=== PATIENT | male | born 1960 | race Caucasian/White ===

== ENCOUNTER 2018-05-03 10:13 | Inpatient (IN) | payer MEDICAID, SELFPAY ==
[2018-05-03] VITALS (15 sets, daily range): BP systolic 118–144; BP diastolic 70–100; PULSE 66–123; RESP 16–20; TEMP 36.5–37; O2SAT 95–98; BMI 33.3; BMI 33.7; BMI 33.8
--- NOTE | 2018-05-03 10:33 | EKG12_ITS ---
Test Reason : GEN ILLNESS Blood Pressure : / mmHG Vent. Rate : 092 BPM Atrial Rate : 092 BPM P-R Int : 150 ms QRS Dur : 088 ms QT Int : 390 ms P-R-T Axes : 061 063 048 degrees QTc Int : 482 ms Normal sinus rhythm Low voltage QRS Jer-septal infarct, age undetermined, cannot be excluded Nonspecific T wave abnormality Abnormal ECG Confirmed by AVANI CHRISTIANSEN, THOM ([id number]), commissioning editor ALVINA ISBELL ([id number] on 05/04/2018 2:10:59 PM Referred By: NANDA Confirmed By:THOM VARMA MD
--- NOTE | 2018-05-03 10:33 | RAD_ITS ---
STUDY: X-RAY CHEST REASON FOR EXAM: Male, 57 years old. Dyspnea. TECHNIQUE: Single AP portable view of the chest. COMPARISON: None. FINDINGS: EKG electrodes are seen. Basilar congestion and mild CHF. There is no demonstrated pleural abnormality. There is mild cardiac enlargement. Normal mediastinum and shelly. Normal visualized pulmonary arteries. Normal visualized aortic arch and descending thoracic aorta. Normal visualized thoracic spine. Normal visualized ribs, clavicles, and shoulders. There is no demonstrated abnormality of the visualized soft tissue structures of the upper abdomen. RAD/Chest 1 View (Portable) IMPRESSION: Cardiomegaly. Vascular congestion and mild CHF. Electronically Signed: Jerman Mcfadden MD at 11:06 EDT Tel [phone], Service support ,
[2018-05-03] MEDS: Nitroglycerin Oint 1 INCH PACKET TRANSDERM. (11:14)
[2018-05-03] MEDS: Furosemide 20 MG/2 ML VIAL IV (11:15)
[2018-05-03 11:18] LABS: Absolute Lymphocyte Count 0.75 X10^3/ul (0.83-4.51); Absolute Neutrophil Count 2.5 X10^3/uL (2.0-7.7); Basophil# 0.04 X10^3/uL; Eosinophils% 2.4 % (0-5); Hematocrit 37.9 % (40-54); Hemoglobin 12.2 g/dl (13.0-16.5); Lymphocyte # 0.75 X10^3/ul (4.0); Lymphocyte % 18.2 % (19-41); Mean Corp Hgb Conc 32.2 g/gl (32-36); Mean Corpuscular Hgb 29.2 pg (27.0-32.0); Mean Corpuscular Volume 90.7 fL (80-94); Mean Platelet Vol. 12.1 fl (6.2-12.0); Monocyte# 0.72 X10^3/uL; Monocyte% 17.5 % (0-10); Neutrophil # 2.51 X10^3/uL (2.7-7.7); Neutrophil % 60.9 % (47-70); Platelet Count 72 K/mm3 (150-450); RBC Distribution Width CV 17.2 % (11.6-14.6); RBC Distribution Width SD 56.5 fl (35.1-43.9); Red Blood Count 4.18 M/mm3 (4.6-6.2); White Blood Count 4.1 K/mm3 (4.4-11.0)
[2018-05-03 11:22] LABS: Differential Indicated SCAN CRITERIA MET; POSITIVE COUNT NO; POSITIVE DIFFERENTIAL NO; POSITIVE MORPHOLOGY YES
[2018-05-03 11:25] LABS: Anion Gap 7 (5-15); BUN 10 mg/dL (7-18); BUN/Creat Ratio 13.7 RATIO (10-20); Calcium,Total 8.4 mg/dL (8.5-10.1); Chloride 105 mmol/L (98-107); Creatinine, Serum 0.73 mg/dL (0.70-1.30); EST Glomerular Filtration Rate 117 mL/min (>60); Est Glom Filt Rate - Afr Amer 142 mL/min (>60); Estimated Creatinine Clearance 118.91 ml/min; Glucose 119 mg/dL (74-106); Potassium 4.2 mmol/L (3.5-5.1); Sodium Level 140 mmol/L (136-145)
[2018-05-03 11:47] LABS: BNP,B-Type NATRIURETIC PEPTIDE 489.8 pg/mL (0-100)
--- NOTE | 2018-05-03 12:21 | NURSING ---
DR MARGARET VEE
--- NOTE | 2018-05-03 12:22 | ED.DCSUM_ITS ---
- ER Visit Summary Date of Service: 05/03/18 Chief Complaint: Shortness of breath, orthopnea, swelling History of Present Illness: The patient is a 57 M history of diabetes for 2-3 years and pancreatitis per old records presents with increased swelling of his legs for the past several weeks with dyspnea on exertion. He states he is becoming more short of breath with less activity. He has recently complained of midsternal chest discomfort with activity that goes away with rest. He states he is unable to do much of anything because he becomes winded quite easily. He is not able to lie flat in bed. He has not awakened gasping for breath. He denies chest tightness or pressure without activity. Brother has history of viral cardiomyopathy and father had history of coronary disease at young age. Patient is a smoker and admits to consuming 6 beers a day. He denies recent viral infection. Physical Examination: Patient's vital signs are noted and remarkable for an elevated blood pressure of 130/100. He is not hypoxic. Head is atraumatic normocephalic. Pupils are equal round reactive. Extraocular muscles are intact. TMs are pearly white with landmarks noted. Nares patent with no drainage. Posterior pharynx without erythema or exudate. Uvula is midline. There is no dysphonia or dysphasia. Trachea is midline. There is no stridor with auscultation of the neck. Rales noted at the base. Heart is regular without murmur, gallop or rub. Abdomen is distended not tympanitic. Patient has anasarca. He has 3+ pitting edema lower extremity. Neuro exam is nonfocal. Test Results: EKG reveals a sinus rhythm rate of 92 with decreased anterior force and low voltage. Chest x-ray was portable and single view. Per my interpretation borderline cardiomegaly and CHF. White count 4.1 with platelet count 72,000. H&H 12.2 and 37.9. Glucose is slightly elevated at 119. Troponins indeterminate 0.143. BNP is elevated at 489. Emergency Department Course and Treatment: With history of swelling, weight gain , orthopnea and exertional chest pain cardiac etiology was undertaken. This may represent a viral cardia myopathy, ischemic cardiomyopathy or other cause. This may be related to alcohol as well. EKG, chest x-ray and appropriate blood work was obtained to evaluate patient's presentation. Treatment Plan: Since patient is clinically fluid overloaded he received 20 mg of Lasix IV push and was treated with 1 inch of nitro paste for preload reduction. Disposition: Full admit PCU Impression: 1. New onset congestive heart failure 2. Elevated troponin 3. Thrombocytopenia 4. Chronic alcohol use 5. Tobacco use 6. Exertional angina This note was generated with [employer] dictation software. It may contain incorrect words, spelling, and punctuation that were not noted in review of the chart prior to signing ED Disposition - Plan for ED Patient: Chief Complaint: General Illness Referrals: Adi Cisneros MD [Primary Care Provider] -
--- NOTE | 2018-05-03 12:27 | NURSING ---
NEW ONSET CHF, EXERTIONAL ANGINA, TYPE 2 DM EILEEN ROBLES
[2018-05-03] MEDS: Aspirin 81 MG TAB.CHEW 324 MG PO (12:30)
--- NOTE | 2018-05-03 12:45 | NURSING ---
CALLED [facility] IN ER. PAVON TO SEND PT.
--- NOTE | 2018-05-03 14:17 | PCM.HP.STD ---
<Arely Brower - Last Filed: 05/03/18 14:49> Problem List (1) Pancreatitis Status: Resolved (2) Alcohol abuse Status: Chronic (3) Type 2 diabetes mellitus Status: Chronic (4) CHF (congestive heart failure) Status: Acute (5) COPD (chronic obstructive pulmonary disease) Status: Chronic (6) Tobacco abuse Status: Chronic (7) BPH (benign prostatic hyperplasia) Status: Chronic History of Present Illness Date of Admission: 05/03/18 Chief Complaint: Dyspnea, chest pain. The patient is a 57 year old M who presents emergency room due to shortness of breath and chest pain. Patient states shortness of breath has been ongoing for months, worse with exertion. Patient states chest pain is more recent, occurring in the past few weeks and associated with exertion as well. Patient describes chest pain as pressure in the center of his chest, improved with rest. Denies radiation to neck or arms. He states he has had a stress test and cardiac catheterization which she believes were at least 10 years ago. No known CAD. Patient notes his baseline weight is 220 pounds. On admission his weight was 235. He notes increase in weight over the past few months. He also notes difficulty breathing while lying flat. Complains of lower extremity swelling. Patient drinks 6-7 beers per day. He is a half pack per day smoker. His other past medical history includes type 2 diabetes mellitus, COPD, BPH, tobacco dependence, chronic alcohol abuse. Patient has had hospital admission in the past due to alcoholic pancreatitis. Past Medical History Past Medical History (Chronic Problems): Chronic Problems Alcohol abuse (Chronic) Type 2 diabetes mellitus (Chronic) COPD (chronic obstructive pulmonary disease) (Chronic) Tobacco abuse (Chronic) BPH (benign prostatic hyperplasia) (Chronic) Hyperbilirubinemia (Chronic) Allergies No Known Allergies Allergy (Verified 05/03/18 10:14) Home Medications: Ambulatory Orders Medication Instructions Recorded Multivitamins,Ther W-Minerals 1 tablet PO DAILY 10/31/15 [Multivitamin With Minerals] Metformin(XR) [Glucophage Xr] 1,000 mg BID 05/03/18 Tamsulosin HCl [Flomax] 0.4 mg DAILY 05/03/18 Zolpidem Tartrate [Ambien] 10 mg PO QHS PRN PRN 05/03/18 Surgical History: - - foot surgery, heart cath, colonoscopy. Psychiatric History: No pertinent psych hx Lives: Alone Smoking Status: Current every day smoker Tobacco Use: Cigarettes - Half pack per day Alcohol: Heavy Drugs: None - *Family History Maternal History Items: Diabetes, Hypertension Paternal History Items: - - father of pericarditis at age 29 Review of Systems Constitutional: Reports: Weight Change - +15 pounds over the past few months. Denies: Chills, Fever HEENT: Denies: Head Aches, Sinus Congestion, Sinus Drainage Cardiovascular: Reports: Chest Pain, Chest Pressure, Edema - Lower extremity, Orthopnea. Denies: Light Headedness, Palpitations, Syncope Respiratory: Reports: Shortness of breath upon exertion, Wheezing. Denies: Cough, Shortness of breath at rest, Sputum production Gastrointestinal: Denies: Abdominal Pain, Nausea, Vomiting Genitourinary: Denies: Dysuria Musculoskeletal: Denies: Joint Pain, Joint Tenderness Skin: Denies: Rash, Wounds Neurological: Denies: Numbness, Tingling, Focal weakness Psychiatric: Denies: Anxiety, Depression, Homicidal Ideations, Suicidal Ideations Hematologic/ Lymphatic: Denies: Easy Bruising, Easy Bleeding VTE Information - Inpt Only VTE Present on Admission: No VTE Mechan Device Prophylaxis: None VTE Pharm Prophylaxis ordered?: Yes Patient Problems: Active and Suspected Problems CHF (congestive heart failure) (Acute) Wide-complex tachycardia (Acute) Chest pain (Acute) Elevated troponin (Acute) - Physical Exam General: Alert, Oriented x3, Cooperative, No apparent distress HEENT: Atraumatic, PERRLA, EOMI, Normocephalic Neck: Supple, No JVD, Negative Carotid Bruits Lungs: Diminished, Rales Cardiovascular: Regular rate, Regular Rhythm, Normal S1, Normal S2, No murmurs Abdomen: Bowel Sounds Present, Soft, Non Tender, Non-Distended, Obese Extremities: No clubbing, No cyanosis, Edema - +3 BLLE Skin: No rashes, No breakdown Musculoskeletal: No Tenderness to Palpation of Joints or Extremities Neurological: Cranial nerves II-XII grossly intact, Neuro grossly intact Psych/Mental Status: Normal Affect, Appropriate Vital Signs Temp Pulse Resp BP Pulse Ox 97.7 F L 99 16 144/98 H 97 05/03/18 13:05 05/03/18 13:05 05/03/18 13:05 05/03/18 13:05 05/03/18 13:05 Oxygen Delivery Method Room Air Weight: 235 lb 10.786 oz Body Mass Index (BMI) 33.7 Assessment/Plan All Active Problems CHF (congestive heart failure) (Acute) Wide-complex tachycardia (Acute) Chest pain (Acute) Elevated troponin (Acute) Pancreatitis (Resolved) 1. New onset suspected diastolic CHF-chest x-ray admission demonstrated borderline cardiomegaly and CHF. BNP 49. +15 pounds patient's baseline with pitting lower extremity edema. Strict I&O. Daily weight. IV lasix 40mg twice daily. Initiate low dose lisinopril. Obtain echocardiogram. Fred wrap bilateral extremities. 2. Elevated troponin with chest pain-trend enzymes. Initiated aspirin, statin. Cardiology consult. 3. Chronic alcohol abuse-states he drinks 6-7 beers per day. [facility] protocol. Thiamine, folic acid, multivitamin supplementation. Check alcohol blood level and urine drug screen. 4. Chronic liver disease-CT of abdomen October 2015 with enlarged liver with probable cirrhosis, evidence of portal hypertension including varices and splenomegaly. Patient has continued to drink heavily since that time. Check liver profile. 5. Chronic thrombocytopenia secondary to chronic alcohol use- stable. 6. Chronic COPD-albuterol and DuoNeb aerosols. No acute exacerbation. 7. Type 2 diabetes mellitus-hold metformin regimen. Accu-Cheks before meals at bedtime with sliding scale insulin. Check hemoglobin A1c. 8. BPH-continue Flomax regimen. 9. Tobacco dependence-encourage smoking cessation. Nicotine replacement patch if desired. DVT prophylaxis-SCDs. This patient was seen by MERLIN Bucio under the supervision of Dr. Carlson. <Cullen Carlson - Last Filed: 05/03/18 17:15> Problem List (1) Chest pain Status: Acute (2) Elevated troponin Status: Acute (3) Hyperbilirubinemia Status: Chronic (4) CHF (congestive heart failure) Status: Acute Qualifiers: Heart failure chronicity: acute on chronic History of Present Illness The patient is a 57 year old M presents with several month history of increasing shortness of breath, orthopnea and lower extremity swelling. Patient presented to the emergency room and held an elevated BNP of 490. Chest x-ray was unremarkable and patient was not hypoxic. Patient did have elevated troponins as he was also having intermittent chest pain. Troponins were 0.143 then 1 up to 0.153. Patient did receive Lasix in the emergence of her further heart failure management. [] Past Medical History Allergies No Known Allergies Allergy (Verified 05/03/18 10:14) Surgical History: - Psychiatric History: No pertinent psych hx Lives: Alone Smoking Status: Current every day smoker Tobacco Use: Cigarettes Alcohol: Heavy - 6 beers on most days Drugs: None - *Family History Maternal History Items: Diabetes, Hypertension Paternal History Items: - Review of Systems Constitutional: Reports: Weight Change. Denies: Chills, Fever HEENT: Denies: Head Aches, Sinus Congestion, Sinus Drainage Cardiovascular: Reports: Chest Pain, Chest Pressure, Edema, Orthopnea. Denies: Light Headedness, Palpitations, Syncope Respiratory: Reports: Shortness of breath upon exertion, Wheezing. Denies: Cough, Shortness of breath at rest, Sputum production Gastrointestinal: Denies: Abdominal Pain, Nausea, Vomiting Genitourinary: Denies: Dysuria Musculoskeletal: Denies: Joint Pain, Joint Tenderness Skin: Denies: Rash, Wounds Neurological: Denies: Focal weakness, Numbness, Tingling Psychiatric: Denies: Anxiety, Depression, Homicidal Ideations, Suicidal Ideations Hematologic/ Lymphatic: Denies: Easy Bruising, Easy Bleeding Comment: All review of systems are negative except as mentioned in the history of present illness and the other review of systems. VTE Information - Inpt Only VTE Present on Admission: No VTE Mechan Device Prophylaxis: None VTE Pharm Prophylaxis ordered?: Yes - Physical Exam General: Alert, Cooperative, No apparent distress HEENT: Atraumatic, Normocephalic Oral: Moist Mucosa, No Gingival or Mucosal Lesions/ Ulcerations Neck: No JVD, No Nodes, Thyroid Normal Size and Texture Lungs: Clear to auscultation, Diminished Cardiovascular: Regular rate, Regular Rhythm, Normal S1, Normal S2, No murmurs Abdomen: Bowel Sounds Present, Soft, Non Tender, Non-Distended, Obese Extremities: No clubbing, No cyanosis, Edema Skin: No rashes, No breakdown Musculoskeletal: No Tenderness to Palpation of Joints or Extremities Neurological: Neuro grossly intact, Coordination normal Psych/Mental Status: Normal Affect, Appropriate Vital Signs Temp Pulse Resp BP Pulse Ox 36.5 C L 123 H 16 128/71 H 97 05/03/18 16:30 05/03/18 16:38 05/03/18 16:30 05/03/18 16:30 05/03/18 16:30 Oxygen Delivery Method Room Air Weight: 106.9 kg Body Mass Index (BMI) 33.7 Laboratory Tests Past 24 Hrs 05/03/18 05/03/18 05/03/18 14:55 14:55 15:15 Total Bilirubin 2.60 H Direct Bilirubin 0.90 H AST 76 H ALT 39 Alkaline Phosphatase 100 Troponin I 0.153 H Total Protein 7.2 Albumin 3.1 L Globulin 4.1 TSH 2.99 Ethyl Alcohol < 3.0 POC Glucose 05/03/18 14:53 POC Glucose 104 Clinical Impression(s) from Imaging Studies Chest X-Ray 05/03/18 10:33 IMPRESSION: Cardiomegaly. Vascular congestion and mild CHF. Electronically Signed: Jerman Mcfadden MD at 11:06 EDT Tel [phone], Service support , Assessment/Plan Patient seen and examined independently. Data reviewed. I agree with the above note by the nurse practitioner. 1. Acute heart failure Unknown type Continue with Lasix Follow-up echocardiogram On carvedilol as well as lisinopril 2. Elevated troponins Unclear what type of event of this type I versus type II Cardiology on consultation On carvedilol, aspirin and atorvastatin 3. Elevated bilirubin Chronic but appears higher than in the past Monitor By secondary to alcohol abuse Patient had an MRCP on November 01, 2015 that did show hepatic cirrhosis. Additionally had findings consistent with portal hypertension We will check a ultrasound 4. Cirrhosis Appears compensated at this time Likely due to alcohol given the patient's heavy alcohol abuse Check ultrasound as above 5. Alcohol abuse Monitor As needed Ativan in case patient develops withdrawal or delirium tremens Thiamine and folate 6. DVT prophylaxis with Lovenox Code Visit Inpatient E&M: 74679 Init Hosp L3
--- NOTE | 2018-05-03 14:22 | HP.PCM_ITS ---
<Arely Brower - Last Filed: 05/03/18 14:49> Problem List (1) Pancreatitis Status: Resolved (2) Alcohol abuse Status: Chronic (3) Type 2 diabetes mellitus Status: Chronic (4) CHF (congestive heart failure) Status: Acute (5) COPD (chronic obstructive pulmonary disease) Status: Chronic (6) Tobacco abuse Status: Chronic (7) BPH (benign prostatic hyperplasia) Status: Chronic History of Present Illness Date of Admission: 05/03/18 Chief Complaint: Dyspnea, chest pain. The patient is a 57 year old M who presents emergency room due to shortness of breath and chest pain. Patient states shortness of breath has been ongoing for months, worse with exertion. Patient states chest pain is more recent, occurring in the past few weeks and associated with exertion as well. Patient describes chest pain as pressure in the center of his chest, improved with rest. Denies radiation to neck or arms. He states he has had a stress test and cardiac catheterization which she believes were at least 10 years ago. No known CAD. Patient notes his baseline weight is 220 pounds. On admission his weight was 235. He notes increase in weight over the past few months. He also notes difficulty breathing while lying flat. Complains of lower extremity swelling. Patient drinks 6-7 beers per day. He is a half pack per day smoker. His other past medical history includes type 2 diabetes mellitus, COPD, BPH, tobacco dependence, chronic alcohol abuse. Patient has had hospital admission in the past due to alcoholic pancreatitis. Past Medical History Past Medical History (Chronic Problems): Chronic Problems Alcohol abuse (Chronic) Type 2 diabetes mellitus (Chronic) COPD (chronic obstructive pulmonary disease) (Chronic) Tobacco abuse (Chronic) BPH (benign prostatic hyperplasia) (Chronic) Hyperbilirubinemia (Chronic) Allergies No Known Allergies Allergy (Verified 05/03/18 10:14) Home Medications: Ambulatory Orders Medication Instructions Recorded Multivitamins,Ther W-Minerals 1 tablet PO DAILY 10/31/15 [Multivitamin With Minerals] Metformin(XR) [Glucophage Xr] 1,000 mg BID 05/03/18 Tamsulosin HCl [Flomax] 0.4 mg DAILY 05/03/18 Zolpidem Tartrate [Ambien] 10 mg PO QHS PRN PRN 05/03/18 Surgical History: - - foot surgery, heart cath, colonoscopy. Psychiatric History: No pertinent psych hx Lives: Alone Smoking Status: Current every day smoker Tobacco Use: Cigarettes - Half pack per day Alcohol: Heavy Drugs: None - *Family History Maternal History Items: Diabetes, Hypertension Paternal History Items: - - father of pericarditis at age 29 Review of Systems Constitutional: Reports: Weight Change - +15 pounds over the past few months. Denies: Chills, Fever HEENT: Denies: Head Aches, Sinus Congestion, Sinus Drainage Cardiovascular: Reports: Chest Pain, Chest Pressure, Edema - Lower extremity, Orthopnea. Denies: Light Headedness, Palpitations, Syncope Respiratory: Reports: Shortness of breath upon exertion, Wheezing. Denies: Cough, Shortness of breath at rest, Sputum production Gastrointestinal: Denies: Abdominal Pain, Nausea, Vomiting Genitourinary: Denies: Dysuria Musculoskeletal: Denies: Joint Pain, Joint Tenderness Skin: Denies: Rash, Wounds Neurological: Denies: Numbness, Tingling, Focal weakness Psychiatric: Denies: Anxiety, Depression, Homicidal Ideations, Suicidal Ideations Hematologic/ Lymphatic: Denies: Easy Bruising, Easy Bleeding VTE Information - Inpt Only VTE Present on Admission: No VTE Mechan Device Prophylaxis: None VTE Pharm Prophylaxis ordered?: Yes Patient Problems: Active and Suspected Problems CHF (congestive heart failure) (Acute) Wide-complex tachycardia (Acute) Chest pain (Acute) Elevated troponin (Acute) - Physical Exam General: Alert, Oriented x3, Cooperative, No apparent distress HEENT: Atraumatic, PERRLA, EOMI, Normocephalic Neck: Supple, No JVD, Negative Carotid Bruits Lungs: Diminished, Rales Cardiovascular: Regular rate, Regular Rhythm, Normal S1, Normal S2, No murmurs Abdomen: Bowel Sounds Present, Soft, Non Tender, Non-Distended, Obese Extremities: No clubbing, No cyanosis, Edema - +3 BLLE Skin: No rashes, No breakdown Musculoskeletal: No Tenderness to Palpation of Joints or Extremities Neurological: Cranial nerves II-XII grossly intact, Neuro grossly intact Psych/Mental Status: Normal Affect, Appropriate Vital Signs Temp Pulse Resp BP Pulse Ox 97.7 F L 99 16 144/98 H 97 05/03/18 13:05 05/03/18 13:05 05/03/18 13:05 05/03/18 13:05 05/03/18 13:05 Oxygen Delivery Method Room Air Weight: 235 lb 10.786 oz Body Mass Index (BMI) 33.7 Assessment/Plan All Active Problems CHF (congestive heart failure) (Acute) Wide-complex tachycardia (Acute) Chest pain (Acute) Elevated troponin (Acute) Pancreatitis (Resolved) 1. New onset suspected diastolic CHF-chest x-ray admission demonstrated borderline cardiomegaly and CHF. BNP 49. +15 pounds patient's baseline with pitting lower extremity edema. Strict I&O. Daily weight. IV lasix 40mg twice daily. Initiate low dose lisinopril. Obtain echocardiogram. Fred wrap bilateral extremities. 2. Elevated troponin with chest pain-trend enzymes. Initiated aspirin, statin. Cardiology consult. 3. Chronic alcohol abuse-states he drinks 6-7 beers per day. [facility] protocol. Thiamine, folic acid, multivitamin supplementation. Check alcohol blood level and urine drug screen. 4. Chronic liver disease-CT of abdomen October 2015 with enlarged liver with probable cirrhosis, evidence of portal hypertension including varices and splenomegaly. Patient has continued to drink heavily since that time. Check liver profile. 5. Chronic thrombocytopenia secondary to chronic alcohol use- stable. 6. Chronic COPD-albuterol and DuoNeb aerosols. No acute exacerbation. 7. Type 2 diabetes mellitus-hold metformin regimen. Accu-Cheks before meals at bedtime with sliding scale insulin. Check hemoglobin A1c. 8. BPH-continue Flomax regimen. 9. Tobacco dependence-encourage smoking cessation. Nicotine replacement patch if desired. DVT prophylaxis-SCDs. This patient was seen by MERLIN Bucio under the supervision of Dr. Carlson. <Cullen Carlson - Last Filed: 05/03/18 17:15> Problem List (1) Chest pain Status: Acute (2) Elevated troponin Status: Acute (3) Hyperbilirubinemia Status: Chronic (4) CHF (congestive heart failure) Status: Acute Qualifiers: Heart failure chronicity: acute on chronic History of Present Illness The patient is a 57 year old M presents with several month history of increasing shortness of breath, orthopnea and lower extremity swelling. Patient presented to the emergency room and held an elevated BNP of 490. Chest x-ray was unremarkable and patient was not hypoxic. Patient did have elevated troponins as he was also having intermittent chest pain. Troponins were 0.143 then 1 up to 0.153. Patient did receive Lasix in the emergence of her further heart failure management. [] Past Medical History Allergies No Known Allergies Allergy (Verified 05/03/18 10:14) Surgical History: - Psychiatric History: No pertinent psych hx Lives: Alone Smoking Status: Current every day smoker Tobacco Use: Cigarettes Alcohol: Heavy - 6 beers on most days Drugs: None - *Family History Maternal History Items: Diabetes, Hypertension Paternal History Items: - Review of Systems Constitutional: Reports: Weight Change. Denies: Chills, Fever HEENT: Denies: Head Aches, Sinus Congestion, Sinus Drainage Cardiovascular: Reports: Chest Pain, Chest Pressure, Edema, Orthopnea. Denies: Light Headedness, Palpitations, Syncope Respiratory: Reports: Shortness of breath upon exertion, Wheezing. Denies: Cough, Shortness of breath at rest, Sputum production Gastrointestinal: Denies: Abdominal Pain, Nausea, Vomiting Genitourinary: Denies: Dysuria Musculoskeletal: Denies: Joint Pain, Joint Tenderness Skin: Denies: Rash, Wounds Neurological: Denies: Focal weakness, Numbness, Tingling Psychiatric: Denies: Anxiety, Depression, Homicidal Ideations, Suicidal Ideations Hematologic/ Lymphatic: Denies: Easy Bruising, Easy Bleeding Comment: All review of systems are negative except as mentioned in the history of present illness and the other review of systems. VTE Information - Inpt Only VTE Present on Admission: No VTE Mechan Device Prophylaxis: None VTE Pharm Prophylaxis ordered?: Yes - Physical Exam General: Alert, Cooperative, No apparent distress HEENT: Atraumatic, Normocephalic Oral: Moist Mucosa, No Gingival or Mucosal Lesions/ Ulcerations Neck: No JVD, No Nodes, Thyroid Normal Size and Texture Lungs: Clear to auscultation, Diminished Cardiovascular: Regular rate, Regular Rhythm, Normal S1, Normal S2, No murmurs Abdomen: Bowel Sounds Present, Soft, Non Tender, Non-Distended, Obese Extremities: No clubbing, No cyanosis, Edema Skin: No rashes, No breakdown Musculoskeletal: No Tenderness to Palpation of Joints or Extremities Neurological: Neuro grossly intact, Coordination normal Psych/Mental Status: Normal Affect, Appropriate Vital Signs Temp Pulse Resp BP Pulse Ox 36.5 C L 123 H 16 128/71 H 97 05/03/18 16:30 05/03/18 16:38 05/03/18 16:30 05/03/18 16:30 05/03/18 16:30 Oxygen Delivery Method Room Air Weight: 106.9 kg Body Mass Index (BMI) 33.7 Laboratory Tests Past 24 Hrs 05/03/18 05/03/18 05/03/18 14:55 14:55 15:15 Total Bilirubin 2.60 H Direct Bilirubin 0.90 H AST 76 H ALT 39 Alkaline Phosphatase 100 Troponin I 0.153 H Total Protein 7.2 Albumin 3.1 L Globulin 4.1 TSH 2.99 Ethyl Alcohol < 3.0 POC Glucose 05/03/18 14:53 POC Glucose 104 Clinical Impression(s) from Imaging Studies Chest X-Ray 05/03/18 10:33 IMPRESSION: Cardiomegaly. Vascular congestion and mild CHF. Electronically Signed: Jerman Mcfadden MD at 11:06 EDT Tel [phone], Service support , Assessment/Plan Patient seen and examined independently. Data reviewed. I agree with the above note by the nurse practitioner. 1. Acute heart failure * Unknown type * Continue with Lasix * Follow-up echocardiogram * On carvedilol as well as lisinopril 2. Elevated troponins * Unclear what type of event of this type I versus type II * Cardiology on consultation * On carvedilol, aspirin and atorvastatin 3. Elevated bilirubin * Chronic but appears higher than in the past * Monitor * By secondary to alcohol abuse * Patient had an MRCP on November 01, 2015 that did show hepatic cirrhosis. Additionally had findings consistent with portal hypertension * We will check a ultrasound 4. Cirrhosis * Appears compensated at this time * Likely due to alcohol given the patient's heavy alcohol abuse * Check ultrasound as above 5. Alcohol abuse * Monitor * As needed Ativan in case patient develops withdrawal or delirium tremens * Thiamine and folate 6. DVT prophylaxis with Lovenox Code Visit Inpatient E&M: 72383 Init Hosp L3
--- NOTE | 2018-05-03 14:33 | ECHOD_ITS ---
Reason For Study: CHF Procedure This was a 2D Doppler, Color Flow transthoracic echocardiogram. The exam was of adequate technical quality. Exam performed portable in patient room. Left Ventricle Severely dilated left ventricle. Severe global left ventricular systolic dysfunction. The estimated ejection fraction is 15 %. The global longitudinal strain = -5% (abnormal). There is evidence of diastolic dysfunction. Right Ventricle Normal RV size. Mild global right ventricular systolic dysfunction. Atria The left atrium is mildly enlarged. The right atrium is mildly enlarged. No doppler evidence for ASD. Mitral Valve There is no mitral annular calcification. Mild diffuse mitral valve thickening. The mitral valve chordae are thickened and/or calcified. Mild papillary muscle dysfunction of the mitral valve. Moderate (2+) mitral valve insufficiency. Tricuspid Valve Normal tricuspid valve. Mild tricuspid valve insufficiency. Right ventricular systolic pressure estimated to be 49 mmHg. Aortic Valve Trisinus/trileaflet aortic valve. Mild diffuse aortic valve thickening. Pulmonic Valve The pulmonic valve is not well visualized. Mild (1+) pulmonic valve insufficiency. Great Vessels Normal sized aortic root. Pericardium/Pleural No pericardial effusion. MMode/2D Measurements & Calculations LVIDd: 6.9 cm IVSd: 1.1 cm Ao root diam: 3.2 cm LVIDs: 6.6 cm LVPWd: 0.94 cm LA dimension: 4.4 cm RVDd: 3.8 cm FS: 5.0 % LAV(MOD-bp): 73.1 ml EDV(MOD-sp4): 240.5 ml EDV(MOD-sp2): 286.8 ml LAV(MOD-bp) Indexed: 32.6 ml/m2 ESV(MOD-sp4): 180.1 ml EF(MOD-sp2): 8.4 % LAV(MOD-sp2): 69.9 ml EF(MOD-sp4): 25.1 % LAV(MOD-sp4): 70.8 ml SV(MOD-sp4): 60.4 ml SV(MOD-sp2): 24.2 ml LA A4 area: 23.3 cm2 RA A4 area: 28.3 cm2 Doppler Measurements & Calculations MV E max bhargav: 85.4 cm/sec Lat Peak E' Bhargav: 6.8 cm/sec Med Peak E' Bhargav: 3.4 cm/sec MV A max bhargav: 47.3 cm/sec E/E' lat: 12.6 E/E' med: 25.4 MV E/A: 1.8 Ao V2 max: 101.6 cm/sec LV V1 max: 77.3 cm/sec PA V2 max: 73.1 cm/sec Ao max P.1 mmHg LV V1 max P.4 mmHg TR max bhargav: 338.4 cm/sec TR max P.8 mmHg Interpretation Summary Severely dilated left ventricle. Severe global left ventricular systolic dysfunction. The estimated ejection fraction is 15 %. The global longitudinal strain = -5% (abnormal). Mild global right ventricular systolic dysfunction. The left atrium is mildly enlarged. The right atrium is mildly enlarged. Mild diffuse mitral valve thickening. The mitral valve chordae are thickened and/or calcified. Mild papillary muscle dysfunction of the mitral valve. Moderate (2+) mitral valve insufficiency. Mild tricuspid valve insufficiency. Mild diffuse aortic valve thickening. Mild (1+) pulmonic valve insufficiency. Right ventricular systolic pressure estimated to be 49 mmHg. There is evidence of diastolic dysfunction. Ordering Physician: MERLIN Bucio Referring Physician: Adi Cisneros Performed By: Latricia Koch RDCS
[2018-05-03 14:55] LABS: Bedside Glucose 104 mg/dL (70-110)
--- NOTE | 2018-05-03 14:56 | NS ---
Pt has new glucometer he does not know how to use. Pt states meter is with him and would like someone to show him how to use it prior to discharge. Pt was not monitoring BG at home [employer] because he did not know how to operate meter.
[2018-05-03 15:55] LABS: Alcohol, Blood (Medical)-Serum < 3.0 mg/dL
[2018-05-03 16:32] LABS: AST(SGOT) 76 U/L (15-37); Alanine Aminotransfer ALT/SGPT 39 U/L (16-61); Albumin, Serum 3.1 g/dL (3.2-5.0); Alkaline Phosphatase 100 U/L (45-117); Globulin 4.1 g/dL (2.2-4.2); Protein, Total 7.2 g/dL (6.4-8.2); Thyroid Stim Hormone (TSH) 2.99 uIU/mL (0.358-3.74)
--- NOTE | 2018-05-03 16:44 | EKG12_ITS ---
Test Reason : RHYTHM Blood Pressure : / mmHG Vent. Rate : 096 BPM Atrial Rate : 096 BPM P-R Int : 136 ms QRS Dur : 100 ms QT Int : 400 ms P-R-T Axes : 060 056 029 degrees QTc Int : 505 ms Sinus rhythm with occasional Premature ventricular complexes Low voltage QRS Cannot rule out Anterior infarct , age undetermined Prolonged QT Abnormal ECG When compared with ECG of 01-NOV-2015 22:35, Minimal criteria for Anterior infarct are now Present Confirmed by JESSE CHRISTIANSEN, ALIA ([id number]), editor magazine ALVINA ISBELL ([id number]) on 05/05/2018 2:27:14 PM Referred By: DR ARNDT Confirmed By:ALIA MOLINA MD
--- NOTE | 2018-05-03 16:54 | PCM.CONS.C ---
Problem List (1) CHF (congestive heart failure) Status: Acute Qualifiers: Heart failure chronicity: acute on chronic (2) Wide-complex tachycardia Status: Acute (3) Type 2 diabetes mellitus Status: Chronic (4) COPD (chronic obstructive pulmonary disease) Status: Chronic (5) Alcohol abuse Status: Chronic Reason for Consult Date of Consultation: 05/03/18 History of Present Illness: The patient is a 57 year old white male who presents for concerns of worsening shortness of breath and dyspnea as well as symptoms compatible with orthopnea/PND and lower extremity peripheral pitting edema. He states for quite some time now he is been getting progressively short of breath and dyspneic with exertion as well as noting orthopnea and PND and having lower extremity peripheral pitting edema. He also notes that he has episodes where he feels like he transiently blacks out for a second or 2. He has not fallen or injured himself. He denies any ongoing chest discomfort at rest or with exertion other than the uncomfortable sensation in his chest that he gets when he is short of breath and dyspneic. He denies any obvious palpitations. He states that he underwent cardiovascular evaluation years ago at [facility] and/or the [facility] [place] which included an echocardiogram, stress test, and a diagnostic cardiac catheterization. He was told he had no blockages . Based upon his ongoing symptoms he presented to the hospital for further evaluation. He was subsequently placed in the PCU. His laboratory studies have demonstrated an elevated BNP level. His ECG demonstrated findings compatible with normal sinus rhythm with low voltage QRS in the limb leads and poor R-wave progression potentially compatible with an anteroseptal AR pattern of indeterminate age as well as nonspecific T-wave abnormality. A chest x-ray was performed and reported as demonstrating findings compatible with CHF. He has initiated medical management with diuretics. As he has been monitored he had a cardiac rhythm strip demonstrating an episode of a somewhat irregular nonsustained wide complex tachycardia. He appeared to be asymptomatic. A repeat ECG demonstrated no new acute changes. [] Past Medical History Allergies/Adverse Reactions: Allergies No Known Allergies Allergy (Verified 05/03/18 10:14) Home Medications: Ambulatory Orders Medication Instructions Recorded Multivitamins,Ther W-Minerals 1 tablet PO DAILY 10/31/15 [Multivitamin With Minerals] Metformin(XR) [Glucophage Xr] 1,000 mg BID 05/03/18 Tamsulosin HCl [Flomax] 0.4 mg DAILY 05/03/18 Zolpidem Tartrate [Ambien] 10 mg PO QHS PRN PRN 05/03/18 Past Medical History (Chronic Problems): Chronic Problems Alcohol abuse (Chronic) Type 2 diabetes mellitus (Chronic) COPD (chronic obstructive pulmonary disease) (Chronic) Tobacco abuse (Chronic) BPH (benign prostatic hyperplasia) (Chronic) Surgical History: - - foot surgery, heart cath, colonoscopy. Psychiatric History: No pertinent psych hx - *Family History Maternal History Items: Diabetes, Hypertension Paternal History Items: - - father of pericarditis at age 29 Lives: Alone Smoking Status: Current every day smoker Tobacco Use: Cigarettes Alcohol: Heavy Drugs: None Review of Systems - Review of Systems General: Denies: Fever, Night Sweats, Fatigue Cardiovascular: Reports: Shortness of Breath, Shortness of Breath with Exertion, Orthopnea, PND, Peripheral Edema, Near Syncope, Syncope. Denies: Chest Discomfort, Palpitations, Lightheadedness, Dizziness Respiratory: Reports: Shortness of Breath. Denies: Cough, Sputum Production, Hemoptysis Gastrointestinal: Denies: Hematemesis, Hematochezia, Melena Genitourinary: Denies: Dysuria, Hematuria Subjectve: This is a 57-year-old white male who is in the semi-recumbent position at this time who appears to be resting reasonably comfortably and in no acute distress. Objective: Vital Signs Temp Pulse Resp BP Pulse Ox 97.7 F L 123 H 16 128/71 H 97 05/03/18 16:30 05/03/18 16:38 05/03/18 16:30 05/03/18 16:30 05/03/18 16:30 Oxygen Delivery Method Room Air Weight: 235 lb 10.786 oz Body Mass Index (BMI) 33.7 General: Awake, Alert, Oriented x 3, Cooperative, No Acute Distress HEENT: Atraumatic, Normocephalic, PERRL, EOMI, Sclera Non Icteric Oral: Moist Mucosa Neck: Supple, Good ROM, No JVD Lungs: Rales - Hussein Bases Cardiovascular: Regular Rhythm, Normal S1, Normal S2 Vascular: No Carotid Bruits Abdomen: Bowel Sounds Present, Soft, Non Tender Extremities: Moderate RLE Edema, Moderate LLE Edema Neurological: No Focal Motor or Sensory Deficit Psych/Mental Status: Appropriate, Normal Affect 05/03/18 14:55: Total Bilirubin 2.60 H, Direct Bilirubin 0.90 H 05/03/18 14:55: Troponin I 0.153 H Rhythm: Sinus rhythm; irregular nonsustained wide complex tachydysrhythmia EKG: As noted above ECHO: Pending CXR: As noted above: Please see official report Assessment/Plan 1. Acute CHF-unspecified The patient presents with symptoms compatible with acute congestive heart failure. It is unclear at this time whether it is related to underlying systolic or diastolic dysfunction. He is being monitored. He is being treated with medical management. This is including nitrates, beta-blockers, diuretics, and afterload reducing agents. He is pending further evaluation with a transthoracic echocardiogram. However, based upon his ongoing clinical process, his marked limitation with physical activity, etc. it may not be unreasonable, to consider further evaluation of his cardiovascular status with a diagnostic cardiac catheterization when he is able to be supine comfortably. 2. Nonsustained wide complex tachycardia The patient had an episode of nonsustained wide complex tachycardia. The differential diagnosis includes aberrancy versus nonsustained VT. At the present time he appears without acute symptoms or hemodynamic compromise. He will continue medical management. This will include the aforementioned medications including beta blockers. He will continue noninvasive evaluation with respect to an echocardiogram with respect to his left ventricular wall motion and systolic function. Again he should be considered for further evaluation with diagnostic cardiac catheterization when he is able to lie supine and breathe comfortably. 3. Diabetes mellitus He will continue medical management per internal medicine. 4. COPD He will continue evaluation care per internal medicine. 5. Alcohol abuse He is being evaluated and monitored for any obvious alcohol withdrawal symptoms, etc., per internal medicine. This note was generated with [employer] software. It may contain incorrect words, spelling, and punctuation that were not noted in checking the note before signing.
--- NOTE | 2018-05-03 16:59 | CON.PCM_ITS ---
Problem List (1) CHF (congestive heart failure) Status: Acute Qualifiers: Heart failure chronicity: acute on chronic (2) Wide-complex tachycardia Status: Acute (3) Type 2 diabetes mellitus Status: Chronic (4) COPD (chronic obstructive pulmonary disease) Status: Chronic (5) Alcohol abuse Status: Chronic Reason for Consult Date of Consultation: 05/03/18 History of Present Illness: The patient is a 57 year old white male who presents for concerns of worsening shortness of breath and dyspnea as well as symptoms compatible with orthopnea/ PND and lower extremity peripheral pitting edema. He states for quite some time now he is been getting progressively short of breath and dyspneic with exertion as well as noting orthopnea and PND and having lower extremity peripheral pitting edema. He also notes that he has episodes where he feels like he transiently blacks out for a second or 2. He has not fallen or injured himself. He denies any ongoing chest discomfort at rest or with exertion other than the uncomfortable sensation in his chest that he gets when he is short of breath and dyspneic. He denies any obvious palpitations. He states that he underwent cardiovascular evaluation years ago at [facility] and/or the [facility] which included an echocardiogram, stress test, and a diagnostic cardiac catheterization. He was told he had no blockages . Based upon his ongoing symptoms he presented to the hospital for further evaluation. He was subsequently placed in the PCU. His laboratory studies have demonstrated an elevated BNP level. His ECG demonstrated findings compatible with normal sinus rhythm with low voltage QRS in the limb leads and poor R-wave progression potentially compatible with an anteroseptal WA pattern of indeterminate age as well as nonspecific T-wave abnormality. A chest x-ray was performed and reported as demonstrating findings compatible with CHF. He has initiated medical management with diuretics. As he has been monitored he had a cardiac rhythm strip demonstrating an episode of a somewhat irregular nonsustained wide complex tachycardia. He appeared to be asymptomatic. A repeat ECG demonstrated no new acute changes. [] Past Medical History Allergies/Adverse Reactions: Allergies No Known Allergies Allergy (Verified 05/03/18 10:14) Home Medications: Ambulatory Orders Medication Instructions Recorded Multivitamins,Ther W-Minerals 1 tablet PO DAILY 10/31/15 [Multivitamin With Minerals] Metformin(XR) [Glucophage Xr] 1,000 mg BID 05/03/18 Tamsulosin HCl [Flomax] 0.4 mg DAILY 05/03/18 Zolpidem Tartrate [Ambien] 10 mg PO QHS PRN PRN 05/03/18 Past Medical History (Chronic Problems): Chronic Problems Alcohol abuse (Chronic) Type 2 diabetes mellitus (Chronic) COPD (chronic obstructive pulmonary disease) (Chronic) Tobacco abuse (Chronic) BPH (benign prostatic hyperplasia) (Chronic) Surgical History: - - foot surgery, heart cath, colonoscopy. Psychiatric History: No pertinent psych hx - *Family History Maternal History Items: Diabetes, Hypertension Paternal History Items: - - father of pericarditis at age 29 Lives: Alone Smoking Status: Current every day smoker Tobacco Use: Cigarettes Alcohol: Heavy Drugs: None Review of Systems - Review of Systems General: Denies: Fever, Night Sweats, Fatigue Cardiovascular: Reports: Shortness of Breath, Shortness of Breath with Exertion , Orthopnea, PND, Peripheral Edema, Near Syncope, Syncope. Denies: Chest Discomfort, Palpitations, Lightheadedness, Dizziness Respiratory: Reports: Shortness of Breath. Denies: Cough, Sputum Production, Hemoptysis Gastrointestinal: Denies: Hematemesis, Hematochezia, Melena Genitourinary: Denies: Dysuria, Hematuria Subjectve: This is a 57-year-old white male who is in the semi-recumbent position at this time who appears to be resting reasonably comfortably and in no acute distress. Objective: Vital Signs Temp Pulse Resp BP Pulse Ox 97.7 F L 123 H 16 128/71 H 97 05/03/18 16:30 05/03/18 16:38 05/03/18 16:30 05/03/18 16:30 05/03/18 16:30 Oxygen Delivery Method Room Air Weight: 235 lb 10.786 oz Body Mass Index (BMI) 33.7 General: Awake, Alert, Oriented x 3, Cooperative, No Acute Distress HEENT: Atraumatic, Normocephalic, PERRL, EOMI, Sclera Non Icteric Oral: Moist Mucosa Neck: Supple, Good ROM, No JVD Lungs: Rales - Hussein Bases Cardiovascular: Regular Rhythm, Normal S1, Normal S2 Vascular: No Carotid Bruits Abdomen: Bowel Sounds Present, Soft, Non Tender Extremities: Moderate RLE Edema, Moderate LLE Edema Neurological: No Focal Motor or Sensory Deficit Psych/Mental Status: Appropriate, Normal Affect 05/03/18 14:55: Total Bilirubin 2.60 H, Direct Bilirubin 0.90 H 05/03/18 14:55: Troponin I 0.153 H Rhythm: Sinus rhythm; irregular nonsustained wide complex tachydysrhythmia EKG: As noted above ECHO: Pending CXR: As noted above: Please see official report Assessment/Plan 1. Acute CHF-unspecified The patient presents with symptoms compatible with acute congestive heart failure. It is unclear at this time whether it is related to underlying systolic or diastolic dysfunction. He is being monitored. He is being treated with medical management. This is including nitrates, beta-blockers, diuretics, and afterload reducing agents. He is pending further evaluation with a transthoracic echocardiogram. However, based upon his ongoing clinical process, his marked limitation with physical activity, etc. it may not be unreasonable, to consider further evaluation of his cardiovascular status with a diagnostic cardiac catheterization when he is able to be supine comfortably. 2. Nonsustained wide complex tachycardia The patient had an episode of nonsustained wide complex tachycardia. The differential diagnosis includes aberrancy versus nonsustained VT. At the present time he appears without acute symptoms or hemodynamic compromise. He will continue medical management. This will include the aforementioned medications including beta blockers. He will continue noninvasive evaluation with respect to an echocardiogram with respect to his left ventricular wall motion and systolic function. Again he should be considered for further evaluation with diagnostic cardiac catheterization when he is able to lie supine and breathe comfortably. 3. Diabetes mellitus He will continue medical management per internal medicine. 4. COPD He will continue evaluation care per internal medicine. 5. Alcohol abuse He is being evaluated and monitored for any obvious alcohol withdrawal symptoms , etc., per internal medicine. This note was generated with [employer] software. It may contain incorrect words, spelling, and punctuation that were not noted in checking the note before signing.
[2018-05-03] MEDS: Furosemide 40 MG/4 ML Vial IV (17:51)
[2018-05-03] MEDS: Thiamine Hydrochloride 100 MG Tablet PO (17:51)
[2018-05-03] MEDS: Folic Acid 1 MG Tablet PO (17:51)
[2018-05-03] MEDS: 0.9% NaCl Peripheral Flush Adult/Peds IV (17:53)
[2018-05-03] MEDS: LORazepam 1 MG Tablet 2 MG PO ×2 (18:00→22:31)
[2018-05-03 18:40] LABS: International Normalized Ratio 1.3; Prothrombin Time (Protime)PT. 16.3 SECONDS (11.7-14.9)
[2018-05-03 18:52] LABS: Hemoglobin A1c 5.8 % (4.2-6.3)
[2018-05-03] MEDS: Atorvastatin Calcium 40 MG Tablet PO (22:22)
[2018-05-03] MEDS: Nitroglycerin Oint 1 INCH PACKET 0.5 INCH TRANSDERM. (22:23)
[2018-05-03] MEDS: Carvedilol 6.25 MG Tablet PO (22:23)
[2018-05-03] MEDS: Famotidine 20 MG Tablet PO (22:26)
[2018-05-03] MEDS: Zolpidem Tartrate 5 MG Tablet PO (22:30)
[2018-05-03 22:59] LABS: Amphetamine Urine VISTA NEGATIVE (<1000 ng/mL); Barbiturate Urine VISTA NEGATIVE (< 200 ng/mL); Benzodiazepine Urine VISTA NEGATIVE (< 200 ng/mL); Cocaine Urine VISTA NEGATIVE (< 300 ng/mL); Ecstacy Urine VISTA NEGATIVE (< 500 ng/mL); Methadone Urine VISTA NEGATIVE (< 300 ng/mL); PCP Urine VISTA NEGATIVE (< 25 ng/mL); THC Urine VISTA NEGATIVE (< 50 ng/mL); Vista UDS pH Range 6
[2018-05-03 23:01] LABS: Bedside Glucose 108 mg/dL (70-110)
[2018-05-04] VITALS (29 sets, daily range): BP systolic 100–117; BP diastolic 62–83; PULSE 72–110; RESP 14–25; TEMP 36.4–37.1; O2SAT 94–100
--- NOTE | 2018-05-04 05:55 | EKG12_ITS ---
Test Reason : AM EKG Blood Pressure : / mmHG Vent. Rate : 073 BPM Atrial Rate : 073 BPM P-R Int : 140 ms QRS Dur : 104 ms QT Int : 458 ms P-R-T Axes : 060 075 044 degrees QTc Int : 504 ms Normal sinus rhythm Low voltage QRS Cannot rule out Anterior infarct , age undetermined Prolonged QT Abnormal ECG When compared with ECG of 03-MAY-2018 16:56, MANUAL COMPARISON REQUIRED, DATA IS UNCONFIRMED Confirmed by JESSE CHRISTIANSEN, ALIA ([id number]), purchase request editor ALVINA ISBELL ([id number]) on 05/05/2018 2:22:18 PM Referred By: MARGARET Confirmed By:ALIA MOLINA MD
[2018-05-04] MEDS: Aspirin E.C. 81 MG Tablet PO (06:29)
[2018-05-04] MEDS: Lisinopril 5 MG Tablet PO (06:30)
[2018-05-04] MEDS: Carvedilol 6.25 MG Tablet PO ×2 (06:30→22:05)
[2018-05-04] MEDS: Nitroglycerin Oint 1 INCH PACKET 0.5 INCH TRANSDERM. ×3 (06:30→22:06)
[2018-05-04] MEDS: LORazepam 1 MG Tablet 2 MG PO ×5 (06:35→22:18)
[2018-05-04] MEDS: Ipratropium/Albuterol Sulfate 3 ML AMPUL.NEB INHALATION ×3 (06:51→19:34)
[2018-05-04 06:55] LABS: Hematocrit 33.5 % (40-54); Hemoglobin 11.2 g/dl (13.0-16.5); International Normalized Ratio 1.5; Mean Corp Hgb Conc 33.4 g/gl (32-36); Mean Corpuscular Hgb 30.1 pg (27.0-32.0); Mean Corpuscular Volume 90.1 fL (80-94); Mean Platelet Vol. 13.3 fl (6.2-12.0); Partial Thromboplast Time 35.1 Seconds (24.1-36.2); Platelet Count 75 K/mm3 (150-450); Prothrombin Time (Protime)PT. 17.9 SECONDS (11.7-14.9); RBC Distribution Width CV 17.2 % (11.6-14.6); RBC Distribution Width SD 54.6 fl (35.1-43.9); Red Blood Count 3.72 M/mm3 (4.6-6.2); White Blood Count 4.4 K/mm3 (4.4-11.0)
[2018-05-04 07:06] LABS: Bedside Glucose 119 mg/dL (70-110)
[2018-05-04 07:10] LABS: Scan Indicated on CBC? Y/N NO
[2018-05-04 07:18] LABS: ALB/GLOB Ratio 0.8 RATIO (0.9-2.4); AST(SGOT) 62 U/L (15-37); Alanine Aminotransfer ALT/SGPT 34 U/L (16-61); Albumin, Serum 2.9 g/dL (3.2-5.0); Alkaline Phosphatase 87 U/L (45-117); Anion Gap 9 (5-15); BUN 13 mg/dL (7-18); BUN/Creat Ratio 17.5 RATIO (10-20); Calcium,Total 8.5 mg/dL (8.5-10.1); Chloride 105 mmol/L (98-107); Cholesterol 141 mg/dL (200); Creatinine, Serum 0.74 mg/dL (0.70-1.30); EST Glomerular Filtration Rate 115 mL/min (>60); Est Glom Filt Rate - Afr Amer 139 mL/min (>60); Estimated Creatinine Clearance 113.72 ml/min; Globulin 3.5 g/dL (2.2-4.2); Glucose 106 mg/dL (74-106); High Density Lipoprotein 27 mg/dL; Potassium 3.9 mmol/L (3.5-5.1); Protein, Total 6.4 g/dL (6.4-8.2); Sodium Level 142 mmol/L (136-145); Triglycerides 79 mg/dL; Very Low Density Lipoprotein 16 mg/dL (5-40)
--- NOTE | 2018-05-04 09:30 | PN.CARD_ITS ---
Subjectve: The patient appears to be awake and alert. He denies any ongoing chest discomfort. He remained short of breath and dyspneic. He states he does not feel comfortable lying supine yet. He also notes he gets very short of breath and dyspneic when he is up and ambulating to the restroom. Objective: Vital Signs Temp Pulse Resp BP Pulse Ox 97.6 F L 75 16 111/76 96 05/04/18 08:00 05/04/18 08:24 05/04/18 08:00 05/04/18 08:00 05/04/18 08:24 Oxygen Flow Rate (L/min) 2 Oxygen Delivery Method Nasal Cannula Weight: 233 lb 14.567 oz Body Mass Index (BMI) 33.7 Intake and Output for Last 24 Hours 05/02/18 05/03/18 05/04/18 23:59 23:59 23:59 Intake Total 260 / 260 Output Total 1100 / 1100 100 / 100 Balance -840 / -840 -100 / -100 General: Awake, Alert, Oriented x 3, Cooperative, No Acute Distress HEENT: Atraumatic, Normocephalic, PERRL, EOMI Oral: Moist Mucosa Neck: Supple, Good ROM, No JVD Lungs: Rales - Hussein Bases Cardiovascular: Regular Rhythm, Normal S1, Normal S2 Abdomen: Bowel Sounds Present, Soft, Non Tender Extremities: Mild RLE Edema, Mild LLE Edema Neurological: No Focal Motor or Sensory Deficit 05/03/18 14:55: Total Bilirubin 2.60 H, Direct Bilirubin 0.90 H 05/03/18 14:55: Troponin I 0.153 H 05/03/18 18:10: Troponin I 0.147 H 05/03/18 18:10: Hemoglobin A1c 5.8 05/03/18 18:10: PT 16.3 H, INR 1.3 05/04/18 05:25: WBC 4.4, RBC 3.72 L, Hgb 11.2 L, Hct 33.5 L, MCV 90.1, MCH 30.1 , MCHC 33.4, RDW 17.2 H, RDW Differential 54.6 H, Plt Count 75 L, MPV 13.3 H 05/04/18 05:25: Sodium 142, Potassium 3.9, Chloride 105, Carbon Dioxide 28.0, Anion Gap 9, BUN 13, Creatinine 0.74, Est GFR (MDRD) Af Amer 139, Est GFR (MDRD ) Non-Af 115, BUN/Creatinine Ratio 17.5, Glucose 106, Calcium 8.5, Total Bilirubin 2.80 H, Triglycerides 79, Cholesterol 141, LDL Cholesterol 98, VLDL Cholesterol 16, HDL Cholesterol 27 L 05/04/18 05:25: PT 17.9 H, INR 1.5, APTT 35.1 Rhythm: Sinus rhythm ECHO: Pending Medical Necessity - Tobacco Use Smoking Status: Current every day smoker Tobacco Use: Cigarettes Assessment/Plan 1. Acute CHF-unspecified The patient presents with symptoms compatible with acute congestive heart failure. It is unclear at this time whether it is related to underlying systolic or diastolic dysfunction. He is being monitored. He is being treated with medical management. This is including nitrates, beta-blockers, diuretics, and afterload reducing agents. His diuretic dose will be adjusted to increase his diuresis with the hopes of improving his underlying pulmonary status and his lower extremity edema. He is pending further evaluation with a transthoracic echocardiogram. However, based upon his ongoing clinical process, his marked limitation with physical activity, etc. it may not be unreasonable, to consider further evaluation of his cardiovascular status with a diagnostic cardiac catheterization when he is able to be supine comfortably. 2. Nonsustained wide complex tachycardia The patient had an episode of nonsustained wide complex tachycardia. The differential diagnosis includes aberrancy versus nonsustained VT. At the present time he appears without acute symptoms or hemodynamic compromise. He will continue medical management. This will include the aforementioned medications including beta blockers. He will continue noninvasive evaluation with respect to an echocardiogram with respect to his left ventricular wall motion and systolic function. Again he should be considered for further evaluation with diagnostic cardiac catheterization when he is able to lie supine and breathe comfortably. 3. Diabetes mellitus He will continue medical management per internal medicine. 4. COPD He will continue evaluation care per internal medicine. 5. Alcohol abuse He is being evaluated and monitored for any obvious alcohol withdrawal symptoms , etc., per internal medicine. 6. Abnormal bilirubin levels The patient does have abnormal bilirubin levels. They have increased. He is pending a right upper quadrant ultrasound. This note was generated with [employer] software. It may contain incorrect words, spelling, and punctuation that were not noted in checking the note before signing.
[2018-05-04] MEDS: Multivitamins,Ther W-Minerals Tablet 1 TABLET PO (10:32)
[2018-05-04] MEDS: Furosemide 100 MG/10 ML Vial 80 MG IV ×2 (10:32→17:43)
[2018-05-04] MEDS: Famotidine 20 MG Tablet PO ×2 (10:32→22:07)
[2018-05-04] MEDS: Folic Acid 1 MG Tablet PO (10:32)
[2018-05-04] MEDS: Tamsulosin HCl 0.4 MG Capsule PO (10:32)
[2018-05-04] MEDS: Thiamine Hydrochloride 100 MG Tablet PO ×2 (10:32→16:26)
[2018-05-04] MEDS: 0.9% NaCl Peripheral Flush Adult/Peds IV ×5 (10:33→21:59)
[2018-05-04 11:51] LABS: Bedside Glucose 124 mg/dL (70-110)
--- NOTE | 2018-05-04 12:03 | PCM.PROGNOTE ---
<Aerly Brower - Last Filed: 05/04/18 12:15> Patient Problems: Active and Suspected Problems CHF (congestive heart failure) (Acute) Wide-complex tachycardia (Acute) Chest pain (Acute) Elevated troponin (Acute) Subjective: Patient seen exam. Notes improvement in shortness of breath. States he slept on his side overnight without difficulty. Denies further chest pain. No other complaints. - Physical Exam General: Alert, Oriented x3, Cooperative, No apparent distress HEENT: Atraumatic, PERRLA, EOMI, Normocephalic Neck: Supple, No JVD, Negative Carotid Bruits Lungs: Clear to auscultation, Diminished Cardiovascular: Regular rate, Regular Rhythm, Normal S1, Normal S2, No murmurs Abdomen: Bowel Sounds Present, Soft, Non Tender, Non-Distended, Obese Extremities: No clubbing, No cyanosis, Edema - +2-3 bilateral lower extremities Skin: No rashes, No breakdown Musculoskeletal: No Tenderness to Palpation of Joints or Extremities Neurological: Cranial nerves II-XII grossly intact, Neuro grossly intact Psych/Mental Status: Normal Affect, Appropriate Vital Signs Temp Pulse Resp BP Pulse Ox 97.6 F L 81 20 H 116/73 95 05/04/18 08:00 05/04/18 11:17 05/04/18 10:51 05/04/18 10:30 05/04/18 10:51 Oxygen Flow Rate (L/min) 2 Oxygen Delivery Method Room Air Weight: 233 lb 14.567 oz Body Mass Index (BMI) 33.7 Intake and Output for Last 24 Hours 05/02/18 05/03/18 05/04/18 23:59 23:59 23:59 Intake Total 260 / 260 Output Total 1100 / 1100 100 / 100 Balance -840 / -840 -100 / -100 Laboratory Tests Past 24 Hrs 05/03/18 05/03/18 05/03/18 14:55 14:55 15:15 WBC RBC Hgb Hct MCV MCH MCHC RDW RDW Differential Plt Count MPV PT INR APTT Sodium Potassium Chloride Carbon Dioxide Anion Gap BUN Creatinine Estim Creat Clear Calc Est GFR (MDRD) Af Amer Est GFR (MDRD) Non-Af BUN/Creatinine Ratio Glucose Hemoglobin A1c Calcium Total Bilirubin 2.60 H Direct Bilirubin 0.90 H AST 76 H ALT 39 Alkaline Phosphatase 100 Troponin I 0.153 H Total Protein 7.2 Albumin 3.1 L Globulin 4.1 Albumin/Globulin Ratio Triglycerides Cholesterol LDL Cholesterol VLDL Cholesterol HDL Cholesterol TSH 2.99 Urine Opiates Screen Urine Methadone Screen Ur Barbiturates Screen Ur Phencyclidine Scrn Ur Amphetamines Screen U Methamphetamin-MDMA U Benzodiazepines Scrn Urine Cocaine Screen U Cannabinoids Screen Ur Drug Screen Comment Ethyl Alcohol < 3.0 05/03/18 05/03/18 05/03/18 18:10 18:10 18:10 WBC RBC Hgb Hct MCV MCH MCHC RDW RDW Differential Plt Count MPV PT 16.3 H INR 1.3 APTT Sodium Potassium Chloride Carbon Dioxide Anion Gap BUN Creatinine Estim Creat Clear Calc Est GFR (MDRD) Af Amer Est GFR (MDRD) Non-Af BUN/Creatinine Ratio Glucose Hemoglobin A1c 5.8 Calcium Total Bilirubin Direct Bilirubin AST ALT Alkaline Phosphatase Troponin I 0.147 H Total Protein Albumin Globulin Albumin/Globulin Ratio Triglycerides Cholesterol LDL Cholesterol VLDL Cholesterol HDL Cholesterol TSH Urine Opiates Screen Urine Methadone Screen Ur Barbiturates Screen Ur Phencyclidine Scrn Ur Amphetamines Screen U Methamphetamin-MDMA U Benzodiazepines Scrn Urine Cocaine Screen U Cannabinoids Screen Ur Drug Screen Comment Ethyl Alcohol 05/03/18 05/04/18 05/04/18 22:35 05:25 05:25 WBC 4.4 RBC 3.72 L Hgb 11.2 L Hct 33.5 L MCV 90.1 MCH 30.1 MCHC 33.4 RDW 17.2 H RDW Differential 54.6 H Plt Count 75 L MPV 13.3 H PT INR APTT Sodium 142 Potassium 3.9 Chloride 105 Carbon Dioxide 28.0 Anion Gap 9 BUN 13 Creatinine 0.74 Estim Creat Clear Calc 113.72 Est GFR (MDRD) Af Amer 139 Est GFR (MDRD) Non-Af 115 BUN/Creatinine Ratio 17.5 Glucose 106 Hemoglobin A1c Calcium 8.5 Total Bilirubin 2.80 H Direct Bilirubin AST 62 H ALT 34 Alkaline Phosphatase 87 Troponin I Total Protein 6.4 Albumin 2.9 L Globulin 3.5 Albumin/Globulin Ratio 0.8 L Triglycerides 79 Cholesterol 141 LDL Cholesterol 98 VLDL Cholesterol 16 HDL Cholesterol 27 L TSH Urine Opiates Screen NEGATIVE Urine Methadone Screen NEGATIVE Ur Barbiturates Screen NEGATIVE Ur Phencyclidine Scrn NEGATIVE Ur Amphetamines Screen NEGATIVE U Methamphetamin-MDMA NEGATIVE U Benzodiazepines Scrn NEGATIVE Urine Cocaine Screen NEGATIVE U Cannabinoids Screen NEGATIVE Ur Drug Screen Comment Ethyl Alcohol 05/04/18 05:25 WBC RBC Hgb Hct MCV MCH MCHC RDW RDW Differential Plt Count MPV PT 17.9 H INR 1.5 APTT 35.1 Sodium Potassium Chloride Carbon Dioxide Anion Gap BUN Creatinine Estim Creat Clear Calc Est GFR (MDRD) Af Amer Est GFR (MDRD) Non-Af BUN/Creatinine Ratio Glucose Hemoglobin A1c Calcium Total Bilirubin Direct Bilirubin AST ALT Alkaline Phosphatase Troponin I Total Protein Albumin Globulin Albumin/Globulin Ratio Triglycerides Cholesterol LDL Cholesterol VLDL Cholesterol HDL Cholesterol TSH Urine Opiates Screen Urine Methadone Screen Ur Barbiturates Screen Ur Phencyclidine Scrn Ur Amphetamines Screen U Methamphetamin-MDMA U Benzodiazepines Scrn Urine Cocaine Screen U Cannabinoids Screen Ur Drug Screen Comment Ethyl Alcohol POC Glucose 05/04/18 05/04/18 05/03/18 11:45 06:57 22:20 POC Glucose 124 H 119 H 108 05/03/18 14:53 POC Glucose 104 Medical Necessity - Tobacco Use Smoking Status: Current every day smoker Tobacco Use: Cigarettes Assessment/Plan All Active Problems CHF (congestive heart failure) (Acute) Wide-complex tachycardia (Acute) Chest pain (Acute) Elevated troponin (Acute) Pancreatitis (Resolved) 1. New onset CHF with reduced EF-chest x-ray admission demonstrated borderline cardiomegaly and CHF. BNP 49. +15 pounds patient's baseline with pitting lower extremity edema. Strict I&O. Daily weight. IV lasix 80 mg twice daily. Continue low dose lisinopril. Fred wrap bilateral extremities. Echocardiogram demonstrates an EF of 15%, severe global left ventricular systolic dysfunction, moderate mitral valve insufficiency, mild pulmonic valve insufficiency, RVSP estimated to be 49 mmHg, evidence of diastolic dysfunction. Cardiology following. Plan for cardiac catheterization when patient is able to lie supine comfortably. 2. Elevated troponin with chest pain-Continue aspirin, statin, carvedilol, Transderm-Nitro. Cardiology consulted. Cardiac cath planned as noted above. 3. Nonsustained wide complex tachycardia-no further recurrences. Continue beta-conor. 4. Chronic alcohol abuse with elevated bilirubin-states he drinks 6-7 beers per day. [facility] protocol. Thiamine, folic acid, multivitamin supplementation. 5. Chronic liver disease-CT of abdomen October 2015 with enlarged liver with probable cirrhosis, evidence of portal hypertension including varices and splenomegaly. Patient has continued to drink heavily since that time. Abdominal ultrasound pending. 6. Chronic thrombocytopenia secondary to chronic alcohol use- stable. 7. Chronic COPD-albuterol and DuoNeb aerosols. No acute exacerbation. 8. Type 2 diabetes mellitus-hold metformin regimen. Accu-Cheks before meals at bedtime with sliding scale insulin. Hemoglobin A1c 5.8%. 9. BPH-continue Flomax regimen. 10. Tobacco dependence-encourage smoking cessation. Nicotine replacement patch if desired. DVT prophylaxis-Lovenox. This patient was seen by MERLIN Bucio under the supervision of Dr. Carlson. <Cullen Carlson - Last Filed: 05/04/18 16:08> Subjective: Feeling better. Still with LE edema. Able to lie less inclined w/o shortness of breath. - Physical Exam General: Alert, Cooperative, No apparent distress HEENT: Atraumatic, Normocephalic Neck: No Nodes, Thyroid Normal Size and Texture Lungs: Clear to auscultation, Normal air movement, No rhonchi, No wheeze Cardiovascular: Regular rate, Regular Rhythm, Normal S1, Normal S2 Abdomen: Bowel Sounds Present, Soft, Non Tender, Non-Distended Extremities: No clubbing, No cyanosis, Edema Skin: No rashes, No breakdown Musculoskeletal: No Tenderness to Palpation of Joints or Extremities Neurological: Neuro grossly intact, Muscle tone normal, Coordination normal Psych/Mental Status: Normal Affect, Appropriate Vital Signs Temp Pulse Resp BP Pulse Ox 36.6 C 79 16 105/62 97 05/04/18 12:00 05/04/18 15:12 05/04/18 12:00 05/04/18 13:49 05/04/18 12:00 Oxygen Flow Rate (L/min) 2 Oxygen Delivery Method Room Air Weight: 106.1 kg Body Mass Index (BMI) 33.7 Intake and Output for Last 24 Hours 05/02/18 05/03/18 05/04/18 23:59 23:59 23:59 Intake Total 260 / 260 30 / 30 Output Total 1100 / 1100 325 / 325 Balance -840 / -840 -295 / -295 Laboratory Tests Past 24 Hrs 05/03/18 05/03/18 05/03/18 14:55 18:10 18:10 WBC RBC Hgb Hct MCV MCH MCHC RDW RDW Differential Plt Count MPV PT INR APTT Sodium Potassium Chloride Carbon Dioxide Anion Gap BUN Creatinine Estim Creat Clear Calc Est GFR (MDRD) Af Amer Est GFR (MDRD) Non-Af BUN/Creatinine Ratio Glucose Hemoglobin A1c 5.8 Calcium Total Bilirubin 2.60 H Direct Bilirubin 0.90 H AST 76 H ALT 39 Alkaline Phosphatase 100 Troponin I 0.147 H Total Protein 7.2 Albumin 3.1 L Globulin 4.1 Albumin/Globulin Ratio Triglycerides Cholesterol LDL Cholesterol VLDL Cholesterol HDL Cholesterol TSH 2.99 Urine Opiates Screen Urine Methadone Screen Ur Barbiturates Screen Ur Phencyclidine Scrn Ur Amphetamines Screen U Methamphetamin-MDMA U Benzodiazepines Scrn Urine Cocaine Screen U Cannabinoids Screen Ur Drug Screen Comment 05/03/18 05/03/18 05/04/18 18:10 22:35 05:25 WBC 4.4 RBC 3.72 L Hgb 11.2 L Hct 33.5 L MCV 90.1 MCH 30.1 MCHC 33.4 RDW 17.2 H RDW Differential 54.6 H Plt Count 75 L MPV 13.3 H PT 16.3 H INR 1.3 APTT Sodium Potassium Chloride Carbon Dioxide Anion Gap BUN Creatinine Estim Creat Clear Calc Est GFR (MDRD) Af Amer Est GFR (MDRD) Non-Af BUN/Creatinine Ratio Glucose Hemoglobin A1c Calcium Total Bilirubin Direct Bilirubin AST ALT Alkaline Phosphatase Troponin I Total Protein Albumin Globulin Albumin/Globulin Ratio Triglycerides Cholesterol LDL Cholesterol VLDL Cholesterol HDL Cholesterol TSH Urine Opiates Screen NEGATIVE Urine Methadone Screen NEGATIVE Ur Barbiturates Screen NEGATIVE Ur Phencyclidine Scrn NEGATIVE Ur Amphetamines Screen NEGATIVE U Methamphetamin-MDMA NEGATIVE U Benzodiazepines Scrn NEGATIVE Urine Cocaine Screen NEGATIVE U Cannabinoids Screen NEGATIVE Ur Drug Screen Comment 05/04/18 05/04/18 05:25 05:25 WBC RBC Hgb Hct MCV MCH MCHC RDW RDW Differential Plt Count MPV PT 17.9 H INR 1.5 APTT 35.1 Sodium 142 Potassium 3.9 Chloride 105 Carbon Dioxide 28.0 Anion Gap 9 BUN 13 Creatinine 0.74 Estim Creat Clear Calc 113.72 Est GFR (MDRD) Af Amer 139 Est GFR (MDRD) Non-Af 115 BUN/Creatinine Ratio 17.5 Glucose 106 Hemoglobin A1c Calcium 8.5 Total Bilirubin 2.80 H Direct Bilirubin AST 62 H ALT 34 Alkaline Phosphatase 87 Troponin I Total Protein 6.4 Albumin 2.9 L Globulin 3.5 Albumin/Globulin Ratio 0.8 L Triglycerides 79 Cholesterol 141 LDL Cholesterol 98 VLDL Cholesterol 16 HDL Cholesterol 27 L TSH Urine Opiates Screen Urine Methadone Screen Ur Barbiturates Screen Ur Phencyclidine Scrn Ur Amphetamines Screen U Methamphetamin-MDMA U Benzodiazepines Scrn Urine Cocaine Screen U Cannabinoids Screen Ur Drug Screen Comment POC Glucose 05/04/18 05/04/18 05/03/18 11:45 06:57 22:20 POC Glucose 124 H 119 H 108 Assessment/Plan Patient seen and examined independently. Data reviewed. I agree with the above note by the physician economist research assistant. 1. Acute HFrEF EF 15% Continue with Lasix Follow-up echocardiogram On carvedilol as well as lisinopril plan for LHC when patient able to lie supine. 2. Elevated troponins Unclear what type of event of this type I versus type II Cardiology on consultation On carvedilol, aspirin and atorvastatin 3. Elevated bilirubin Chronic but appears higher than in the past Monitor By secondary to alcohol abuse Patient had an MRCP on November 01, 2015 that did show hepatic cirrhosis. Additionally had findings consistent with portal hypertension US showed hepatomegaly and fatty infiltration of the liver. likely 2/2 cirrhosis 4. Cirrhosis Appears compensated at this time Likely due to alcohol given the patient's heavy alcohol abuse Check ultrasound as above Advised complete alcohol cessation will need to follow up with GI in the future, as outpt. 5. Alcohol abuse Monitor As needed Ativan in case patient develops withdrawal or delirium tremens Thiamine and folate 6. DVT proph: LMWH. Code Visit Inpatient E&M: 32476 Subs Hosp L3
--- NOTE | 2018-05-04 12:14 | PN_ITS ---
<Arely Brower - Last Filed: 05/04/18 12:15> Patient Problems: Active and Suspected Problems CHF (congestive heart failure) (Acute) Wide-complex tachycardia (Acute) Chest pain (Acute) Elevated troponin (Acute) Subjective: Patient seen exam. Notes improvement in shortness of breath. States he slept on his side overnight without difficulty. Denies further chest pain. No other complaints. - Physical Exam General: Alert, Oriented x3, Cooperative, No apparent distress HEENT: Atraumatic, PERRLA, EOMI, Normocephalic Neck: Supple, No JVD, Negative Carotid Bruits Lungs: Clear to auscultation, Diminished Cardiovascular: Regular rate, Regular Rhythm, Normal S1, Normal S2, No murmurs Abdomen: Bowel Sounds Present, Soft, Non Tender, Non-Distended, Obese Extremities: No clubbing, No cyanosis, Edema - +2-3 bilateral lower extremities Skin: No rashes, No breakdown Musculoskeletal: No Tenderness to Palpation of Joints or Extremities Neurological: Cranial nerves II-XII grossly intact, Neuro grossly intact Psych/Mental Status: Normal Affect, Appropriate Vital Signs Temp Pulse Resp BP Pulse Ox 97.6 F L 81 20 H 116/73 95 05/04/18 08:00 05/04/18 11:17 05/04/18 10:51 05/04/18 10:30 05/04/18 10:51 Oxygen Flow Rate (L/min) 2 Oxygen Delivery Method Room Air Weight: 233 lb 14.567 oz Body Mass Index (BMI) 33.7 Intake and Output for Last 24 Hours 05/02/18 05/03/18 05/04/18 23:59 23:59 23:59 Intake Total 260 / 260 Output Total 1100 / 1100 100 / 100 Balance -840 / -840 -100 / -100 Laboratory Tests Past 24 Hrs 05/03/18 05/03/18 05/03/18 14:55 14:55 15:15 WBC RBC Hgb Hct MCV MCH MCHC RDW RDW Differential Plt Count MPV PT INR APTT Sodium Potassium Chloride Carbon Dioxide Anion Gap BUN Creatinine Estim Creat Clear Calc Est GFR (MDRD) Af Amer Est GFR (MDRD) Non-Af BUN/Creatinine Ratio Glucose Hemoglobin A1c Calcium Total Bilirubin 2.60 H Direct Bilirubin 0.90 H AST 76 H ALT 39 Alkaline Phosphatase 100 Troponin I 0.153 H Total Protein 7.2 Albumin 3.1 L Globulin 4.1 Albumin/Globulin Ratio Triglycerides Cholesterol LDL Cholesterol VLDL Cholesterol HDL Cholesterol TSH 2.99 Urine Opiates Screen Urine Methadone Screen Ur Barbiturates Screen Ur Phencyclidine Scrn Ur Amphetamines Screen U Methamphetamin-MDMA U Benzodiazepines Scrn Urine Cocaine Screen U Cannabinoids Screen Ur Drug Screen Comment Ethyl Alcohol < 3.0 05/03/18 05/03/18 05/03/18 18:10 18:10 18:10 WBC RBC Hgb Hct MCV MCH MCHC RDW RDW Differential Plt Count MPV PT 16.3 H INR 1.3 APTT Sodium Potassium Chloride Carbon Dioxide Anion Gap BUN Creatinine Estim Creat Clear Calc Est GFR (MDRD) Af Amer Est GFR (MDRD) Non-Af BUN/Creatinine Ratio Glucose Hemoglobin A1c 5.8 Calcium Total Bilirubin Direct Bilirubin AST ALT Alkaline Phosphatase Troponin I 0.147 H Total Protein Albumin Globulin Albumin/Globulin Ratio Triglycerides Cholesterol LDL Cholesterol VLDL Cholesterol HDL Cholesterol TSH Urine Opiates Screen Urine Methadone Screen Ur Barbiturates Screen Ur Phencyclidine Scrn Ur Amphetamines Screen U Methamphetamin-MDMA U Benzodiazepines Scrn Urine Cocaine Screen U Cannabinoids Screen Ur Drug Screen Comment Ethyl Alcohol 05/03/18 05/04/18 05/04/18 22:35 05:25 05:25 WBC 4.4 RBC 3.72 L Hgb 11.2 L Hct 33.5 L MCV 90.1 MCH 30.1 MCHC 33.4 RDW 17.2 H RDW Differential 54.6 H Plt Count 75 L MPV 13.3 H PT INR APTT Sodium 142 Potassium 3.9 Chloride 105 Carbon Dioxide 28.0 Anion Gap 9 BUN 13 Creatinine 0.74 Estim Creat Clear Calc 113.72 Est GFR (MDRD) Af Amer 139 Est GFR (MDRD) Non-Af 115 BUN/Creatinine Ratio 17.5 Glucose 106 Hemoglobin A1c Calcium 8.5 Total Bilirubin 2.80 H Direct Bilirubin AST 62 H ALT 34 Alkaline Phosphatase 87 Troponin I Total Protein 6.4 Albumin 2.9 L Globulin 3.5 Albumin/Globulin Ratio 0.8 L Triglycerides 79 Cholesterol 141 LDL Cholesterol 98 VLDL Cholesterol 16 HDL Cholesterol 27 L TSH Urine Opiates Screen NEGATIVE Urine Methadone Screen NEGATIVE Ur Barbiturates Screen NEGATIVE Ur Phencyclidine Scrn NEGATIVE Ur Amphetamines Screen NEGATIVE U Methamphetamin-MDMA NEGATIVE U Benzodiazepines Scrn NEGATIVE Urine Cocaine Screen NEGATIVE U Cannabinoids Screen NEGATIVE Ur Drug Screen Comment Ethyl Alcohol 05/04/18 05:25 WBC RBC Hgb Hct MCV MCH MCHC RDW RDW Differential Plt Count MPV PT 17.9 H INR 1.5 APTT 35.1 Sodium Potassium Chloride Carbon Dioxide Anion Gap BUN Creatinine Estim Creat Clear Calc Est GFR (MDRD) Af Amer Est GFR (MDRD) Non-Af BUN/Creatinine Ratio Glucose Hemoglobin A1c Calcium Total Bilirubin Direct Bilirubin AST ALT Alkaline Phosphatase Troponin I Total Protein Albumin Globulin Albumin/Globulin Ratio Triglycerides Cholesterol LDL Cholesterol VLDL Cholesterol HDL Cholesterol TSH Urine Opiates Screen Urine Methadone Screen Ur Barbiturates Screen Ur Phencyclidine Scrn Ur Amphetamines Screen U Methamphetamin-MDMA U Benzodiazepines Scrn Urine Cocaine Screen U Cannabinoids Screen Ur Drug Screen Comment Ethyl Alcohol POC Glucose 05/04/18 05/04/18 05/03/18 11:45 06:57 22:20 POC Glucose 124 H 119 H 108 05/03/18 14:53 POC Glucose 104 Medical Necessity - Tobacco Use Smoking Status: Current every day smoker Tobacco Use: Cigarettes Assessment/Plan All Active Problems CHF (congestive heart failure) (Acute) Wide-complex tachycardia (Acute) Chest pain (Acute) Elevated troponin (Acute) Pancreatitis (Resolved) 1. New onset CHF with reduced EF-chest x-ray admission demonstrated borderline cardiomegaly and CHF. BNP 49. +15 pounds patient's baseline with pitting lower extremity edema. Strict I&O. Daily weight. IV lasix 80 mg twice daily. Continue low dose lisinopril. Fred wrap bilateral extremities. Echocardiogram demonstrates an EF of 15%, severe global left ventricular systolic dysfunction, moderate mitral valve insufficiency, mild pulmonic valve insufficiency, RVSP estimated to be 49 mmHg, evidence of diastolic dysfunction. Cardiology following. Plan for cardiac catheterization when patient is able to lie supine comfortably. 2. Elevated troponin with chest pain-Continue aspirin, statin, carvedilol, Transderm-Nitro. Cardiology consulted. Cardiac cath planned as noted above. 3. Nonsustained wide complex tachycardia-no further recurrences. Continue beta -conor. 4. Chronic alcohol abuse with elevated bilirubin-states he drinks 6-7 beers per day. [facility] protocol. Thiamine, folic acid, multivitamin supplementation. 5. Chronic liver disease-CT of abdomen October 2015 with enlarged liver with probable cirrhosis, evidence of portal hypertension including varices and splenomegaly. Patient has continued to drink heavily since that time. Abdominal ultrasound pending. 6. Chronic thrombocytopenia secondary to chronic alcohol use- stable. 7. Chronic COPD-albuterol and DuoNeb aerosols. No acute exacerbation. 8. Type 2 diabetes mellitus-hold metformin regimen. Accu-Cheks before meals at bedtime with sliding scale insulin. Hemoglobin A1c 5.8%. 9. BPH-continue Flomax regimen. 10. Tobacco dependence-encourage smoking cessation. Nicotine replacement patch if desired. DVT prophylaxis-Lovenox. This patient was seen by MERLIN Bucio under the supervision of Dr. Carlson. <Cullen Carlson - Last Filed: 05/04/18 16:08> Subjective: Feeling better. Still with LE edema. Able to lie less inclined w/o shortness of breath. - Physical Exam General: Alert, Cooperative, No apparent distress HEENT: Atraumatic, Normocephalic Neck: No Nodes, Thyroid Normal Size and Texture Lungs: Clear to auscultation, Normal air movement, No rhonchi, No wheeze Cardiovascular: Regular rate, Regular Rhythm, Normal S1, Normal S2 Abdomen: Bowel Sounds Present, Soft, Non Tender, Non-Distended Extremities: No clubbing, No cyanosis, Edema Skin: No rashes, No breakdown Musculoskeletal: No Tenderness to Palpation of Joints or Extremities Neurological: Neuro grossly intact, Muscle tone normal, Coordination normal Psych/Mental Status: Normal Affect, Appropriate Vital Signs Temp Pulse Resp BP Pulse Ox 36.6 C 79 16 105/62 97 05/04/18 12:00 05/04/18 15:12 05/04/18 12:00 05/04/18 13:49 05/04/18 12:00 Oxygen Flow Rate (L/min) 2 Oxygen Delivery Method Room Air Weight: 106.1 kg Body Mass Index (BMI) 33.7 Intake and Output for Last 24 Hours 05/02/18 05/03/18 05/04/18 23:59 23:59 23:59 Intake Total 260 / 260 30 / 30 Output Total 1100 / 1100 325 / 325 Balance -840 / -840 -295 / -295 Laboratory Tests Past 24 Hrs 05/03/18 05/03/18 05/03/18 14:55 18:10 18:10 WBC RBC Hgb Hct MCV MCH MCHC RDW RDW Differential Plt Count MPV PT INR APTT Sodium Potassium Chloride Carbon Dioxide Anion Gap BUN Creatinine Estim Creat Clear Calc Est GFR (MDRD) Af Amer Est GFR (MDRD) Non-Af BUN/Creatinine Ratio Glucose Hemoglobin A1c 5.8 Calcium Total Bilirubin 2.60 H Direct Bilirubin 0.90 H AST 76 H ALT 39 Alkaline Phosphatase 100 Troponin I 0.147 H Total Protein 7.2 Albumin 3.1 L Globulin 4.1 Albumin/Globulin Ratio Triglycerides Cholesterol LDL Cholesterol VLDL Cholesterol HDL Cholesterol TSH 2.99 Urine Opiates Screen Urine Methadone Screen Ur Barbiturates Screen Ur Phencyclidine Scrn Ur Amphetamines Screen U Methamphetamin-MDMA U Benzodiazepines Scrn Urine Cocaine Screen U Cannabinoids Screen Ur Drug Screen Comment 05/03/18 05/03/18 05/04/18 18:10 22:35 05:25 WBC 4.4 RBC 3.72 L Hgb 11.2 L Hct 33.5 L MCV 90.1 MCH 30.1 MCHC 33.4 RDW 17.2 H RDW Differential 54.6 H Plt Count 75 L MPV 13.3 H PT 16.3 H INR 1.3 APTT Sodium Potassium Chloride Carbon Dioxide Anion Gap BUN Creatinine Estim Creat Clear Calc Est GFR (MDRD) Af Amer Est GFR (MDRD) Non-Af BUN/Creatinine Ratio Glucose Hemoglobin A1c Calcium Total Bilirubin Direct Bilirubin AST ALT Alkaline Phosphatase Troponin I Total Protein Albumin Globulin Albumin/Globulin Ratio Triglycerides Cholesterol LDL Cholesterol VLDL Cholesterol HDL Cholesterol TSH Urine Opiates Screen NEGATIVE Urine Methadone Screen NEGATIVE Ur Barbiturates Screen NEGATIVE Ur Phencyclidine Scrn NEGATIVE Ur Amphetamines Screen NEGATIVE U Methamphetamin-MDMA NEGATIVE U Benzodiazepines Scrn NEGATIVE Urine Cocaine Screen NEGATIVE U Cannabinoids Screen NEGATIVE Ur Drug Screen Comment 05/04/18 05/04/18 05:25 05:25 WBC RBC Hgb Hct MCV MCH MCHC RDW RDW Differential Plt Count MPV PT 17.9 H INR 1.5 APTT 35.1 Sodium 142 Potassium 3.9 Chloride 105 Carbon Dioxide 28.0 Anion Gap 9 BUN 13 Creatinine 0.74 Estim Creat Clear Calc 113.72 Est GFR (MDRD) Af Amer 139 Est GFR (MDRD) Non-Af 115 BUN/Creatinine Ratio 17.5 Glucose 106 Hemoglobin A1c Calcium 8.5 Total Bilirubin 2.80 H Direct Bilirubin AST 62 H ALT 34 Alkaline Phosphatase 87 Troponin I Total Protein 6.4 Albumin 2.9 L Globulin 3.5 Albumin/Globulin Ratio 0.8 L Triglycerides 79 Cholesterol 141 LDL Cholesterol 98 VLDL Cholesterol 16 HDL Cholesterol 27 L TSH Urine Opiates Screen Urine Methadone Screen Ur Barbiturates Screen Ur Phencyclidine Scrn Ur Amphetamines Screen U Methamphetamin-MDMA U Benzodiazepines Scrn Urine Cocaine Screen U Cannabinoids Screen Ur Drug Screen Comment POC Glucose 05/04/18 05/04/18 05/03/18 11:45 06:57 22:20 POC Glucose 124 H 119 H 108 Assessment/Plan Patient seen and examined independently. Data reviewed. I agree with the above note by the physician lead dental assistant. 1. Acute HFrEF * EF 15% * Continue with Lasix * Follow-up echocardiogram * On carvedilol as well as lisinopril * plan for LHC when patient able to lie supine. 2. Elevated troponins * Unclear what type of event of this type I versus type II * Cardiology on consultation * On carvedilol, aspirin and atorvastatin 3. Elevated bilirubin * Chronic but appears higher than in the past * Monitor * By secondary to alcohol abuse * Patient had an MRCP on November 01, 2015 that did show hepatic cirrhosis. Additionally had findings consistent with portal hypertension * US showed hepatomegaly and fatty infiltration of the liver. * likely 2/2 cirrhosis 4. Cirrhosis * Appears compensated at this time * Likely due to alcohol given the patient's heavy alcohol abuse * Check ultrasound as above * Advised complete alcohol cessation * will need to follow up with GI in the future, as outpt. 5. Alcohol abuse * Monitor * As needed Ativan in case patient develops withdrawal or delirium tremens * Thiamine and folate 6. DVT proph: LMWH. Code Visit Inpatient E&M: 45836 Subs Hosp L3
--- NOTE | 2018-05-04 13:14 | CASEMGMT ---
Face to Face with patient for initial transition planning/care coordination assessment. RN PAULO introduced self and role at [facility], pt voices understanding and consents to assessment at this time. Pt is sitting up in bed in no distress at this time. Pt is A/O x4 at this time and answers all questions appropriately at this time. Care providers, pharmacy, and demographics verified. See attached link. Pt voices no further concerns/needs at this time. Advised pt to ask for CM if any further questions/concerns/needs arise, voices understanding. CM to follow for any further discharge planning/needs. PLAN[place] [facility]
[2018-05-04] MEDS: Insulin Lispro 100 UNIT/ML INSULN.PEN SC (16:26)
[2018-05-04 16:31] LABS: Bedside Glucose 156 mg/dL (70-110)
--- NOTE | 2018-05-04 17:23 | US_ITS ---
STUDY: ABDOMINAL ULTRASOUND - RIGHT UPPER QUADRANT REASON FOR VISIT: Male, 57 years old. Cirrhosis. Right abdominal pain. TECHNIQUE: Ultrasound evaluation of the right upper quadrant was performed with real-time and static ingram-scale imaging. TECHNICAL QUALITY: Adequate. COMPARISON: Comparison is made with prior CT scan of the abdomen dated October 31, 2015. FINDINGS: Liver: The liver is enlarged and measures 20.1 cm. There is increased echogenicity consistent with fatty infiltration. The bile ducts are within normal limits. There is hepatic color flow. The direction of portal flow is hepatopetal. There is no demonstrated mass lesion. Small amount of fluid surrounding the left lobe of the liver. Gallbladder: Normal distended gallbladder. The gallbladder wall is thickened and measures 5.8 mm. There is a positive sonographic Nesbitt's sign. There is pericholecystic fluid. There are no gallstones. Common Bile Duct (C.B.D.): The common bile duct measures 3.2 mm. Pancreas: Normal size of the head, body and tail of the pancreas. There is increased echogenicity of the pancreas. There is no demonstrated pancreatic mass or cyst. Right Kidney: Normal size of the right kidney. The right kidney measures 14.2 cm x 6.1 cm x 6.2 cm. Normal renal cortex. The right cortex measures 1.9 cm. There is no demonstrated renal mass or cyst. There is no right hydronephrosis. US/Abdomen Limited IMPRESSION: Hepatomegaly. Fatty infiltration of the liver. Thickened gallbladder wall. Small amount of ascites surrounding the left lobe of the liver. Electronically Signed: Jerman Mcfadden MD at 14:27 EDT Tel [phone], Service support ,
[2018-05-04] MEDS: Ondansetron 4 MG/2 ML Vial IV (19:49)
[2018-05-04 21:38] LABS: Magnesium 1.9 mg/dL (1.6-2.6)
[2018-05-04] MEDS: Atorvastatin Calcium 40 MG Tablet PO (22:05)
[2018-05-04] MEDS: Zolpidem Tartrate 5 MG Tablet PO (22:18)
[2018-05-04 22:56] LABS: Bedside Glucose 137 mg/dL (70-110)
[2018-05-05] VITALS (61 sets, daily range): BP systolic 59–108; BP diastolic 31–85; PULSE 63–85; RESP 15–25; TEMP 36.1–36.8; O2SAT 91–100
[2018-05-05] MEDS: LORazepam 1 MG Tablet 2 MG PO ×2 (00:44→14:33)
--- NOTE | 2018-05-05 01:27 | NURSING ---
Patients blood pressure 81/61. Patient to supine position, patient states he is a little dizzy. Nitropaste off.
[2018-05-05 04:21] LABS: Bedside Glucose 155 mg/dL (70-110)
[2018-05-05] MEDS: Ipratropium/Albuterol Sulfate 3 ML AMPUL.NEB INHALATION ×4 (06:50→18:59)
[2018-05-05] MEDS: Enoxaparin 40 MG/0.4 ML Syringe SC (07:04)
[2018-05-05 07:06] LABS: Bedside Glucose 133 mg/dL (70-110)
[2018-05-05 07:19] LABS: Anion Gap 12 (5-15); BUN 24 mg/dL (7-18); Calcium,Total 8.6 mg/dL (8.5-10.1); Chloride 103 mmol/L (98-107); EST Glomerular Filtration Rate 51 mL/min (>60); Est Glom Filt Rate - Afr Amer 62 mL/min (>60); Glucose 134 mg/dL (74-106); Potassium 4.1 mmol/L (3.5-5.1); Sodium Level 139 mmol/L (136-145)
--- NOTE | 2018-05-05 09:42 | PCM.PN.CARD ---
Subjectve: The patient is awake and alert. He denies any ongoing chest discomfort. He states his breathing has improved compared to admission, however, yesterday evening he was still sleeping in a semi-recumbent position. He also notes his lower extremity edema has improved. He denies any obvious palpitations. Objective: Vital Signs Temp Pulse Resp BP Pulse Ox 97.1 F L 77 18 97/77 93 05/05/18 08:04 05/05/18 08:04 05/05/18 08:04 05/05/18 08:04 05/05/18 08:04 Oxygen Flow Rate (L/min) 2 Oxygen Delivery Method Room Air Weight: 211 lb 13.828 oz Body Mass Index (BMI) 33.7 Intake and Output for Last 24 Hours 05/03/18 05/04/18 05/05/18 23:59 23:59 23:59 Intake Total 260 / 260 690.5 / 690.5 120 / 120 Output Total 1100 / 1100 1475 / 1475 Balance -840 / -840 -784.5 / -784.5 120 / 120 General: Awake, Alert, Cooperative, No Acute Distress HEENT: Atraumatic, Normocephalic, PERRL, EOMI, Sclera Non Icteric Oral: Moist Mucosa Neck: Supple, Good ROM, No JVD Lungs: Diminished Hussein Bases - Improved compared to admission Cardiovascular: Regular Rhythm, Normal S1, Normal S2 Vascular: No Carotid Bruits Abdomen: Bowel Sounds Present, Soft, Non Tender Extremities: Mild RLE Edema, Mild LLE Edema 05/04/18 21:19: Magnesium 1.9 05/05/18 06:14: Sodium 139, Potassium 4.1, Chloride 103, Carbon Dioxide 24.0, Anion Gap 12, BUN 24 H, Creatinine 1.50 H, Est GFR (MDRD) Af Amer 62, Est GFR (MDRD) Non-Af 51 L, BUN/Creatinine Ratio 16.0, Glucose 134 H, Calcium 8.6 Rhythm: Sinus rhythm; Nonsustained wide complex tachycardia compatible with nonsustained VT Medical Necessity - Tobacco Use Smoking Status: Current every day smoker Tobacco Use: Cigarettes Assessment/Plan 1. Acute CHF-unspecified The patient presents with symptoms compatible with acute congestive heart failure. It is unclear at this time whether it is related to underlying systolic or diastolic dysfunction. He is being monitored. He is being treated with medical management. This is including nitrates, beta-blockers, diuretics, and afterload reducing agents. However, his medications will need be adjusted based upon his vital signs, renal function, etc. His transthoracic echocardiogram demonstrated a dilated left ventricle with severe global left ventricular systolic dysfunction with an estimated LVEF of 15%. This raises concern that he may have a non-CAD related cardiomyopathy potentially alcohol mediated. However, he will still need to be evaluated for the possibility of underlying CAD contributing to his findings. This will include diagnostic cardiac catheterization. 2. Nonsustained wide complex tachycardia The patient had an episode of nonsustained wide complex tachycardia. His recurrent events appear compatible with nonsustained VT. This may be related to his underlying cardiomyopathy. At the present time he appears without acute symptoms or hemodynamic compromise. He will continue medical management. This will include the aforementioned medications including beta blockers. It will also include antiarrhythmic therapy with IV amiodarone. Again he should be considered for further evaluation with diagnostic cardiac catheterization when he is able to lie supine and breathe comfortably. 3. Diabetes mellitus He will continue medical management per internal medicine. 4. COPD He will continue evaluation care per internal medicine. 5. Alcohol abuse He is being evaluated and monitored for any obvious alcohol withdrawal symptoms, etc., per internal medicine. 6. Abnormal bilirubin levels The patient does have abnormal bilirubin levels. They have increased. His right upper quadrant ultrasound did demonstrate concerns of hepatomegaly, fatty infiltrate of the liver, ascites, and a thickened gallbladder wall. Of note: The patients case was discussed with the patient with his spouse present yesterday evening. This note was generated with [employer] software. It may contain incorrect words, spelling, and punctuation that were not noted in checking the note before signing.
--- NOTE | 2018-05-05 09:46 | PN.CARD_ITS ---
Subjectve: The patient is awake and alert. He denies any ongoing chest discomfort. He states his breathing has improved compared to admission, however, yesterday evening he was still sleeping in a semi-recumbent position. He also notes his lower extremity edema has improved. He denies any obvious palpitations. Objective: Vital Signs Temp Pulse Resp BP Pulse Ox 97.1 F L 77 18 97/77 93 05/05/18 08:04 05/05/18 08:04 05/05/18 08:04 05/05/18 08:04 05/05/18 08:04 Oxygen Flow Rate (L/min) 2 Oxygen Delivery Method Room Air Weight: 211 lb 13.828 oz Body Mass Index (BMI) 33.7 Intake and Output for Last 24 Hours 05/03/18 05/04/18 05/05/18 23:59 23:59 23:59 Intake Total 260 / 260 690.5 / 690.5 120 / 120 Output Total 1100 / 1100 1475 / 1475 Balance -840 / -840 -784.5 / -784.5 120 / 120 General: Awake, Alert, Cooperative, No Acute Distress HEENT: Atraumatic, Normocephalic, PERRL, EOMI, Sclera Non Icteric Oral: Moist Mucosa Neck: Supple, Good ROM, No JVD Lungs: Diminished Hussein Bases - Improved compared to admission Cardiovascular: Regular Rhythm, Normal S1, Normal S2 Vascular: No Carotid Bruits Abdomen: Bowel Sounds Present, Soft, Non Tender Extremities: Mild RLE Edema, Mild LLE Edema 05/04/18 21:19: Magnesium 1.9 05/05/18 06:14: Sodium 139, Potassium 4.1, Chloride 103, Carbon Dioxide 24.0, Anion Gap 12, BUN 24 H, Creatinine 1.50 H, Est GFR (MDRD) Af Amer 62, Est GFR ( MDRD) Non-Af 51 L, BUN/Creatinine Ratio 16.0, Glucose 134 H, Calcium 8.6 Rhythm: Sinus rhythm; Nonsustained wide complex tachycardia compatible with nonsustained VT Medical Necessity - Tobacco Use Smoking Status: Current every day smoker Tobacco Use: Cigarettes Assessment/Plan 1. Acute CHF-unspecified The patient presents with symptoms compatible with acute congestive heart failure. It is unclear at this time whether it is related to underlying systolic or diastolic dysfunction. He is being monitored. He is being treated with medical management. This is including nitrates, beta-blockers, diuretics, and afterload reducing agents. However, his medications will need be adjusted based upon his vital signs, renal function, etc. His transthoracic echocardiogram demonstrated a dilated left ventricle with severe global left ventricular systolic dysfunction with an estimated LVEF of 15 %. This raises concern that he may have a non-CAD related cardiomyopathy potentially alcohol mediated. However, he will still need to be evaluated for the possibility of underlying CAD contributing to his findings. This will include diagnostic cardiac catheterization. 2. Nonsustained wide complex tachycardia The patient had an episode of nonsustained wide complex tachycardia. His recurrent events appear compatible with nonsustained VT. This may be related to his underlying cardiomyopathy. At the present time he appears without acute symptoms or hemodynamic compromise. He will continue medical management. This will include the aforementioned medications including beta blockers. It will also include antiarrhythmic therapy with IV amiodarone. Again he should be considered for further evaluation with diagnostic cardiac catheterization when he is able to lie supine and breathe comfortably. 3. Diabetes mellitus He will continue medical management per internal medicine. 4. COPD He will continue evaluation care per internal medicine. 5. Alcohol abuse He is being evaluated and monitored for any obvious alcohol withdrawal symptoms , etc., per internal medicine. 6. Abnormal bilirubin levels The patient does have abnormal bilirubin levels. They have increased. His right upper quadrant ultrasound did demonstrate concerns of hepatomegaly, fatty infiltrate of the liver, ascites, and a thickened gallbladder wall. Of note: The patients case was discussed with the patient with his spouse present yesterday evening. This note was generated with [employer] software. It may contain incorrect words, spelling, and punctuation that were not noted in checking the note before signing.
--- NOTE | 2018-05-05 09:53 | CASEMGMT ---
According to [facility] website, the following are in-network tertiary facilities: [facility], [facility], [facility], [facility], [facility], [facility], [facility], [place], [employer], and . Kev AYON CM
[2018-05-05] MEDS: Folic Acid 1 MG Tablet PO (09:54)
[2018-05-05] MEDS: Famotidine 20 MG Tablet PO ×2 (09:54→21:13)
[2018-05-05] MEDS: Thiamine Hydrochloride 100 MG Tablet PO ×2 (09:54→17:36)
[2018-05-05] MEDS: Tamsulosin HCl 0.4 MG Capsule PO (09:54)
[2018-05-05] MEDS: Aspirin E.C. 81 MG Tablet PO (09:54)
[2018-05-05] MEDS: Multivitamins,Ther W-Minerals Tablet 1 TABLET PO (09:54)
[2018-05-05] MEDS: Carvedilol 6.25 MG Tablet PO (10:58)
[2018-05-05] MEDS: Furosemide 40 MG/4 ML Vial IV (10:58)
--- NOTE | 2018-05-05 12:01 | PCM.PROGNOTE ---
<Noel Madison - Last Filed: 05/05/18 12:01> Patient Problems: Active and Suspected Problems CHF (congestive heart failure) (Acute) Wide-complex tachycardia (Acute) Chest pain (Acute) Elevated troponin (Acute) Subjective: Pt pleasantly confused, hallucinating, does not know where he is, lethargic this AM. Trails off during interview. SOB improved. Edema improved. No CP. No lightheadedness, no dizziness. No difficulty emptying bladder. - Physical Exam General: Alert, Oriented x3, Cooperative HEENT: Atraumatic, PERRLA, EOMI, Normocephalic Neck: Supple, No JVD, Negative Carotid Bruits Lungs: Clear to auscultation, Normal air movement Cardiovascular: Regular rate, No murmurs Abdomen: Bowel Sounds Present, Soft, Non Tender Extremities: No edema, Capillary Refill Less than 3 Seconds, Edema - 1+ pitting edema. Skin: No rashes, No breakdown Musculoskeletal: No Tenderness to Palpation of Joints or Extremities Neurological: Cranial nerves II-XII grossly intact Psych/Mental Status: Normal Affect, Appropriate, Alert and oriented to time, place, person, mood and affect Vital Signs Temp Pulse Resp BP Pulse Ox 97.6 F L 73 18 100/68 98 05/05/18 09:51 05/05/18 11:07 05/05/18 09:51 05/05/18 09:51 05/05/18 09:51 Oxygen Flow Rate (L/min) 2 Oxygen Delivery Method Room Air Weight: 211 lb 13.828 oz Body Mass Index (BMI) 33.7 Intake and Output for Last 24 Hours 05/03/18 05/04/18 05/05/18 23:59 23:59 23:59 Intake Total 260 / 260 690.5 / 690.5 120 / 120 Output Total 1100 / 1100 1475 / 1475 Balance -840 / -840 -784.5 / -784.5 120 / 120 Laboratory Tests Past 24 Hrs 05/04/18 05/05/18 21:19 06:14 Sodium 139 Potassium 4.1 Chloride 103 Carbon Dioxide 24.0 Anion Gap 12 BUN 24 H Creatinine 1.50 H Estim Creat Clear Calc 56.10 Est GFR (MDRD) Af Amer 62 Est GFR (MDRD) Non-Af 51 L BUN/Creatinine Ratio 16.0 Glucose 134 H Calcium 8.6 Magnesium 1.9 POC Glucose 05/05/18 05/05/18 05/04/18 06:57 04:17 22:04 POC Glucose 133 H 155 H 137 H 05/04/18 16:18 POC Glucose 156 H Medical Necessity - Tobacco Use Smoking Status: Current every day smoker Tobacco Use: Cigarettes Assessment/Plan All Active Problems CHF (congestive heart failure) (Acute) Wide-complex tachycardia (Acute) Chest pain (Acute) Elevated troponin (Acute) Pancreatitis (Resolved) 1. New onset systolic CHF, pulmonary htn - EF 15 %, RVSP 49. Cardiology following. Lasix to daily. Possible cath tomorrow. Stopped ginny 2/2 kalli Vtach - recurrent. amiodarone, coreg. 2. KALLI - hold ginny, adjust lasix per cardiology 3. Alcohol abuse - CIWA. hepatomegaly. ascites, thickened gallbladder on US. Check ammonia level. Hx of not taking his lactulose. + hallucinations. 4. DMt2 - continue current therapy and titrate. 5. COPD - no exacerbation 6. BPH - flomax 7. Nicotine abuse - patch. Cessation encouraged. DVT ppx: stop lovenox, heparin instead. DC planning: PTOT <Cullen Carlson - Last Filed: 05/05/18 15:19> - Physical Exam General: Alert, Cooperative HEENT: Atraumatic, Normocephalic Oral: Moist Mucosa, No Gingival or Mucosal Lesions/ Ulcerations Neck: No Nodes, Thyroid Normal Size and Texture Lungs: Clear to auscultation, Normal air movement, No rhonchi, No wheeze Cardiovascular: Regular rate, Regular Rhythm, Normal S1, Normal S2, No murmurs Abdomen: Bowel Sounds Present, Soft, Non Tender, Non-Distended Extremities: No edema, Capillary Refill Less than 3 Seconds, Edema Skin: No rashes, No breakdown Neurological: Cranial nerves II-XII grossly intact Psych/Mental Status: Normal Affect, Appropriate Vital Signs Temp Pulse Resp BP Pulse Ox 36.1 C L 69 18 86/69 L 93 05/05/18 14:30 05/05/18 14:30 05/05/18 14:34 05/05/18 14:30 05/05/18 14:30 Oxygen Flow Rate (L/min) 2 Oxygen Delivery Method Room Air Weight: 96.1 kg Body Mass Index (BMI) 33.7 Intake and Output for Last 24 Hours 05/03/18 05/04/18 05/05/18 23:59 23:59 23:59 Intake Total 260 / 260 690.5 / 690.5 580 / 580 Output Total 1100 / 1100 1475 / 1475 200 / 200 Balance -840 / -840 -784.5 / -784.5 380 / 380 Laboratory Tests Past 24 Hrs 05/04/18 05/05/18 05/05/18 21:19 06:14 12:15 Sodium 139 Potassium 4.1 Chloride 103 Carbon Dioxide 24.0 Anion Gap 12 BUN 24 H Creatinine 1.50 H Estim Creat Clear Calc 56.10 Est GFR (MDRD) Af Amer 62 Est GFR (MDRD) Non-Af 51 L BUN/Creatinine Ratio 16.0 Glucose 134 H Calcium 8.6 Magnesium 1.9 Ammonia 86.0 H POC Glucose 05/05/18 05/05/18 05/05/18 12:08 06:57 04:17 POC Glucose 157 H 133 H 155 H 05/04/18 05/04/18 22:04 16:18 POC Glucose 137 H 156 H Assessment/Plan Patient seen and examined independently. Data reviewed. I agree with the above note by the physician apartment community assistant manager. 1. Acute HFrEF EF 15% Continue with Lasix On carvedilol as well as lisinopril plan for LHC when patient able to lie supine. 2. Elevated troponins Unclear what type of event of this type I versus type II Cardiology on consultation On carvedilol, aspirin and atorvastatin LHC when patient medically stable 3. Elevated bilirubin Chronic but appears higher than in the past Monitor By secondary to alcohol abuse Patient had an MRCP on November 01, 2015 that did show hepatic cirrhosis. Additionally had findings consistent with portal hypertension US showed hepatomegaly and fatty infiltration of the liver. likely 2/2 cirrhosis 4. Cirrhosis Appears compensated at this time Likely due to alcohol given the patient's heavy alcohol abuse Check ultrasound as above Advised complete alcohol cessation will need to follow up with GI in the future, as outpt. 5. Alcohol abuse Monitor As needed Ativan in case patient develops withdrawal or delirium tremens Thiamine and folate Patient with increased confusion last night and this AM started on Ativan for possible alcohol withdrawal 6. Metabolic encephalopathy Acute alcohol withdrawal v hepatic encephalopathy or combination Start lactulose (patient has been on in past, but stopped it on his own accord) 7. History of GI bleed Most recent was a month ago and qualified by his as a lot. She could not qualify how frequent, but states it is frequent and has been copious. Had a colonoscopy by Dr. Juárez about 2 years ago, and he had a polyp at that time. No mention, per the patient's , of a bleeding site at that time. will check records I would not recommend stents (if needed) until this has been further clarified and/or further worked up. page out to Dr. tay. 8. DVT proph: LMWH. Code Visit Inpatient E&M: 24420 Subs Hosp L3
[2018-05-05 12:10] LABS: Bedside Glucose 157 mg/dL (70-110)
--- NOTE | 2018-05-05 12:10 | PN_ITS ---
<Noel Madison - Last Filed: 05/05/18 12:01> Patient Problems: Active and Suspected Problems CHF (congestive heart failure) (Acute) Wide-complex tachycardia (Acute) Chest pain (Acute) Elevated troponin (Acute) Subjective: Pt pleasantly confused, hallucinating, does not know where he is, lethargic this AM. Trails off during interview. SOB improved. Edema improved. No CP. No lightheadedness, no dizziness. No difficulty emptying bladder. - Physical Exam General: Alert, Oriented x3, Cooperative HEENT: Atraumatic, PERRLA, EOMI, Normocephalic Neck: Supple, No JVD, Negative Carotid Bruits Lungs: Clear to auscultation, Normal air movement Cardiovascular: Regular rate, No murmurs Abdomen: Bowel Sounds Present, Soft, Non Tender Extremities: No edema, Capillary Refill Less than 3 Seconds, Edema - 1+ pitting edema. Skin: No rashes, No breakdown Musculoskeletal: No Tenderness to Palpation of Joints or Extremities Neurological: Cranial nerves II-XII grossly intact Psych/Mental Status: Normal Affect, Appropriate, Alert and oriented to time, place, person, mood and affect Vital Signs Temp Pulse Resp BP Pulse Ox 97.6 F L 73 18 100/68 98 05/05/18 09:51 05/05/18 11:07 05/05/18 09:51 05/05/18 09:51 05/05/18 09:51 Oxygen Flow Rate (L/min) 2 Oxygen Delivery Method Room Air Weight: 211 lb 13.828 oz Body Mass Index (BMI) 33.7 Intake and Output for Last 24 Hours 05/03/18 05/04/18 05/05/18 23:59 23:59 23:59 Intake Total 260 / 260 690.5 / 690.5 120 / 120 Output Total 1100 / 1100 1475 / 1475 Balance -840 / -840 -784.5 / -784.5 120 / 120 Laboratory Tests Past 24 Hrs 05/04/18 05/05/18 21:19 06:14 Sodium 139 Potassium 4.1 Chloride 103 Carbon Dioxide 24.0 Anion Gap 12 BUN 24 H Creatinine 1.50 H Estim Creat Clear Calc 56.10 Est GFR (MDRD) Af Amer 62 Est GFR (MDRD) Non-Af 51 L BUN/Creatinine Ratio 16.0 Glucose 134 H Calcium 8.6 Magnesium 1.9 POC Glucose 05/05/18 05/05/18 05/04/18 06:57 04:17 22:04 POC Glucose 133 H 155 H 137 H 05/04/18 16:18 POC Glucose 156 H Medical Necessity - Tobacco Use Smoking Status: Current every day smoker Tobacco Use: Cigarettes Assessment/Plan All Active Problems CHF (congestive heart failure) (Acute) Wide-complex tachycardia (Acute) Chest pain (Acute) Elevated troponin (Acute) Pancreatitis (Resolved) 1. New onset systolic CHF, pulmonary htn - EF 15 %, RVSP 49. Cardiology following. Lasix to daily. Possible cath tomorrow. Stopped ginny 2/2 kalli Vtach - recurrent. amiodarone, coreg. 2. KALLI - hold ginny, adjust lasix per cardiology 3. Alcohol abuse - CIWA. hepatomegaly. ascites, thickened gallbladder on US. Check ammonia level. Hx of not taking his lactulose. + hallucinations. 4. DMt2 - continue current therapy and titrate. 5. COPD - no exacerbation 6. BPH - flomax 7. Nicotine abuse - patch. Cessation encouraged. DVT ppx: stop lovenox, heparin instead. DC planning: PTOT <Cullen Carlson - Last Filed: 05/05/18 15:19> - Physical Exam General: Alert, Cooperative HEENT: Atraumatic, Normocephalic Oral: Moist Mucosa, No Gingival or Mucosal Lesions/ Ulcerations Neck: No Nodes, Thyroid Normal Size and Texture Lungs: Clear to auscultation, Normal air movement, No rhonchi, No wheeze Cardiovascular: Regular rate, Regular Rhythm, Normal S1, Normal S2, No murmurs Abdomen: Bowel Sounds Present, Soft, Non Tender, Non-Distended Extremities: No edema, Capillary Refill Less than 3 Seconds, Edema Skin: No rashes, No breakdown Neurological: Cranial nerves II-XII grossly intact Psych/Mental Status: Normal Affect, Appropriate Vital Signs Temp Pulse Resp BP Pulse Ox 36.1 C L 69 18 86/69 L 93 05/05/18 14:30 05/05/18 14:30 05/05/18 14:34 05/05/18 14:30 05/05/18 14:30 Oxygen Flow Rate (L/min) 2 Oxygen Delivery Method Room Air Weight: 96.1 kg Body Mass Index (BMI) 33.7 Intake and Output for Last 24 Hours 05/03/18 05/04/18 05/05/18 23:59 23:59 23:59 Intake Total 260 / 260 690.5 / 690.5 580 / 580 Output Total 1100 / 1100 1475 / 1475 200 / 200 Balance -840 / -840 -784.5 / -784.5 380 / 380 Laboratory Tests Past 24 Hrs 05/04/18 05/05/18 05/05/18 21:19 06:14 12:15 Sodium 139 Potassium 4.1 Chloride 103 Carbon Dioxide 24.0 Anion Gap 12 BUN 24 H Creatinine 1.50 H Estim Creat Clear Calc 56.10 Est GFR (MDRD) Af Amer 62 Est GFR (MDRD) Non-Af 51 L BUN/Creatinine Ratio 16.0 Glucose 134 H Calcium 8.6 Magnesium 1.9 Ammonia 86.0 H POC Glucose 05/05/18 05/05/18 05/05/18 12:08 06:57 04:17 POC Glucose 157 H 133 H 155 H 05/04/18 05/04/18 22:04 16:18 POC Glucose 137 H 156 H Assessment/Plan Patient seen and examined independently. Data reviewed. I agree with the above note by the physician assistant winemaker. 1. Acute HFrEF * EF 15% * Continue with Lasix * On carvedilol as well as lisinopril * plan for LHC when patient able to lie supine. 2. Elevated troponins * Unclear what type of event of this type I versus type II * Cardiology on consultation * On carvedilol, aspirin and atorvastatin * LHC when patient medically stable 3. Elevated bilirubin * Chronic but appears higher than in the past * Monitor * By secondary to alcohol abuse * Patient had an MRCP on November 01, 2015 that did show hepatic cirrhosis. Additionally had findings consistent with portal hypertension * US showed hepatomegaly and fatty infiltration of the liver. * likely 2/2 cirrhosis 4. Cirrhosis * Appears compensated at this time * Likely due to alcohol given the patient's heavy alcohol abuse * Check ultrasound as above * Advised complete alcohol cessation * will need to follow up with GI in the future, as outpt. 5. Alcohol abuse * Monitor * As needed Ativan in case patient develops withdrawal or delirium tremens * Thiamine and folate * Patient with increased confusion last night and this AM * started on Ativan for possible alcohol withdrawal 6. Metabolic encephalopathy * Acute alcohol withdrawal v hepatic encephalopathy or combination * Start lactulose (patient has been on in past, but stopped it on his own accord ) 7. History of GI bleed * Most recent was a month ago and qualified by his as a lot. She could not qualify how frequent, but states it is frequent and has been copious. * Had a colonoscopy by Dr. Juárez about 2 years ago, and he had a polyp at that time. No mention, per the patient's , of a bleeding site at that time. * will check records * I would not recommend stents (if needed) until this has been further clarified and/or further worked up. * page out to Dr. tay. 8. DVT proph: LMWH. Code Visit Inpatient E&M: 52375 Subs Hosp L3
[2018-05-05] MEDS: Insulin Lispro 100 UNIT/ML INSULN.PEN SC ×3 (12:51→21:27)
[2018-05-05 16:45] LABS: Bedside Glucose 155 mg/dL (70-110)
[2018-05-05] MEDS: 0.9% Normal Saline 1,000 ML 75 ML IV (17:19)
[2018-05-05] MEDS: Lactulose 20 GM/30 ML UDC PO ×2 (17:32→21:10)
[2018-05-05] MEDS: Atorvastatin Calcium 40 MG Tablet PO (21:10)
[2018-05-05 21:21] LABS: Bedside Glucose 157 mg/dL (70-110)
[2018-05-05 21:36] LABS: Bedside Glucose 183 mg/dL (70-110)
[2018-05-05] MEDS: Carvedilol 3.125 MG TABLET PO (21:41)
[2018-05-06] VITALS (28 sets, daily range): BP systolic 91–107; BP diastolic 63–88; PULSE 72–82; RESP 12–30; TEMP 36.3–37.1; O2SAT 91–100; BMI 33.0
--- NOTE | 2018-05-06 04:00 | EKG12_ITS ---
Test Reason : AM EKG Blood Pressure : / mmHG Vent. Rate : 074 BPM Atrial Rate : 074 BPM P-R Int : 158 ms QRS Dur : 098 ms QT Int : 448 ms P-R-T Axes : 061 066 062 degrees QTc Int : 497 ms Sinus rhythm with occasional Premature ventricular complexes Low voltage QRS Septal infarct (cited on or before 03-MAY-2018) Abnormal ECG Confirmed by JESSE CHRISTIANSEN, ALIA ([id number]), make up editor ALVINA ISBELL ([id number]) on 05/13/2018 3:02:55 PM Referred By: MARGARET Confirmed By:ALIA MOLINA MD
[2018-05-06 04:03] LABS: Absolute Lymphocyte Count 1.09 X10^3/ul (0.83-4.51); Absolute Neutrophil Count 3.8 X10^3/uL (2.0-7.7); Basophil# 0.04 X10^3/uL; Basophil% 0.7 % (0-1); Eosinophils% 1.7 % (0-5); Hematocrit 36.1 % (40-54); Hemoglobin 11.6 g/dl (13.0-16.5); Lymphocyte # 1.09 X10^3/ul (4.0); Lymphocyte % 18.4 % (19-41); Mean Corp Hgb Conc 32.1 g/gl (32-36); Mean Corpuscular Hgb 29.3 pg (27.0-32.0); Mean Corpuscular Volume 91.2 fL (80-94); Monocyte# 0.95 X10^3/uL; Neutrophil # 3.75 X10^3/uL (2.7-7.7); Platelet Count 83 K/mm3 (150-450); RBC Distribution Width CV 17.3 % (11.6-14.6); RBC Distribution Width SD 57.7 fl (35.1-43.9); Red Blood Count 3.96 M/mm3 (4.6-6.2); White Blood Count 5.9 K/mm3 (4.4-11.0)
[2018-05-06 04:04] LABS: Differential Indicated SCAN CRITERIA MET; POSITIVE COUNT NO; POSITIVE DIFFERENTIAL NO; POSITIVE MORPHOLOGY YES
[2018-05-06 04:07] LABS: International Normalized Ratio 1.4; Partial Thromboplast Time 32.4 Seconds (24.1-36.2); Prothrombin Time (Protime)PT. 17.1 SECONDS (11.7-14.9)
[2018-05-06 04:15] LABS: ALB/GLOB Ratio 0.8 RATIO (0.9-2.4); AST(SGOT) 62 U/L (15-37); Alanine Aminotransfer ALT/SGPT 39 U/L (16-61); Albumin, Serum 3.2 g/dL (3.2-5.0); Alkaline Phosphatase 91 U/L (45-117); Anion Gap 8 (5-15); BUN 31 mg/dL (7-18); Calcium,Total 8.3 mg/dL (8.5-10.1); Chloride 103 mmol/L (98-107); Creatinine, Serum 1.72 mg/dL (0.70-1.30); EST Glomerular Filtration Rate 44 mL/min (>60); Est Glom Filt Rate - Afr Amer 53 mL/min (>60); Estimated Creatinine Clearance 48.93 ml/min; Globulin 3.8 g/dL (2.2-4.2); Glucose 115 mg/dL (74-106); Potassium 4.3 mmol/L (3.5-5.1); Sodium Level 140 mmol/L (136-145)
[2018-05-06 04:25] LABS: Differential Comment SCANNED
[2018-05-06] MEDS: Ipratropium/Albuterol Sulfate 3 ML AMPUL.NEB INHALATION ×2 (06:51→11:24)
[2018-05-06] MEDS: Aspirin E.C. 81 MG Tablet PO (07:10)
[2018-05-06] MEDS: 0.9% Normal Saline 1,000 ML 15 ML IV (07:10)
[2018-05-06] MEDS: Carvedilol 3.125 MG TABLET PO (07:10)
[2018-05-06 07:20] LABS: Bedside Glucose 118 mg/dL (70-110)
--- NOTE | 2018-05-06 08:29 | PCM.PN.CARD ---
Subjectve: The patient was noted to have an episode of hypotension yesterday. This required interruption of his medications and subsequent IV fluids. He was placed in the ICU for closer monitoring. His systolic blood pressure improved status post IV fluids. He did not require IV vasopressor agents. He was evaluated yesterday evening. He stated he was feeling better and back towards his baseline. He had no ongoing acute symptoms. He is now status post diagnostic cardiac catheterization. He appears to be without acute complaint. He has chronic low back discomfort. Objective: Vital Signs Temp Pulse Resp BP Pulse Ox 98.1 F 75 18 105/88 H 95 05/06/18 03:00 05/06/18 07:00 05/06/18 07:00 05/06/18 07:00 05/06/18 07:00 Oxygen Flow Rate (L/min) 2 Oxygen Delivery Method Room Air Weight: 230 lb 2.601 oz Body Mass Index (BMI) 33.7 Intake and Output for Last 24 Hours 05/04/18 05/05/18 05/06/18 23:59 23:59 23:59 Intake Total 690.5 / 690.5 1732 / 1732 899 / 899 Output Total 1475 / 1475 200 / 200 250 / 250 Balance -784.5 / -784.5 1532 / 1532 649 / 649 General: Awake, Alert, Oriented x 3, Cooperative, No Acute Distress HEENT: Atraumatic, Normocephalic, PERRL, EOMI, Sclera Non Icteric Oral: Moist Mucosa Neck: Supple, Good ROM Lungs: Clear to auscultation Cardiovascular: Regular Rhythm, Premature Ectopic Beats, Normal S1, Normal S2 Vascular: No Carotid Bruits Abdomen: Bowel Sounds Present, Soft, Non Tender Extremities: Mild RLE Edema, Mild LLE Edema Neurological: No Focal Motor or Sensory Deficit 05/06/18 03:20: Sodium 140, Potassium 4.3, Chloride 103, Carbon Dioxide 29.0, Anion Gap 8, BUN 31 H, Creatinine 1.72 H, Est GFR (MDRD) Af Amer 53 L, Est GFR (MDRD) Non-Af 44 L, BUN/Creatinine Ratio 18.0, Glucose 115 H, Calcium 8.3 L, Total Bilirubin 2.30 H 05/06/18 03:20: WBC 5.9, RBC 3.96 L, Hgb 11.6 L, Hct 36.1 L, MCV 91.2, MCH 29.3, MCHC 32.1, RDW 17.3 H, RDW Differential 57.7 H, Plt Count 83 L, MPV TNP, Immature Gran % (Auto) 0.200, Neut % (Auto) 63.0, Lymph % (Auto) 18.4 L, [place] % (Auto) 16.0 H, Eos % (Auto) 1.7, Baso % (Auto) 0.7, Absolute Neuts (auto) 3.8, Total Counted Not Reportable 05/06/18 03:20: PT 17.1 H, INR 1.4, APTT 32.4 Rhythm: Sinus rhythm; PVCs Cardiac Cath: Preliminary evaluation: Increased left ventricular end-diastolic pressure; increased intrapulmonary/right heart pressures; global left ventricular systolic dysfunction-severe; no angiographically significant appearing CAD Medical Necessity - Tobacco Use Smoking Status: Current every day smoker Tobacco Use: Cigarettes Assessment/Plan 1. Acute CHF-unspecified The patient presents with symptoms compatible with acute congestive heart failure. Based upon his diagnostic cardiac catheterization at does not appear that this is related to angiographically significant appearing CAD. The concern is that this is related to a non-CAD related cardiomyopathy such as alcohol induced. He is being monitored. He is being treated with medical management. This is including nitrates, beta-blockers, diuretics, and afterload reducing agents. However, his medications will need be adjusted based upon his vital signs, renal function, etc. 2. Nonsustained wide complex tachycardia The patient had an episode of nonsustained wide complex tachycardia. His recurrent events appear compatible with nonsustained VT. This may be related to his underlying cardiomyopathy. At the present time he appears without acute symptoms or hemodynamic compromise. He will continue medical management. This will include antiarrhythmic therapy with amiodarone. His thyroid function and hepatic function will need to be monitored. 3. Cardiomyopathy He appears to have a non-CAD related cardiomyopathy. Again the concern this is related to underlying alcohol use. He will need combined medical management. He will need follow-up of his left ventricular wall motion and systolic function. If his left ventricular systolic function does not improve he will need to be considered for primary prevention ICD therapy. 4. Diabetes mellitus He will continue medical management per internal medicine. 5. COPD He will continue evaluation care per internal medicine. 6. Alcohol abuse He is being evaluated and monitored for any obvious alcohol withdrawal symptoms, etc., per internal medicine. 7. Abnormal bilirubin levels The patient does have abnormal bilirubin levels. His right upper quadrant ultrasound did demonstrate concerns of hepatomegaly, fatty infiltrate of the liver, ascites, and a thickened gallbladder wall. His hepatic studies will need to be followed as he undergoes cardiovascular evaluation and therapy and alcohol withdrawal. This note was generated with [employer] dictation software. It may contain incorrect words, spelling, and punctuation that were not noted in checking the note before signing.
--- NOTE | 2018-05-06 08:34 | PN.CARD_ITS ---
Subjectve: The patient was noted to have an episode of hypotension yesterday. This required interruption of his medications and subsequent IV fluids. He was placed in the ICU for closer monitoring. His systolic blood pressure improved status post IV fluids. He did not require IV vasopressor agents. He was evaluated yesterday evening. He stated he was feeling better and back towards his baseline. He had no ongoing acute symptoms. He is now status post diagnostic cardiac catheterization. He appears to be without acute complaint. He has chronic low back discomfort. Objective: Vital Signs Temp Pulse Resp BP Pulse Ox 98.1 F 75 18 105/88 H 95 05/06/18 03:00 05/06/18 07:00 05/06/18 07:00 05/06/18 07:00 05/06/18 07:00 Oxygen Flow Rate (L/min) 2 Oxygen Delivery Method Room Air Weight: 230 lb 2.601 oz Body Mass Index (BMI) 33.7 Intake and Output for Last 24 Hours 05/04/18 05/05/18 05/06/18 23:59 23:59 23:59 Intake Total 690.5 / 690.5 1732 / 1732 899 / 899 Output Total 1475 / 1475 200 / 200 250 / 250 Balance -784.5 / -784.5 1532 / 1532 649 / 649 General: Awake, Alert, Oriented x 3, Cooperative, No Acute Distress HEENT: Atraumatic, Normocephalic, PERRL, EOMI, Sclera Non Icteric Oral: Moist Mucosa Neck: Supple, Good ROM Lungs: Clear to auscultation Cardiovascular: Regular Rhythm, Premature Ectopic Beats, Normal S1, Normal S2 Vascular: No Carotid Bruits Abdomen: Bowel Sounds Present, Soft, Non Tender Extremities: Mild RLE Edema, Mild LLE Edema Neurological: No Focal Motor or Sensory Deficit 05/06/18 03:20: Sodium 140, Potassium 4.3, Chloride 103, Carbon Dioxide 29.0, Anion Gap 8, BUN 31 H, Creatinine 1.72 H, Est GFR (MDRD) Af Amer 53 L, Est GFR ( MDRD) Non-Af 44 L, BUN/Creatinine Ratio 18.0, Glucose 115 H, Calcium 8.3 L, Total Bilirubin 2.30 H 05/06/18 03:20: WBC 5.9, RBC 3.96 L, Hgb 11.6 L, Hct 36.1 L, MCV 91.2, MCH 29.3 , MCHC 32.1, RDW 17.3 H, RDW Differential 57.7 H, Plt Count 83 L, MPV TNP, Immature Gran % (Auto) 0.200, Neut % (Auto) 63.0, Lymph % (Auto) 18.4 L, [place] % (Auto) 16.0 H, Eos % (Auto) 1.7, Baso % (Auto) 0.7, Absolute Neuts (auto) 3.8, Total Counted Not Reportable 05/06/18 03:20: PT 17.1 H, INR 1.4, APTT 32.4 Rhythm: Sinus rhythm; PVCs Cardiac Cath: Preliminary evaluation: Increased left ventricular end-diastolic pressure; increased intrapulmonary/right heart pressures; global left ventricular systolic dysfunction-severe; no angiographically significant appearing CAD Medical Necessity - Tobacco Use Smoking Status: Current every day smoker Tobacco Use: Cigarettes Assessment/Plan 1. Acute CHF-unspecified The patient presents with symptoms compatible with acute congestive heart failure. Based upon his diagnostic cardiac catheterization at does not appear that this is related to angiographically significant appearing CAD. The concern is that this is related to a non-CAD related cardiomyopathy such as alcohol induced. He is being monitored. He is being treated with medical management. This is including nitrates, beta-blockers, diuretics, and afterload reducing agents. However, his medications will need be adjusted based upon his vital signs, renal function, etc. 2. Nonsustained wide complex tachycardia The patient had an episode of nonsustained wide complex tachycardia. His recurrent events appear compatible with nonsustained VT. This may be related to his underlying cardiomyopathy. At the present time he appears without acute symptoms or hemodynamic compromise. He will continue medical management. This will include antiarrhythmic therapy with amiodarone. His thyroid function and hepatic function will need to be monitored. 3. Cardiomyopathy He appears to have a non-CAD related cardiomyopathy. Again the concern this is related to underlying alcohol use. He will need combined medical management. He will need follow-up of his left ventricular wall motion and systolic function. If his left ventricular systolic function does not improve he will need to be considered for primary prevention ICD therapy. 4. Diabetes mellitus He will continue medical management per internal medicine. 5. COPD He will continue evaluation care per internal medicine. 6. Alcohol abuse He is being evaluated and monitored for any obvious alcohol withdrawal symptoms , etc., per internal medicine. 7. Abnormal bilirubin levels The patient does have abnormal bilirubin levels. His right upper quadrant ultrasound did demonstrate concerns of hepatomegaly, fatty infiltrate of the liver, ascites, and a thickened gallbladder wall. His hepatic studies will need to be followed as he undergoes cardiovascular evaluation and therapy and alcohol withdrawal. This note was generated with [employer] dictation software. It may contain incorrect words, spelling, and punctuation that were not noted in checking the note before signing.
[2018-05-06 08:41] LABS: Blood Gas Specimen Type VEN; VBG BASE EXCESS -1 mmol/L (-1.0-3.5); VBG Bicarbonate 23 mmol/L (22-26); VBG Oxygen Content 25 mmol/L (23-33); VBG PO2 36 mmHg (25-40); VBG SO2 69 % (50-70); VBG pCO2 38.4 mmHg (41-51); VBG pH 7.39 (7.32-7.42)
[2018-05-06 08:41] LABS: Blood Gas Specimen Type VEN; VBG BASE EXCESS 0 mmol/L (-1.0-3.5); VBG Bicarbonate 24 mmol/L (22-26); VBG Oxygen Content 25 mmol/L (23-33); VBG PO2 76 mmHg (25-40); VBG SO2 96 % (50-70); VBG pCO2 32.9 mmHg (41-51); VBG pH 7.47 (7.32-7.42)
[2018-05-06 08:41] LABS: Blood Gas Specimen Type VEN; VBG BASE EXCESS 1 mmol/L (-1.0-3.5); VBG Bicarbonate 26 mmol/L (22-26); VBG Oxygen Content 28 mmol/L (23-33); VBG PO2 26 mmHg (25-40); VBG SO2 45 % (50-70); VBG pCO2 44.5 mmHg (41-51); VBG pH 7.38 (7.32-7.42)
[2018-05-06 08:41] LABS: Blood Gas Specimen Type VEN; VBG BASE EXCESS 1 mmol/L (-1.0-3.5); VBG Bicarbonate 26 mmol/L (22-26); VBG Oxygen Content 28 mmol/L (23-33); VBG PO2 27 mmHg (25-40); VBG SO2 49 % (50-70); VBG pCO2 45.4 mmHg (41-51); VBG pH 7.37 (7.32-7.42)
--- NOTE | 2018-05-06 08:44 | CL.D_ITS ---
Patient Name: MEKA RENEE Study Date: 05/06/2018 Performing: Pablo Shirley MD Ht: 70.07 inches 178 cm : 1960 Wt: 211.64 lbs 96 kg Age: 57 Gender: male BSA: 2.14 PROCEDURE(S) PERFORMED LW29-AMV/LHC/COR/LV CLINICAL PROFILE AND INDICATIONS Indications: LV Dysfunction, Cardiomyopathy, Cardiac Arrythmia Heart Failure: NYHA Class: 3, Newly Diagnosed: Yes, Heart Failure Type: Systolic Stress/Imaging Stress/Image Study Performed: No Angina Classification Anginal Classification w/in 2 Weeks: No symptoms CAD Presentations: Other: Shortness of Breath; Orthopnea; PND; NSVT CONCLUSIONS Elevated Left Ventricular End Diastolic Pressure Right heart pressures - severely elevated The patient has pulmonary hypertension which is severe. Intracardiac shunting: None Global LV systolic dysfunction- Severe LVEF: by LV gram 10 % Mitral Valve Insufficiency Mild RECOMMENDATIONS Risk factor modification Medical therapy DESCRIPTION OF PROCEDURE The patient arrived to the procedure lab. The risks and benefits of the procedure as well as a full d escription of our services here and current unavailability of surgical backup were fully explained to the patient and/or their significant other prior to the catheterization. The Timeout was completed, verifying the correct patient and procedure. The patient's procedural site was prepped and draped in the usual fashion. Local anesthetic was given subcutaneously to right groin region with Lidocaine 2%. Using a modified Seldinger technique, arterial access was obtained via the right femoral artery, a 4 Fr sheath was inserted Venous access was obtained via the right femoral vein, a 7Fr sheath was insert ed. A 7Fr thermal dilution catheter was inserted and right heart pressures were recorded, it was then advanced to PA position for cardiac outputs. Thermal dilution cardiac outputs were then recorded. O2 saturations were then obtained. Simultaneous pressures were then recorded. The Thermal dilution cath eter was then removed. Left Coronary Artery selective angiography was performed in multiple views usi ng a 4 Fr. JL4 catheter. Right Coronary Artery selective angiography was then performed in multiple v iews using a 4 Fr. JR4 catheter. Left Ventriculography was performed in GUERRA projection using a 4 Fr. Pigtail catheter. LV to AO pullback pressures were then recorded.The arterial sheath was pulled and m anual compression applied until hemostasis is achieved.. The venous sheath was then pulled and manual compression applied until hemostasis achieved CORONARY ANGIOGRAPHY DOMINANCE: Right Dominant LEFT HEART ASSESSMENT Left Ventricular Ejection Fraction: by LV Gram 10 % Global Hypokinesis - Severe Elevated Left Ventricular End Diastolic Pressure LVEDP: 33 mmHg RIGHT HEART ASSESSMENT Thermal CO: 3.78 Thermal CI: 1.77 Edgard CO: 6.68 Edgard CI: 3.12 PW: 34/39 31 PA: 62/35 45 RV: 60/10 0 RA: 25 PVR: 296 Right Heart pressures - elevated Pulmonary Hypertension Severe Intracardiac shunting: None LEFT MAIN: Angiographically normal LEFT ANTERIOR DECENDING ARTERY: PROX LAD: Eccentric: 25 % Stenosis CIRCUMFLEX ARTERY: Angiographically normal RAMUS: Mild luminal irregularities RIGHT CORONARY ARTERY: Angiographically normal VALVE FINDINGS: Normal Aortic Valve function Mitral Valve Insufficiency - Grade 1 AORTIC ROOT: Angiographically normal COMPLICATIONS No Complications PROCEDURE MEDICATIONS Versed 0.5 mg IV Versed 0.5 mg IV SUMMARY OF HEMODYNAMIC DATA Time AIR REST ECG 07:35:07 RA 32/28 (25) SV 07:53:17 RV 60/10, 0 07:53:33 PA 62/35 (45) PA 07:54:07 PW 34/39 (31) PV 07:55:18 PA 63/29 (42) 07:55:41 LV 87/19, 38 08:05:57 PW 40/41 (34) 08:05:57 LV 85/18, 40 08:06:05 PW 42/40 (35) 08:06:05 LV 96/13, 31 08:08:01 PW 42/45 (35) 08:08:01 LV 79/15, 33 08:08:08 PW 45/44 (33) 08:08:08 LVp 86/15, 33 08:08:32 AOp 84/64 (73) 08:08:37 PAp 63/34 (44) 08:09:31 RV 53/15, 29 08:10:04 RA 32/31 (27) 08:10:13 RM AIR REST 08:38:46 Type SV CO (l/m) CI (l/m/ HR Time AIR REST Thermal 51.80 3.78 1.77 73 07:35:07 Edgard 91.50 6.68 3.12 73 07:35:07 Label % O2 Pres/Loc Time AIR REST IVC 69 SV 08:12:06 SVC 49 08:12:15 PA 45 PA 08:12:22 AO 96 PV 08:12:28 Signed By Pablo Shirley MD On 05/06/2018 08:44:00 Pablo Shirley MD
--- NOTE | 2018-05-06 08:58 | CRPHASE1 ---
Patient Data/Charges Burial Vault Setter:: Pablo Shirley Risk Factors/Lifestyle Smoking Status: Current every day smoker Hx Hypertension: No Hx Diabetes Mellitus Type 1: No Hx Obesity: Yes Height: 1.78 m Weight:: 104.4 kg BMI: 33.0 ETOH: Yes Laboratory Values: Cardiac Rehab Phase I Labs Hemoglobin A1c 5.8 % (4.2-6.3) 05/03/18 18:10 Triglycerides 79 mg/dL (-199) 05/04/18 05:25 Cholesterol 141 mg/dL (200) 05/04/18 05:25 LDL Cholesterol 98 mg/dL (0-130) 05/04/18 05:25 HDL Cholesterol 27 mg/dL (40-) L 05/04/18 05:25 Phase I Education Given On:: [place], Nutrition, Antiplatelet medication, CHF, Smoking cessation, Diabetes - Type I, Diabetes - Type II Knowledge of Condition:: No Hospital Course Date/LVF/EF:: 05/05/18 - EF 15% Medical/Surgical History [place]:: No COPD:: Yes Asthma:: Yes Diabetes Type II:: Yes Discharge/Home/Social Eval Discharge Disposition: Home - Pt. restless in bed, short attention. Booklet and cardiac rehab program given and explained briefly
--- NOTE | 2018-05-06 09:03 | CRPHASE1_ITS ---
Patient Data/Charges Software Validation Technician:: Pablo Shirley Risk Factors/Lifestyle Smoking Status: Current every day smoker Hx Hypertension: No Hx Diabetes Mellitus Type 1: No Hx Obesity: Yes Height: 1.78 m Weight:: 104.4 kg BMI: 33.0 ETOH: Yes Laboratory Values: Cardiac Rehab Phase I Labs Hemoglobin A1c 5.8 % (4.2-6.3) 05/03/18 18:10 Triglycerides 79 mg/dL (-199) 05/04/18 05:25 Cholesterol 141 mg/dL (200) 05/04/18 05:25 LDL Cholesterol 98 mg/dL (0-130) 05/04/18 05:25 HDL Cholesterol 27 mg/dL (40-) L 05/04/18 05:25 Phase I Education Given On:: [place], Nutrition, Antiplatelet medication, CHF, Smoking cessation, Diabetes - Type I, Diabetes - Type II Knowledge of Condition:: No Hospital Course Date/LVF/EF:: 05/05/18 - EF 15% Medical/Surgical History [place]:: No COPD:: Yes Asthma:: Yes Diabetes Type II:: Yes Discharge/Home/Social Eval Discharge Disposition: Home - Pt. restless in bed, short attention. Booklet and cardiac rehab program given and explained briefly
--- NOTE | 2018-05-06 09:07 | CRPH1.INSTRU ---
General Education CAD and cardiac anatomy and function:: Not instructed Explanation of diagnoses and procedures:: Not instructed Sign/Symptoms of AL:: Not instructed Antiplatelet therapy: Needs reinforcement, Not instructed Proper use of NTG-SL: Not instructed Emergency procedures and activation of EMS: Not instructed Compliance of all prescribed medications: Not instructed Smoking Patient Nicotine/Smoking Risk Factors Are:: Cigarettes Nicotine/Smoking Response Code:: Not instructed Dyslipidemia Patient Dyslipidemia Risk Factors Are:: Total Cholesterol - 141, Triglycerides - 79, HDL - 27, LDL - 98 Dyslipidemia Response Code:: Not instructed Overweight/Obesity Patient Overweight/Obesity Risk Factors Are:: Obesity - > or = 30 Overweight/Obesity:: Not instructed Hypertension Patient Hypertension Risk Factors Are:: No documented hx of HTN Heart Disease Heart Disease Response Code:: Not instructed Diabetes Patient Diabetes Risk Factors Are:: Elevated blood sugars Diabetes:: Not instructed Metabolic Syndrome Metabolic Syndrome Response Code:: Not instructed Sedentary Sedentary Response Code:: Not instructed Stress Stress Response Code:: Not instructed - Pt. was somewhat restless in bed, attention was limited at this time.
--- NOTE | 2018-05-06 09:11 | CRPH1.INST_ITS ---
General Education CAD and cardiac anatomy and function:: Not instructed Explanation of diagnoses and procedures:: Not instructed Sign/Symptoms of CA:: Not instructed Antiplatelet therapy: Needs reinforcement, Not instructed Proper use of NTG-SL: Not instructed Emergency procedures and activation of EMS: Not instructed Compliance of all prescribed medications: Not instructed Smoking Patient Nicotine/Smoking Risk Factors Are:: Cigarettes Nicotine/Smoking Response Code:: Not instructed Dyslipidemia Patient Dyslipidemia Risk Factors Are:: Total Cholesterol - 141, Triglycerides - 79, HDL - 27, LDL - 98 Dyslipidemia Response Code:: Not instructed Overweight/Obesity Patient Overweight/Obesity Risk Factors Are:: Obesity - > or = 30 Overweight/Obesity:: Not instructed Hypertension Patient Hypertension Risk Factors Are:: No documented hx of HTN Heart Disease Heart Disease Response Code:: Not instructed Diabetes Patient Diabetes Risk Factors Are:: Elevated blood sugars Diabetes:: Not instructed Metabolic Syndrome Metabolic Syndrome Response Code:: Not instructed Sedentary Sedentary Response Code:: Not instructed Stress Stress Response Code:: Not instructed - Pt. was somewhat restless in bed, attention was limited at this time.
[2018-05-06 09:25] LABS: Thyroid Stim Hormone (TSH) 3.54 uIU/mL (0.358-3.74)
[2018-05-06] MEDS: 0.9% NaCl Peripheral Flush Adult/Peds IV (09:41)
[2018-05-06] MEDS: Ondansetron 4 MG/2 ML Vial IV (09:41)
--- NOTE | 2018-05-06 13:01 | NURSING ---
PATIENT FAMILY IN ROOM REPOSITIONING AND LIFTING PATIENT OUT OF BED. THIS RN TO THE BEDSIDE AND REINFORCED THE IMPORTANCE OF THE PATIENT REMAINING IN BED AND THAT THE RN WILL NOTIFY THEM WHEN HE IS ABLE TO GET UP. THE FAMILY VERBALIZED UNDERSTANDING.
[2018-05-06] MEDS: SACUBITRIL/VALSARTAN 24/26 MG TABLET 1 EACH PO (15:04)
[2018-05-06] MEDS: Furosemide 40 MG Tablet PO (15:04)
[2018-05-06] MEDS: Lactulose 20 GM/30 ML UDC PO ×2 (15:04→21:27)
[2018-05-06] MEDS: Tamsulosin HCl 0.4 MG Capsule PO (15:04)
[2018-05-06] MEDS: Famotidine 20 MG Tablet PO ×2 (15:04→21:28)
[2018-05-06] MEDS: Amiodarone 200 MG Tablet PO ×2 (15:05→21:27)
[2018-05-06] MEDS: Multivitamins,Ther W-Minerals Tablet 1 TABLET PO (15:05)
[2018-05-06 15:16] LABS: Bedside Glucose 126 mg/dL (70-110)
--- NOTE | 2018-05-06 15:53 | PCM.PROGNOTE ---
<Noel Madison - Last Filed: 05/06/18 15:53> Patient Problems: Active and Suspected Problems CHF (congestive heart failure) (Acute) Wide-complex tachycardia (Acute) Chest pain (Acute) Elevated troponin (Acute) Subjective: Pt more alert. Tolerated cath well. Still complains of mild chest discomfort and sob. No palpitations. No edema. Much more alert today. No fever or chills, no cough. Pt has started having loose BM. No abdominal pain. - Physical Exam General: Alert, Oriented x3, Cooperative HEENT: Atraumatic, PERRLA, EOMI, Normocephalic Neck: Supple, No JVD, Negative Carotid Bruits Lungs: Clear to auscultation, Normal air movement Cardiovascular: Regular rate, No murmurs Abdomen: Bowel Sounds Present, Soft, Non Tender Extremities: No edema, Capillary Refill Less than 3 Seconds Skin: No rashes, No breakdown Musculoskeletal: No Tenderness to Palpation of Joints or Extremities Neurological: Cranial nerves II-XII grossly intact Psych/Mental Status: Normal Affect, Appropriate, Alert and oriented to time, place, person, mood and affect Vital Signs Temp Pulse Resp BP Pulse Ox 97.5 F L 80 12 101/77 96 05/06/18 12:55 05/06/18 12:55 05/06/18 12:55 05/06/18 12:55 05/06/18 12:55 Oxygen Flow Rate (L/min) 2 Oxygen Delivery Method Room Air Weight: 230 lb 2.601 oz Body Mass Index (BMI) 33.7 Intake and Output for Last 24 Hours 05/04/18 05/05/18 05/06/18 23:59 23:59 23:59 Intake Total 690.5 / 690.5 1732 / 1732 899 / 899 Output Total 1475 / 1475 200 / 200 250 / 250 Balance -784.5 / -784.5 1532 / 1532 649 / 649 Laboratory Tests Past 24 Hrs 05/06/18 05/06/18 05/06/18 03:20 03:20 03:20 WBC 5.9 RBC 3.96 L Hgb 11.6 L Hct 36.1 L MCV 91.2 MCH 29.3 MCHC 32.1 RDW 17.3 H RDW Differential 57.7 H Plt Count 83 L MPV TNP Immature Gran % (Auto) 0.200 Neut % (Auto) 63.0 Lymph % (Auto) 18.4 L [place] % (Auto) 16.0 H Eos % (Auto) 1.7 Baso % (Auto) 0.7 Absolute Neuts (auto) 3.8 Absolute Lymphs (auto) 1.09 Total Counted Not Reportable Differential Comment SCANNED PT 17.1 H INR 1.4 APTT 32.4 Specimen Type VBG pH VBG pO2 VBG O2 Sat (Calc) VBG O2 Content VBG Base Excess POC Mix VBG pCO2 Pt Tmp Sodium 140 Potassium 4.3 Chloride 103 Carbon Dioxide 29.0 Anion Gap 8 BUN 31 H Creatinine 1.72 H Estim Creat Clear Calc 48.93 Est GFR (MDRD) Af Amer 53 L Est GFR (MDRD) Non-Af 44 L BUN/Creatinine Ratio 18.0 Glucose 115 H Calcium 8.3 L Total Bilirubin 2.30 H AST 62 H ALT 39 Alkaline Phosphatase 91 Total Protein 7.0 Albumin 3.2 Globulin 3.8 Albumin/Globulin Ratio 0.8 L TSH 05/06/18 05/06/18 05/06/18 03:20 07:51 07:54 WBC RBC Hgb Hct MCV MCH MCHC RDW RDW Differential Plt Count MPV Immature Gran % (Auto) Neut % (Auto) Lymph % (Auto) [place] % (Auto) Eos % (Auto) Baso % (Auto) Absolute Neuts (auto) Absolute Lymphs (auto) Total Counted Differential Comment PT INR APTT Specimen Type PLACIDO PLACIDO VBG pH 7.39 7.47 H VBG pO2 36 76 H VBG O2 Sat (Calc) 69 96 H VBG O2 Content 25 25 VBG Base Excess -1 0 POC Mix VBG pCO2 Pt Tmp 38.4 L 32.9 L Sodium Potassium Chloride Carbon Dioxide Anion Gap BUN Creatinine Estim Creat Clear Calc Est GFR (MDRD) Af Amer Est GFR (MDRD) Non-Af BUN/Creatinine Ratio Glucose Calcium Total Bilirubin AST ALT Alkaline Phosphatase Total Protein Albumin Globulin Albumin/Globulin Ratio TSH 3.54 05/06/18 05/06/18 07:58 08:01 WBC RBC Hgb Hct MCV MCH MCHC RDW RDW Differential Plt Count MPV Immature Gran % (Auto) Neut % (Auto) Lymph % (Auto) [place] % (Auto) Eos % (Auto) Baso % (Auto) Absolute Neuts (auto) Absolute Lymphs (auto) Total Counted Differential Comment PT INR APTT Specimen Type PLACIDO PLACIDO VBG pH 7.37 7.38 VBG pO2 27 26 VBG O2 Sat (Calc) 49 L 45 L VBG O2 Content 28 28 VBG Base Excess 1 1 POC Mix VBG pCO2 Pt Tmp 45.4 44.5 Sodium Potassium Chloride Carbon Dioxide Anion Gap BUN Creatinine Estim Creat Clear Calc Est GFR (MDRD) Af Amer Est GFR (MDRD) Non-Af BUN/Creatinine Ratio Glucose Calcium Total Bilirubin AST ALT Alkaline Phosphatase Total Protein Albumin Globulin Albumin/Globulin Ratio TSH POC Glucose 05/06/18 05/06/18 05/05/18 15:03 07:15 21:22 POC Glucose 126 H 118 H 183 H 05/05/18 05/05/18 17:44 16:18 POC Glucose 157 H 155 H Medical Necessity - Tobacco Use Smoking Status: Current every day smoker Tobacco Use: Cigarettes Assessment/Plan All Active Problems CHF (congestive heart failure) (Acute) Wide-complex tachycardia (Acute) Chest pain (Acute) Elevated troponin (Acute) Pancreatitis (Resolved) 1. New onset systolic CHF, severe pulmonary htn - EF 15 %, RVSP 49. Cardiology following. Lasix to daily. Possible cath tomorrow. Stopped ginny 2/2 kalli Vtach - recurrent. amiodarone, coreg. -heart cath this AM, reportedly normal coronaries, EF 10% severe pulm htn -hypotension resolved, pt dispod to PCU from ICU this am. -this was likely multifactorial from renal failure, ativan, overdiuresis, elevated ammonia -monitor overnight. -tsh normal. 2. KALLI - trend 3. Alcohol abuse - Continue CIWA, avoid ativan unless significant withdrawal. 4. Cirrhosis with hepatic encephalopathy - improved. Lactulose - titrate to 3 soft BM/day. D/w patient the importance of not stopping this medication and the ability to self correct home dose to achieve BM goal. Pt stopped at home. Ammonia 86 yesterday. 5. DMt2 - continue current therapy and titrate. 6. COPD - no exacerbation 7. BPH - flomax 8. Nicotine abuse - patch. Cessation encouraged. DVT ppx: heparin DC planning: PTOT This patient was seen by Noel Madison PA-C under the supervision of Doctor Aldo. <Cullen Carlson - Last Filed: 05/07/18 13:19> - Physical Exam General: Alert, Cooperative HEENT: Atraumatic, Normocephalic Neck: No Nodes, Thyroid Normal Size and Texture Lungs: Clear to auscultation, Diminished Cardiovascular: Regular rate, Regular Rhythm, Normal S1, Normal S2 Abdomen: Bowel Sounds Present, Soft, Non Tender, Distended Extremities: No edema, No Calf Tenderness Skin: No rashes, No breakdown Vital Signs Temp Pulse Resp BP Pulse Ox 36.7 C 65 16 110/69 100 05/07/18 08:18 05/07/18 11:10 05/07/18 11:07 05/07/18 08:18 05/07/18 08:18 Oxygen Flow Rate (L/min) 2 Oxygen Delivery Method Room Air Weight: 103.5 kg Body Mass Index (BMI) 33.7 Intake and Output for Last 24 Hours 05/05/18 05/06/18 05/07/18 23:59 23:59 23:59 Intake Total 1732 / 1732 1199 / 1199 200 / 200 Output Total 200 / 200 250 / 250 400 / 400 Balance 1532 / 1532 949 / 949 -200 / -200 Laboratory Tests Past 24 Hrs 05/07/18 05/07/18 05:13 05:13 WBC 6.1 RBC 3.91 L Hgb 11.5 L Hct 35.7 L MCV 91.3 MCH 29.4 MCHC 32.2 RDW 17.5 H RDW Differential 57.9 H Plt Count 74 L MPV TNP Immature Gran % (Auto) 0.000 Neut % (Auto) 63.5 Lymph % (Auto) 14.5 L [place] % (Auto) 19.9 H Eos % (Auto) 1.3 Baso % (Auto) 0.8 Absolute Neuts (auto) 3.9 Absolute Lymphs (auto) 0.89 Total Counted Not Reportable Differential Comment Sodium 141 Potassium 3.8 Chloride 106 Carbon Dioxide 25.0 Anion Gap 10 BUN 29 H Creatinine 1.16 Estim Creat Clear Calc 72.55 Est GFR (MDRD) Af Amer 83 Est GFR (MDRD) Non-Af 69 BUN/Creatinine Ratio 25.0 H Glucose 133 H Calcium 8.3 L POC Glucose 05/07/18 05/07/18 05/06/18 11:35 06:52 21:26 POC Glucose 172 H 145 H 158 H 05/06/18 05/06/18 17:04 15:03 POC Glucose 209 H 126 H Assessment/Plan Patient seen 05/06. Late addition. Patient seen and examined independently. Data reviewed. I agree with the above note by the physician public relations assistant. 1. Acute HFrEF EF 15% Continue with Lasix On carvedilol as well as lisinopril LHC showed normal coronaries, it did show severe pulmonary HTN. 2. Elevated troponins type II Cardiology on consultation On carvedilol, aspirin and atorvastatin 3. Elevated bilirubin Chronic but appears higher than in the past Monitor By secondary to alcohol abuse Patient had an MRCP on November 01, 2015 that did show hepatic cirrhosis. Additionally had findings consistent with portal hypertension US showed hepatomegaly and fatty infiltration of the liver. likely 2/2 cirrhosis 4. Cirrhosis Appears compensated at this time Likely due to alcohol given the patient's heavy alcohol abuse Check ultrasound as above Advised complete alcohol cessation will need to follow up with GI in the future, as outpt. 5. Alcohol abuse Monitor As needed Ativan in case patient develops withdrawal or delirium tremens Thiamine and folate Patient with increased confusion last night and this AM started on Ativan for possible alcohol withdrawal 6. Metabolic encephalopathy Acute alcohol withdrawal v hepatic encephalopathy or combination Start lactulose (patient has been on in past, but stopped it on his own accord) 7. History of GI bleed Most recent was a month ago and qualified by his as a lot. She could not qualify how frequent, but states it is frequent and has been copious. Had a colonoscopy by Dr. Juárez about 2 years ago, and he had a polyp at that time. No mention, per the patient's , of a bleeding site at that time. will check records Follow up with Dr. Juárez 8. Pulmonary HTN probably group 2 or group 5 outpt PSG treat the underlying process(es) 9. DVT proph: LMWH. DW patient's daughter. Code Visit Inpatient E&M: 20001 Subs Hosp L3 - billing for 05/06
--- NOTE | 2018-05-06 15:59 | PN_ITS ---
<Noel Madison - Last Filed: 05/06/18 15:53> Patient Problems: Active and Suspected Problems CHF (congestive heart failure) (Acute) Wide-complex tachycardia (Acute) Chest pain (Acute) Elevated troponin (Acute) Subjective: Pt more alert. Tolerated cath well. Still complains of mild chest discomfort and sob. No palpitations. No edema. Much more alert today. No fever or chills, no cough. Pt has started having loose BM. No abdominal pain. - Physical Exam General: Alert, Oriented x3, Cooperative HEENT: Atraumatic, PERRLA, EOMI, Normocephalic Neck: Supple, No JVD, Negative Carotid Bruits Lungs: Clear to auscultation, Normal air movement Cardiovascular: Regular rate, No murmurs Abdomen: Bowel Sounds Present, Soft, Non Tender Extremities: No edema, Capillary Refill Less than 3 Seconds Skin: No rashes, No breakdown Musculoskeletal: No Tenderness to Palpation of Joints or Extremities Neurological: Cranial nerves II-XII grossly intact Psych/Mental Status: Normal Affect, Appropriate, Alert and oriented to time, place, person, mood and affect Vital Signs Temp Pulse Resp BP Pulse Ox 97.5 F L 80 12 101/77 96 05/06/18 12:55 05/06/18 12:55 05/06/18 12:55 05/06/18 12:55 05/06/18 12:55 Oxygen Flow Rate (L/min) 2 Oxygen Delivery Method Room Air Weight: 230 lb 2.601 oz Body Mass Index (BMI) 33.7 Intake and Output for Last 24 Hours 05/04/18 05/05/18 05/06/18 23:59 23:59 23:59 Intake Total 690.5 / 690.5 1732 / 1732 899 / 899 Output Total 1475 / 1475 200 / 200 250 / 250 Balance -784.5 / -784.5 1532 / 1532 649 / 649 Laboratory Tests Past 24 Hrs 05/06/18 05/06/18 05/06/18 03:20 03:20 03:20 WBC 5.9 RBC 3.96 L Hgb 11.6 L Hct 36.1 L MCV 91.2 MCH 29.3 MCHC 32.1 RDW 17.3 H RDW Differential 57.7 H Plt Count 83 L MPV TNP Immature Gran % (Auto) 0.200 Neut % (Auto) 63.0 Lymph % (Auto) 18.4 L [place] % (Auto) 16.0 H Eos % (Auto) 1.7 Baso % (Auto) 0.7 Absolute Neuts (auto) 3.8 Absolute Lymphs (auto) 1.09 Total Counted Not Reportable Differential Comment SCANNED PT 17.1 H INR 1.4 APTT 32.4 Specimen Type VBG pH VBG pO2 VBG O2 Sat (Calc) VBG O2 Content VBG Base Excess POC Mix VBG pCO2 Pt Tmp Sodium 140 Potassium 4.3 Chloride 103 Carbon Dioxide 29.0 Anion Gap 8 BUN 31 H Creatinine 1.72 H Estim Creat Clear Calc 48.93 Est GFR (MDRD) Af Amer 53 L Est GFR (MDRD) Non-Af 44 L BUN/Creatinine Ratio 18.0 Glucose 115 H Calcium 8.3 L Total Bilirubin 2.30 H AST 62 H ALT 39 Alkaline Phosphatase 91 Total Protein 7.0 Albumin 3.2 Globulin 3.8 Albumin/Globulin Ratio 0.8 L TSH 05/06/18 05/06/18 05/06/18 03:20 07:51 07:54 WBC RBC Hgb Hct MCV MCH MCHC RDW RDW Differential Plt Count MPV Immature Gran % (Auto) Neut % (Auto) Lymph % (Auto) [place] % (Auto) Eos % (Auto) Baso % (Auto) Absolute Neuts (auto) Absolute Lymphs (auto) Total Counted Differential Comment PT INR APTT Specimen Type PLACIDO PLACIDO VBG pH 7.39 7.47 H VBG pO2 36 76 H VBG O2 Sat (Calc) 69 96 H VBG O2 Content 25 25 VBG Base Excess -1 0 POC Mix VBG pCO2 Pt Tmp 38.4 L 32.9 L Sodium Potassium Chloride Carbon Dioxide Anion Gap BUN Creatinine Estim Creat Clear Calc Est GFR (MDRD) Af Amer Est GFR (MDRD) Non-Af BUN/Creatinine Ratio Glucose Calcium Total Bilirubin AST ALT Alkaline Phosphatase Total Protein Albumin Globulin Albumin/Globulin Ratio TSH 3.54 05/06/18 05/06/18 07:58 08:01 WBC RBC Hgb Hct MCV MCH MCHC RDW RDW Differential Plt Count MPV Immature Gran % (Auto) Neut % (Auto) Lymph % (Auto) [place] % (Auto) Eos % (Auto) Baso % (Auto) Absolute Neuts (auto) Absolute Lymphs (auto) Total Counted Differential Comment PT INR APTT Specimen Type PLACIDO PLACIDO VBG pH 7.37 7.38 VBG pO2 27 26 VBG O2 Sat (Calc) 49 L 45 L VBG O2 Content 28 28 VBG Base Excess 1 1 POC Mix VBG pCO2 Pt Tmp 45.4 44.5 Sodium Potassium Chloride Carbon Dioxide Anion Gap BUN Creatinine Estim Creat Clear Calc Est GFR (MDRD) Af Amer Est GFR (MDRD) Non-Af BUN/Creatinine Ratio Glucose Calcium Total Bilirubin AST ALT Alkaline Phosphatase Total Protein Albumin Globulin Albumin/Globulin Ratio TSH POC Glucose 05/06/18 05/06/18 05/05/18 15:03 07:15 21:22 POC Glucose 126 H 118 H 183 H 05/05/18 05/05/18 17:44 16:18 POC Glucose 157 H 155 H Medical Necessity - Tobacco Use Smoking Status: Current every day smoker Tobacco Use: Cigarettes Assessment/Plan All Active Problems CHF (congestive heart failure) (Acute) Wide-complex tachycardia (Acute) Chest pain (Acute) Elevated troponin (Acute) Pancreatitis (Resolved) 1. New onset systolic CHF, severe pulmonary htn - EF 15 %, RVSP 49. Cardiology following. Lasix to daily. Possible cath tomorrow. Stopped ginny 2/2 kalli Vtach - recurrent. amiodarone, coreg. -heart cath this AM, reportedly normal coronaries, EF 10% severe pulm htn -hypotension resolved, pt dispod to PCU from ICU this am. -this was likely multifactorial from renal failure, ativan, overdiuresis, elevated ammonia -monitor overnight. -tsh normal. 2. KALLI - trend 3. Alcohol abuse - Continue CIWA, avoid ativan unless significant withdrawal. 4. Cirrhosis with hepatic encephalopathy - improved. Lactulose - titrate to 3 soft BM/day. D/w patient the importance of not stopping this medication and the ability to self correct home dose to achieve BM goal. Pt stopped at home. Ammonia 86 yesterday. 5. DMt2 - continue current therapy and titrate. 6. COPD - no exacerbation 7. BPH - flomax 8. Nicotine abuse - patch. Cessation encouraged. DVT ppx: heparin DC planning: PTOT This patient was seen by Noel Madison PA-C under the supervision of Doctor Aldo. <Cullen Carlson - Last Filed: 05/07/18 13:19> - Physical Exam General: Alert, Cooperative HEENT: Atraumatic, Normocephalic Neck: No Nodes, Thyroid Normal Size and Texture Lungs: Clear to auscultation, Diminished Cardiovascular: Regular rate, Regular Rhythm, Normal S1, Normal S2 Abdomen: Bowel Sounds Present, Soft, Non Tender, Distended Extremities: No edema, No Calf Tenderness Skin: No rashes, No breakdown Vital Signs Temp Pulse Resp BP Pulse Ox 36.7 C 65 16 110/69 100 05/07/18 08:18 05/07/18 11:10 05/07/18 11:07 05/07/18 08:18 05/07/18 08:18 Oxygen Flow Rate (L/min) 2 Oxygen Delivery Method Room Air Weight: 103.5 kg Body Mass Index (BMI) 33.7 Intake and Output for Last 24 Hours 05/05/18 05/06/18 05/07/18 23:59 23:59 23:59 Intake Total 1732 / 1732 1199 / 1199 200 / 200 Output Total 200 / 200 250 / 250 400 / 400 Balance 1532 / 1532 949 / 949 -200 / -200 Laboratory Tests Past 24 Hrs 05/07/18 05/07/18 05:13 05:13 WBC 6.1 RBC 3.91 L Hgb 11.5 L Hct 35.7 L MCV 91.3 MCH 29.4 MCHC 32.2 RDW 17.5 H RDW Differential 57.9 H Plt Count 74 L MPV TNP Immature Gran % (Auto) 0.000 Neut % (Auto) 63.5 Lymph % (Auto) 14.5 L [place] % (Auto) 19.9 H Eos % (Auto) 1.3 Baso % (Auto) 0.8 Absolute Neuts (auto) 3.9 Absolute Lymphs (auto) 0.89 Total Counted Not Reportable Differential Comment Sodium 141 Potassium 3.8 Chloride 106 Carbon Dioxide 25.0 Anion Gap 10 BUN 29 H Creatinine 1.16 Estim Creat Clear Calc 72.55 Est GFR (MDRD) Af Amer 83 Est GFR (MDRD) Non-Af 69 BUN/Creatinine Ratio 25.0 H Glucose 133 H Calcium 8.3 L POC Glucose 05/07/18 05/07/18 05/06/18 11:35 06:52 21:26 POC Glucose 172 H 145 H 158 H 05/06/18 05/06/18 17:04 15:03 POC Glucose 209 H 126 H Assessment/Plan Patient seen 05/06. Late addition. Patient seen and examined independently. Data reviewed. I agree with the above note by the physician infertility medical assistant. 1. Acute HFrEF * EF 15% * Continue with Lasix * On carvedilol as well as lisinopril * LHC showed normal coronaries, it did show severe pulmonary HTN. 2. Elevated troponins * type II * Cardiology on consultation * On carvedilol, aspirin and atorvastatin 3. Elevated bilirubin * Chronic but appears higher than in the past * Monitor * By secondary to alcohol abuse * Patient had an MRCP on November 01, 2015 that did show hepatic cirrhosis. Additionally had findings consistent with portal hypertension * US showed hepatomegaly and fatty infiltration of the liver. * likely 2/2 cirrhosis 4. Cirrhosis * Appears compensated at this time * Likely due to alcohol given the patient's heavy alcohol abuse * Check ultrasound as above * Advised complete alcohol cessation * will need to follow up with GI in the future, as outpt. 5. Alcohol abuse * Monitor * As needed Ativan in case patient develops withdrawal or delirium tremens * Thiamine and folate * Patient with increased confusion last night and this AM * started on Ativan for possible alcohol withdrawal 6. Metabolic encephalopathy * Acute alcohol withdrawal v hepatic encephalopathy or combination * Start lactulose (patient has been on in past, but stopped it on his own accord ) 7. History of GI bleed * Most recent was a month ago and qualified by his as a lot. She could not qualify how frequent, but states it is frequent and has been copious. * Had a colonoscopy by Dr. Juárez about 2 years ago, and he had a polyp at that time. No mention, per the patient's , of a bleeding site at that time. * will check records * Follow up with Dr. Juárez 8. Pulmonary HTN * probably group 2 or group 5 * outpt PSG * treat the underlying process(es) 9. DVT proph: LMWH. DW patient's daughter. Code Visit Inpatient E&M: 37695 Subs Hosp L3 - billing for 05/06
[2018-05-06] MEDS: Insulin Lispro 100 UNIT/ML INSULN.PEN SC ×2 (17:07→21:32)
[2018-05-06 17:31] LABS: Bedside Glucose 209 mg/dL (70-110)
[2018-05-06] MEDS: Atorvastatin Calcium 40 MG Tablet PO (21:28)
[2018-05-06] MEDS: Heparin Injection (Vial) 5,000 UNIT/ML VIAL 5000 UNIT SC (21:28)
[2018-05-06 23:01] LABS: Bedside Glucose 158 mg/dL (70-110)
[2018-05-07] VITALS (10 sets, daily range): BP systolic 101–120; BP diastolic 57–69; PULSE 56–73; RESP 14–16; TEMP 36.6–36.9; O2SAT 93–100
[2018-05-07 06:31] LABS: Absolute Lymphocyte Count 0.89 X10^3/ul (0.83-4.51); Absolute Neutrophil Count 3.9 X10^3/uL (2.0-7.7); Basophil# 0.05 X10^3/uL; Basophil% 0.8 % (0-1); Eosinophil# 0.08 X10^3/uL; Eosinophils% 1.3 % (0-5); Hematocrit 35.7 % (40-54); Hemoglobin 11.5 g/dl (13.0-16.5); Lymphocyte # 0.89 X10^3/ul (4.0); Lymphocyte % 14.5 % (19-41); Mean Corp Hgb Conc 32.2 g/gl (32-36); Mean Corpuscular Hgb 29.4 pg (27.0-32.0); Mean Corpuscular Volume 91.3 fL (80-94); Monocyte# 1.22 X10^3/uL; Monocyte% 19.9 % (0-10); Neutrophil # 3.89 X10^3/uL (2.7-7.7); Neutrophil % 63.5 % (47-70); Platelet Count 74 K/mm3 (150-450); RBC Distribution Width CV 17.5 % (11.6-14.6); RBC Distribution Width SD 57.9 fl (35.1-43.9); Red Blood Count 3.91 M/mm3 (4.6-6.2); White Blood Count 6.1 K/mm3 (4.4-11.0)
[2018-05-07 06:35] LABS: Anion Gap 10 (5-15); BUN 29 mg/dL (7-18); Calcium,Total 8.3 mg/dL (8.5-10.1); Chloride 106 mmol/L (98-107); Creatinine, Serum 1.16 mg/dL (0.70-1.30); EST Glomerular Filtration Rate 69 mL/min (>60); Est Glom Filt Rate - Afr Amer 83 mL/min (>60); Estimated Creatinine Clearance 72.55 ml/min; Glucose 133 mg/dL (74-106); Potassium 3.8 mmol/L (3.5-5.1); Sodium Level 141 mmol/L (136-145)
[2018-05-07] MEDS: Ipratropium/Albuterol Sulfate 3 ML AMPUL.NEB INHALATION ×3 (06:39→15:20)
[2018-05-07 06:45] LABS: Differential Indicated SCAN CRITERIA MET; POSITIVE COUNT NO; POSITIVE DIFFERENTIAL NO; POSITIVE MORPHOLOGY YES
[2018-05-07] MEDS: Lactulose 20 GM/30 ML UDC PO ×2 (06:54→14:27)
[2018-05-07] MEDS: Amiodarone 200 MG Tablet PO ×2 (06:54→14:28)
[2018-05-07 07:01] LABS: Bedside Glucose 145 mg/dL (70-110)
[2018-05-07] MEDS: Aspirin E.C. 81 MG Tablet PO (08:28)
[2018-05-07] MEDS: Multivitamins,Ther W-Minerals Tablet 1 TABLET PO (08:28)
[2018-05-07] MEDS: Heparin Injection (Vial) 5,000 UNIT/ML VIAL 5000 UNIT SC (08:28)
[2018-05-07] MEDS: Carvedilol 3.125 MG TABLET PO (08:29)
[2018-05-07] MEDS: SACUBITRIL/VALSARTAN 24/26 MG TABLET 1 EACH PO (08:29)
[2018-05-07] MEDS: Tamsulosin HCl 0.4 MG Capsule PO (08:29)
[2018-05-07] MEDS: Famotidine 20 MG Tablet PO (08:30)
[2018-05-07] MEDS: Furosemide 40 MG Tablet PO (08:30)
[2018-05-07] MEDS: Insulin Lispro 100 UNIT/ML INSULN.PEN SC (11:37)
[2018-05-07 11:56] LABS: Bedside Glucose 172 mg/dL (70-110)
--- NOTE | 2018-05-07 11:56 | PCM.PN.CARD ---
Subjectve: Denies any complaints. Insisting to go home Objective: Vital Signs Temp Pulse Resp BP Pulse Ox 98.1 F 56 L 16 110/69 100 05/07/18 08:18 05/07/18 11:07 05/07/18 11:07 05/07/18 08:18 05/07/18 08:18 Oxygen Flow Rate (L/min) 2 Oxygen Delivery Method Room Air Weight: 103.5 kg Body Mass Index (BMI) 33.7 Intake and Output for Last 24 Hours 05/05/18 05/06/18 05/07/18 23:59 23:59 23:59 Intake Total 1732 / 1732 1199 / 1199 200 / 200 Output Total 200 / 200 250 / 250 400 / 400 Balance 1532 / 1532 949 / 949 -200 / -200 General: Awake, Alert, Oriented x 3, No Acute Distress HEENT: Atraumatic Neck: No JVD Lungs: Clear to auscultation Cardiovascular: Regular Rhythm, Normal S1, Normal S2 Abdomen: Bowel Sounds Present, Soft Extremities: No edema 05/07/18 05:13: WBC 6.1, RBC 3.91 L, Hgb 11.5 L, Hct 35.7 L, MCV 91.3, MCH 29.4, MCHC 32.2, RDW 17.5 H, RDW Differential 57.9 H, Plt Count 74 L, MPV TNP, Immature Gran % (Auto) 0.000, Neut % (Auto) 63.5, Lymph % (Auto) 14.5 L, [place] % (Auto) 19.9 H, Eos % (Auto) 1.3, Baso % (Auto) 0.8, Absolute Neuts (auto) 3.9, Total Counted Not Reportable 05/07/18 05:13: Sodium 141, Potassium 3.8, Chloride 106, Carbon Dioxide 25.0, Anion Gap 10, BUN 29 H, Creatinine 1.16, Est GFR (MDRD) Af Amer 83, Est GFR (MDRD) Non-Af 69, BUN/Creatinine Ratio 25.0 H, Glucose 133 H, Calcium 8.3 L Rhythm: Normal sinus rhythm. No further episodes of nonsustained ventricular tachycardia EKG: ECHO: Stress Test: Cardiac Cath: PCI: CT Surgery: Holter monitor: EPS: PPM: CXR: Chest CT Scan: Medical Necessity - Tobacco Use Smoking Status: Current every day smoker Tobacco Use: Cigarettes Assessment/Plan 1. Nonischemic cardiomyopathy. Continue beta blockers. Add low-dose JOHN inhibitor. Monitor creatinine. Continue p.o. Lasix 2. Nonsustained ventricular tachycardia. Continue beta blockers. Increase as tolerated. Patient has been started on amiodarone by Dr. Shirley. Defer to his treatment plan. I would recommend to keep the duration of amiodarone short. Follow-up with Dr. Shirley in the office in 1-2 weeks time 3. History of EtOH abuse 4. Cirrhosis of liver
--- NOTE | 2018-05-07 12:02 | PN.CARD_ITS ---
Subjectve: Denies any complaints. Insisting to go home Objective: Vital Signs Temp Pulse Resp BP Pulse Ox 98.1 F 56 L 16 110/69 100 05/07/18 08:18 05/07/18 11:07 05/07/18 11:07 05/07/18 08:18 05/07/18 08:18 Oxygen Flow Rate (L/min) 2 Oxygen Delivery Method Room Air Weight: 103.5 kg Body Mass Index (BMI) 33.7 Intake and Output for Last 24 Hours 05/05/18 05/06/18 05/07/18 23:59 23:59 23:59 Intake Total 1732 / 1732 1199 / 1199 200 / 200 Output Total 200 / 200 250 / 250 400 / 400 Balance 1532 / 1532 949 / 949 -200 / -200 General: Awake, Alert, Oriented x 3, No Acute Distress HEENT: Atraumatic Neck: No JVD Lungs: Clear to auscultation Cardiovascular: Regular Rhythm, Normal S1, Normal S2 Abdomen: Bowel Sounds Present, Soft Extremities: No edema 05/07/18 05:13: WBC 6.1, RBC 3.91 L, Hgb 11.5 L, Hct 35.7 L, MCV 91.3, MCH 29.4 , MCHC 32.2, RDW 17.5 H, RDW Differential 57.9 H, Plt Count 74 L, MPV TNP, Immature Gran % (Auto) 0.000, Neut % (Auto) 63.5, Lymph % (Auto) 14.5 L, [place] % (Auto) 19.9 H, Eos % (Auto) 1.3, Baso % (Auto) 0.8, Absolute Neuts (auto) 3.9, Total Counted Not Reportable 05/07/18 05:13: Sodium 141, Potassium 3.8, Chloride 106, Carbon Dioxide 25.0, Anion Gap 10, BUN 29 H, Creatinine 1.16, Est GFR (MDRD) Af Amer 83, Est GFR ( MDRD) Non-Af 69, BUN/Creatinine Ratio 25.0 H, Glucose 133 H, Calcium 8.3 L Rhythm: Normal sinus rhythm. No further episodes of nonsustained ventricular tachycardia EKG: ECHO: Stress Test: Cardiac Cath: PCI: CT Surgery: Holter monitor: EPS: PPM: CXR: Chest CT Scan: Medical Necessity - Tobacco Use Smoking Status: Current every day smoker Tobacco Use: Cigarettes Assessment/Plan 1. Nonischemic cardiomyopathy. Continue beta blockers. Add low-dose JOHN inhibitor. Monitor creatinine. Continue p.o. Lasix 2. Nonsustained ventricular tachycardia. Continue beta blockers. Increase as tolerated. Patient has been started on amiodarone by Dr. Shirley. Defer to his treatment plan. I would recommend to keep the duration of amiodarone short. Follow-up with Dr. Shirley in the office in 1-2 weeks time 3. History of EtOH abuse 4. Cirrhosis of liver
--- NOTE | 2018-05-07 14:43 | PCM.PN.HOSP ---
Patient Problems: Active and Suspected Problems CHF (congestive heart failure) (Acute) Wide-complex tachycardia (Acute) Chest pain (Acute) Elevated troponin (Acute) Subjective: feels good. ready to go home. Vitals/I&O's: Vital Signs Temp Pulse Resp BP Pulse Ox 36.6 C 73 14 101/63 93 05/07/18 14:21 05/07/18 14:21 05/07/18 14:21 05/07/18 14:21 05/07/18 14:21 Oxygen Flow Rate (L/min) 2 Oxygen Delivery Method Room Air Weight: 103.5 kg Body Mass Index (BMI) 33.7 Intake and Output for Last 24 Hours 05/05/18 05/06/18 05/07/18 23:59 23:59 23:59 Intake Total 1732 / 1732 1199 / 1199 200 / 200 Output Total 200 / 200 250 / 250 400 / 400 Balance 1532 / 1532 949 / 949 -200 / -200 General: Alert, No apparent distress HEENT: Atraumatic, Normocephalic Oral: Moist Mucosa, No Gingival or Mucosal Lesions/ Ulcerations Neck: No Nodes, Thyroid Normal Size and Texture Lungs: Clear to auscultation, Normal air movement, No rhonchi, No wheeze Cardiovascular: Regular rate, Regular Rhythm, Normal S1, Normal S2, No murmurs Abdomen: Bowel Sounds Present, Soft, Non Tender, Distended Laboratory Results 05/06/18 15:03: POC Glucose 126 H 05/06/18 17:04: POC Glucose 209 H 05/06/18 21:26: POC Glucose 158 H 05/07/18 05:13: WBC 6.1, RBC 3.91 L, Hgb 11.5 L, Hct 35.7 L, MCV 91.3, MCH 29.4, MCHC 32.2, RDW 17.5 H, RDW Differential 57.9 H, Plt Count 74 L, MPV TNP, Immature Gran % (Auto) 0.000, Neut % (Auto) 63.5, Lymph % (Auto) 14.5 L, [place] % (Auto) 19.9 H, Eos % (Auto) 1.3, Baso % (Auto) 0.8, Absolute Neuts (auto) 3.9, Absolute Lymphs (auto) 0.89, Total Counted Not Reportable, Differential Comment 05/07/18 05:13: Sodium 141, Potassium 3.8, Chloride 106, Carbon Dioxide 25.0, Anion Gap 10, BUN 29 H, Creatinine 1.16, Estim Creat Clear Calc 72.55, Est GFR (MDRD) Af Amer 83, Est GFR (MDRD) Non-Af 69, BUN/Creatinine Ratio 25.0 H, Glucose 133 H, Calcium 8.3 L 05/07/18 06:52: POC Glucose 145 H 05/07/18 11:35: POC Glucose 172 H Current Medications Acetaminophen (Tylenol) 650 mg PO Q6H PRN PRN PRN Reason: Mild Pain (scale 0-3)/T>100.7 Albuterol Sulfate (Ventolin Aerosols) 2.5 mg INHALATION Q2H PRN PRN PRN Reason: SHORTNESS OF BREATH Albuterol/Ipratropium (Duoneb) 3 ml INHALATION Q4HWA.RT [facility] Last Admin: 05/07/18 11:07 Dose: 3 ml Amiodarone HCl (Cordarone) 200 mg PO DAILY [facility] Amiodarone HCl (Cordarone) 200 mg PO TID [facility] Stop: 05/12/18 22:01 Last Admin: 05/07/18 14:28 Dose: 200 mg Amiodarone HCl (Cordarone) 200 mg PO BID [facility] Stop: 05/19/18 22:01 Aspirin (Ecotrin) 81 mg PO DAILY@0800 [facility] Last Admin: 05/07/18 08:28 Dose: 81 mg Atorvastatin Calcium (Lipitor) 40 mg PO QHS [facility] Last Admin: 05/06/18 21:28 Dose: 40 mg Carvedilol (Coreg) 3.125 mg PO BID [facility] Last Admin: 05/07/18 08:29 Dose: 3.125 mg Famotidine (Pepcid) 20 mg PO BID [facility] Last Admin: 05/07/18 08:30 Dose: 20 mg Furosemide (Lasix) 40 mg PO DAILY [facility] Last Admin: 05/07/18 08:30 Dose: 40 mg Heparin Sodium (Beef Lung) (Heparin 500 Unit/5 Ml (100/Ml)) 500 unit IV UD PRN PRN Reason: HEPARIN FLUSH Heparin Sodium (Porcine) (Heparin Na) 5,000 unit SC Q12H [facility] Last Admin: 05/07/18 08:28 Dose: 5,000 unit Sodium Chloride () 1,000 mls @ 15 mls/hr IV .Q48H [facility] PRN Reason: KVO Last Admin: 05/06/18 07:10 Dose: 15 mls/hr Insulin Human Lispro (Humalog Kwikpen (Bkc)) 0 unit SC ACHS [facility] PRN Reason: Protocol Last Admin: 05/07/18 11:37 Dose: 2 u Labetalol HCl (Trandate) 5 mg IV X1 PRN PRN Reason: SBP > 160 prior to sheath pull Stop: 05/08/18 08:22 Lactulose (Chronulac, Cephulac) 20 gm PO TID [facility] Last Admin: 05/07/18 14:27 Dose: 20 gm Multivitamins/Minerals (Multivitamin With Minerals) 1 tablet PO DAILYCM [facility] Last Admin: 05/07/18 08:28 Dose: 1 tablet Nicotine (Nicoderm Cq (Pbkc)) 21 mg TRANSDERM. DAILY [facility] Last Admin: 05/07/18 08:30 Dose: 21 mg Ondansetron HCl (Zofran) 4 mg IV Q8H PRN PRN PRN Reason: Nausea Last Admin: 05/06/18 09:41 Dose: 4 mg Sodium Chloride () 5 - 30 ml IV UD PRN PRN Reason: SALINE FLUSH Last Admin: 05/06/18 09:41 Dose: 10 ml Tamsulosin HCl (Flomax) 0.4 mg PO DAILY [facility] Last Admin: 05/07/18 08:29 Dose: 0.4 mg Medical Necessity - Tobacco Use Smoking Status: Current every day smoker Tobacco Use: Cigarettes Assessment/Plan All Active Problems CHF (congestive heart failure) (Acute) Wide-complex tachycardia (Acute) Chest pain (Acute) Elevated troponin (Acute) Pancreatitis (Resolved) Patient seen 05/06. Late addition. Patient seen and examined independently. Data reviewed. I agree with the above note by the physician ob gyn physician assistant. 1. Acute HFrEF EF 15% Continue with Lasix On carvedilol as well as lisinopril LHC showed normal coronaries, it did show severe pulmonary HTN. 2. Elevated troponins type II Cardiology on consultation On carvedilol, aspirin and atorvastatin [facility] showed normal coronaries 3. Elevated bilirubin Chronic but appears higher than in the past Monitor By secondary to alcohol abuse Patient had an MRCP on November 01, 2015 that did show hepatic cirrhosis. Additionally had findings consistent with portal hypertension US showed hepatomegaly and fatty infiltration of the liver. 2/2 cirrhosis 4. Cirrhosis Appears compensated at this time Likely due to alcohol given the patient's heavy alcohol abuse Advised complete alcohol cessation will need to follow up with GI in the future, as outpt. 5. Alcohol abuse Monitor As needed Ativan in case patient develops withdrawal or delirium tremens Thiamine and folate Patient with increased confusion last night and this AM started on Ativan for possible alcohol withdrawal 6. Metabolic/hepatic encephalopathy Start lactulose (patient has been on in past, but stopped it on his own accord) 2/2 non-compliance with lactulose explained to patient and family need for compliance. 7. History of GI bleed Most recent was a month ago and qualified by his as a lot. She could not qualify how frequent, but states it is frequent and has been copious. Had a colonoscopy by Dr. Juárez about 2 years ago, and he had a polyp at that time. No mention, per the patient's , of a bleeding site at that time. will check records Follow up with Dr. Juárez 8. Pulmonary HTN probably group 2 or group 5 outpt PSG treat the underlying process(es) 9. NSVT started on amio, to continue for now. follow up with Dr. Shirley 10. Hypotension likely due to overdiuresis and ativan resolved DW patient's family.
--- NOTE | 2018-05-07 14:47 | PN_ITS ---
Patient Problems: Active and Suspected Problems CHF (congestive heart failure) (Acute) Wide-complex tachycardia (Acute) Chest pain (Acute) Elevated troponin (Acute) Subjective: feels good. ready to go home. Vitals/I&O's: Vital Signs Temp Pulse Resp BP Pulse Ox 36.6 C 73 14 101/63 93 05/07/18 14:21 05/07/18 14:21 05/07/18 14:21 05/07/18 14:21 05/07/18 14:21 Oxygen Flow Rate (L/min) 2 Oxygen Delivery Method Room Air Weight: 103.5 kg Body Mass Index (BMI) 33.7 Intake and Output for Last 24 Hours 05/05/18 05/06/18 05/07/18 23:59 23:59 23:59 Intake Total 1732 / 1732 1199 / 1199 200 / 200 Output Total 200 / 200 250 / 250 400 / 400 Balance 1532 / 1532 949 / 949 -200 / -200 General: Alert, No apparent distress HEENT: Atraumatic, Normocephalic Oral: Moist Mucosa, No Gingival or Mucosal Lesions/ Ulcerations Neck: No Nodes, Thyroid Normal Size and Texture Lungs: Clear to auscultation, Normal air movement, No rhonchi, No wheeze Cardiovascular: Regular rate, Regular Rhythm, Normal S1, Normal S2, No murmurs Abdomen: Bowel Sounds Present, Soft, Non Tender, Distended Laboratory Results 05/06/18 15:03: POC Glucose 126 H 05/06/18 17:04: POC Glucose 209 H 05/06/18 21:26: POC Glucose 158 H 05/07/18 05:13: WBC 6.1, RBC 3.91 L, Hgb 11.5 L, Hct 35.7 L, MCV 91.3, MCH 29.4 , MCHC 32.2, RDW 17.5 H, RDW Differential 57.9 H, Plt Count 74 L, MPV TNP, Immature Gran % (Auto) 0.000, Neut % (Auto) 63.5, Lymph % (Auto) 14.5 L, Slope % (Auto) 19.9 H, Eos % (Auto) 1.3, Baso % (Auto) 0.8, Absolute Neuts (auto) 3.9, Absolute Lymphs (auto) 0.89, Total Counted Not Reportable, Differential Comment 05/07/18 05:13: Sodium 141, Potassium 3.8, Chloride 106, Carbon Dioxide 25.0, Anion Gap 10, BUN 29 H, Creatinine 1.16, Estim Creat Clear Calc 72.55, Est GFR ( MDRD) Af Amer 83, Est GFR (MDRD) Non-Af 69, BUN/Creatinine Ratio 25.0 H, Glucose 133 H, Calcium 8.3 L 05/07/18 06:52: POC Glucose 145 H 05/07/18 11:35: POC Glucose 172 H Current Medications Acetaminophen (Tylenol) 650 mg PO Q6H PRN PRN PRN Reason: Mild Pain (scale 0-3)/T>100.7 Albuterol Sulfate (Ventolin Aerosols) 2.5 mg INHALATION Q2H PRN PRN PRN Reason: SHORTNESS OF BREATH Albuterol/Ipratropium (Duoneb) 3 ml INHALATION Q4HWA.RT [facility] Last Admin: 05/07/18 11:07 Dose: 3 ml Amiodarone HCl (Cordarone) 200 mg PO DAILY [facility] Amiodarone HCl (Cordarone) 200 mg PO TID [facility] Stop: 05/12/18 22:01 Last Admin: 05/07/18 14:28 Dose: 200 mg Amiodarone HCl (Cordarone) 200 mg PO BID [facility] Stop: 05/19/18 22:01 Aspirin (Ecotrin) 81 mg PO DAILY@0800 [facility] Last Admin: 05/07/18 08:28 Dose: 81 mg Atorvastatin Calcium (Lipitor) 40 mg PO QHS [facility] Last Admin: 05/06/18 21:28 Dose: 40 mg Carvedilol (Coreg) 3.125 mg PO BID [facility] Last Admin: 05/07/18 08:29 Dose: 3.125 mg Famotidine (Pepcid) 20 mg PO BID [facility] Last Admin: 05/07/18 08:30 Dose: 20 mg Furosemide (Lasix) 40 mg PO DAILY [facility] Last Admin: 05/07/18 08:30 Dose: 40 mg Heparin Sodium (Beef Lung) (Heparin 500 Unit/5 Ml (100/Ml)) 500 unit IV UD PRN PRN Reason: HEPARIN FLUSH Heparin Sodium (Porcine) (Heparin Na) 5,000 unit SC Q12H [facility] Last Admin: 05/07/18 08:28 Dose: 5,000 unit Sodium Chloride () 1,000 mls @ 15 mls/hr IV .Q48H [facility] PRN Reason: KVO Last Admin: 05/06/18 07:10 Dose: 15 mls/hr Insulin Human Lispro (Humalog Kwikpen (Bkc)) 0 unit SC ACHS [facility] PRN Reason: Protocol Last Admin: 05/07/18 11:37 Dose: 2 u Labetalol HCl (Trandate) 5 mg IV X1 PRN PRN Reason: SBP > 160 prior to sheath pull Stop: 05/08/18 08:22 Lactulose (Chronulac, Cephulac) 20 gm PO TID [facility] Last Admin: 05/07/18 14:27 Dose: 20 gm Multivitamins/Minerals (Multivitamin With Minerals) 1 tablet PO DAILYCM [facility] Last Admin: 05/07/18 08:28 Dose: 1 tablet Nicotine (Nicoderm Cq (Pbkc)) 21 mg TRANSDERM. DAILY [facility] Last Admin: 05/07/18 08:30 Dose: 21 mg Ondansetron HCl (Zofran) 4 mg IV Q8H PRN PRN PRN Reason: Nausea Last Admin: 05/06/18 09:41 Dose: 4 mg Sodium Chloride () 5 - 30 ml IV UD PRN PRN Reason: SALINE FLUSH Last Admin: 05/06/18 09:41 Dose: 10 ml Tamsulosin HCl (Flomax) 0.4 mg PO DAILY [facility] Last Admin: 05/07/18 08:29 Dose: 0.4 mg Medical Necessity - Tobacco Use Smoking Status: Current every day smoker Tobacco Use: Cigarettes Assessment/Plan All Active Problems CHF (congestive heart failure) (Acute) Wide-complex tachycardia (Acute) Chest pain (Acute) Elevated troponin (Acute) Pancreatitis (Resolved) Patient seen 05/06. Late addition. Patient seen and examined independently. Data reviewed. I agree with the above note by the physician administrative personal assistant. 1. Acute HFrEF * EF 15% * Continue with Lasix * On carvedilol as well as lisinopril * LHC showed normal coronaries, it did show severe pulmonary HTN. 2. Elevated troponins * type II * Cardiology on consultation * On carvedilol, aspirin and atorvastatin * LHC showed normal coronaries 3. Elevated bilirubin * Chronic but appears higher than in the past * Monitor * By secondary to alcohol abuse * Patient had an MRCP on November 01, 2015 that did show hepatic cirrhosis. Additionally had findings consistent with portal hypertension * US showed hepatomegaly and fatty infiltration of the liver. * 2/2 cirrhosis 4. Cirrhosis * Appears compensated at this time * Likely due to alcohol given the patient's heavy alcohol abuse * Advised complete alcohol cessation * will need to follow up with GI in the future, as outpt. 5. Alcohol abuse * Monitor * As needed Ativan in case patient develops withdrawal or delirium tremens * Thiamine and folate * Patient with increased confusion last night and this AM * started on Ativan for possible alcohol withdrawal 6. Metabolic/hepatic encephalopathy * Start lactulose (patient has been on in past, but stopped it on his own accord ) * 2/2 non-compliance with lactulose * explained to patient and family need for compliance. 7. History of GI bleed * Most recent was a month ago and qualified by his as a lot. She could not qualify how frequent, but states it is frequent and has been copious. * Had a colonoscopy by Dr. Juárez about 2 years ago, and he had a polyp at that time. No mention, per the patient's , of a bleeding site at that time. * will check records * Follow up with Dr. Juárez 8. Pulmonary HTN * probably group 2 or group 5 * outpt PSG * treat the underlying process(es) 9. NSVT * started on amio, to continue for now. * follow up with Dr. Shirley 10. Hypotension * likely due to overdiuresis and ativan * resolved DW patient's family.
--- NOTE | 2018-05-07 14:54 | PCM.DC ---
- Discharge Diagnoses Current Active Problems: Current Active and Chronic Problems Alcohol abuse (Chronic) Type 2 diabetes mellitus (Chronic) CHF (congestive heart failure) (Acute) COPD (chronic obstructive pulmonary disease) (Chronic) Tobacco abuse (Chronic) BPH (benign prostatic hyperplasia) (Chronic) Wide-complex tachycardia (Acute) Chest pain (Acute) Elevated troponin (Acute) Hyperbilirubinemia (Chronic) You will use the following diet at home:: Calorie/Carbohydrate Controlled (specify 1200, 1400, etc) - 1800 kcal/day, Cardiac, Fluid restricted (specify 2000 mls, 1500 mls) - 1500 cc/day Your food should be the consistency of: Regular Your liquids should be the consistency of: Regular/Thin Discharge Activity: Return to Normal Activity Call your doctor if you observe: Fever of 101 or Higher, Shortness of breath, Increased palpitations (irregular heartbeat) Instructions: What Is Heart Failure?, Heart Failure: Tracking Your Weight, Heart Failure: Procedures That May Help, Heart Failure: Making Changes to Your Diet, Heart Failure: Evaluating Your Heart, Heart Failure: Medications to Help Your Heart, Discharge Instructions for Heart Failure Allergies/Adverse Reactions: Allergies No Known Allergies Allergy (Verified 05/03/18 10:14) Medications to take at Discharge Multivitamins,Ther W-Minerals [Multivitamin With Minerals] 1 tablet PO DAILY 10/31/15 Tamsulosin HCl [Flomax] 0.4 mg DAILY 05/03/18 Zolpidem Tartrate [Ambien] 10 mg PO QHS PRN PRN 05/03/18 Amiodarone HCl [Cordarone] 200 mg PO TID #60 tab 05/07/18 Aspirin E.C. [Ecotrin] 81 mg PO DAILY@0800 tablet 05/07/18 Atorvastatin Calcium [Lipitor] 40 mg PO QHS #40 tab 05/07/18 Carvedilol [Coreg (Beta Anum)] 3.125 mg PO BID #60 tab 05/07/18 Famotidine [Pepcid] 20 mg PO BID tablet 05/07/18 Furosemide [Lasix] 40 mg PO DAILY #30 tab 05/07/18 Lactulose [Chronulac] 20 gm PO TID #90 udc 05/07/18 Lisinopril [Zestril] 2.5 mg PO DAILY #30 tab 05/07/18 Multivitamins,Ther W-Minerals [Multivitamin With Minerals] 1 tablet PO DAILYCM tablet 05/07/18 The following prescriptions were given: Atorvastatin Calcium [Lipitor] 40 mg PO QHS #40 tab Furosemide [Lasix] 40 mg PO DAILY #30 tab Lisinopril [Zestril] 2.5 mg PO DAILY #30 tab Carvedilol [Coreg (Beta Anum)] 3.125 mg PO BID #60 tab Amiodarone HCl [Cordarone] 200 mg PO TID #60 tab Lactulose [Chronulac] 20 gm PO TID #90 udc Primary Care Physician: Adi Cisneros MD [Primary Care Provider] - Within 1 Week Test Results: Test results from this visit will be discussed in further detail at your follow-up appointment, if applicable. Please Follow Up With: Adi Cisneros MD Please Follow Up With: Pablo Shirley MD When: 2 weeks Please Follow Up With: Ozzy Juárez MD - cirrhosis follow up. When: 1-2 months Proposed Discharge Date: 05/07/18
--- NOTE | 2018-05-07 14:56 | PCM.DC.SUM ---
Discharge Date and Diagnosis - Problem List Patient Problems: Active and Suspected Problems CHF (congestive heart failure) (Acute) Wide-complex tachycardia (Acute) Chest pain (Acute) Elevated troponin (Acute) Hepatic encephalopathy (Acute) Pulmonary hypertension (Acute) Date of Admission: 05/03/18 Date of Discharge: 05/07/18 - Primary Discharge Diagnosis Active and Suspected Problems CHF (congestive heart failure) (Acute) Wide-complex tachycardia (Acute) Chest pain (Acute) Elevated troponin (Acute) - Secondary Discharge Diagnosis Chronic Problems Alcohol abuse (Chronic) Type 2 diabetes mellitus (Chronic) COPD (chronic obstructive pulmonary disease) (Chronic) Tobacco abuse (Chronic) BPH (benign prostatic hyperplasia) (Chronic) Hyperbilirubinemia (Chronic) Hospital Course and Treatment Imaging Results: Clinical Impression(s) from Imaging Studies Chest X-Ray 05/03/18 10:33 IMPRESSION: Cardiomegaly. Vascular congestion and mild CHF. Electronically Signed: Jerman Mcfadden MD at 11:06 EDT Tel [phone], Service support , Abdomen Ultrasound 05/04/18 17:23 IMPRESSION: Hepatomegaly. Fatty infiltration of the liver. Thickened gallbladder wall. Small amount of ascites surrounding the left lobe of the liver. Electronically Signed: Jerman Mcfadden MD at 14:27 EDT Tel [phone], Service support , [employer] Operations: None Procedures: 2-D Echocardiogram, Cardiac catheterization Summary of Care Provided: The patient is a 57 year old M presents with shortness of breath due to CHF exacerbation. Course was complicated by hepatic encephalopathy and hypotension--both resolved. 1. Acute HFrEF EF 15% Continue with Lasix On carvedilol as well as lisinopril LHC showed normal coronaries, it did show severe pulmonary HTN. 2. Elevated troponins type II Cardiology on consultation On carvedilol, aspirin and atorvastatin LHC showed normal coronaries 3. Elevated bilirubin Chronic but appears higher than in the past Monitor By secondary to alcohol abuse Patient had an MRCP on November 01, 2015 that did show hepatic cirrhosis. Additionally had findings consistent with portal hypertension US showed hepatomegaly and fatty infiltration of the liver. 2/2 cirrhosis 4. Cirrhosis Appears compensated at this time Likely due to alcohol given the patient's heavy alcohol abuse Advised complete alcohol cessation will need to follow up with GI in the future, as outpt. 5. Alcohol abuse Monitor As needed Ativan in case patient develops withdrawal or delirium tremens Thiamine and folate Patient with increased confusion last night and this AM started on Ativan for possible alcohol withdrawal 6. Metabolic/hepatic encephalopathy Start lactulose (patient has been on in past, but stopped it on his own accord) 2/2 non-compliance with lactulose explained to patient and family need for compliance. 7. History of GI bleed Most recent was a month ago and qualified by his as a lot. She could not qualify how frequent, but states it is frequent and has been copious. Had a colonoscopy by Dr. Juárez about 2 years ago, and he had a polyp at that time. No mention, per the patient's , of a bleeding site at that time. will check records Follow up with Dr. Juárez 8. Pulmonary HTN probably group 2 or group 5 outpt PSG treat the underlying process(es) 9. NSVT started on amio, to continue for now. follow up with Dr. Shirley 10. Hypotension likely due to overdiuresis and ativan resolved[] Discharge Diet: Low fat/ Low Cholesterol, 1800 Calorie Control Diet, 6 Cup Fluid Restriction, 2000 mg Sodium Diet Discharge Activity: Return to Normal Activity Call your doctor if you observe: Fever of 101 or Higher, Shortness of breath, Increased palpitations (irregular heartbeat) Home Medications: Medications to take at Discharge Multivitamins,Ther W-Minerals [Multivitamin With Minerals] 1 tablet PO DAILY 10/31/15 Tamsulosin HCl [Flomax] 0.4 mg DAILY 05/03/18 Zolpidem Tartrate [Ambien] 10 mg PO QHS PRN PRN 05/03/18 Amiodarone HCl [Cordarone] 200 mg PO TID #60 tab 05/07/18 Aspirin E.C. [Ecotrin] 81 mg PO DAILY@0800 tablet 05/07/18 Atorvastatin Calcium [Lipitor] 40 mg PO QHS #40 tab 05/07/18 Carvedilol [Coreg (Beta Anum)] 3.125 mg PO BID #60 tab 05/07/18 Famotidine [Pepcid] 20 mg PO BID tablet 05/07/18 Furosemide [Lasix] 40 mg PO DAILY #30 tab 05/07/18 Lactulose [Chronulac] 20 gm PO TID #90 udc 05/07/18 Lisinopril [Zestril] 2.5 mg PO DAILY #30 tab 05/07/18 Multivitamins,Ther W-Minerals [Multivitamin With Minerals] 1 tablet PO DAILYCM tablet 05/07/18 Following Prescrptions Were Given to Patient: Atorvastatin Calcium [Lipitor] 40 mg PO QHS #40 tab Furosemide [Lasix] 40 mg PO DAILY #30 tab Lisinopril [Zestril] 2.5 mg PO DAILY #30 tab Carvedilol [Coreg (Beta Anum)] 3.125 mg PO BID #60 tab Amiodarone HCl [Cordarone] 200 mg PO TID #60 tab Lactulose [Chronulac] 20 gm PO TID #90 udc Primary Care Physician: Adi Cisneros MD [Primary Care Provider] - Within 1 Week Please Follow Up With: Adi Cisneros MD Please Follow Up With: Pablo Shirley MD When: 2 weeks Please Follow Up With: Ozzy Juárez MD - cirrhosis follow up. When: 1-2 months Patient Instructions: What Is Heart Failure?, Heart Failure: Tracking Your Weight, Heart Failure: Procedures That May Help, Heart Failure: Making Changes to Your Diet, Heart Failure: Evaluating Your Heart, Heart Failure: Medications to Help Your Heart, Discharge Instructions for Heart Failure Disposition: Home Minutes spent on discharge:: 40 Patient Condition:: Fair Medical Necessity - Tobacco Use Smoking Status: Current every day smoker Tobacco Use: Cigarettes Meaningful Use Info Meaningful Use Diagnoses (Choose all that apply): CHF - CHF JOHN/ARB ordered at discharge?: Yes Documented LVEF (%): 15 Code Visit Inpatient E&M: 03651 Disch Hosp
--- NOTE | 2018-05-07 14:59 | DS.PCM_ITS ---
Discharge Date and Diagnosis - Problem List Patient Problems: Active and Suspected Problems CHF (congestive heart failure) (Acute) Wide-complex tachycardia (Acute) Chest pain (Acute) Elevated troponin (Acute) Hepatic encephalopathy (Acute) Pulmonary hypertension (Acute) Date of Admission: 05/03/18 Date of Discharge: 05/07/18 - Primary Discharge Diagnosis Active and Suspected Problems CHF (congestive heart failure) (Acute) Wide-complex tachycardia (Acute) Chest pain (Acute) Elevated troponin (Acute) - Secondary Discharge Diagnosis Chronic Problems Alcohol abuse (Chronic) Type 2 diabetes mellitus (Chronic) COPD (chronic obstructive pulmonary disease) (Chronic) Tobacco abuse (Chronic) BPH (benign prostatic hyperplasia) (Chronic) Hyperbilirubinemia (Chronic) Hospital Course and Treatment Imaging Results: Clinical Impression(s) from Imaging Studies Chest X-Ray 05/03/18 10:33 IMPRESSION: Cardiomegaly. Vascular congestion and mild CHF. Electronically Signed: Jerman Mcfadden MD at 11:06 EDT Tel [phone], Service support , Abdomen Ultrasound 05/04/18 17:23 IMPRESSION: Hepatomegaly. Fatty infiltration of the liver. Thickened gallbladder wall. Small amount of ascites surrounding the left lobe of the liver. Electronically Signed: Jerman Mcfadden MD at 14:27 EDT Tel [phone], Service support , [employer] Operations: None Procedures: 2-D Echocardiogram, Cardiac catheterization Summary of Care Provided: The patient is a 57 year old M presents with shortness of breath due to CHF exacerbation. Course was complicated by hepatic encephalopathy and hypotension-- both resolved. 1. Acute HFrEF * EF 15% * Continue with Lasix * On carvedilol as well as lisinopril * LHC showed normal coronaries, it did show severe pulmonary HTN. 2. Elevated troponins * type II * Cardiology on consultation * On carvedilol, aspirin and atorvastatin * LHC showed normal coronaries 3. Elevated bilirubin * Chronic but appears higher than in the past * Monitor * By secondary to alcohol abuse * Patient had an MRCP on November 01, 2015 that did show hepatic cirrhosis. Additionally had findings consistent with portal hypertension * US showed hepatomegaly and fatty infiltration of the liver. * 2/2 cirrhosis 4. Cirrhosis * Appears compensated at this time * Likely due to alcohol given the patient's heavy alcohol abuse * Advised complete alcohol cessation * will need to follow up with GI in the future, as outpt. 5. Alcohol abuse * Monitor * As needed Ativan in case patient develops withdrawal or delirium tremens * Thiamine and folate * Patient with increased confusion last night and this AM * started on Ativan for possible alcohol withdrawal 6. Metabolic/hepatic encephalopathy * Start lactulose (patient has been on in past, but stopped it on his own accord ) * 2/2 non-compliance with lactulose * explained to patient and family need for compliance. 7. History of GI bleed * Most recent was a month ago and qualified by his as a lot. She could not qualify how frequent, but states it is frequent and has been copious. * Had a colonoscopy by Dr. Juárez about 2 years ago, and he had a polyp at that time. No mention, per the patient's , of a bleeding site at that time. * will check records * Follow up with Dr. Juárez 8. Pulmonary HTN * probably group 2 or group 5 * outpt PSG * treat the underlying process(es) 9. NSVT * started on amio, to continue for now. * follow up with Dr. Shirley 10. Hypotension * likely due to overdiuresis and ativan * resolved[] Discharge Diet: Low fat/ Low Cholesterol, 1800 Calorie Control Diet, 6 Cup Fluid Restriction, 2000 mg Sodium Diet Discharge Activity: Return to Normal Activity Call your doctor if you observe: Fever of 101 or Higher, Shortness of breath, Increased palpitations (irregular heartbeat) Home Medications: Medications to take at Discharge Multivitamins,Ther W-Minerals [Multivitamin With Minerals] 1 tablet PO DAILY Tamsulosin HCl [Flomax] 0.4 mg DAILY 05/03/18 Zolpidem Tartrate [Ambien] 10 mg PO QHS PRN PRN 05/03/18 Amiodarone HCl [Cordarone] 200 mg PO TID #60 tab 05/07/18 Aspirin E.C. [Ecotrin] 81 mg PO DAILY@0800 tablet 05/07/18 Atorvastatin Calcium [Lipitor] 40 mg PO QHS #40 tab 09/22/18 Carvedilol [Coreg (Beta Anum)] 3.125 mg PO BID #60 tab 05/07/18 Famotidine [Pepcid] 20 mg PO BID tablet 05/07/18 Furosemide [Lasix] 40 mg PO DAILY #30 tab 05/07/18 Lactulose [Chronulac] 20 gm PO TID #90 udc 05/07/18 Lisinopril [Zestril] 2.5 mg PO DAILY #30 tab 05/07/18 Multivitamins,Ther W-Minerals [Multivitamin With Minerals] 1 tablet PO DAILYCM tablet 05/07/18 Following Prescrptions Were Given to Patient: Atorvastatin Calcium [Lipitor] 40 mg PO QHS #40 tab Furosemide [Lasix] 40 mg PO DAILY #30 tab Lisinopril [Zestril] 2.5 mg PO DAILY #30 tab Carvedilol [Coreg (Beta Anum)] 3.125 mg PO BID #60 tab Amiodarone HCl [Cordarone] 200 mg PO TID #60 tab Lactulose [Chronulac] 20 gm PO TID #90 udc Primary Care Physician: Adi Cisneros MD [Primary Care Provider] - Within 1 Week Please Follow Up With: Adi Cisneros MD Please Follow Up With: Pablo Shirley MD When: 2 weeks Please Follow Up With: Ozzy Juárez MD - cirrhosis follow up. When: 1-2 months Patient Instructions: What Is Heart Failure?, Heart Failure: Tracking Your Weight, Heart Failure: Procedures That May Help, Heart Failure: Making Changes to Your Diet, Heart Failure: Evaluating Your Heart, Heart Failure: Medications to Help Your Heart, Discharge Instructions for Heart Failure Disposition: Home Minutes spent on discharge:: 40 Patient Condition:: Fair Medical Necessity - Tobacco Use Smoking Status: Current every day smoker Tobacco Use: Cigarettes Meaningful Use Info Meaningful Use Diagnoses (Choose all that apply): CHF - CHF JOHN/ARB ordered at discharge?: Yes Documented LVEF (%): 15 Code Visit Inpatient E&M: 29249 Disch Hosp
--- NOTE | 2018-05-10 15:41 | CASEMGMT ---
NANY BATES DC Phone Call DC Date: 05/09/18 VAUGHN 4 Disposition: Home Intro role of CM to patient via phone. No questions re: prescriptions or instructions. Pt states he went to his PCP for f/u today. PCP reviewed medications and instructions with pt. Erika AMBRIZN RN ACM
== END 2018-05-07 17:13 | disposition home or self-care (01) | DRG 124 ==
LOC: ED 11:00 → PCU 12:38 → ICU 05-05 16:32 → PCU 05-07 15:08 → ICU 05-09 08:27
PROVIDERS: Internal Medicine Cardiovascular Disease; Nurse Practitioner Family; Physician Assistant; Emergency Provider Emergency Medicine; Family Provider Family Medicine; PCP Family Medicine
DX: I50.21 Acute systolic (congestive) heart failure (principal); D69.59 Other secondary thrombocytopenia; J44.9 Chronic obstructive pulmonary disease, unspecified; K72.90 Hepatic failure, unspecified without coma; K70.30 Alcoholic cirrhosis of liver without ascites; I47.2 Ventricular tachycardia; N17.9 Acute kidney failure, unspecified; F10.239 Alcohol dependence with withdrawal, unspecified; N40.0 Benign prostatic hyperplasia without lower urinary tract symptoms; F17.210 Nicotine dependence, cigarettes, uncomplicated; I27.20 Pulmonary hypertension, unspecified; E11.9 Type 2 diabetes mellitus without complications; R79.89 Other specified abnormal findings of blood chemistry; Z79.899 Other long term (current) drug therapy; Z79.84 Long term (current) use of oral hypoglycemic drugs; I95.9 Hypotension, unspecified; K76.6 Portal hypertension
CPT/HCPCS: 36415; 71045; 76705; 80048; 80053; 80061; 80076; 80307; 80320; 82140; 82803; 82962; 83036; 83735; 83880; 84443; 84484; 85025; 85027; 85610; 85730; 93005; 93306; 93460; 94640; 94762; 97802; 99152; 99153; 99285; 99406; J7030; J7040; J7050; Q9967; A4216; C1751; C1769; C1894; G0480; J1940; J2405

== ENCOUNTER → 2018-05-27 13:02 | Outpatient (CLI) | payer MEDICAID, SELFPAY ==
[2018-05-06 09:05] VITALS: BMI 33.0
--- NOTE | 2018-05-27 13:08 | PCM.CR.HP2 ---
CR - History & Physical - General Arrival date:: 05/27/18 Arrival time:: 13:09 Date of Referral:: 05/06/18 Date of CR Evaluation:: 05/27/18 Referring Physician: Dr. Pablo Shirley Primary Diagnosis: I21.4 NSTEMI [place] - History of Present Cardiac Event Onset Date: Enter Onset Date of cardiac illnesses in Comment field below Acute Myocardial Infarction within 12 months:: Yes Heart Failure EF <35%:: Yes - Medications Home Medications: Ambulatory Orders Medication Instructions Recorded Multivitamins,Ther W-Minerals 1 tab PO DAILY 10/31/15 [Multivitamin With Minerals] Tamsulosin HCl [Flomax] 0.4 mg DAILY 05/03/18 Zolpidem Tartrate [Ambien] 10 mg PO QHS PRN PRN 05/03/18 Aspirin E.C. [Ecotrin] 81 mg PO DAILY@0800 tab 05/07/18 Atorvastatin Calcium [Lipitor] 40 mg PO QHS #40 tab 05/07/18 Carvedilol [Coreg (Beta Anum)] 3.125 mg PO BID #60 tab 05/07/18 Furosemide [Lasix] 40 mg PO DAILY #30 tab 05/07/18 Lactulose [Chronulac] 20 gm PO TID #90 udc 05/07/18 Lisinopril [Zestril] 2.5 mg PO DAILY #30 tab 05/07/18 amiodarone 200 mg tablet 200 mg PO DAILY tab 05/26/18 metformin 500 mg tablet 500 mg PO BID 05/26/18 - Allergies Allergies/Adverse Reactions: Allergies No Known Allergies Allergy (Verified 05/26/18 13:46) - Sleep Disorder Evaluation Hx of Sleep Apnea: No Do you snore loudly (louder than talking or can be heard through closed doors)?: No Do you often feel tired/ fatigued/ sleepy during daytime?: No Has anyone observed you stop breathing during sleep?: No History of Hypertension (for STOP score): Yes STOP Results: Negative Advanced Directives - Advanced Directives Power of Manager Shell: No Living Will: No Advance Directives Information Provided: No Advance Directives on File: No DNR Order?:: No Past Medical History - Problems and Co-Morbidities Patient Problems: Active and Suspected Problems (Last Reviewed 05/26/18 @ 13:54 by Joie Su) Nonrheumatic mitral (valve) insufficiency (Acute) - Past Medical Illness Medical History: Past Medical History (Last Reviewed 05/26/18 @ 13:54 by Joie Su) Nonrheumatic mitral (valve) insufficiency (Acute) I34.0 Pulmonary hypertension (Acute) I27.20 Hepatic encephalopathy (Acute) K72.90 Alcohol abuse (Chronic) F10.10 Type 2 diabetes mellitus (Chronic) E11.9 CHF (congestive heart failure) (Acute) I50.9 COPD (chronic obstructive pulmonary disease) (Chronic) J44.9 Tobacco abuse (Chronic) Z72.0 BPH (benign prostatic hyperplasia) (Chronic) N40.0 Wide-complex tachycardia (Acute) I47.2 Chest pain (Acute) R07.9 Elevated troponin (Acute) R74.8 Hyperbilirubinemia (Chronic) E80.6 - Past Surgical History Surgical History: Past Surgical History (Last Reviewed 05/26/18 @ 13:54 by Joie Su) History of foot surgery Z98.890 History of eye surgery Z98.890 left Surgical History: - - Family History Summary Family History: Family History (Last Reviewed 05/26/18 @ 13:54 by Joie Su) Father Pericarditis Mother Hypertension Grandmother Diabetes Brother Heart disease Sister Diabetes Social History - Smoking History Smoking Status: Current every day smoker Years Smokin Packs Smoked per Day: 1 Hx Tobacco Use: Yes - Alcohol Use Alcohol Usage: No - stopped - Substance Abuse Hx Substance Use: No - Occupation Occupation (List type of work in comments):: Retired - Hobbies, Recreation, Social Activities Hobbies: Other - hunting Recreational Activities: I am able to engage in all my recreational activities Social Environment - Status Marital Status: - Current Living Arrangements Living Environment:: Spouse - Children Do any of your children live nearby?: Yes - Safety Do you feel safe in your surroundings?: Yes - Assistance Do you need any assistance at home?: none Review of Systems - Review of Systems Hints: Right click = Denies (Slash). Left click = Reports (Sun'Aq) Review of Present Symptoms: Reports: Shortness of Breath with Exertion, Appetite - Normal, Sleep - Normal. Denies: Shortness of Breath at Rest, PVD, Operative Discomfort, Angina, Wound Healing, Dizziness/Lightheadedness, Fatigue, Heart Arrhythmia/Irregularities, Appetite - Special Diet, Sexual Changes - Pain Is Patient Pain Free?: Yes Risk Factor Assessment - Chief Complaint Chief Complaint: NSTEMI [place] - Vital Signs Pulse Ox: 96 - Pulse Pulse Rate: 56 Pulse Rhythm: Regular - Hypertension Blood Pressure Sitting - Left Arm: 98/62 - Stress Stress: Long-standing - Diabetes Diabetic History: Type II Nutrition Referral for Diabetes: No - Obesity Height: 1.78 m Weight:: 107.048 kg Weight in Pounds: 236.0 lbs Body Mass Index (BMI): 33.8 Nutritional Referral for Obesity: No - declines at this time - Physical Inactivity Physical Inactivity: Reg Exercise 30 min/day, Physically demanding job, Recreational activity, None - Risk Stratification Risk Guidelines: Moderate Risk: Risk Factor for Hypertension, Risk Factor for Sedentary Lifestyle, Risk Factor for Depression, Highest Risk: Risk Factor for Smoking, Risk Factor for Dyslipidemia, Risk Factor for Diabetes, Risk Factor for Obesity - For Smoking Smoking Risk Guidelines: Smoking Low Risk: None or quit greater than 6 months ago. Smoking Moderate Risk: Smoker or quit 6 months or less ago. Smoking High Risk: Smoker - For Dyslipidemia Dyslipidemia Risk Guidelines: Low Risk: Moderate Risk: High Risk: 15-25% fat 25.1-29% fat >/= 30% fat. <7% sat fat 7-9% sat fat >9% sat fat. <150 mg chol 150-299 mg chol >/= 300 mg chol. LDL <100 LDL 100-129 LDL >/= 130. Chol/HDL ratio <5.0 Chol/HDL ratio 5.0-6.0 Chol/HDL ratio >6.0. Triglycerides <100 Triglycerides 100-149 Triglycerides >/= 150 - For Diabetes Mellitus Diabetes Risk Guidelines: Diabetes Low Risk: HgA1c <6.5% and/or FBG <120. Diabetes Moderate Risk: HgA1c 6.6-7.9% and/or FBG 120-180. Diabetes High Risk: HgA1c >/= 8% and/or FBG >180 - For Obesity/Overweight Obesity/Overweight Risk Guidelines: Obesity Low Risk: BMI <25.0. Obesity Moderate Risk: BMI 25-29.9. Obesity High Risk: BMI >/= 30.0 - For Hypertension Hypertension Risk Guidelines: Hypertension Low Risk: Systolic <120 and Diastolic <80. Hypertension Moderate Risk: Systolic 120-139 and Diastolic 80-89. Hypertension High Risk: Systolic >/= 140 and Diastolic >/= 90 - For Sedentary Lifestyle Sedentary Lifestyle Risk Guidelines: Sedentary Lifestyle Low Risk: >/= 1,500 kcal/week. Sedentary Lifestyle Moderate Risk: 700-1,499 kcal/week. Sedentary Lifestyle High Risk: < 700 kcal/week - For Depression Depression Risk Guidelines: Depression Low Risk: Not clinically depressed. Depression Moderate Risk: Mildly depressed. Depression High Risk: Clinically depressed - Family History Family History: Family History (Last Reviewed 05/26/18 @ 13:54 by Joie Su) Father Pericarditis Mother Hypertension Grandmother Diabetes Brother Heart disease Sister Diabetes Motivation - Motivation to Participate On a scale of 1 to 10, how prepared are you to commit to attending program?: 8 What do you see as the benefits of succesfully completing the program? In other words, what do you hope to get out of participating in the program?: improved health Are there issues you are dealing with that will interfere with completing the program?: none Do you have a spouse or signficant other, family or friends who will help support you to complete the program?: yes
--- NOTE | 2018-05-27 13:12 | CR.HP_ITS ---
CR - History & Physical - General Arrival date:: 05/27/18 Arrival time:: 13:09 Date of Referral:: 05/06/18 Date of CR Evaluation:: 05/27/18 Referring Physician: Dr. Pablo Shirley Primary Diagnosis: I21.4 NSTEMI [place] - History of Present Cardiac Event Onset Date: Enter Onset Date of cardiac illnesses in Comment field below Acute Myocardial Infarction within 12 months:: Yes Heart Failure EF <35%:: Yes - Medications Home Medications: Ambulatory Orders Medication Instructions Recorded Multivitamins,Ther W-Minerals 1 tab PO DAILY 10/31/15 [Multivitamin With Minerals] Tamsulosin HCl [Flomax] 0.4 mg DAILY 05/03/18 Zolpidem Tartrate [Ambien] 10 mg PO QHS PRN PRN 05/03/18 Aspirin E.C. [Ecotrin] 81 mg PO DAILY@0800 tab 05/07/18 Atorvastatin Calcium [Lipitor] 40 mg PO QHS #40 tab 05/07/18 Carvedilol [Coreg (Beta Anum)] 3.125 mg PO BID #60 tab 05/07/18 Furosemide [Lasix] 40 mg PO DAILY #30 tab 05/07/18 Lactulose [Chronulac] 20 gm PO TID #90 udc 05/07/18 Lisinopril [Zestril] 2.5 mg PO DAILY #30 tab 05/07/18 amiodarone 200 mg tablet 200 mg PO DAILY tab 05/26/18 metformin 500 mg tablet 500 mg PO BID 05/26/18 - Allergies Allergies/Adverse Reactions: Allergies No Known Allergies Allergy (Verified 05/26/18 13:46) - Sleep Disorder Evaluation Hx of Sleep Apnea: No Do you snore loudly (louder than talking or can be heard through closed doors)?: No Do you often feel tired/ fatigued/ sleepy during daytime?: No Has anyone observed you stop breathing during sleep?: No History of Hypertension (for STOP score): Yes STOP Results: Negative Advanced Directives - Advanced Directives Power of Heat Curer: No Living Will: No Advance Directives Information Provided: No Advance Directives on File: No DNR Order?:: No Past Medical History - Problems and Co-Morbidities Patient Problems: Active and Suspected Problems (Last Reviewed 05/26/18 @ 13:54 by Joie Su) Nonrheumatic mitral (valve) insufficiency (Acute) - Past Medical Illness Medical History: Past Medical History (Last Reviewed 05/26/18 @ 13:54 by Joie Su) Nonrheumatic mitral (valve) insufficiency (Acute) I34.0 Pulmonary hypertension (Acute) I27.20 Hepatic encephalopathy (Acute) K72.90 Alcohol abuse (Chronic) F10.10 Type 2 diabetes mellitus (Chronic) E11.9 CHF (congestive heart failure) (Acute) I50.9 COPD (chronic obstructive pulmonary disease) (Chronic) J44.9 Tobacco abuse (Chronic) Z72.0 BPH (benign prostatic hyperplasia) (Chronic) N40.0 Wide-complex tachycardia (Acute) I47.2 Chest pain (Acute) R07.9 Elevated troponin (Acute) R74.8 Hyperbilirubinemia (Chronic) E80.6 - Past Surgical History Surgical History: Past Surgical History (Last Reviewed 05/26/18 @ 13:54 by Joie Su) History of foot surgery Z98.890 History of eye surgery Z98.890 left Surgical History: - - Family History Summary Family History: Family History (Last Reviewed 05/26/18 @ 13:54 by Joie Su) Father Pericarditis Mother Hypertension Grandmother Diabetes Brother Heart disease Sister Diabetes Social History - Smoking History Smoking Status: Current every day smoker Years Smokin Packs Smoked per Day: 1 Hx Tobacco Use: Yes - Alcohol Use Alcohol Usage: No - stopped - Substance Abuse Hx Substance Use: No - Occupation Occupation (List type of work in comments):: Retired - Hobbies, Recreation, Social Activities Hobbies: Other - hunting Recreational Activities: I am able to engage in all my recreational activities Social Environment - Status Marital Status: - Current Living Arrangements Living Environment:: Spouse - Children Do any of your children live nearby?: Yes - Safety Do you feel safe in your surroundings?: Yes - Assistance Do you need any assistance at home?: none Review of Systems - Review of Systems Hints: Right click = Denies (Slash). Left click = Reports (Stebbins) Review of Present Symptoms: Reports: Shortness of Breath with Exertion, Appetite - Normal, Sleep - Normal. Denies: Shortness of Breath at Rest, PVD, Operative Discomfort, Angina, Wound Healing, Dizziness/Lightheadedness, Fatigue, Heart Arrhythmia/Irregularities, Appetite - Special Diet, Sexual Changes - Pain Is Patient Pain Free?: Yes Risk Factor Assessment - Chief Complaint Chief Complaint: NSTEMI [place] - Vital Signs Pulse Ox: 96 - Pulse Pulse Rate: 56 Pulse Rhythm: Regular - Hypertension Blood Pressure Sitting - Left Arm: 98/62 - Stress Stress: Long-standing - Diabetes Diabetic History: Type II Nutrition Referral for Diabetes: No - Obesity Height: 1.78 m Weight:: 107.048 kg Weight in Pounds: 236.0 lbs Body Mass Index (BMI): 33.8 Nutritional Referral for Obesity: No - declines at this time - Physical Inactivity Physical Inactivity: Reg Exercise 30 min/day, Physically demanding job, Recreational activity, None - Risk Stratification Risk Guidelines: Moderate Risk: Risk Factor for Hypertension, Risk Factor for Sedentary Lifestyle, Risk Factor for Depression, Highest Risk: Risk Factor for Smoking, Risk Factor for Dyslipidemia, Risk Factor for Diabetes, Risk Factor for Obesity - For Smoking Smoking Risk Guidelines: Smoking Low Risk: None or quit greater than 6 months ago. Smoking Moderate Risk: Smoker or quit 6 months or less ago. Smoking High Risk: Smoker - For Dyslipidemia Dyslipidemia Risk Guidelines: Low Risk: Moderate Risk: High Risk: 15-25% fat 25.1-29% fat >/= 30% fat. <7% sat fat 7-9% sat fat >9% sat fat. <150 mg chol 150-299 mg chol >/= 300 mg chol. LDL <100 LDL 100-129 LDL >/= 130. Chol/HDL ratio <5.0 Chol/HDL ratio 5.0-6.0 Chol/HDL ratio >6.0. Triglycerides <100 Triglycerides 100- 149 Triglycerides >/= 150 - For Diabetes Mellitus Diabetes Risk Guidelines: Diabetes Low Risk: HgA1c <6.5% and/or FBG <120. Diabetes Moderate Risk: HgA1c 6.6-7.9% and/or FBG 120-180. Diabetes High Risk: HgA1c >/= 8% and/or FBG >180 - For Obesity/Overweight Obesity/Overweight Risk Guidelines: Obesity Low Risk: BMI <25.0. Obesity Moderate Risk: BMI 25-29.9. Obesity High Risk: BMI >/= 30.0 - For Hypertension Hypertension Risk Guidelines: Hypertension Low Risk: Systolic <120 and Diastolic <80. Hypertension Moderate Risk: Systolic 120-139 and Diastolic 80-89. Hypertension High Risk: Systolic >/= 140 and Diasto lic >/= 90 - For Sedentary Lifestyle Sedentary Lifestyle Risk Guidelines: Sedentary Lifestyle Low Risk: >/= 1,500 kcal/week. Sedentary Lifestyle Moderate Risk: 700-1,499 kcal/week. Sedentary Lifestyle High Risk: < 700 kcal/week - For Depression Depression Risk Guidelines: Depression Low Risk: Not clinically depressed. Depression Moderate Risk: Mildly depressed. Depression High Risk: Clinically depressed - Family History Family History: Family History (Last Reviewed 05/26/18 @ 13:54 by Joie Su) Father Pericarditis Mother Hypertension Grandmother Diabetes Brother Heart disease Sister Diabetes Motivation - Motivation to Participate On a scale of 1 to 10, how prepared are you to commit to attending program?: 8 What do you see as the benefits of succesfully completing the program? In other words, what do you hope to get out of participating in the program?: improved health Are there issues you are dealing with that will interfere with completing the program?: none Do you have a spouse or signficant other, family or friends who will help support you to complete the program?: yes
[2018-05-27 14:08] VITALS: BP 98/62; PULSE 56; O2SAT 96; BMI 33.8
--- NOTE | 2018-05-27 14:13 | CR.ITP_ITS ---
General Information - General Information Admitting Diagnosis: I 21.4 NSTEMI [place] - Education/Goals Barriers to Learning: None Cardiac Rehabilitation Goals: 1. Maintain the individual as the primary focus of care. 2. To improve the patient's quality of life. 3. Identification of cardiac risk factors and provide cardiac risk factor management. 4. Enhance the psychosocial status of the patient. 5. Reconditioning enough to allow the patient to resume customary activities. 6. Control symptoms of cardiac disease Scale for measuring improvement of personal goals: Enter appropriate number in Comments. 2 = Unchanged. 3 = Slightly Better. 4 = Moderate Improvement. 5 = Met my Goal Personal Goals: Initial Assessment: Quit smoking (participate in smoking cessation, Improve management of stress and emotions, Improve energy level, Participate in home exercise program, Get back to work, or to resume activities faster, Improve knowledge of cardiac disease, Improve muscle strength and endurance, Improve diet and eating habits (eat healthier), Control risk factors (learn risk factor modification) Exercise - Initial Assessment - Visit Date of Eval: 05/27/18 - Initial Eval - Stages of Change Stages of Change:: Contemplate - Exercise Prescription Mode:: Treadmill, Biodyne, Rower, Airdyne, NuStep, Arm Ergometer Angina with exercise?: No Target Heart Rate:: 90-96 - Hypertension Do any of the following apply?: Yes Resting Blood Pressure:: 98/62 Nutrition - Initial Assessment - Program Goals Nutrition Program Goals: LDL <70. Total Cholesterol <200. HDL >45. Triglycerides <150. HgbA1C <7%. BMI <25 - Visit Date of Assessment:: 05/27/18 - Stages of Change Stages of Change:: Contemplate - Diabetes Diabetes:: Yes - Weight Management Height: 1.78 m Weight:: 107.048 kg Total Score:: 5 - Intervention Referral to dietitian:: No Referral to Diabetic Clinic:: No Will attend diet classes:: Yes - Education Gave educational materials for:: Signs & symptoms of hypoglycemia, Signs & symptoms of hyperglycemia, Relate diabetes to coronary artery disease, Healthy eating Tobacco - Initial Assessment - Program Goals Tobacco Program Goals: Complete smoking cessation. Attend education classes. Improve Knowledge Test score - Stage of Change Stages of Change:: Contemplate - Learning Barriers Total Score:: 18 - Family Support Do you have family support?: Yes - Tobacco Use Tobacco Use: Cigarettes How many cigarettes do you smoke per day?: 5 Years Smokin - Intervention Smoking Cessation Referral:: No - decline for now Individual Education/Counseling:: No Education Schedule Given:: Yes - Education Gave educational material for:: Tobacco triggers, Coronary artery disease, Risk factors, Sexuality, Medical compliance, Cardiac A&P, Angina signs & symptoms Psychosocial - Initial Assess - Target Goals Target Goals: Assess presence or absence of depression. Using a valid screening tool, maximizes coping skills. Positive support system - Stages of Change Stages of Change:: Contemplate - Psychosocial Test Tool Used:: HANDS Depression Questionnaire Total Mood Screening Score:: 13 Self-Efficacy Score:: 5 - Intervention PS - Interventions: Yes Attend Stress Management Classes, Yes Uses Stress Management Skills, No Referral to Mental Health, No Referral to [facility] Case Management, No Referral to Physician - Education Gave educational materials for:: Coping techniques, Signs & symptoms of depression, Stress management, Relaxation techniques - Assistive Devices Assistive Devices:: None Fall Risk Assessed:: Yes Patient Health Questionnaire Initial Assessment 1. Little interest or pleasure in doing things: Several days 2. Feeling down, depressed, or hopeless: More than half the days 3. Trouble falling or staying asleep, or sleeping too much: Not at all 4. Feeling tired or having little energy: More than half the days 5. Poor appetite or overeating: Several days 6. Feeling bad about yourself -- or that you are a failure or have let yourself or your family down: Nearly every day 7. Trouble concentrating on things, such as reading the newspaper or watching television: More than half the days 8. Moving or speaking so slowly that other people could have noticed. Or the opposite - being so fidgety or restless that you have been moving around a lot more than usual: More than half the days 9. Thoughts that you would be better off , or of hurting yourself in some way: Not at all How difficult have these problems made it for you to do your work, take care of things at home, or get along with other people?: Not difficult at all Total Score: 13 [id number] SV Test - Statements CAD is a disease of the arteries in the heart: False Examples of risk factors for heart disease: True Angina is chest pain or discomfort: True The benefits of resistance training include: True Eating more meat and dairy products: False Anti-platelet medications such as aspirin are important: True The only effective way to manage stress: False An exercise warm-up slowly increases heart rate: True Prepared, processed foods usually have high sodium: True Depression is common after a heart attack: True The statin medications lower cholesterol: I Don't Know To control blood pressure, lower the amount of sodium: True If someone gets chest discomfort during walking: False Transfats are partially hydrogenated vegetable oils: I Don't Know Sleep apnea that is not treated increases the risk: False To control cholesterol, one should become a vegetarian: False Someone knows if he/she is exercising at the right level: True Diabetes cannot be prevented with exercise & health eating: False Stress is a large risk for heart attack: True A diet that can help lower blood pressure is rich in: True - Total Score Total Correct Responses: 18 Self-Efficacy Initial Assessment We would like to know how confident you are in doing certain activities. Please select your confidence level for:: Select your confidence level for the following using the scale 1-10 where 1 is not at all confident and 10 is totally confident. Your score is the average of all 6 responses. Fatigue: How confident are you that you can keep the fatigue caused by your disease from interfering with the things you want to do? Select Number: 10 Physical Discomfort or Pain: How confident are you that you can keep the physical discomfort or pain of your disease from interfering with the things you want to do? Select Number: 4 Emotional Distress: How confident are you that you can keep the emotional distress caused by your disease from interfering with the things you want to do? Select Number: 7 Other Symptoms or Health Problems: How confident are you that you can keep other symptoms or health problems from interfering with the things you want to do? Select Number: 4 Different Tasks and Activities: How confident are you that you can do the different tasks and activities needed to manage your health condition so as to reduce your need to see a doctor? Select Number: 3 Medication: How confident are you that you can do things other than just taking medication to reduce how much your illness affects your everyday life? Select Number: 3 Total Score:: 5 Nutrition Survey - Nutrition Survey Instructions Scoring Instructions: Scoring is as follows: Yes = 1 points. No = 0 point. Patient score that is >/=12 is considered to be at potential nutritional risk and could benefit from a referral to a registered dietitian. - Nutrition Survey Initial Have you lost >10 lbs over the past 2 months without trying?: No Are you following a special diet at home for diabetes, low fat, or low salt?: No Are you interested in meeting with a dietitian for help understanding your diet?: Yes Do you eat less than 3 meals a day?: Yes Do you eat fatty meats (posada, sausage, ribs, etc), fried foods, desserts, large amounts of salad dressings, margarine, butter, or cheese most days?: Yes Do you have food allergies? [Enter types in comment field]: No Do you eat in restaurants more than 3 times a week?: No Do you season food with salt, seasoning salt, or garlic salt?: Yes Do you used canned, boxed, frozen meals, or soups, seasoning packets?: Yes Total Score:: 5
[2018-05-27 14:22] VITALS: BP 98/62
== END ==
PROVIDERS: Family Provider Family Medicine; PCP Family Medicine; Referring Provider Internal Medicine Cardiovascular Disease; Visit Provider Internal Medicine Cardiovascular Disease
DX: I25.2 Old myocardial infarction (principal)

== ENCOUNTER 2018-06-13 13:00 | Outpatient (RCR) | payer MEDICAID, SELFPAY ==
[2018-05-06 09:05] VITALS: BMI 33.0
== END 2018-06-15 23:59 ==
LOC: CR 13:00
PROVIDERS: Family Provider Family Medicine; PCP Family Medicine; Referring Provider Internal Medicine Cardiovascular Disease; Visit Provider Internal Medicine Cardiovascular Disease
DX: I25.2 Old myocardial infarction (principal); I47.2 Ventricular tachycardia; I50.9 Heart failure, unspecified
CPT/HCPCS: 93798

== ENCOUNTER 2018-06-17 10:19 | Outpatient (RCR) | payer MEDICAID, SELFPAY ==
[2018-05-06 09:05] VITALS: BMI 33.0
== END 2018-07-15 23:59 ==
LOC: CR 10:19
PROVIDERS: Family Provider Family Medicine; PCP Family Medicine; Referring Provider Internal Medicine Cardiovascular Disease; Visit Provider Internal Medicine Cardiovascular Disease
DX: I25.2 Old myocardial infarction (principal); I47.2 Ventricular tachycardia; I50.9 Heart failure, unspecified
CPT/HCPCS: 93798

== ENCOUNTER 2018-06-21 08:53 | Outpatient (CLI) | payer MEDICAID, SELFPAY ==
[2018-05-06 09:05] VITALS: BMI 33.0
--- NOTE | 2018-06-21 08:55 | ECHOD_ITS ---
Reason For Study: CHF Procedure This was a 2D Doppler, Color Flow transthoracic echocardiogram. The exam was of adequate technical quality. Exam performed in department. Left Ventricle Severely dilated left ventricle. Severe global left ventricular systolic dysfunction. The estimated ejection fraction is 20 %. The global longitudinal strain = -10% (abnormal). There is evidence of diastolic dysfunction. Right Ventricle Normal RV size. Normal systolic function. Atria The left atrium is mildly enlarged. The right atrium is mildly enlarged. No doppler evidence for ASD. Mitral Valve There is mild mitral annular calcification. Mild diffuse mitral valve thickening. The mitral valve chordae are thickened and/or calcified. Mild papillary muscle dysfunction of the mitral valve. Mild- Moderate (1-2+) eccentric mitral valve insufficiency. Tricuspid Valve Normal tricuspid valve. Trivial tricuspid valve insufficiency. Right ventricular systolic pressure estimated to be 39 mmHg. Aortic Valve Trisinus/trileaflet aortic valve. Mild diffuse aortic valve thickening. Mild focal aortic valve calcification. Pulmonic Valve The pulmonic valve is not well visualized. Trivial pulmonic valve insufficiency. Great Vessels Normal sized aortic root. Pericardium/Pleural No pericardial effusion. MMode/2D Measurements & Calculations LVIDd: 6.9 cm IVSd: 1.1 cm Ao root diam: 3.3 cm LVIDs: 6.0 cm LVPWd: 1.1 cm RVDd: 3.9 cm FS: 13.4 % LAV(MOD-bp): 68.1 ml EDV(MOD-sp4): 262.7 ml EDV(MOD-sp2): 193.9 ml LAV(MOD-bp) Indexed: 30.9 ml/m2 ESV(MOD-sp4): 185.6 ml EF(MOD-sp2): 31.3 % LAV(MOD-sp2): 65.5 ml EF(MOD-sp4): 29.3 % LAV(MOD-sp4): 66.0 ml SV(MOD-sp4): 77.1 ml SV(MOD-sp2): 60.6 ml LA A4 area: 22.3 cm2 LA dimension(2D): 4.8 cm RA A4 area: 19.0 cm2 Time Measurements MV dec time: 0.24 sec Doppler Measurements & Calculations MV E max bhargav: 93.8 cm/sec Lat Peak E' Bhargav: 11.3 cm/sec Med Peak E' Bhargav: 6.3 cm/sec MV A max bhargav: 74.6 cm/sec E/E' lat: 8.3 E/E' med: 14.8 MV E/A: 1.3 Ao V2 max: 150.8 cm/sec LV V1 max: 82.8 cm/sec MR max bhargav: 427.0 cm/sec Ao max P.1 mmHg LV V1 max P.7 mmHg MR max P.1 mmHg PA V2 max: 99.2 cm/sec TR max bhargav: 299.7 cm/sec TR max P.9 mmHg Interpretation Summary Severely dilated left ventricle. Severe global left ventricular systolic dysfunction. The estimated ejection fraction is 20 %. The global longitudinal strain = -10% (abnormal). The left atrium is mildly enlarged. The right atrium is mildly enlarged. There is mild mitral annular calcification. Mild diffuse mitral valve thickening. The mitral valve chordae are thickened and/or calcified. Mild papillary muscle dysfunction of the mitral valve. Mild-Moderate (1-2+) eccentric mitral valve insufficiency. Trivial tricuspid valve insufficiency. Mild diffuse aortic valve thickening. Mild focal aortic valve calcification. Trivial pulmonic valve insufficiency. Right ventricular systolic pressure estimated to be 39 mmHg. There is evidence of diastolic dysfunction. Ordering Physician: Adi Cisneros Referring Physician: Pablo Shirley Performed By: Lashon Remy, VEENA, RVT
[2018-10-20] VITALS (9 sets, daily range): BP systolic 116–143; BP diastolic 53–93; PULSE 56–71; RESP 16; TEMP 36.9; O2SAT 95–98
--- NOTE | 2018-10-20 14:18 | RAD_ITS ---
STUDY: X-RAY CHEST REASON FOR EXAM: Male, 58 years old. Pacemaker placement. TECHNIQUE: Frontal view of the chest COMPARISON: 10/11/2018 FINDINGS: The lungs are clear. There are no pleural effusions. There is no pneumothorax. The heart is enlarged. There has been interval placement of a single-lead pacemaker with the lead overlying the right ventricle. The visualized osseous structures are within normal limits. RAD/Chest 1 View (Portable) IMPRESSION: Satisfactory position of the pacemaker. No pneumothorax. Electronically Signed: Mejia Davies, at 14:44 EST Tel , Service support ,
--- NOTE | 2018-10-21 09:27 | NURSING ---
Information documented on this account beginning on 10/20/18 at 1130 and extending until 10/20 at 1400 was documented on the correct patient but was documented on an incorrect visit number due to an incorrect account being transferred during the registration process. Documentation contained within this chart will be transferred manually onto the correct patient account (visit number)
== END 2018-06-21 12:00 ==
LOC: CVS 08:54
PROVIDERS: Family Provider Family Medicine; PCP Family Medicine; Referring Provider Internal Medicine Cardiovascular Disease; Visit Provider Internal Medicine Cardiovascular Disease
DX: I50.22 Chronic systolic (congestive) heart failure (principal); I27.20 Pulmonary hypertension, unspecified; I34.0 Nonrheumatic mitral (valve) insufficiency; I42.9 Cardiomyopathy, unspecified; I47.2 Ventricular tachycardia
CPT/HCPCS: 93306

== ENCOUNTER 2018-09-10 04:58 | Emergency (ER) | payer MEDICARE, MEDICAID, SELFPAY ==
[2018-05-06 09:05] VITALS: BMI 33.0
[2018-09-10 04:58] VITALS: BP 110/90; PULSE 77; RESP 18; O2SAT 97
[2018-09-10 04:59] VITALS: BP 140/78; PULSE 81; RESP 18; TEMP 36.8; O2SAT 99; BMI 32.5
--- NOTE | 2018-09-10 05:16 | CT_ITS ---
STUDY: CT ABDOMEN AND PELVIS WITHOUT CONTRAST REASON FOR EXAM: Male, 58 years old. Abdominal pain and lower GI bleeding since yesterday RADIATION DOSAGE (If Supplied By Facility): CTDIvol = ( 17.87 ) mGy, DLP = ( 1031.47 ) mGycm TECHNIQUE: Transaxial images were obtained from the dome of the diaphragm to the symphysis pubis without oral contrast, and without intravenous contrast. Sagittal and coronal images were reconstructed. Individualized dose optimization techniques were used for this CT. COMPARISON: 10/31/2015 FINDINGS: The visualized lung bases are unremarkable. The visualized portions of the heart are within normal limits. Paraesophageal varices. Cirrhosis. Indeterminate 1 cm low density foci are present in the right hepatic lobe and caudate lobe. Prominent gallbladder. Normal spleen. Normal pancreas. Multiple abdominal varices. Mild ascites. Normal bilateral adrenal glands. Normal right kidney. 2 cm left renal cyst. Normal visualized stomach. Normal small intestine. Normal colon. The appendix is visualized and appears normal. Normal abdominal aorta. Normal inferior vena cava. Normal retroperitoneum. Normal urinary bladder. Normal abdominal wall. Normal osseous structures. CT/Abdomen/Pelvis without Cont IMPRESSION: Cirrhosis, varices, and splenomegaly. No evidence of acute intestinal pathology or acute obstructive uropathy. Mild ascites. Electronically Signed: Kyle Zuñiga MD at 6:07 EST Tel , Service support ,
--- NOTE | 2018-09-10 05:16 | EKG12_ITS ---
Test Reason : Blood Pressure : / mmHG Vent. Rate : 068 BPM Atrial Rate : 068 BPM P-R Int : 168 ms QRS Dur : 090 ms QT Int : 460 ms P-R-T Axes : 058 052 055 degrees QTc Int : 489 ms Normal sinus rhythm Low voltage QRS Prolonged QT Abnormal ECG Confirmed by JESSE CHRISTIANSEN, ALIA ([id number]), editor trade journal ALVINA ISBELL ([id number]) on 09/13/2018 2:18:17 PM Referred By: ROSLYN Confirmed By:ALIA MOLINA MD
--- NOTE | 2018-09-10 05:20 | RAD_ITS ---
STUDY: X-RAY CHEST REASON FOR EXAM: Male, 58 years old. Rectal bleeding, chest pain TECHNIQUE: AP COMPARISON: 05/03/2018 FINDINGS: The lungs are clear and expanded. There is no demonstrated pleural abnormality. There is borderline cardiomegaly. Normal mediastinum and shelly. Although the central pulmonary vessels remain prominent, decreased amount of vascular congestion since prior study. Normal visualized aortic arch and descending thoracic aorta. No acute bony process. There is no demonstrated abnormality of the visualized soft tissue structures of the upper abdomen. RAD/Chest 1 View (Portable) IMPRESSION: 1. No airspace consolidation or pleural effusion. 2. Decreased vascular congestion. Electronically Signed: David Messina MD at 7:50 EST , Service support ,
[2018-09-10] MEDS: 0.9% Normal Saline 1,000 ML 1000 ML IV (05:34)
[2018-09-10] MEDS: Ondansetron 4 MG/2 ML Vial IV (05:34)
[2018-09-10] MEDS: Morphine 4 MG/ML Syringe IV (05:34)
[2018-09-10 05:35] LABS: International Normalized Ratio 1.3
[2018-09-10 05:36] LABS: Absolute Lymphocyte Count 1.05 X10^3/ul (0.83-4.51); Absolute Neutrophil Count 4.4 X10^3/uL (2.0-7.7); Basophil# 0.06 X10^3/uL; Basophil% 0.9 % (0-1); Differential Indicated SCAN CRITERIA MET; Eosinophil# 0.14 X10^3/uL; Eosinophils% 2.1 % (0-5); Hematocrit 27.2 % (40-54); Hemoglobin 8.3 g/dl (13.0-16.5); Lymphocyte # 1.05 X10^3/ul (4.0); Lymphocyte % 15.9 % (19-41); Mean Corp Hgb Conc 30.5 g/gl (32-36); Mean Corpuscular Hgb 22.4 pg (27.0-32.0); Mean Corpuscular Volume 73.3 fL (80-94); Monocyte# 0.96 X10^3/uL; Monocyte% 14.5 % (0-10); Neutrophil % 66.4 % (47-70); POSITIVE COUNT NO; POSITIVE DIFFERENTIAL NO; POSITIVE MORPHOLOGY YES; Platelet Count 95 K/mm3 (150-450); RBC Distribution Width CV 19.4 % (11.6-14.6); RBC Distribution Width SD 49.9 fl (35.1-43.9); Red Blood Count 3.71 M/mm3 (4.6-6.2); White Blood Count 6.6 K/mm3 (4.4-11.0)
--- NOTE | 2018-09-10 05:38 | ED.DCSUM_ITS ---
- ER Visit Summary Date of Service: 09/10/18 Chief Complaint: GI bleed History of Present Illness: The patient is a 58 M who presents with bleeding. History is limited as the patient is a poor informant. He has a history of alcoholic liver cirrhosis. He has had prior GI bleeds but never this severe. H e states that he had some dark stools for about 3 days last week but it had then improved. However has become more severe in the last 24 hours. He reports maroon colored stools. He does take a baby aspirin. He is uncertain if he the other anticoagulation. He states this morning he developed palpitations and a sensation of his heart pounding or racing. He also complains of shortness of breath especially with exertion. No chest pain. He does have a history of coronary artery disease and prior NSTEMI, CHF. He denies nausea or vomiting. He does complain of some mild epigastric abdominal pain. He also complains of a headache. Physical Examination: Afebrile blood pressure 140/78 vitals otherwise normal Moist mucous membranes Heart regular rate and rhythm Lungs are clear to auscultation Abdomen soft nondistended he has mild diffuse abdominal tenderness without guarding without rebound Patient has jaundice Patient appears slightly confused but is alert and oriented to month person and place there are no focal or lateralizing neurological deficits Rectal exam shows a small amount of dark red stool Test Results: EKG shows normal sinus rhythm at a rate of 68. Labs notable for hemoglobin 8.3 which is down about 3 g from prior labs. Total bilirubin 1.10. AST 92. Lipase normal. INR 1.3. Troponin is 0.04 which is near the upper limi t of normal range. Abdominal CT shows cirrhosis and varices really but no acute pathology, mild ascites. Chest x-ray on my review shows cardiomegaly but no acute disease. Emergency Department Course and Treatment: Patient was treated with IV fluids and given morphine and Zofran for symptomatic relief. He has had a 3 g decrease in hemoglobin from prior labs. However he is hemodynamic stable I spoke to Dr. Lomax who is on-call for general surgery. We shared the same concerns in regards to his varices that if this was variceal bleeding cannot be managed well here and therefore Dr. Lomax recommended transfer to a facility with gastroenterology. Patient is known to the [facility]. We will transfer to [facility]. Treatment Plan: [] Disposition: Transfer Impression: GI bleed Blood loss anemia This note was generated with Joyent dictation software. It may contain incorrect words, spelling, and punctuation that were not noted in review of the chart prior to signing ED Disposition - Plan for ED Patient: Chief Complaint: GI Bleed Referrals: Adi Cisneros MD [Primary Care Provider] -
[2018-09-10 05:48] LABS: AST(SGOT) 92 U/L (15-37); Alanine Aminotransfer ALT/SGPT 55 U/L (16-61); Albumin, Serum 3.6 g/dL (3.2-5.0); Alkaline Phosphatase 118 U/L (45-117); Anion Gap 12 (5-15); BUN 12 mg/dL (7-18); BUN/Creat Ratio 11.5 RATIO (10-20); Calcium,Total 8.6 mg/dL (8.5-10.1); Chloride 106 mmol/L (98-107); Creatinine, Serum 1.04 mg/dL (0.70-1.30); EST Glomerular Filtration Rate 78 mL/min (>60); Est Glom Filt Rate - Afr Amer 94 mL/min (>60); Estimated Creatinine Clearance 82.46 ml/min; Globulin 3.9 g/dL (2.2-4.2); Glucose 115 mg/dL (74-106); Lipase 299 U/L (73-393); Potassium 4.1 mmol/L (3.5-5.1); Protein, Total 7.5 g/dL (6.4-8.2); Sodium Level 140 mmol/L (136-145)
[2018-09-10 06:00] VITALS: BP 111/61; PULSE 57; RESP 13; O2SAT 98
[2018-09-10 06:03] LABS: Differential Comment SCANNED; Hypochromasia 3+; Microcytosis 2+
[2018-09-10 06:04] LABS: Target Cells 3+
[2018-09-10] MEDS: LORazepam 2 MG/ML Syringe 1 MG IV (06:52)
--- NOTE | 2018-09-10 06:54 | NURSING ---
CALLED NATAN ALEJO.
--- NOTE | 2018-09-10 08:16 | NURSING ---
NATAN OJHANSEN DR IS DR [facility]OM 5420 NURSE TO NURSE [phone]
--- NOTE | 2018-09-10 08:30 | NURSING ---
CALLED ROSALIO MEDLEY. COMING FROM [facility]
== END 2018-09-10 09:10 | disposition short-term general hospital (02) ==
LOC: ED 05:39
PROVIDERS: Emergency Provider Emergency Medicine; Family Provider Family Medicine; PCP Family Medicine
DX: K92.2 Gastrointestinal hemorrhage, unspecified (principal); D50.0 Iron deficiency anemia secondary to blood loss (chronic); K70.30 Alcoholic cirrhosis of liver without ascites; I85.00 Esophageal varices without bleeding; R17 Unspecified jaundice; I25.10 Atherosclerotic heart disease of native coronary artery without angina pectoris; I11.0 Hypertensive heart disease with heart failure; I50.9 Heart failure, unspecified; E11.9 Type 2 diabetes mellitus without complications; R10.13 Epigastric pain; R06.02 Shortness of breath; R51 Headache; E66.9 Obesity, unspecified; Z72.0 Tobacco use; Z79.84 Long term (current) use of oral hypoglycemic drugs; Z79.82 Long term (current) use of aspirin; Z79.899 Other long term (current) drug therapy; I25.2 Old myocardial infarction
CPT/HCPCS: 71045; 74176; 80048; 80076; 82140; 82274; 83690; 84484; 85025; 85610; 86850; 86900; 93005; 96361; 96374; 96375; 99285; J7030; A4216; J2405

== ENCOUNTER 2018-10-20 07:58 | Day surgery (SDC) | payer MEDICARE, MEDICAID, SELFPAY ==
[2018-05-06 09:05] VITALS: BMI 33.0
[2018-09-15 10:42] VITALS: BMI 32.5
[2018-10-11 13:07] VITALS: BMI 30.2
--- NOTE | 2018-10-11 14:11 | RAD_ITS ---
STUDY: X-RAY CHEST REASON FOR EXAM: Male, 58 years old. Pre-op defibrillator surgery. TECHNIQUE: Frontal and lateral views of the chest. COMPARISON: 05/03/2018, 09/10/2018. FINDINGS: The lungs are clear and expanded. There is no demonstrated pleural abnormality. Normal size heart. Normal mediastinum and shelly. Normal visualized pulmonary arteries. Normal visualized aortic arch and descending thoracic aorta. There are diffuse degenerative changes of the visualized thoracic spine. Normal visualized ribs, clavicles, and shoulders. There is no demonstrated abnormality of the visualized soft tissue structures of the upper abdomen. RAD/Chest PA and Lateral IMPRESSION: Normal x-ray examination of the chest. Electronically Signed: Brian Dobson MD at 23:57 EST , Service support ,
[2018-10-11 14:36] LABS: Bacteria 0 SEEN /hpf (None Seen); Mucous, Urine 0 SEEN /hpf (<or=2+); Red Blood Cells-Urine 0 SEEN /hpf (0-5); Squamous Epithelial Cells - UA 0 SEEN /hpf (0-5); White Blood Cells 0 SEEN /hpf (0-5)
[2018-10-11 16:24] LABS: Color, Urine Yellow (Yellow); Glucose, Dipstick Normal (Normal); Ketone-Dipstick Negative (Negative); Leukocyte Esterase-Dipstick Negative /ul (Negative); Nitrite-Dipstick Negative (Negative); Occult Blood-Urine Negative /ul (Negative); Protein-Dipstick Negative (Negative); Specific Gravity, Urine 1.015 (1.002-1.030); Urine Bilirubin Dipstick Negative (Negative); Urine Clarity Clear (Clear); Urine Urobilinogen Normal (Normal)
[2018-10-11 16:42] LABS: Hyaline Cast 0-5 SEEN /lpf (0-5)
[2018-10-11 16:47] LABS: Anion Gap 16 (5-15); BUN 9 mg/dL (7-18); Calcium,Total 8.7 mg/dL (8.5-10.1); Chloride 101 mmol/L (98-107); EST Glomerular Filtration Rate 82 mL/min (>60); Est Glom Filt Rate - Afr Amer 99 mL/min (>60); Glucose 123 mg/dL (74-106); Potassium 4.2 mmol/L (3.5-5.1); Sodium Level 140 mmol/L (136-145)
[2018-10-11 16:58] LABS: BNP,B-Type NATRIURETIC PEPTIDE 90.5 pg/mL (0-100)
[2018-10-11 19:54] LABS: International Normalized Ratio 1.3
[2018-10-11 20:20] LABS: Hematocrit 27.5 % (40-54); Hemoglobin 8.1 g/dl (13.0-16.5); Mean Corp Hgb Conc 29.5 g/gl (32-36); Mean Corpuscular Hgb 20.4 pg (27.0-32.0); Mean Corpuscular Volume 69.3 fL (80-94); Platelet Count 100 K/mm3 (150-450); RBC Distribution Width CV 19.8 % (11.6-14.6); RBC Distribution Width SD 49.5 fl (35.1-43.9); Red Blood Count 3.97 M/mm3 (4.6-6.2); White Blood Count 6.8 K/mm3 (4.4-11.0)
[2018-10-11 20:22] LABS: Scan Indicated on CBC? Y/N YES- FLAGS NOTED
[2018-10-19 11:54] VITALS: BMI 30.2
[2018-10-20] VITALS (16 sets, daily range): BP systolic 115–143; BP diastolic 53–93; PULSE 56–72; RESP 16; TEMP 36.6–36.9; O2SAT 95–98
--- NOTE | 2018-10-20 11:33 | PCM.OP.PRO ---
Procedure Report Date of Procedure: 10/20/18 Preoperative diagnosis implantation of VVI ICD for primary prevention Postoperative diagnosis same as above After informed consent and IV antibiotics the patient was brought to the [facility] catheterization laboratory. The left side of the chest was prepped and draped in the usual sterile manner. The patient was sedated with intermittent boluses of IV Versed fentanyl and propofol as well as subcutaneous 1% lidocaine. An incision was made inferior to the clavicle to accommodate the size of the hardware device. The pocket was created using blunt and Bovie dissection. Hemostasis was obtained. Using the Seldinger technique the axillary vein was cannulated once and a guidewire was advanced under fluoroscopic guidance. Over the guidewire a sheath was advanced. Through this sheath, the electrode was positioned under fluoroscopic guidance into the right ventricle and was actively fixated. Once actively fixated, the lead was tested to check for proper sensing, capture threshold, impedance and to exclude diaphragmatic stimulation. Once the lead was implanted and all electrical parameters were confirmed to be functioning normally with appropriate values, the leads was then sutured to the pectoralis muscle with 2-0 silk on the Silastic collar ?2. The sponge and needle count were correct. Hemostasis was obtained. Antibiotic solution was used to flush the pocket. The new device was brought to the field. The lead was placed in the appropriate position of the header of the device and were secured by the setscrews and confirmed by the tug test. The device and the leads were then placed in the pocket. Pocket was closed with a deep layer of running 2-0 Vicryl, superficial layer of running 4-0 Vicryl and skin with Steri-Strips that were covered with a rolled 4 x 4's and Tegaderm. The patient left the lab with the device programmed to chronic parameters. There were no complications. Lead and device serial and model numbers are available in the chart documents provided by the device company corporate representative procedure summary.
--- NOTE | 2018-10-20 11:36 | PRO.PCM_ITS ---
Procedure Report Date of Procedure: 10/20/18 Preoperative diagnosis implantation of VVI ICD for primary prevention Postoperative diagnosis same as above After informed consent and IV antibiotics the patient was brought to the [facility] catheterization laboratory. The left side of the chest was prepped and draped in the usual sterile manner. The patient was sedated with intermittent boluses of IV Versed fentanyl and propofol as well as subcutaneous 1% lidocaine. An incision was made inferior to the clavicle to accommodate the size of the hardware device. The pocket was created using blunt and Bovie dissection. Hemostasis was obtained. Using the Seldinger technique the axillary vein was cannulated once and a guidewire was advanced under fluoroscopic guidance. Over the guidewire a sheath was advanced. Through this sheath, the electrode was positioned under fluoroscopic guidance into the right ventricle and was actively fixated. Once actively fixated, the lead was tested to check for proper sensing, capture threshold, impedance and to exclude diaphragmatic stimulation. Once the lead was implanted and all electrical parameters were confirmed to be functioning normally with appropriate values, the leads was then sutured to the pectoralis muscle with 2-0 silk on the Silastic collar ?2. The sponge and needle count were correct. Hemostasis was obtained. Antibiotic solution was used to flush the pocket. The new device was brought to the field. The lead was placed in the appropriate position of the header of the device and were secured by the setscrews and confirmed by the tug test. The device and the leads were then placed in the pocket. Pocket was closed with a deep layer of running 2-0 Vicryl, superficial layer of running 4-0 Vicryl and skin with Steri- Strips that were covered with a rolled 4 x 4's and Tegaderm. The patient left the lab with the device programmed to chronic parameters. There were no c omplications. Lead and device serial and model numbers are available in the chart documents provided by the device company commissary representative procedure summary.
[2018-10-20] MEDS: HYDROcodone Bitartrate/Apap 5/325 Tablet PO ×2 (14:51→21:19)
[2018-10-20] MEDS: Carvedilol 3.125 MG TABLET PO (21:21)
[2018-10-20] MEDS: Atorvastatin Calcium 40 MG Tablet PO (21:21)
[2018-10-20] MEDS: rifAXIMin 550 MG Tablet PO (21:22)
[2018-10-20] MEDS: 0.9% NaCl Peripheral Flush Adult/Peds IV (21:23)
[2018-10-20] MEDS: Zolpidem Tartrate 5 MG Tablet PO (23:49)
[2018-10-21 02:59] VITALS: PULSE 69
[2018-10-21 03:04] VITALS: BP 119/73; PULSE 64; RESP 16; TEMP 36.6; O2SAT 96
--- NOTE | 2018-10-21 05:55 | EKG12_ITS ---
Test Reason : AM Blood Pressure : / mmHG Vent. Rate : 070 BPM Atrial Rate : 070 BPM P-R Int : 144 ms QRS Dur : 104 ms QT Int : 460 ms P-R-T Axes : 035 040 011 degrees QTc Int : 496 ms Normal sinus rhythm Low voltage QRS Possible Inferior infarct , age undetermined Abnormal ECG When compared with ECG of 10-SEP-2018 05:28, No significant change was found Confirmed by JESSE CHRISTIANSEN, ALIA ([id number]), publications editor ALVINA ISBELL ([id number]) on 10/28/2018 8:58:45 AM Referred By: Julian Fan Confirmed By:ALIA MOLINA MD
--- NOTE | 2018-10-21 05:55 | RAD_ITS ---
STUDY: X-RAY CHEST REASON FOR EXAM: Male, 58 years old. Pacemaker insertion. TECHNIQUE: Single AP portable view of the chest. COMPARISON: Comparison is made with prior study dated October 20, 2018. FINDINGS: EKG electrodes are seen. A left-sided unipolar pacemaker is present. There is no evidence of pneumothorax. The lungs are clear and expanded. There is no demonstrated pleural abnormality. There is mild cardiac enlargement. Normal mediastinum and shelly. Normal visualized pulmonary arteries. Normal visualized aortic arch and descending thoracic aorta. There are diffuse degenerative changes of the visualized thoracic spine. Normal visualized ribs, clavicles, and shoulders. There is no demonstrated abnormality of the visualized soft tissue structures of the upper abdomen. RAD/Chest 1 View (Portable) IMPRESSION: Cardiomegaly. Status post left-sided pacemaker insertion. There is no evidence of pneumothorax. Electronically Signed: Jerman Mcfadden, at 10:58 EST , Service support ,
[2018-10-21 06:05] LABS: Anion Gap 8 (5-15); BUN 12 mg/dL (7-18); BUN/Creat Ratio 15.7 RATIO (10-20); Calcium,Total 8.5 mg/dL (8.5-10.1); Chloride 106 mmol/L (98-107); Creatinine, Serum 0.76 mg/dL (0.70-1.30); EST Glomerular Filtration Rate 111 mL/min (>60); Est Glom Filt Rate - Afr Amer 134 mL/min (>60); Estimated Creatinine Clearance 112.84 ml/min; Glucose 131 mg/dL (74-106); Potassium 4.5 mmol/L (3.5-5.1); Sodium Level 139 mmol/L (136-145)
[2018-10-21 06:24] LABS: Hematocrit 28.2 % (40-54); Hemoglobin 7.9 g/dl (13.0-16.5)
[2018-10-21 07:00] VITALS: PULSE 65
[2018-10-21] MEDS: HYDROcodone Bitartrate/Apap 5/325 Tablet PO (07:43)
[2018-10-21] MEDS: 0.9% NaCl Peripheral Flush Adult/Peds IV (07:44)
--- NOTE | 2018-10-21 08:37 | DCINST_ITS ---
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 You will use the following diet at home:: Calorie/Carbohydrate Controlled (specify 1200, 1400, etc) - 1800 calories, Cardiac Your food should be the consistency of: Regular Discharge Activity: May Drive - may not drive: Until further evaluated in the outpatient cardiovascular office, May Shower - may shower: Per the post ICD implant instruction sheet Weight Bearing Status: - - left upper extremity restrictions: Per the post ICD implant instruction sheet Call your doctor if your incision/area has: Continuous Slow Oozing, Sudden Increased Bleeding, Increased Pain/ Swelling, Increased Redness, Foul Smelling Discharge, Swelling at the incision site Call your doctor if you observe: Fever of 101 or Higher, Shortness of breath, Dizziness, Fainting spells, Swelling in the ankles Additional Dressing/Incision Instructions:: post ICD implant dressing changes: Follow the instructions on the instruction sheet Additional Instructions: discontinue amiodarone therapy Allergies/Adverse Reactions: Allergies No Known Allergies Allergy (Verified 10/11/18 13:12) Medications to take at Discharge Multivitamins,Ther W-Minerals [Multivitamin With Minerals] 1 tab PO DAILY 10/14 02/28 Tamsulosin HCl [Flomax] 0.4 mg DAILY 05/03/18 Zolpidem Tartrate [Ambien] 10 mg PO QHS PRN PRN 05/03/18 Aspirin E.C. [Ecotrin] 81 mg PO DAILY@0800 tab 05/07/18 Lactulose [Chronulac] 20 gm PO TID #90 udc 05/07/18 atorvastatin 40 mg tablet 40 mg PO QHS #90 tab 05/30/18 carvedilol 3.125 mg tablet 3.125 mg PO BID #180 tab 05/30/18 furosemide 40 mg tablet 40 mg PO DAILY #90 tab 05/30/18 lisinopril 2.5 mg tablet 2.5 mg PO DAILY #90 tab 05/30/18 albuterol sulfate HFA 90 mcg/actuation aerosol inhaler 2 puff INHALATION Q6H PRN 09/15/18 fluticasone furoate 100 mcg/actuation blister powder for inhalation 1 inh INHALATION DAILY 09/15/18 folic acid 1 mg tablet 1 mg PO DAILY 09/15/18 metformin 500 mg tablet 1,000 mg PO BID tab 09/15/18 rifaximin 550 mg tablet 550 mg PO BID 09/15/18 zinc sulfate 220 mg tablet 220 mg PO DAILY tab 09/15/18 thiamine HCl (vitamin B1) 100 mg tablet 100 mg PO DAILY 10/11/18 pantoprazole 40 mg tablet,delayed release 40 mg PO DAILY #90 tab 10/12/18 ferrous sulfate 134 mg (27 mg iron) tablet 134 mg PO DAILY tab 10/13/18 Aspirin E.C. [Ecotrin] 81 mg PO DAILY@0800 tablet 10/21/18 Atorvastatin Calcium [Lipitor] 40 mg PO QHS tablet 10/21/18 Carvedilol [Coreg (Beta Anum)] 3.125 mg PO BID tablet 10/21/18 Folic Acid 1 mg PO DAILY@0800 tablet 10/21/18 Furosemide [Lasix] 40 mg PO DAILY tablet 10/21/18 Lactulose [Chronulac] 20 gm PO TID udc 10/21/18 Lisinopril [Zestril] 2.5 mg PO DAILY tablet 10/21/18 Metformin HCl [Glucophage] 1,000 mg PO BIDCM tablet 10/21/18 Multivitamins,Ther W-Minerals [Multivitamin With Minerals] 1 tablet PO DAILY@0800 tablet 10/21/18 Pantoprazole Sodium [Protonix] 40 mg PO DAILY tablet 10/21/18 Rifaximin [Xifaxan] 550 mg PO BID tablet 10/21/18 Tamsulosin HCl [Flomax] 0.4 mg PO DAILY@1730 capsule 10/21/18 Thiamine Hydrochloride [Vitamin B1] 100 mg PO DAILY@0800 tablet 10/21/18 Zinc Sulfate (50mg elemental) [Zinc Sulfate] 220 mg PO DAILY capsule 10/21/18 The following prescriptions were given: pantoprazole 40 mg tablet,delayed release 40 mg PO DAILY #90 tab Primary Care Physician: Adi Cisneros MD [Primary Care Provider] - Test Results: Test results from this visit will be discussed in further detail at your follow- up appointment, if applicable. Please Follow Up With: Pablo Shirley MD When: As per the written instructions on the post ICD implant instruction sheet
--- NOTE | 2018-10-21 08:43 | DS.PCM_ITS ---
Discharge Date and Diagnosis Date of Admission: 10/20/18 Date of Discharge: 10/21/18 - Primary Discharge Diagnosis Non CAD related cardiomyopathy status post primary prevention ICD placement- single chamber - Secondary Discharge Diagnosis Chronic Problems (Last Updated 09/19/18 @ 17:04 by Kelly Nielsen) Nonischemic cardiomyopathy (Chronic) Pulmonary hypertension (Chronic) Alcohol abuse (Chronic) Type 2 diabetes mellitus (Chronic) COPD (chronic obstructive pulmonary disease) (Chronic) Tobacco abuse (Chronic) BPH (benign prostatic hyperplasia) (Chronic) Hyperbilirubinemia (Chronic) Hospital Course and Treatment Imaging Results: 10/21/18 05:55 CXR [Chest 1 View (Portable)] [RAD] AM (NON MEDS) Operations: None Procedures: - - single chamber ICD placement Summary of Care Provided: The patient is a 58 year old white male with a past medical history of a non CAD related cardiomyopathy with a previous transthoracic echocardiogram, documented in the patient's medical record, reporting an LVEF of 25%, with chronic systolic CHFwho presents for primary prevention ICD placement. The patient underwent primary prevention ICD placement-single chamber ICD-by Dr. Fan on 10-20-18. The procedure was without obvious adverse effects on complication. The patient was monitored overnight. He remained symptomatically and hemodynamically stable. His post ICD interpretation demonstrated a normal functioning ICD. Noting no obvious adverse procedure related events the patient is to be released home for continued outpatient cardiovascular follow up. [] Subjective: The patient is awake and alert with no acute complaints. - Physical Exam General: Alert, Oriented x3, Cooperative, No apparent distress HEENT: Atraumatic, PERRLA, EOMI, Normocephalic Oral: Moist Mucosa Neck: Supple, No JVD Lungs: Clear to auscultation Cardiovascular: Regular rate, Normal S1, Normal S2 Abdomen: Bowel Sounds Present, Soft, Non Tender Extremities: No edema Skin: No rashes Neurological: Neuro grossly intact Psych/Mental Status: Normal Affect Comment: Left pectoral ICD placement site: Surgical bandage colonic clean and dry Vital Signs Temp Pulse Resp BP Pulse Ox 97.8 F 65 16 119/73 96 10/21/18 03:04 10/21/18 07:00 10/21/18 03:04 10/21/18 03:04 10/21/18 03:04 Oxygen Delivery Method Room Air Weight: 217 lb Body Mass Index (BMI) 30.2 Intake and Output for Last 24 Hours 10/19/18 10/20/18 10/21/18 23:59 23:59 23:59 Intake Total 880 / 880 200 / 200 Output Total 225 / 225 300 / 300 Balance 655 / 655 -100 / -100 Laboratory Tests Past 24 Hrs 10/21/18 10/21/18 05:20 05:20 Hgb 7.9 L Hct 28.2 L Sodium 139 Potassium 4.5 Chloride 106 Carbon Dioxide 25.0 Anion Gap 8 BUN 12 Creatinine 0.76 Estim Creat Clear Calc 112.84 Est GFR (MDRD) Af Amer 134 Est GFR (MDRD) Non-Af 111 BUN/Creatinine Ratio 15.7 Glucose 131 H Calcium 8.5 Discharge Diet: 1800 Calorie Control Diet Discharge Activity: May Drive - may not drive: Until further evaluated in the outpatient cardiovascular office, December Shower - december shower: Per the post ICD implant instruction sheet Weight Bearing Status: - - left upper extremity restrictions: Per the post ICD implant instruction sheet Call your doctor if your incision/area has: Continuous Slow Oozing, Sudden Increased Bleeding, Increased Pain/ Swelling, Increased Redness, Foul Smelling Discharge, Swelling at the incision site Call your doctor if you observe: Fever of 101 or Higher, Shortness of breath, Dizziness, Fainting spells, Swelling in the ankles Additional Dressing/Incision Instructions:: post ICD implant dressing changes: Follow the instructions on the instruction sheet Home Medications: Medications to take at Discharge Multivitamins,Ther W-Minerals [Multivitamin With Minerals] 1 tab PO DAILY 10/31/15 Tamsulosin HCl [Flomax] 0.4 mg DAILY 05/03/18 Zolpidem Tartrate [Ambien] 10 mg PO QHS PRN PRN 05/03/18 Aspirin E.C. [Ecotrin] 81 mg PO DAILY@0800 tab 05/07/18 Lactulose [Chronulac] 20 gm PO TID #90 udc 05/07/18 atorvastatin 40 mg tablet 40 mg PO QHS #90 tab 05/30/18 carvedilol 3.125 mg tablet 3.125 mg PO BID #180 tab 05/30/18 furosemide 40 mg tablet 40 mg PO DAILY #90 tab 05/30/18 lisinopril 2.5 mg tablet 2.5 mg PO DAILY #90 tab 05/30/18 albuterol sulfate HFA 90 mcg/actuation aerosol inhaler 2 puff INHALATION Q6H PRN 09/15/18 fluticasone furoate 100 mcg/actuation blister powder for inhalation 1 inh INHALATION DAILY 09/15/18 folic acid 1 mg tablet 1 mg PO DAILY 09/15/18 metformin 500 mg tablet 1,000 mg PO BID tab 09/15/18 rifaximin 550 mg tablet 550 mg PO BID 09/15/18 zinc sulfate 220 mg tablet 220 mg PO DAILY tab 09/15/18 thiamine HCl (vitamin B1) 100 mg tablet 100 mg PO DAILY 10/11/18 pantoprazole 40 mg tablet,delayed release 40 mg PO DAILY #90 tab 10/12/18 ferrous sulfate 134 mg (27 mg iron) tablet 134 mg PO DAILY tab 10/13/18 Aspirin E.C. [Ecotrin] 81 mg PO DAILY@0800 tablet 10/21/18 Atorvastatin Calcium [Lipitor] 40 mg PO QHS tablet 10/21/18 Carvedilol [Coreg (Beta Anum)] 3.125 mg PO BID tablet 10/21/18 Folic Acid 1 mg PO DAILY@0800 tablet 10/21/18 Furosemide [Lasix] 40 mg PO DAILY tablet 10/21/18 Lactulose [Chronulac] 20 gm PO TID udc 10/21/18 Lisinopril [Zestril] 2.5 mg PO DAILY tablet 10/21/18 Metformin HCl [Glucophage] 1,000 mg PO BIDCM tablet 10/21/18 Multivitamins,Ther W-Minerals [Multivitamin With Minerals] 1 tablet PO DAILY@0800 tablet 10/21/18 Pantoprazole Sodium [Protonix] 40 mg PO DAILY tablet 10/21/18 Rifaximin [Xifaxan] 550 mg PO BID tablet 10/21/18 Tamsulosin HCl [Flomax] 0.4 mg PO DAILY@1730 capsule 10/21/18 Thiamine Hydrochloride [Vitamin B1] 100 mg PO DAILY@0800 tablet 10/21/18 Zinc Sulfate (50mg elemental) [Zinc Sulfate] 220 mg PO DAILY capsule 10/21/18 Following Prescrptions Were Given to Patient: pantoprazole 40 mg tablet,delayed release 40 mg PO DAILY #90 tab Primary Care Physician: Adi Cisneros MD [Primary Care Provider] - Please Follow Up With: Pablo Shirley MD When: As per the written instructions on the post ICD implant instruction sheet Minutes spent on discharge:: 45 Patient Condition:: Stable Medical Necessity - Tobacco Use Smoking Status: Current every day smoker Meaningful Use Info Meaningful Use Diagnoses (Choose all that apply): None applicable
[2018-10-21 09:08] VITALS: BP 133/71; PULSE 66; RESP 16; TEMP 35.8; O2SAT 98
[2018-10-21] MEDS: Amiodarone 200 MG Tablet PO (09:12)
[2018-10-21] MEDS: Aspirin E.C. 81 MG Tablet PO (09:12)
[2018-10-21] MEDS: Thiamine Hydrochloride 100 MG Tablet PO (09:13)
[2018-10-21] MEDS: Folic Acid 1 MG Tablet PO (09:13)
[2018-10-21] MEDS: Multivitamins,Ther W-Minerals Tablet 1 TABLET PO (09:13)
[2018-10-21] MEDS: Carvedilol 3.125 MG TABLET PO (09:13)
[2018-10-21] MEDS: Furosemide 40 MG Tablet PO (09:14)
[2018-10-21] MEDS: Lisinopril 2.5 MG Tablet PO (09:14)
[2018-10-21] MEDS: rifAXIMin 550 MG Tablet PO (09:14)
[2018-10-21] MEDS: Pantoprazole Sodium 40 MG Tablet PO (09:14)
--- NOTE | 2018-10-21 09:36 | NURSING ---
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 Information that was initially documented on the inaccurate visit number with time stamps occurring between 1130 and 1400 on 10/20/2018 to be transcribed on this chart based off of the values and assessments entered on the other visit number (06/21/2018)
== END 2018-10-21 08:37 | disposition home or self-care (01) ==
LOC: CLSP 08:05 → PCU 14:28
PROVIDERS: Internal Medicine Cardiovascular Disease; Nurse Practitioner Family; Family Provider Family Medicine; PCP Family Medicine; Referring Provider Internal Medicine Cardiovascular Disease; Visit Provider Internal Medicine Cardiovascular Disease
DX: Z45.018 Encounter for adjustment and management of other part of cardiac pacemaker (principal); Z00.6 Encounter for examination for normal comparison and control in clinical research program; I42.8 Other cardiomyopathies; I47.2 Ventricular tachycardia; I34.0 Nonrheumatic mitral (valve) insufficiency; I50.22 Chronic systolic (congestive) heart failure; I27.20 Pulmonary hypertension, unspecified; E11.9 Type 2 diabetes mellitus without complications; J44.9 Chronic obstructive pulmonary disease, unspecified; F17.200 Nicotine dependence, unspecified, uncomplicated; Z79.84 Long term (current) use of oral hypoglycemic drugs; Z79.82 Long term (current) use of aspirin; Z79.899 Other long term (current) drug therapy
CPT/HCPCS: 33249; 36415; 71045; 71046; 80048; 81001; 82140; 83880; 85014; 85018; 85027; 85610; 93005; 93641; 99152; 99153; J7040; J7050; A4216; C1894

== ENCOUNTER 2018-11-05 22:31 | Inpatient (IN) | payer MEDICARE, MEDICAID, SELFPAY ==
[2018-05-06 09:05] VITALS: BMI 33.0
[2018-10-19 11:54] VITALS: BMI 30.2
[2018-11-05 22:31] VITALS: BP 112/59; PULSE 61; RESP 16; TEMP 36.5; O2SAT 98; BMI 31.6
[2018-11-05 22:36] VITALS: BP 111/65; PULSE 62; RESP 16; TEMP 36.6
--- NOTE | 2018-11-05 22:46 | EKG12_ITS ---
Test Reason : CP Blood Pressure : / mmHG Vent. Rate : 060 BPM Atrial Rate : 060 BPM P-R Int : 154 ms QRS Dur : 094 ms QT Int : 470 ms P-R-T Axes : 038 064 038 degrees QTc Int : 470 ms Normal sinus rhythm Low voltage QRS Septal infarct , age undetermined Abnormal ECG Confirmed by JESSE CHRISTIANSEN, ALIA ([id number]), marketing editor AFRICA VALENTIN ([id number]) on 11/07/2018 11:09:59 AM Referred By: Robert Adorno Confirmed By:ALIA MOLINA MD
--- NOTE | 2018-11-05 22:47 | RAD_ITS ---
HISTORY: CHEST PALPITATIONS AND WEAKNESSHAD PACER PUT IN 10/20/18, HAS NOT FELT RIGHT SINCE EXAM/TECHNIQUE: XR Chest 1 View: 10/21/18 CXR. COMPARISON: None. FINDINGS: # of images incl. paperwork: 1 Implanted cardiac device left chest, single lead extends into the right ventricle. Cardiomegaly unchanged. No evidence of pneumothorax, pleural effusion, pneumonia, or pulmonary edema. RAD/Chest 1 View (Portable) IMPRESSION: No acute findings. Cardiomegaly and implanted cardiac device unchanged. at 2337 Reported and signed by: Anoop Penn MD Electronically Signed: Anoop Penn, at 23:36 EDT Tel , Service support ,
[2018-11-05] MEDS: 0.9% Normal Saline 1,000 ML 150 ML IV (23:12)
[2018-11-05 23:16] LABS: Absolute Lymphocyte Count 1.12 X10^3/ul (0.83-4.51); Absolute Neutrophil Count 3.4 X10^3/uL (2.0-7.7); Basophil# 0.06 X10^3/uL; Basophil% 1.1 % (0-1); Eosinophil# 0.28 X10^3/uL; Hematocrit 28.8 % (40-54); Hemoglobin 8.6 g/dl (13.0-16.5); Lymphocyte # 1.12 X10^3/ul (4.0); Mean Corp Hgb Conc 29.9 g/gl (32-36); Mean Corpuscular Hgb 21.6 pg (27.0-32.0); Mean Corpuscular Volume 72.2 fL (80-94); Monocyte# 0.71 X10^3/uL; Monocyte% 12.7 % (0-10); Neutrophil # 3.43 X10^3/uL (2.7-7.7); Platelet Count 106 K/mm3 (150-450); RBC Distribution Width SD 61.9 fl (35.1-43.9); Red Blood Count 3.99 M/mm3 (4.6-6.2); White Blood Count 5.6 K/mm3 (4.4-11.0)
[2018-11-05 23:22] LABS: ALB/GLOB Ratio 0.7 RATIO (0.9-2.4); AST(SGOT) 89 U/L (15-37); Alanine Aminotransfer ALT/SGPT 52 U/L (16-61); Albumin, Serum 3.2 g/dL (3.2-5.0); Alkaline Phosphatase 111 U/L (45-117); Anion Gap 7 (5-15); BUN 8 mg/dL (7-18); BUN/Creat Ratio 8.8 RATIO (10-20); Calcium,Total 8.1 mg/dL (8.5-10.1); Chloride 104 mmol/L (98-107); Creatinine, Serum 0.91 mg/dL (0.70-1.30); EST Glomerular Filtration Rate 91 mL/min (>60); Est Glom Filt Rate - Afr Amer 110 mL/min (>60); Estimated Creatinine Clearance 94.24 ml/min; Globulin 4.7 g/dL (2.2-4.2); Glucose 202 mg/dL (74-106); Lipase 291 U/L (73-393); Potassium 4.2 mmol/L (3.5-5.1); Protein, Total 7.9 g/dL (6.4-8.2); Sodium Level 138 mmol/L (136-145)
[2018-11-05 23:23] LABS: Differential Indicated SCAN CRITERIA MET; POSITIVE COUNT NO; POSITIVE DIFFERENTIAL NO; POSITIVE MORPHOLOGY YES
[2018-11-05 23:36] VITALS: BP 104/55; PULSE 58; RESP 14; TEMP 36.6; O2SAT 98
[2018-11-05 23:39] LABS: D-Dimer Quantitative (DVT/PE) 3.43 FEU/ug/m (0.27-0.49)
--- NOTE | 2018-11-05 23:45 | CT_ITS ---
HISTORY: PT STATED CHEST PAIN, BLOODY URINE TECHNIQUE: Helically acquired images were obtained of the chest following IV contrast as per pulmonary angiogram protocol with 3D reconstructions. A radiation dose optimization technique was used for this scan. IV Contrast dosage and agent: 100 cc Isovue-370 COMPARISON: None FINDINGS: UPPER ABDOMEN: Please see CT abdomen report. Cirrhosis, ascites, varicosities are described. PULMONARY ARTERIES: Normal in caliber. No pulmonary embolism. AORTA AND GREAT VESSELS: Normal in caliber. No evidence of dissection. HEART AND PERICARDIUM: Mild four-chamber cardiomegaly. Implanted cardiac device with lead extending into the right ventricle. No pericardial effusion. Coronary artery atherosclerosis which is not well evaluated because of cardiac motion. MEDIASTINUM AND KRYSTLE: Shoddy mildly prominent mesenteric lymph nodes. Large paraesophageal varicosities. No esophageal dilation. OTHER SOFT TISSUES: Mild bilateral supraclavicular adenopathy. LUNGS AND LARGE AIRWAYS: Clear. No pneumothorax. PLEURA: Unremarkable. No pleural effusion or thickening. BONES: No suspicious lytic or blastic abnormality observed. CT/CTA Chest W/WO Contrast IMPRESSION: No pulmonary embolus. No acute findings in the chest. Paraesophageal varicosities. Cirrhosis with stigmata of portal hypertension, please see CT abdomen report. Individualized dose optimization techniques were used for this CT. at 0142 Reported and signed by: Anoop Penn MD Electronically Signed: Anoop Penn, at 1:41 EDT Tel , Service support ,
--- NOTE | 2018-11-05 23:46 | CT_ITS ---
HISTORY: PT STATED CHEST PAIN, BLOODY URINE EXAM/TECHNIQUE: CT Abdomen W/ Contrast: 100 cc Isovue 370 administered intravenously. Multiplanar reformats. COMPARISON: CT abdomen pelvis 09/10/18. FINDINGS: # of images incl. paperwork: 404 Lung bases clear. No free air. Small amount of ascites. Nodular, cirrhotic liver again demonstrated. Small hypodensities in the right lobe are most likely cysts. Thin linear filling defect in the superior mesenteric vein as it extends toward the portal confluence. The main and intrahepatic portal veins are patent. The splenic vein is small in caliber but patent. Large varicosities are seen adjacent to left renal vein and in the left abdominal mesentery and in the paraspinal region. Prominent paraesophageal and smaller gastric varices. Upper abdominal adenopathy and mild splenomegaly unchanged. Diffuse mesenteric edema is similar to prior. Mild cardiomegaly with implanted cardiac device lead in the right ventricle, partially visible. No abdominal aortic aneurysm. No adrenal lesions, no evidence of pancreatitis. Small cyst left kidney. Right kidney unremarkable. No hydronephrosis or renal stone. Gallbladder distended, with adjacent ascitic fluid. No radiopaque gallstones or biliary ductal dilation. No obstruction or inflammation of the visualized bowel loops. Normal appendix almost completely visible. No acute osseous abnormality. The pelvis was not included on the study. CT/Abdomen WITH IV Contrast IMPRESSION: Thin linear filling defect in the superior mesenteric vein probably a small amount of nonocclusive thrombus. The previous study was performed without contrast therefore I cannot determine if it is new compared to then. Otherwise similar to prior with cirrhosis, ascites, mild splenomegaly, upper abdominal adenopathy, and prominent varicosities particularly paraesophageal. Individualized dose optimization techniques were used for this CT. at 0135 Reported and signed by: Anoop Penn MD Electronically Signed: Anoop Penn, at 1:34 EDT Tel , Service support ,
[2018-11-05] MEDS: Ondansetron 4 MG/2 ML Vial IV (23:53)
[2018-11-05] MEDS: Morphine 4 MG/ML Syringe IV (23:53)
[2018-11-05 23:54] LABS: Lactic Acid 2.6 mmol/L (0.4-2.0)
--- NOTE | 2018-11-05 23:54 | ED.RN ---
DR PETERSEN NOTIFIED OF LACTIC ACID AND DDIMER RESULTS
[2018-11-06] VITALS (24 sets, daily range): BP systolic 103–146; BP diastolic 5–78; PULSE 55–75; RESP 13–20; TEMP 36.4–37.1; O2SAT 94–99; BMI 31.8
[2018-11-06 00:32] LABS: Anisocytosis 2+; Hypochromasia 2+; Microcytosis 3+; Platelet Estimate MOD DEC (ADEQ); Polychromasia RARE
--- NOTE | 2018-11-06 02:30 | ED.RN ---
DR SHINE PAGED FOR DR PETERSEN
--- NOTE | 2018-11-06 02:41 | ED.VISSUMM ---
- ER Visit Summary Date of Service: 11/06/18 Chief Complaint: [Chest pain, generalized weakness, bloody stools] History of Present Illness: The patient is a 58 M [presents the emergency department with multiple complaints today. Patient is here because he woke up this morning around 6:30 AM had a throbbing discomfort in the center of his chest. Patient also has been more short of breath with activity and exertion today. Patient also tells me is been having bloody stools for about a week every time he has a bowel movement because he takes lactulose related to his liver disease. Patient not on any blood thinners other than a low-dose baby aspirin. Patient has history of CHF, COPD, diabetes, nonischemic cardiomyopathy, alcohol abuse, pulmonary hypertension. Patient had a heart catheterization about 6 months ago that did not show any coronary disease that was significant.] Physical Examination: [HEENT-PERRLA, EOMI. Cranial nerves II through XII grossly intact. TMs clear. Mucous membranes moist. No adenopathy. Cardiovascular-regular rate and rhythm without murmur or ectopy Lungs-clear to auscultation, chest wall stable without crepitus or subcu emphysema Abdomen-normoactive bowel sounds, soft, nontender, no rebound or rigidity, no peritoneal signs. We will exam performed showed brown stool. Extremities-intact ?4, normal range of motion, normal pulses, atraumatic] Test Results: [EKG obtained on arrival shows sinus rhythm with a ventricular rate of 60 bpm with no acute I segment changes. CBC with differential showed a white count 5.6, hemoglobin 8.6, hematocrit 29, placed 106. Chemistries unremarkable. Lipase was 291. Troponin is 0.035. D-dimer was 3.43. Lactate was 2.6. CTA of the chest showed esophageal varices otherwise no evidence of PE. Patient had a CT scan of the abdomen and pelvis that showed questionable clot in the superior mesenteric vein is nonocclusive.] Emergency Department Course and Treatment: [Admit] Treatment Plan: [Admit] Disposition: [Admit] Impression: [Lower GI bleed Generalized weakness Anemia] This note was generated with [employer] software. It may contain incorrect words, spelling, and punctuation that were not noted in review of the chart prior to signing ED Disposition - Plan for ED Patient: Referrals: Adi Cisneros MD [Primary Care Provider] -
[2018-11-06 03:08] LABS: Reflex Lactate? Y
[2018-11-06] MEDS: 0.9% Normal Saline 1,000 ML 999 ML IV (03:25)
[2018-11-06] MEDS: Morphine 4 MG/ML Syringe IV (03:25)
--- NOTE | 2018-11-06 03:49 | ED.RN ---
PT NOT CONFIDENT OF MED LIST. STATES THAT IT SHOULD BE VERIFIED W/HIS .
--- NOTE | 2018-11-06 04:31 | HP.PCM_ITS ---
Problem List (1) Acute blood loss anemia Status: Acute (2) Nonischemic cardiomyopathy Status: Chronic (3) Alcohol abuse Status: Chronic History of Present Illness Date of Admission: 11/06/18 Chief Complaint: weakness and spasm of the chest The patient is a 58 year old M with a significant history of BPH; congestive heart failure; COPD; type 2 diabetes hepatic encephalopathy; liver cirrhosis; esophageal varices; and nonischemic cardiomyopathy with EF of about 10% who presented with a 1 day history of generalized weakness. Also patient complains of spasm in his chest. Further patient complains that for the last 1 week he has been having bloody stools. On October 20, 2018 patient had a defibrillator placed in by Dr. Shirley, food assembler commissary kitchen. Patient was admitted at [facility] about 6 years ago and he had a colonoscopy with polypectomy and cauterization of some polyps. Reportedly his hemoglobin at that time was about 7.0 and reportedly he did not have any blood transfusion at that time. Emergency department doctor reported that systolic blood pressure was within 90 and 110. Emergency department doctor reported that patient rectal exams had brown stool was tested for positive occult blood. Patient's hemoglobin was 8.6. He had a positive d-dimer. Follow-up CTPA was not remarkable for PE but it showed a para esophageal varicosities; and cirrh osis with stigmata of portal hypertension. Past Medical History Past Medical History (Chronic Problems): Chronic Problems (Last Reviewed 11/06/18 @ 04:59 by Robert Adorno MD) Implantable cardioverter-defibrillator (ICD) in situ (Chronic) Nonischemic cardiomyopathy (Chronic) Pulmonary hypertension (Chronic) Alcohol abuse (Chronic) Type 2 diabetes mellitus (Chronic) COPD (chronic obstructive pulmonary disease) (Chronic) Tobacco abuse (Chronic) BPH (benign prostatic hyperplasia) (Chronic) Hyperbilirubinemia (Chronic) Medical History: Medical History (Last Reviewed 11/06/18 @ 07:05 by Robert Adorno MD) Implantable cardioverter-defibrillator (ICD) in situ (Chronic) Z95.810 Nonischemic cardiomyopathy (Chronic) I42.8 Nonrheumatic mitral (valve) insufficiency (Acute) I34.0 Pulmonary hypertension (Chronic) I27.20 Hepatic encephalopathy (Acute) K72.90 Alcohol abuse (Chronic) F10.10 Type 2 diabetes mellitus (Chronic) E11.9 CHF (congestive heart failure) (Acute) I50.9 COPD (chronic obstructive pulmonary disease) (Chronic) J44.9 Tobacco abuse (Chronic) Z72.0 BPH (benign prostatic hyperplasia) (Chronic) N40.0 Wide-complex tachycardia (Resolved) I47.2 Chest pain (Acute) R07.9 Elevated troponin (Acute) R74.8 Hyperbilirubinemia (Chronic) E80.6 Allergies No Known Allergies Allergy (Verified 11/05/18 22:36) Home Medications: Ambulatory Orders Medication Instructions Recorded Zolpidem Tartrate [Ambien] 10 mg PO QHS PRN PRN 05/03/18 albuterol sulfate HFA 90 2 puff INHALATION Q6H PRN 09/15/18 mcg/actuation aerosol inhaler fluticasone furoate 100 1 inh INHALATION DAILY 09/15/18 mcg/actuation blister powder for inhalation ferrous sulfate 134 mg (27 mg 134 mg PO DAILY tab 10/13/18 iron) tablet Aspirin E.C. [Ecotrin] 81 mg PO DAILY@0800 tablet 10/21/18 Atorvastatin Calcium [Lipitor] 40 mg PO QHS tablet 10/21/18 Carvedilol [Coreg (Beta Anum)] 3.125 mg PO BID tablet 10/21/18 Folic Acid 1 mg PO DAILY@0800 tablet 10/21/18 Furosemide [Lasix] 40 mg PO DAILY tablet 10/21/18 Lactulose [Chronulac] 20 gm PO TID udc 10/21/18 Multivitamins,Ther W-Minerals 1 tablet PO DAILY@0800 tablet 10/21/18 [Multivitamin With Minerals] Pantoprazole Sodium [Protonix] 40 mg PO DAILY tablet 10/21/18 Tamsulosin HCl [Flomax] 0.4 mg PO DAILY@1730 capsule 10/21/18 Thiamine Hydrochloride [Vitamin B1] 100 mg PO DAILY@0800 tablet 10/21/18 Zinc Sulfate (50mg elemental) 220 mg PO DAILY capsule 10/21/18 [Zinc Sulfate] lisinopril 2.5 mg tablet 2.5 mg PO DAILY 11/01/18 Metformin HCl [Glucophage] 500 mg PO BIDCM 11/06/18 Surgical History: Surgical History (Last Reviewed 11/06/18 @ 07:06 by Robert Adorno MD) History of eye surgery Z98.890 left History of foot surgery Z98.890 Surgical History: - Smoking Status: Current every day smoker Tobacco Use: Cigarettes - *Family History Maternal Family History: Family History (Last Reviewed 11/06/18 @ 07:06 by Robert Adorno MD) Father Pericarditis Mother Hypertension Grandmother Diabetes Brother Heart disease Sister Diabetes History Items: Diabetes, Hypertension Paternal Family History: Family History (Last Reviewed 11/06/18 @ 07:06 by Robert Adorno MD) Father Pericarditis Mother Hypertension Grandmother Diabetes Brother Heart disease Sister Diabetes History Items: - Review of Systems Constitutional: Reports: Weakness. Denies: Chills, Fever, Weight Change HEENT: Denies: Head Aches, Sinus Congestion, Sinus Drainage Cardiovascular: Reports: Chest Pain. Denies: Palpitations Respiratory: Denies: Cough, Shortness of breath at rest, Sputum production Gastrointestinal: Reports: Hematochezia. Denies: Abdominal Pain, Hematemesis, Nausea, Vomiting Genitourinary: Denies: Dysuria Musculoskeletal: Denies: Joint Pain, Joint Tenderness Skin: Denies: Rash, Wounds Neurological: Denies: Numbness, Tingling, Focal weakness Psychiatric: Denies: Anxiety, Depression, Homicidal Ideations, Suicidal Ideations Hematologic/ Lymphatic: Denies: Easy Bruising, Easy Bleeding VTE Information - Inpt Only VTE Present on Admission: No VTE Mechan Device Prophylaxis: SCD's VTE Pharm Prophylaxis ordered?: No Patient Problems: Active and Suspected Problems (Last Reviewed 11/06/18 @ 04:59 by Robert Adorno MD) Acute blood loss anemia (Acute) - Physical Exam General: Alert, Oriented x3, Cooperative HEENT: Atraumatic, PERRLA, EOMI, Normocephalic Neck: Supple, No JVD, Negative Carotid Bruits Lungs: Clear to auscultation, Normal air movement, - - Chest with healed incision; likely site of ICD placement. Cardiovascular: Regular rate, No murmurs, Bradycardic Abdomen: Bowel Sounds Present, Soft, Non Tender Extremities: No edema, Capillary Refill Less than 3 Seconds Skin: No rashes, No breakdown Musculoskeletal: No Tenderness to Palpation of Joints or Extremities Neurological: Cranial nerves II-XII grossly intact Psych/Mental Status: Normal Affect, Appropriate Vital Signs Temp Pulse Resp BP Pulse Ox 98.1 F 61 15 107/61 96 11/06/18 03:00 11/06/18 03:00 11/06/18 03:00 11/06/18 03:00 11/06/18 03:00 Oxygen Delivery Method Room Air Weight: 102.7 kg Body Mass Index (BMI) 31.6 Microbiology Past 72 Hours 11/06/18 02:43 Stool Occult Blood (PARMINDER) - Final Stool Occult Blood Positive Laboratory Tests Past 24 Hrs 11/05/18 11/05/18 11/05/18 22:30 22:30 22:30 WBC 5.6 RBC 3.99 L Hgb 8.6 L Hct 28.8 L MCV 72.2 L MCH 21.6 L MCHC 29.9 L RDW 24.0 H RDW Differential 61.9 H Plt Count 106 L Immature Gran % (Auto) 0.200 Neut % (Auto) 61.0 Lymph % (Auto) 20.0 [place] % (Auto) 12.7 H Eos % (Auto) 5.0 Baso % (Auto) 1.1 H Absolute Neuts (auto) 3.4 Absolute Lymphs (auto) 1.12 Total Counted Not Reportable Differential Comment Platelet Estimate MOD DEC Polychromasia RARE Hypochromasia 2+ Anisocytosis 2+ Microcytosis 3+ D-Dimer Quant (PE/DVT) 3.43 H* Sodium 138 Potassium 4.2 Chloride 104 Carbon Dioxide 27.0 Anion Gap 7 BUN 8 Creatinine 0.91 Estim Creat Clear Calc 94.24 Est GFR (MDRD) Af Amer 110 Est GFR (MDRD) Non-Af 91 BUN/Creatinine Ratio 8.8 L Glucose 202 H Lactic Acid Calcium 8.1 L Total Bilirubin 1.00 AST 89 H ALT 52 Alkaline Phosphatase 111 Troponin I 0.035 Total Protein 7.9 Albumin 3.2 Globulin 4.7 H Albumin/Globulin Ratio 0.7 L Lipase 291 Blood Type Antibody Screen Crossmatch 11/05/18 11/06/18 23:03 03:55 WBC RBC Hgb Hct MCV MCH MCHC RDW RDW Differential Plt Count Immature Gran % (Auto) Neut % (Auto) Lymph % (Auto) [place] % (Auto) Eos % (Auto) Baso % (Auto) Absolute Neuts (auto) Absolute Lymphs (auto) Total Counted Differential Comment Platelet Estimate Polychromasia Hypochromasia Anisocytosis Microcytosis D-Dimer Quant (PE/DVT) Sodium Potassium Chloride Carbon Dioxide Anion Gap BUN Creatinine Estim Creat Clear Calc Est GFR (MDRD) Af Amer Est GFR (MDRD) Non-Af BUN/Creatinine Ratio Glucose Lactic Acid 2.6 H Calcium Total Bilirubin AST ALT Alkaline Phosphatase Troponin I Total Protein Albumin Globulin Albumin/Globulin Ratio Lipase Blood Type Pending Antibody Screen Pending Crossmatch See Detail Assessment/Plan All Active Problems (Last Reviewed 11/06/18 @ 04:59 by Robert Adorno MD) Acute blood loss anemia (Acute) Nonrheumatic mitral (valve) insufficiency (Acute) Hepatic encephalopathy (Acute) CHF (congestive heart failure) (Acute) Wide-complex tachycardia (Resolved) Chest pain (Acute) Elevated troponin (Acute) Pancreatitis (Resolved) The patient is a 58 year old M with a significant history of BPH; congestive he art failure; COPD; type 2 diabetes; hepatic encephalopathy; liver cirrhosis; esophageal varices; and nonischemic cardiomyopathy with EF of about 10% who presented with a generalized weakness; reported hematochezia; chest spasm; anemia; and positive fecal occult blood test consistent with acute blood loss anemia. Acute blood loss anemia On presentation patient hemoglobin was 8.6. Review of old records show that his hemoglobin on 10/21/2018 was 7.9. Also his hemoglobin on 05/07/2018 was 11.5. His hemoglobin on 05/03/2018 was 12.2. Remarkably patient had colonoscopy about 6 weeks ago where he had a polypectomy and and cauterization of some polyps. Because of patient cardiac history and because of reported chest pain it was discussed with emergency department doctor to give 8 units of blood. Nursing communication to get H&H after blood transfusion. Emergency department doctor discussed the case with Dr. Clarice Garland, general surgery who is interested to follow. Accordingly will consult Dr. Clarice Lomax. We will keep patient n.p.o. for now. At home patient is on Protonix 40 mg p.o. daily we will escalate to 40 Protonix 40 mg IV every 12 hours starting now. We will hold his home aspirin. Patient received IV fluid bolus at the emergency department. Because of his history of nonischemic cardiomyopathy with EF of about 10% we will give a cautious fluid administration . Patient placed on normal saline 75 MLS per hour for 1 L for now. We will hold off guideline directed heart failure drugs: carvedilol and lisinopril. If blood pressure remained stable consider resuming these m edications. Would hold off Lasix for now especially as patient is getting IV fluids. Consider resuming Lasix when blood pressure is stable. Diabetes Mellitus On presentation his blood glucose was not within goal. Since it is too early in his admission we will hold metformin. We will put the patient on correction scale insulin with sliding scale. Of note patient has been placed on n.p.o. status waiting for surgery to evaluate patient. Liver cirrhosis with portal hypertension and esophageal varices Beta-anum on hold because of hypotension. Lactulose continued Chest pain Patient complains of spasm of the chest. EKG showed sinus rhythm Placed on PCU with telemetry Baclofen ordered Since patient had pacemaker about [address] Shirley, food assembler commissary kitchen, if his symptoms persist consider discussing the case with Dr. Shirley. Nonischemic cardiomyopathy Reportedly patient has an ejection fraction of 10%. His heart cath about 6 months ago reportedly was normal. Guideline directed medical therapy on hold because of GI bleed and low to normal blood pressure. Resume guideline medications when his blood pressure is stable. Alcoholism Reportedly patient drink 2-3 beers a day. He reports drinking a stronger type of beer. At times he drinks more than 2-3 bottles of beer. On home multivitamin, folic acid and thiamine; continue. Will patient on seizure protocol with Ativan as patient is n.p.o. Benign prostate hyperplasia On home Flomax. We will hold Flomax for now because of relative hypotension in the setting of GI bleed. Resume Flomax when blood pressure is more stable. DVT prophylaxis Because of GI bleed will avoid chemical thromboprophylaxis at this time. SCD ordered. Code Visit Inpatient E&M: 93304 Init Hosp L3
[2018-11-06] MEDS: 0.9% Normal Saline 1,000 ML 75 ML IV (06:28)
[2018-11-06] MEDS: Lactulose 20 GM/30 ML UDC PO ×3 (06:33→21:28)
[2018-11-06] MEDS: Baclofen 10 MG Tablet 5 MG PO ×3 (06:33→21:28)
[2018-11-06 06:45] LABS: Bedside Glucose 185 mg/dL (70-110)
[2018-11-06] MEDS: Insulin Lispro 100 UNIT/ML INSULN.PEN SQ ×3 (06:53→17:48)
[2018-11-06 06:56] LABS: International Normalized Ratio 1.4; Prothrombin Time (Protime)PT. 16.5 SECONDS (11.7-14.9)
[2018-11-06 07:36] LABS: Lactic Acid 2.8 mmol/L (0.4-2.0)
[2018-11-06] MEDS: Budesonide Respules 0.5 MG/2 ML AMPUL.NEB. INHALATION ×2 (08:11→19:45)
--- NOTE | 2018-11-06 08:15 | PCM.PN.HOSP ---
Patient Problems: Active and Suspected Problems (Last Reviewed 11/06/18 @ 07:05 by Robert Adorno MD) Acute blood loss anemia (Acute) Subjective: Seen and examined. 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 He drinks about 3-8 cans of beer every day. Patient has history of alcohol cirrhosis decompensated with portal hypertension, hepatic encephalopathy, ascites and possible esophageal varices. As per the patient, he had upper and lower endoscopy about 6 weeks ago primarily in [facility]. He had polypectomy but was not told about esophageal variceal bleeding. In the past, was told he had esophageal varices but denies any banding. No official report. Patient has tremors, shivering but is alert, awake and oriented x3. He also has significant cardiac, pulmonary comorbidities including nonischemic cardiomyopathy with EF 10% status post AICD Dr. Shirley on 10/21/2018. His last echo on 06/21/2018 reported as EF about 20%, with -10% global longitudinal strain, evidence of diastolic dysfunction with severely dilated LV. Left and right atrium mildly enlarged. Mild to moderate eccentric MR. Trivial TR. Vitals/I&O's: Vital Signs Temp Pulse Resp BP Pulse Ox 98.1 F 71 18 124/71 H 97 11/06/18 08:03 11/06/18 08:03 11/06/18 08:03 11/06/18 08:03 11/06/18 08:03 Oxygen Delivery Method Room Air Weight: 227 lb 15.327 oz Body Mass Index (BMI) 31.8 Intake and Output for Last 24 Hours 11/04/18 11/05/18 11/06/18 23:59 23:59 23:59 Intake Total 0 / 0 Balance 0 / 0 General: Alert, Oriented x3, Cooperative HEENT: Atraumatic, PERRLA, EOMI, Normocephalic Oral: Dry Mucosa Neck: Supple, No JVD, Negative Carotid Bruits Lungs: Clear to auscultation, Normal air movement, Diminished - Air entry is diminished. Cardiovascular: Regular rate, Normal S1, Normal S2, No murmurs, - - AICD surgical site no inflammation or redness. Abdomen: Bowel Sounds Present, Soft, Non Tender, - - Mild to moderate ascites on palpation Extremities: Capillary Refill Less than 3 Seconds, Edema - Mild edema of extremities Skin: No rashes, No breakdown Musculoskeletal: No Tenderness to Palpation of Joints or Extremities, Arthritic Changes, Muscle Wasting Lymphatic: No Cervical, Supraclavicular, or Inguinal Adenopathy Neurological: Cranial nerves II-XII grossly intact, Deep Tendon Reflexes 2+/4 and Symmetrical, Neuro grossly intact, Unsteady Gait, - - Tremors Psych/Mental Status: Normal Affect, Appropriate, Anxious Microbiology Past 72 Hours 11/06/18 02:43 Stool Stool Occult Blood (PARMINDER) - Final Occult Blood Positive Laboratory Results 11/05/18 22:30: WBC 5.6, RBC 3.99 L, Hgb 8.6 L, Hct 28.8 L, MCV 72.2 L, MCH 21.6 L, MCHC 29.9 L, RDW 24.0 H, RDW Differential 61.9 H, Plt Count 106 L, Immature Gran % (Auto) 0.200, Neut % (Auto) 61.0, Lymph % (Auto) 20.0, [place] % (Auto) 12.7 H, Eos % (Auto) 5.0, Baso % (Auto) 1.1 H, Absolute Neuts (auto) 3.4, Absolute Lymphs (auto) 1.12, Total Counted Not Reportable, Differential Comment , Platelet Estimate MOD DEC, Polychromasia RARE, Hypochromasia 2+, Anisocytosis 2+, Microcytosis 3+ 11/05/18 22:30: D-Dimer Quant (PE/DVT) 3.43 H* 11/05/18 22:30: Sodium 138, Potassium 4.2, Chloride 104, Carbon Dioxide 27.0, Anion Gap 7, BUN 8, Creatinine 0.91, Estim Creat Clear Calc 94.24, Est GFR (MDRD) Af Amer 110, Est GFR (MDRD) Non-Af 91, BUN/Creatinine Ratio 8.8 L, Glucose 202 H, Calcium 8.1 L, Total Bilirubin 1.00, AST 89 H, ALT 52, Alkaline Phosphatase 111, Troponin I 0.035, Total Protein 7.9, Albumin 3.2, Globulin 4.7 H, Albumin/Globulin Ratio 0.7 L, Lipase 291 11/05/18 23:03: Lactic Acid 2.6 H 11/06/18 03:55: Blood Type O POSITIVE, Antibody Screen NEGATIVE, Crossmatch See Detail 11/06/18 05:45: Troponin I 0.042 11/06/18 05:45: PT 16.5 H, INR 1.4 11/06/18 06:26: POC Glucose 185 H 11/06/18 06:35: Lactic Acid 2.8 H Current Medications Albuterol Sulfate (Ventolin Aerosols) 2.5 mg INHALATION Q2H PRN PRN PRN Reason: SOB/WHEEZING Atorvastatin Calcium (Lipitor) 40 mg PO QHS [facility] Baclofen (Lioresal) 5 mg PO TID [facility] Last Admin: 11/06/18 06:33 Dose: 5 mg Budesonide (Pulmicort Aerosol) 0.5 mg INHALATION Q12H.RT [facility] Last Admin: 11/06/18 08:11 Dose: 0.5 mg Dextrose (D50w Syringe) 0 gm IV X1 PRN; Protocol PRN Reason: Hypoglycemia Ferrous Sulfate (Ferrous Sulfate) 650 mg PO DAILYCM [facility] Folic Acid (Folic Acid) 1 mg PO DAILY@0800 [facility] Glucagon () 1 mg IM .X1 PRN PRN Reason: Hypoglycemia Sodium Chloride () 1,000 mls @ 75 mls/hr IV .[id number] [facility] Stop: 11/06/18 18:24 Last Admin: 11/06/18 06:28 Dose: 75 mls/hr Pantoprazole Sodium 40 mg/ (Sodium Chloride) 110 mls @ 330 mls/hr IV Q12 PHILIP Last Admin: 11/06/18 06:32 Dose: 330 mls/hr Insulin Human Lispro (Humalog Kwikpen (Bkc)) 0 unit SQ Q6 [facility]; Protocol Last Admin: 11/06/18 06:53 Dose: 1 u Lactulose (Chronulac, Cephulac) 20 gm PO TID [facility] Last Admin: 11/06/18 06:33 Dose: 20 gm Lorazepam (Ativan) 2 mg PO Q2H PRN PRN; Protocol PRN Reason: CIWA score > 8 but <15 Lorazepam (Ativan) 2 mg IV Q2H PRN PRN; Protocol PRN Reason: CIWA score > 8 but <15 Lorazepam (Ativan) 2 mg PO UD PRN; Protocol PRN Reason: CIWA score >/=15. Lorazepam (Ativan) 2 mg IV UD PRN; Protocol PRN Reason: CIWA score >/=15. Magnesium Hydroxide (Milk Of Magnesia) 30 ml PO DAILY PRN PRN Reason: Constipation Multivitamins/Minerals (Multivitamin With Minerals) 1 tablet PO DAILY@0800 [facility] Nutritional Formula (Lactose Free) (Glucerna Shake) 120 ml PO TIDCM [facility] Ondansetron HCl (Zofran) 4 mg IV Q8H PRN PRN PRN Reason: NAUSEA Sodium Chloride () 5 - 15 ml IV UD PRN PRN Reason: SALINE FLUSH Thiamine HCl (Vitamin B1) 100 mg PO DAILY@0800 [facility] Zinc Sulfate (Zinc Sulfate) 220 mg PO DAILY PHILIP Zolpidem Tartrate (Ambien (Generic)) 5 mg PO QHS PRN PRN PRN Reason: INSOMNIA Medical Necessity - Tobacco Use Smoking Status: Current every day smoker Tobacco Use: Cigarettes Assessment/Plan All Active Problems (Last Reviewed 11/06/18 @ 07:05 by Robert Adorno MD) Acute blood loss anemia (Acute) Nonrheumatic mitral (valve) insufficiency (Acute) Hepatic encephalopathy (Acute) CHF (congestive heart failure) (Acute) Wide-complex tachycardia (Resolved) Chest pain (Acute) Elevated troponin (Acute) Pancreatitis (Resolved) Is a 58-year-old gentleman with history of nonischemic dilated cardiomyopathy, mostly secondary to alcoholic cirrhosis, EF about 10-20% status post AICD, decompensated cirrhosis with esophageal varices, hepatic encephalopathy and portal hypertension, mild thrombocytopenia was admitted with dark red/brown stool, hematochezia, positive fecal occult blood test consistent with acute blood loss anemia, H&H 8.6/28.8, platelet count 106,000 and alcohol withdrawal syndrome.He had upper and lower endoscopy about 6 weeks ago primarily in [facility]. He had polypectomy but was not told about esophageal variceal bleeding. In the past, he had esophageal varices but denies any banding. 1. Acute blood loss anemia: Patient is being admitted in PCU. On Protonix 40 mg IV every 12 hourly, aspirin on hold. IV fluid normal saline. Currently getting 1 unit of RBC transfusion. Monitor in H&H. If patient gets variceal bleeding, will need OCTRETORIDE drip and possible transfer to tertiary care hospital. The prognosis of variceal bleed and possible transfer was discussed with the patient. Dr. Lomax has been consulted. 2. Alcohol withdrawal on syndrome: Ativan based protocol as per CIWA score and also on tapering dose of Ativan. Patient is refusing Ativan. 1 dose of 2 mg IV morphine ordered. 3. Chest pain/spasm: Troponins are negative. Patient had post AICD Dr. Shirley on 10/21/2018. 4. Severe cardiac comorbidities: Severe nonischemic alcohol-related dilated cardiomyopathy; systolic and diastolic combined heart failure . His last echo on 06/21/2018 reported as EF about 20%, with -10% global longitudinal strain, evidence of diastolic dysfunction with severely dilated LV. Left and right atrium mildly enlarged. Mild to moderate eccentric MR. Trivial TR. 5. COPD: Bronchodilator as needed as needed. Patient is still a smoker smokes cigarettes every day. Patient has history of pleural effusion probably secondary to cirrhosis and it got resolved on Lasix. Did not require thoracocentesis. 6. Decompensated alcohol-related with esophageal varices, thrombocytopenia, hepatic encephalopathy: On lactulose. ADD Rifaximin. DVT prophylaxis: Bilateral SCDs. Pharmacological prophylaxis contraindicated. Prognosis: Patient was explained about guarded/poor prognosis in view of multiple comorbidities as mentioned above. Patient affirms understanding and wants to quit alcohol and smoking. End of life goal/advance directive: Patient does not have living will or power of claims attorney for health. When asked directly about the patient regarding different options DNR CC arrest, DNR C and full code; patient wishes full code. He wants everything to be done to revive him including chest compression, intubation, ventilator and tube feeding. Total time spent in [id number] encounter in discussion of advanced directive 18 minutes. Microbiology Past 72 Hours 11/06/18 02:43 Stool Stool Occult Blood (PARMINDER) - Final Occult Blood Positive Laboratory Results 11/05/18 22:30: WBC 5.6, RBC 3.99 L, Hgb 8.6 L, Hct 28.8 L, MCV 72.2 L, MCH 21.6 L, MCHC 29.9 L, RDW 24.0 H, RDW Differential 61.9 H, Plt Count 106 L, Immature Gran % (Auto) 0.200, Neut % (Auto) 61.0, Lymph % (Auto) 20.0, [place] % (Auto) 12.7 H, Eos % (Auto) 5.0, Baso % (Auto) 1.1 H, Absolute Neuts (auto) 3.4, Absolute Lymphs (auto) 1.12, Total Counted Not Reportable, Differential Comment , Platelet Estimate MOD DEC, Polychromasia RARE, Hypochromasia 2+, Anisocytosis 2+, Microcytosis 3+ 11/05/18 22:30: D-Dimer Quant (PE/DVT) 3.43 H* 11/05/18 22:30: Sodium 138, Potassium 4.2, Chloride 104, Carbon Dioxide 27.0, Anion Gap 7, BUN 8, Creatinine 0.91, Estim Creat Clear Calc 94.24, Est GFR (MDRD) Af Amer 110, Est GFR (MDRD) Non-Af 91, BUN/Creatinine Ratio 8.8 L, Glucose 202 H, Calcium 8.1 L, Total Bilirubin 1.00, AST 89 H, ALT 52, Alkaline Phosphatase 111, Troponin I 0.035, Total Protein 7.9, Albumin 3.2, Globulin 4.7 H, Albumin/Globulin Ratio 0.7 L, Lipase 291 11/05/18 23:03: Lactic Acid 2.6 H 11/06/18 03:55: Blood Type O POSITIVE, Antibody Screen NEGATIVE, Crossmatch See Detail 11/06/18 05:45: Troponin I 0.042 11/06/18 05:45: PT 16.5 H, INR 1.4 11/06/18 05:45: Phosphorus Pending, Magnesium Pending 11/06/18 06:26: POC Glucose 185 H 11/06/18 06:35: Lactic Acid 2.8 H Clinical Impression(s) from Imaging Studies Chest X-Ray 11/05/18 22:47 IMPRESSION: No acute findings. Cardiomegaly and implanted cardiac device unchanged. Chest CTA 11/05/18 23:45 IMPRESSION: No pulmonary embolus. No acute findings in the chest. Paraesophageal varicosities. Cirrhosis with stigmata of portal hypertension, please see CT abdomen report. Individualized dose optimization techniques were used for this CT. Abdomen CT 11/05/18 23:46 IMPRESSION: Thin linear filling defect in the superior mesenteric vein probably a small amount of nonocclusive thrombus. The previous study was performed without contrast therefore I cannot determine if it is new compared to then. Otherwise similar to prior with cirrhosis, ascites, mild splenomegaly, upper abdominal adenopathy, and prominent varicosities particularly paraesophageal. Individualized dose optimization techniques were used for this CT. Code Visit Procedures: 22144 Advncd Care Plan 30 Min
[2018-11-06] MEDS: Ondansetron 4 MG/2 ML Vial IV (08:21)
--- NOTE | 2018-11-06 08:21 | PN_ITS ---
Patient Problems: Active and Suspected Problems (Last Reviewed 11/06/18 @ 07:05 by Robert Adorno MD) Acute blood loss anemia (Acute) Subjective: Seen and examined. 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 He drinks about 3-8 cans of beer every day. Patient has history of alcohol cirrhosis decompensated with portal hypertension, hepatic encephalopathy, ascites and possible esophageal varices. As per the patient, he had upper and lower endoscopy about 6 weeks ago primarily in [facility]. He had polypectomy but was not told about esophageal variceal bleeding. In the past, was told he had esophageal varices but denies any banding. No official report. Patient has tremors, shivering but is alert, awake and oriented x3. He also has significant cardiac, pulmonary comorbidities including nonischemic cardiomyopathy with EF 10% status post AICD Dr. Shirley on 10/21/2018. His last echo on 06/21/2018 reported as EF about 20%, with -10% global longitudinal strain, evidence of diastolic dysfunction with severely dilated LV. Left and right atrium mildly enlarged. Mild to moderate eccentric MR. Trivial TR. Vitals/I&O's: Vital Signs Temp Pulse Resp BP Pulse Ox 98.1 F 71 18 124/71 H 97 11/06/18 08:03 11/06/18 08:03 11/06/18 08:03 11/06/18 08:03 11/06/18 08:03 Oxygen Delivery Method Room Air Weight: 227 lb 15.327 oz Body Mass Index (BMI) 31.8 Intake and Output for Last 24 Hours 11/04/18 11/05/18 11/06/18 23:59 23:59 23:59 Intake Total 0 / 0 Balance 0 / 0 General: Alert, Oriented x3, Cooperative HEENT: Atraumatic, PERRLA, EOMI, Normocephalic Oral: Dry Mucosa Neck: Supple, No JVD, Negative Carotid Bruits Lungs: Clear to auscultation, Normal air movement, Diminished - Air entry is diminished. Cardiovascular: Regular rate, Normal S1, Normal S2, No murmurs, - - AICD surgical site no inflammation or redness. Abdomen: Bowel Sounds Present, Soft, Non Tender, - - Mild to moderate ascites on palpation Extremities: Capillary Refill Less than 3 Seconds, Edema - Mild edema of extremities Skin: No rashes, No breakdown Musculoskeletal: No Tenderness to Palpation of Joints or Extremities, Arthritic Changes, Muscle Wasting Lymphatic: No Cervical, Supraclavicular, or Inguinal Adenopathy Neurological: Cranial nerves II-XII grossly intact, Deep Tendon Reflexes 2+/4 and Symmetrical, Neuro grossly intact, Unsteady Gait, - - Tremors Psych/Mental Status: Normal Affect, Appropriate, Anxious Microbiology Past 72 Hours 11/06/18 02:43 Stool Stool Occult Blood (PARMINDER) - Final Occult Blood Positive Laboratory Results 11/05/18 22:30: WBC 5.6, RBC 3.99 L, Hgb 8.6 L, Hct 28.8 L, MCV 72.2 L, MCH 21.6 L, MCHC 29.9 L, RDW 24.0 H, RDW Differential 61.9 H, Plt Count 106 L, Immature Gran % (Auto) 0.200, Neut % (Auto) 61.0, Lymph % (Auto) 20.0, Vance % (Auto) 12.7 H, Eos % (Auto) 5.0, Baso % (Auto) 1.1 H, Absolute Neuts (auto) 3.4, Absolute Lymphs (auto) 1.12, Total Counted Not Reportable, Differential Comment , P latelet Estimate MOD DEC, Polychromasia RARE, Hypochromasia 2+, Anisocytosis 2+, Microcytosis 3+ 11/05/18 22:30: D-Dimer Quant (PE/DVT) 3.43 H* 11/05/18 22:30: Sodium 138, Potassium 4.2, Chloride 104, Carbon Dioxide 27.0, Anion Gap 7, BUN 8, Creatinine 0.91, Estim Creat Clear Calc 94.24, Est GFR (MDRD) Af Amer 110, Est GFR (MDRD) Non-Af 91, BUN/Creatinine Ratio 8.8 L, Glucose 202 H, Calcium 8.1 L, Total Bilirubin 1.00, AST 89 H, ALT 52, Alkaline Phosphatase 111, Troponin I 0.035, Total Protein 7.9, Albumin 3.2, Globulin 4.7 H, Albumin/Globulin Ratio 0.7 L, Lipase 291 11/05/18 23:03: Lactic Acid 2.6 H 11/06/18 03:55: Blood Type O POSITIVE, Antibody Screen NEGATIVE, Crossmatch See Detail 11/06/18 05:45: Troponin I 0.042 11/06/18 05:45: PT 16.5 H, INR 1.4 11/06/18 06:26: POC Glucose 185 H 11/06/18 06:35: Lactic Acid 2.8 H Current Medications Albuterol Sulfate (Ventolin Aerosols) 2.5 mg INHALATION Q2H PRN PRN PRN Reason: SOB/WHEEZING Atorvastatin Calcium (Lipitor) 40 mg PO QHS [facility] Baclofen (Lioresal) 5 mg PO TID [facility] Last Admin: 11/06/18 06:33 Dose: 5 mg Budesonide (Pulmicort Aerosol) 0.5 mg INHALATION Q12H.RT [facility] Last Admin: 11/06/18 08:11 Dose: 0.5 mg Dextrose (D50w Syringe) 0 gm IV X1 PRN; Protocol PRN Reason: Hypoglycemia Ferrous Sulfate (Ferrous Sulfate) 650 mg PO DAILYCM [facility] Folic Acid (Folic Acid) 1 mg PO DAILY@0800 [facility] Glucagon () 1 mg IM .X1 PRN PRN Reason: Hypoglycemia Sodium Chloride () 1,000 mls @ 75 mls/hr IV .[id number] [facility] Stop: 11/06/18 18:24 Last Admin: 11/06/18 06:28 Dose: 75 mls/hr Pantoprazole Sodium 40 mg/ (Sodium Chloride) 110 mls @ 330 mls/hr IV Q12 [facility] Last Admin: 11/06/18 06:32 Dose: 330 mls/hr Insulin Human Lispro (Humalog Kwikpen (Bkc)) 0 unit SQ Q6 [facility]; Protocol Last Admin: 11/06/18 06:53 Dose: 1 u Lactulose (Chronulac, Cephulac) 20 gm PO TID [facility] Last Admin: 11/06/18 06:33 Dose: 20 gm Lorazepam (Ativan) 2 mg PO Q2H PRN PRN; Protocol PRN Reason: CIWA score > 8 but <15 Lorazepam (Ativan) 2 mg IV Q2H PRN PRN; Protocol PRN Reason: CIWA score > 8 but <15 Lorazepam (Ativan) 2 mg PO UD PRN; Protocol PRN Reason: CIWA score >/=15. Lorazepam (Ativan) 2 mg IV UD PRN; Protocol PRN Reason: CIWA score >/=15. Magnesium Hydroxide (Milk Of Magnesia) 30 ml PO DAILY PRN PRN Reason: Constipation Multivitamins/Minerals (Multivitamin With Minerals) 1 tablet PO DAILY@0800 [facility] Nutritional Formula (Lactose Free) (Glucerna Shake) 120 ml PO TIDCM [facility] Ondansetron HCl (Zofran) 4 mg IV Q8H PRN PRN PRN Reason: NAUSEA Sodium Chloride () 5 - 15 ml IV UD PRN PRN Reason: SALINE FLUSH Thiamine HCl (Vitamin B1) 100 mg PO DAILY@0800 [facility] Zinc Sulfate (Zinc Sulfate) 220 mg PO DAILY [facility] Zolpidem Tartrate (Ambien (Generic)) 5 mg PO QHS PRN PRN PRN Reason: INSOMNIA Medical Necessity - Tobacco Use Smoking Status: Current every day smoker Tobacco Use: Cigarettes Assessment/Plan All Active Problems (Last Reviewed 11/06/18 @ 07:05 by Robert Adorno MD) Acute blood loss anemia (Acute) Nonrheumatic mitral (valve) insufficiency (Acute) Hepatic encephalopathy (Acute) CHF (congestive heart failure) (Acute) Wide-complex tachycardia (Resolved) Chest pain (Acute) Elevated troponin (Acute) Pancreatitis (Resolved) Is a 58-year-old gentleman with history of nonischemic dilated cardiomyopathy, mostly secondary to alcoholic cirrhosis, EF about 10-20% status post AICD, decompensated cirrhosis with esophageal varices, hepatic encephalopathy and portal hypertension, mild thrombocytopenia was admitted with dark red/brown stool, hematochezia, positive fecal occult blood test consistent with acute blood loss anemia, H&H 8.6/28.8, platelet count 106,000 and alcohol withdrawal syndrome.He had upper and lower endoscopy about 6 weeks ago primarily in [facility]. He had polypectomy but was not told about esophageal variceal bleeding. In the past, he had esophageal varices but denies any banding. 1. Acute blood loss anemia: Patient is being admitted in PCU. On Protonix 40 mg IV every 12 hourly, aspirin on hold. IV fluid normal saline. Currently getting 1 unit of RBC transfusion. Monitor in H&H. If patient gets variceal bleeding, will need OCTRETORIDE drip and possible transfer to tertiary care hospital. The prognosis of variceal bleed and possible transfer was discussed with the patient. Dr. Lomax has been consulted. 2. Alcohol withdrawal on syndrome: Ativan based protocol as per CIWA score and also on tapering dose of Ativan. Patient is refusing Ativan. 1 dose of 2 mg IV morphine ordered. 3. Chest pain/spasm: Troponins are negative. Patient had post AICD Dr. Shirley on 10/21/2018. 4. Severe cardiac comorbidities: Severe nonischemic alcohol-related dilated cardiomyopathy; systolic and diastolic combined heart failure . His last echo on 06/21/2018 reported as EF about 20%, with -10% global longitudinal strain, evidence of diastolic dysfunction with severely dilated LV. Left and right atrium mildly enlarged. Mild to moderate eccentric MR. Trivial TR. 5. COPD: Bronchodilator as needed as needed. Patient is still a smoker smokes cigarettes every day. Patient has history of pleural effusion probably secondary to cirrhosis and it got resolved on Lasix. Did not require thoracocentesis. 6. Decompensated alcohol-related with esophageal varices, thrombocytopenia, hepatic encephalopathy: On lactulose. ADD Rifaximin. DVT prophylaxis: Bilateral SCDs. Pharmacological prophylaxis contraindicated. Prognosis: Patient was explained about guarded/poor prognosis in view of multiple comorbidities as mentioned above. Patient affirms understanding and wants to quit alcohol and smoking. End of life goal/advance directive: Patient does not have living will or power of tax attorney for health. When asked directly about the patient regarding different options DNR CC arrest, DNR C and full code; patient wishes full code. He wants everything to be done to revive him including chest compression, intubation, ventilator and tube feeding. Total time spent in [id number] encounter in discussion of advanced directive 18 minutes. Microbiology Past 72 Hours 11/06/18 02:43 Stool Stool Occult Blood (PARIMNDER) - Final Occult Blood Positive Laboratory Results 11/05/18 22:30: WBC 5.6, RBC 3.99 L, Hgb 8.6 L, Hct 28.8 L, MCV 72.2 L, MCH 21.6 L, MCHC 29.9 L, RDW 24.0 H, RDW Differential 61.9 H, Plt Count 106 L, Immature Gran % (Auto) 0.200, Neut % (Auto) 61.0, Lymph % (Auto) 20.0, Vance % (Auto) 12.7 H, Eos % (Auto) 5.0, Baso % (Auto) 1.1 H, Absolute Neuts (auto) 3.4, Absolute Lymphs (auto) 1.12, Total Counted Not Reportable, Differential Comment , Platelet Estimate MOD DEC, Polychromasia RARE, Hypochromasia 2+, Anisocytosis 2+, Microcytosis 3+ 11/05/18 22:30: D-Dimer Quant (PE/DVT) 3.43 H* 11/05/18 22:30: Sodium 138, Potassium 4.2, Chloride 104, Carbon Dioxide 27.0, Anion Gap 7, BUN 8, Creatinine 0.91, Estim Creat Clear Calc 94.24, Est GFR (MDRD) Af Amer 110, Est GFR (MDRD) Non-Af 91, BUN/Creatinine Ratio 8.8 L, Glucose 202 H, Calcium 8.1 L, Total Bilirubin 1.00, AST 89 H, ALT 52, Alkaline Phosphatase 111, Troponin I 0.035, Total Protein 7.9, Albumin 3.2, Globulin 4.7 H, Albumin/Globulin Ratio 0.7 L, Lipase 291 11/05/18 23:03: Lactic Acid 2.6 H 11/06/18 03:55: Blood Type O POSITIVE, Antibody Screen NEGATIVE, Crossmatch See Detail 11/06/18 05:45: Troponin I 0.042 11/06/18 05:45: PT 16.5 H, INR 1.4 11/06/18 05:45: Phosphorus Pending, Magnesium Pending 11/06/18 06:26: POC Glucose 185 H 11/06/18 06:35: Lactic Acid 2.8 H Clinical Impression(s) from Imaging Studies Chest X-Ray 11/05/18 22:47 IMPRESSION: No acute findings. Cardiomegaly and implanted cardiac device unchanged. Chest CTA 11/05/18 23:45 IMPRESSION: No pulmonary embolus. No acute findings in the chest. Paraesophageal varicosities. Cirrhosis with stigmata of portal hypertension, please see CT abdomen report. Individualized dose optimization techniques were used for this CT. Abdomen CT 11/05/18 23:46 IMPRESSION: Thin linear filling defect in the superior mesenteric vein probably a small amount of nonocclusive thrombus. The previous study was performed without contrast therefore I cannot determine if it is new compared to then. Otherwise similar to prior with cirrhosis, ascites, mild splenomegaly, upper abdominal adenopathy, and prominent varicosities particularly paraesophageal. Individualized dose optimization techniques were used for this CT. Code Visit Procedures: 48995 Advncd Care Plan 30 Min
[2018-11-06 08:47] LABS: Magnesium 2.1 mg/dL (1.6-2.6); Phosphorus 4.4 mg/dL (2.5-4.9)
[2018-11-06] MEDS: Multivitamins,Ther W-Minerals Tablet 1 TABLET PO (09:28)
[2018-11-06] MEDS: Ferrous Sulfate 325 MG Tablet 650 MG PO (09:28)
[2018-11-06] MEDS: Folic Acid 1 MG Tablet PO (09:28)
[2018-11-06] MEDS: Thiamine Hydrochloride 100 MG Tablet PO (09:29)
[2018-11-06] MEDS: hydrOXYzine PAM 25 MG Capsule PO (09:34)
[2018-11-06] MEDS: Morphine 2 MG/ML Syringe IV (09:35)
[2018-11-06 10:53] LABS: Hematocrit 28.8 % (40-54); Hemoglobin 8.3 g/dl (13.0-16.5)
--- NOTE | 2018-11-06 11:03 | PCM.CONS.B ---
- Consult Date of Consult: 11/06/18 - Reason for Consult Recently discharged from [facility] for lower GI bleed, has multiple medical problems, but told ED physician that if he were to be transferred back to [facility] then he would rather sign out AMA Chief Complaint: bloody bowel movements, anemia (but this is chronic for this patient, no acute changes noted) History of Present Illness: 58 y/o WM with alcoholic liver cirrhosis presents with complaint of bloody bowel movements for the past few days. He also complains of abdominal soreness and feeling bloated. He previously presented with the above to [facility] and was transferred to [facility]. On 09/12/18, he had an EGD (portal hypertensive gastropathy, antral ulcers and gastritis, esophagitis, negative for H pylori) and colonoscopy (diverticula, subcentimeter left colon polyp removed - pathology was negative for adenoma) at [facility] which by report stated that no bleeding source was identified. He was not transfused any blood. Targeted ultrasound for ascites - no ascites noted. He had an ECHO which revealed an EF of 25% likely from his alcoholic liver disease. He had a card cath in Apr 2018 at [facility]. Also with nausea. Denies hematemesis. Also complains of chest pain which he states is helped with morphine IV. He states that since has has been admitted, he has not had a bloody bowel movement Past Medical History: alcohol dependence, anxiety disorder - still drinking ETOH Liver cirrhosis - dx'd 2015, elevated blood ammonia, low albumin, elevated bilirubin, known portal hypertension seen on MRCP 2016 anemia of chronic disease history of atrial fibrillation, cardiac arrythmias congestive heart failure diabetes type 2 - not well controlled HgA1c always greater than 6 BPH, elevated PSA COPD Pulmonary hypertension Chronic thrombocytopenia TOB use History of pancreatitis Past Surgical History: Colonoscopy - 2016 with subcentimeter tubular adenomas of transverse and distal colon removed EGD 2016 Heel surgery - bilateral Left orbit surgery Placement of ICD Medications: ativan prn pacerone lipitor lisinopril tamsulosin furosemid xifaxan thiamine pantoprazole ambien lactulose albuterol inhaler Allergies: celexa - headaches chantix - bad dreams zoloft - fatigue Social history: see above Review of Systems: General - denies fevers, denies weight loss Cardiovascular complains of occasional chest pain, has ICD in place Pulmonary denies coughing up blood Gastrointestinal as per HPI, has chronic left sided abdominal pain, Neurological denies seizures, has had alcoholic blackouts Genitourinary has known BPH, denies blood in urine Hematological denies spontaneous/prolonged bleeding Skin denies open non healing wounds Musculoskeletal has chronic low back pain Endocrine poorly controlled diabetes as above Psychological anxiety causing alcoholism - had been referred by [facility] to [facility] in [facility] Physical examination: Vital signs Ht: 5'11 Temp 97.8F BP 129/60 RR 18 HR 66 General WD/WN WM in no apparent distress, alert and oriented, not septic appearing HEENT Normocephalic. EOM intact with sclera clear and no icterus noted. Neck is supple with no jugular venous distention noted. Trachea is midline. Lungs clear to auscultation. No rales/rhonchi/wheezing noted. No labored breathing noted, such as retractions. No cough heard. Heart regular Abdomen soft and benign and protuberant, no fluid wave detected. Normal bowel sounds. Difficult to determine if any masses due to body habitus Extremities no calf tenderness noted. No pitting edema noted. Genitourinary/Rectal deferred Skin normal skin integrity. Neurological non focal. Psychological normal affect, patient is calm and appropriate Impression: rectal bleeding - likely due to hemorrhoidal disease given probability of portal hypertension due to liver cirrhosis chronic anemia and chronic thrombocytopenia due to above Discussion/Plan: I have discussed the above with the patient. I have offered evaluation with colonoscopy. I have explained the procedure to the patient. I have counseled the patient as to the risks of the procedure, including but not limited to: infection, bleeding, injury to any intraabdominal organs such as liver/spleen, perforation of the GI tract, inability to complete the procedure, complications of anesthesia, etc. the patient understands. He wishes to proceed. Will schedule for tomorrow, likely in the morning. I have answered all questions to the patient?s satisfaction and the patient has no further questions.
--- NOTE | 2018-11-06 11:21 | CON.PCM_ITS ---
- Consult Date of Consult: 11/06/18 - Reason for Consult Recently discharged from [facility] for lower GI bleed, has multiple medical problems, but told ED physician that if he were to be transferred back to [facility] then he would rather sign out AMA Chief Complaint: bloody bowel movements, anemia (but this is chronic for this patient, no acute changes noted) History of Present Illness: 58 y/o WM with alcoholic liver cirrhosis presents with complaint of bloody bowel movements for the past few days. He also complains of abdominal soreness and feeling bloated. He previously presented with the above to [facility] and was transferred to [facility]. On 09/12/18, he had an EGD (portal hypertensive gastropathy, antral ulcers and gastritis, esophagitis, negative for H pylori) and colonoscopy (diverticula, subcentimeter left colon polyp removed - pathology was negative for adenoma) at [facility] which by report stated that no bleeding source was identified. He was not transfused any blood. Targeted ultrasound for ascites - no ascites noted. He had an ECHO which revealed an EF of 25% likely from his alcoholic liver disease. He had a card cath in Apr 2018 at [facility]. Also with nausea. Denies hematemesis. Also complains of chest pain which he states is helped with morphine IV. He states that since has has been admitted, he has not had a bloody bowel movement Past Medical History: alcohol dependence, anxiety disorder - still drinking ETOH Liver cirrhosis - dx'd 2015, elevated blood ammonia, low albumin, elevated bilirubin, known portal hypertension seen on MRCP 2016 anemia of chronic disease history of atrial fibrillation, cardiac arrythmias congestive heart failure diabetes type 2 - not well controlled HgA1c always greater than 6 BPH, elevated PSA COPD Pulmonary hypertension Chronic thrombocytopenia TOB use History of pancreatitis Past Surgical History: Colonoscopy - 2016 with subcentimeter tubular adenomas of transverse and distal colon removed EGD 2016 Heel surgery - bilateral Left orbit surgery Placement of ICD Medications: ativan prn pacerone lipitor lisinopril tamsulosin furosemid xifaxan thiamine pantoprazole ambien lactulose albuterol inhaler Allergies: celexa - headaches chantix - bad dreams zoloft - fatigue Social history: see above Review of Systems: General - denies fevers, denies weight loss Cardiovascular complains of occasional chest pain, has ICD in place Pulmonary denies coughing up blood Gastrointestinal as per HPI, has chronic left sided abdominal pain, Neurological denies seizures, has had alcoholic blackouts Genitourinary has known BPH, denies blood in urine Hematological denies spontaneous/prolonged bleeding Skin denies open non healing wounds Musculoskeletal has chronic low back pain Endocrine poorly controlled diabetes as above Psychological anxiety causing alcoholism - had been referred by [facility] to [facility] in [facility] Physical examination: Vital signs Ht: 5'11 Temp 97.8F BP 129/60 RR 18 HR 66 General WD/WN WM in no apparent distress, alert and oriented, not septic appearing HEENT Normocephalic. EOM intact with sclera clear and no icterus noted. Neck is supple with no jugular venous distention noted. Trachea is midline. Lungs clear to auscultation. No rales/rhonchi/wheezing noted. No labored breathing noted, such as retractions. No cough heard. Heart regular Abdomen soft and benign and protuberant, no fluid wave detected. Normal bowel sounds. Difficult to determine if any masses due to body habitus Extremities no calf tenderness noted. No pitting edema noted. Genitourinary/Rectal deferred Skin normal skin integrity. Neurological non focal. Psychological normal affect, patient is calm and appropriate Impression: rectal bleeding - likely due to hemorrhoidal disease given probability of portal hypertension due to liver cirrhosis chronic anemia and chronic thrombocytopenia due to above Discussion/Plan: I have discussed the above with the patient. I have offered evaluation with colonoscopy. I have explained the procedure to the patient. I have counseled the patient as to the risks of the procedure, including but not limited to: infection, bleeding, injury to any intraabdominal organs such as liver/spleen, perforation of the GI tract, inability to complete the procedure, complications of anesthesia, etc. the patient understands. He wishes to proceed. Will schedule for tomorrow, likely in the morning. I have answered all questions to the patient?s satisfaction and the patient has no further questions.
[2018-11-06 11:41] LABS: Bedside Glucose 182 mg/dL (70-110)
[2018-11-06] MEDS: Metoclopramide 10 MG/2 ML Vial 5 MG IV (12:34)
[2018-11-06] MEDS: traZODone 50 MG Tablet PO ×2 (13:24→21:33)
[2018-11-06] MEDS: LORazepam 1 MG Tablet PO ×2 (15:30→19:45)
[2018-11-06] MEDS: Electrolyte Solution/Peg's 4000 ML PO (16:32)
[2018-11-06 17:06] LABS: Hematocrit 27.5 % (40-54); Hemoglobin 8.3 g/dl (13.0-16.5)
[2018-11-06] MEDS: 0.9% Normal Saline 1,000 ML 60 ML IV (17:53)
[2018-11-06 17:55] LABS: Bedside Glucose 184 mg/dL (70-110)
--- NOTE | 2018-11-06 20:50 | NURSING ---
CALLED , JESSICA, AND VERIFIED PATIENT'S HOME MED LIST WITH HER.
[2018-11-06] MEDS: Atorvastatin Calcium 40 MG Tablet PO (21:28)
[2018-11-06] MEDS: rifAXIMin 550 MG Tablet PO (21:33)
[2018-11-06 22:17] LABS: Hematocrit 26.7 % (40-54)
[2018-11-06] MEDS: Zolpidem Tartrate 5 MG Tablet PO (22:27)
[2018-11-07] VITALS (23 sets, daily range): BP systolic 100–129; BP diastolic 59–84; PULSE 58–80; RESP 16–23; TEMP 36.4–37.7; O2SAT 93–98; BMI 31.8
[2018-11-07] MEDS: LORazepam 1 MG Tablet PO ×4 (00:24→22:21)
[2018-11-07 00:30] LABS: Bedside Glucose 121 mg/dL (70-110)
--- NOTE | 2018-11-07 05:55 | EKG12_ITS ---
Test Reason : AM EKG Blood Pressure : / mmHG Vent. Rate : 064 BPM Atrial Rate : 064 BPM P-R Int : 144 ms QRS Dur : 094 ms QT Int : 472 ms P-R-T Axes : 026 023 018 degrees QTc Int : 486 ms Normal sinus rhythm Low voltage QRS Prolonged QT Abnormal ECG When compared with ECG of 05-NOV-2018 22:34, MANUAL COMPARISON REQUIRED, DATA IS UNCONFIRMED Confirmed by JESSE CHRISTIANSEN, ALIA ([id number]), editor producer AFRICA VALENTIN ([id number]) on 11/08/2018 1:07:20 PM Referred By: Robert Adorno Confirmed By:ALIA MOLINA MD
[2018-11-07 06:02] LABS: International Normalized Ratio 1.4; Prothrombin Time (Protime)PT. 16.8 SECONDS (11.7-14.9)
[2018-11-07 06:03] LABS: Partial Thromboplast Time 33.7 Seconds (24.1-36.2)
[2018-11-07] MEDS: Lactulose 20 GM/30 ML UDC PO ×2 (06:04→22:12)
[2018-11-07] MEDS: Baclofen 10 MG Tablet 5 MG PO ×3 (06:04→22:30)
[2018-11-07 06:16] LABS: ALB/GLOB Ratio 0.7 RATIO (0.9-2.4); AST(SGOT) 85 U/L (15-37); Alanine Aminotransfer ALT/SGPT 44 U/L (16-61); Albumin, Serum 2.8 g/dL (3.2-5.0); Alkaline Phosphatase 98 U/L (45-117); Anion Gap 7 (5-15); BUN 10 mg/dL (7-18); BUN/Creat Ratio 13.4 RATIO (10-20); Calcium,Total 8.4 mg/dL (8.5-10.1); Chloride 108 mmol/L (98-107); Creatinine, Serum 0.74 mg/dL (0.70-1.30); EST Glomerular Filtration Rate 115 mL/min (>60); Est Glom Filt Rate - Afr Amer 139 mL/min (>60); Estimated Creatinine Clearance 115.89 ml/min; Globulin 3.9 g/dL (2.2-4.2); Glucose 129 mg/dL (74-106); Magnesium 1.9 mg/dL (1.6-2.6); Potassium 4.3 mmol/L (3.5-5.1); Protein, Total 6.7 g/dL (6.4-8.2); Sodium Level 140 mmol/L (136-145)
[2018-11-07 06:19] LABS: Absolute Lymphocyte Count 0.68 X10^3/ul (0.83-4.51); Absolute Neutrophil Count 3.2 X10^3/uL (2.0-7.7); Basophil# 0.05 X10^3/uL; Basophil% 1.1 % (0-1); Eosinophil# 0.14 X10^3/uL; Hematocrit 27.4 % (40-54); Hemoglobin 7.9 g/dl (13.0-16.5); Lymphocyte # 0.68 X10^3/ul (4.0); Lymphocyte % 14.4 % (19-41); Mean Corp Hgb Conc 28.8 g/gl (32-36); Mean Corpuscular Hgb 21.5 pg (27.0-32.0); Mean Corpuscular Volume 74.7 fL (80-94); Monocyte# 0.62 X10^3/uL; Monocyte% 13.1 % (0-10); Neutrophil # 3.24 X10^3/uL (2.7-7.7); Neutrophil % 68.4 % (47-70); Platelet Count 76 K/mm3 (150-450); RBC Distribution Width CV 24.7 % (11.6-14.6); RBC Distribution Width SD 66.4 fl (35.1-43.9); Red Blood Count 3.67 M/mm3 (4.6-6.2); White Blood Count 4.7 K/mm3 (4.4-11.0)
[2018-11-07 06:41] LABS: Differential Indicated SCAN CRITERIA MET; POSITIVE COUNT NO; POSITIVE DIFFERENTIAL NO; POSITIVE MORPHOLOGY YES
[2018-11-07 07:02] LABS: Anisocytosis 3+; Differential Comment SCANNED; Hypochromasia 4+; Macrocytosis 2+; Microcytosis 2+; Target Cells 1+
[2018-11-07 07:06] LABS: Bedside Glucose 135 mg/dL (70-110)
[2018-11-07] MEDS: Budesonide Respules 0.5 MG/2 ML AMPUL.NEB. INHALATION (07:11)
[2018-11-07 07:50] LABS: Hemoglobin A1c 7.5 % (4.2-6.3)
[2018-11-07] MEDS: Methocarbamol 750 MG Tablet PO ×2 (08:42→17:45)
--- NOTE | 2018-11-07 11:08 | CASEMGMT ---
This RN CM to room to complete CM assessment and pt is out of the dept for testing at this time. Will attempt again later. SStaten RN CM
--- NOTE | 2018-11-07 11:37 | OP.ENDO_ITS ---
11/07/2018 Adi Cisneros MD Re : Colonoscopy procedure for Adi Kennedy Dear Dr. Cisneros This procedure was performed on Wednesday, November 07, 2018. My impressions and recommendations are as follows: Impressions : - Diverticulosis in the sigmoid colon. - Non-bleeding external and internal hemorrhoids. - No specimens collected. Recommendations : - Repeat colonoscopy in 10 years for screening purposes. - Return to primary care physician PRN. - Continue present medications. My findings are described in the full procedure note, which is enclosed. If I can be of further assistance, please feel free to contact me at Doctor phone number(s): , Work: . Sincerely, MD Clarice Mcgarry MD 11/07/2018 11:37:04 AM This report has been signed electronically.
[2018-11-07] MEDS: Multivitamins,Ther W-Minerals Tablet 1 TABLET PO (12:21)
[2018-11-07] MEDS: rifAXIMin 550 MG Tablet PO ×2 (12:21→22:13)
[2018-11-07] MEDS: Ferrous Sulfate 325 MG Tablet 650 MG PO (12:21)
[2018-11-07] MEDS: Folic Acid 1 MG Tablet PO (12:21)
[2018-11-07] MEDS: Thiamine Hydrochloride 100 MG Tablet PO (12:21)
[2018-11-07] MEDS: LORazepam 1 MG Tablet 2 MG PO (12:33)
--- NOTE | 2018-11-07 13:41 | PCM.PROGNOTE ---
<Noel Madison - Last Filed: 11/07/18 13:41> Patient Problems: Active and Suspected Problems (Last Reviewed 11/06/18 @ 07:05 by Robert Adorno MD) Acute blood loss anemia (Acute) Subjective: Patient is resting comfortably in bed post colonoscopy this morning. He currently has no fatigue, dizziness, lightheadedness, shortness of breath. He feels some mild left lower quadrant abdominal pain and bloating. He has no flatus. No fevers or chills. No nausea or vomiting. He tolerated the procedure well. No bleeding was found. - Physical Exam General: Alert, Oriented x3, Cooperative HEENT: Atraumatic, PERRLA, EOMI, Normocephalic Neck: Supple, No JVD, Negative Carotid Bruits Lungs: Clear to auscultation, Normal air movement Cardiovascular: Regular rate, No murmurs Abdomen: Bowel Sounds Present, Soft, Tender - Mild left lower quadrant tenderness without guarding or rigidity. Extremities: No edema, Capillary Refill Less than 3 Seconds Skin: No rashes, No breakdown Musculoskeletal: No Tenderness to Palpation of Joints or Extremities Neurological: Cranial nerves II-XII grossly intact Psych/Mental Status: Normal Affect, Appropriate, Alert and oriented to time, place, person, mood and affect Vital Signs Temp Pulse Resp BP Pulse Ox 98.4 F 64 16 120/76 93 11/07/18 12:07 11/07/18 12:07 11/07/18 12:07 11/07/18 12:07 11/07/18 12:07 Oxygen Delivery Method Room Air Weight: 227 lb 15.327 oz Body Mass Index (BMI) 31.8 Intake and Output for Last 24 Hours 11/05/18 11/06/18 11/07/18 23:59 23:59 23:59 Intake Total 4674 / 4674 2055 Output Total 100 / 100 Balance 4574 / 4574 2055 Microbiology Past 72 Hours 11/06/18 02:43 Stool Occult Blood (PARMINDER) - Final Stool Occult Blood Positive Laboratory Tests Past 24 Hrs 11/06/18 11/06/18 11/07/18 16:50 21:55 05:15 WBC 4.7 RBC 3.67 L Hgb 8.3 L 8.0 L 7.9 L Hct 27.5 L 26.7 L 27.4 L MCV 74.7 L MCH 21.5 L MCHC 28.8 L RDW 24.7 H RDW Differential 66.4 H Plt Count 76 L Immature Gran % (Auto) 0.000 Neut % (Auto) 68.4 Lymph % (Auto) 14.4 L [place] % (Auto) 13.1 H Eos % (Auto) 3.0 Baso % (Auto) 1.1 H Absolute Neuts (auto) 3.2 Absolute Lymphs (auto) 0.68 L Total Counted Not Reportable Differential Comment SCANNED Hypochromasia 4+ Anisocytosis 3+ Microcytosis 2+ Macrocytosis 2+ Target Cells 1+ PT INR APTT Sodium Potassium Chloride Carbon Dioxide Anion Gap BUN Creatinine Estim Creat Clear Calc Est GFR (MDRD) Af Amer Est GFR (MDRD) Non-Af BUN/Creatinine Ratio Glucose Hemoglobin A1c Calcium Magnesium Total Bilirubin AST ALT Alkaline Phosphatase Total Protein Albumin Globulin Albumin/Globulin Ratio 11/07/18 11/07/18 11/07/18 05:15 05:15 05:15 WBC RBC Hgb Hct MCV MCH MCHC RDW RDW Differential Plt Count Immature Gran % (Auto) Neut % (Auto) Lymph % (Auto) [place] % (Auto) Eos % (Auto) Baso % (Auto) Absolute Neuts (auto) Absolute Lymphs (auto) Total Counted Differential Comment Hypochromasia Anisocytosis Microcytosis Macrocytosis Target Cells PT 16.8 H INR 1.4 APTT 33.7 Sodium 140 Potassium 4.3 Chloride 108 H Carbon Dioxide 25.0 Anion Gap 7 BUN 10 Creatinine 0.74 Estim Creat Clear Calc 115.89 Est GFR (MDRD) Af Amer 139 Est GFR (MDRD) Non-Af 115 BUN/Creatinine Ratio 13.4 Glucose 129 H Hemoglobin A1c 7.5 H Calcium 8.4 L Magnesium 1.9 Total Bilirubin 1.60 H AST 85 H ALT 44 Alkaline Phosphatase 98 Total Protein 6.7 Albumin 2.8 L Globulin 3.9 Albumin/Globulin Ratio 0.7 L POC Glucose 11/07/18 11/07/18 11/06/18 06:04 00:21 17:44 POC Glucose 135 H 121 H 184 H Medical Necessity - Tobacco Use Smoking Status: Current every day smoker Tobacco Use: Cigarettes Assessment/Plan All Active Problems (Last Reviewed 11/06/18 @ 07:05 by Robert Adorno MD) Acute blood loss anemia (Acute) Nonrheumatic mitral (valve) insufficiency (Acute) Hepatic encephalopathy (Acute) CHF (congestive heart failure) (Acute) Wide-complex tachycardia (Resolved) Chest pain (Acute) Elevated troponin (Acute) Pancreatitis (Resolved) 1. Acute blood loss anemia-underwent colonoscopy today is found to have no active bleeding, there are internal and external hemorrhoids, diverticulosis. Is possibly account for the bleeding which seems to have stopped at this point. Small drop in hemoglobin to 7.9. Will transfuse 1 more unit of packed red blood cells if reaches 7.5 or below, or become symptomatic. Recheck H&H this evening, CBC in the morning. He does remain on IV Protonix, will advance diet as tolerated. 2. Alcohol withdrawal syndrome-continue CIWA protocol and Ativan. 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 4. Nicotine abuse-cessation counseled 5. Chest pain-spasm. Troponins negative. 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 And follows with Dr. Shirley. 6. History of COPD-no acute exacerbation. Continue as needed aerosols. DVT prophylaxis-contraindicated due to bleeding. SCDs. Discharge planning-patient continues to require ongoing blood transfusions with his underlying cirrhosis, he continues to smoke and drink, has multiple comorbidities with cardiac issues, he may benefit from transition to palliative hospice. Otherwise plan to go home tomorrow if blood counts remained stable. This patient was seen by Noel Madison PA-C under the supervision of Doctor Ken. <Carlo Rogers - Last Filed: 11/07/18 15:50> - Physical Exam General: Alert, Oriented x3, Cooperative HEENT: Atraumatic, PERRLA, EOMI, Normocephalic Neck: Supple, No JVD, Negative Carotid Bruits Lungs: Clear to auscultation, No rhonchi, No wheeze, No rales, Diminished - Air entry is diminished diffusely secondary to COPD Cardiovascular: Regular rate, No murmurs Abdomen: Bowel Sounds Present, Soft, Non Tender, Tender Extremities: No edema, Capillary Refill Less than 3 Seconds Skin: No rashes, No breakdown Musculoskeletal: No Tenderness to Palpation of Joints or Extremities, Arthritic Changes, Muscle Wasting Neurological: Cranial nerves II-XII grossly intact, Deep Tendon Reflexes 2+/4 and Symmetrical, Neuro grossly intact Psych/Mental Status: Normal Affect, Appropriate Vital Signs Temp Pulse Resp BP Pulse Ox 97.6 F L 73 16 129/84 H 93 11/07/18 14:00 11/07/18 14:30 11/07/18 14:00 11/07/18 14:00 11/07/18 12:07 Oxygen Delivery Method Room Air Weight: 227 lb 15.327 oz Body Mass Index (BMI) 31.8 Intake and Output for Last 24 Hours 11/05/18 11/06/18 11/07/18 23:59 23:59 23:59 Intake Total 4674 / 4674 2055 Output Total 100 / 100 Balance 4574 / 4574 2055 Microbiology Past 72 Hours 11/06/18 02:43 Stool Occult Blood (PARMINDER) - Final Stool Occult Blood Positive Laboratory Tests Past 24 Hrs 11/06/18 11/06/18 11/07/18 16:50 21:55 05:15 WBC 4.7 RBC 3.67 L Hgb 8.3 L 8.0 L 7.9 L Hct 27.5 L 26.7 L 27.4 L MCV 74.7 L MCH 21.5 L MCHC 28.8 L RDW 24.7 H RDW Differential 66.4 H Plt Count 76 L Immature Gran % (Auto) 0.000 Neut % (Auto) 68.4 Lymph % (Auto) 14.4 L [place] % (Auto) 13.1 H Eos % (Auto) 3.0 Baso % (Auto) 1.1 H Absolute Neuts (auto) 3.2 Absolute Lymphs (auto) 0.68 L Total Counted Not Reportable Differential Comment SCANNED Hypochromasia 4+ Anisocytosis 3+ Microcytosis 2+ Macrocytosis 2+ Target Cells 1+ PT INR APTT Sodium Potassium Chloride Carbon Dioxide Anion Gap BUN Creatinine Estim Creat Clear Calc Est GFR (MDRD) Af Amer Est GFR (MDRD) Non-Af BUN/Creatinine Ratio Glucose Hemoglobin A1c Calcium Magnesium Total Bilirubin AST ALT Alkaline Phosphatase Total Protein Albumin Globulin Albumin/Globulin Ratio 11/07/18 11/07/18 11/07/18 05:15 05:15 05:15 WBC RBC Hgb Hct MCV MCH MCHC RDW RDW Differential Plt Count Immature Gran % (Auto) Neut % (Auto) Lymph % (Auto) [place] % (Auto) Eos % (Auto) Baso % (Auto) Absolute Neuts (auto) Absolute Lymphs (auto) Total Counted Differential Comment Hypochromasia Anisocytosis Microcytosis Macrocytosis Target Cells PT 16.8 H INR 1.4 APTT 33.7 Sodium 140 Potassium 4.3 Chloride 108 H Carbon Dioxide 25.0 Anion Gap 7 BUN 10 Creatinine 0.74 Estim Creat Clear Calc 115.89 Est GFR (MDRD) Af Amer 139 Est GFR (MDRD) Non-Af 115 BUN/Creatinine Ratio 13.4 Glucose 129 H Hemoglobin A1c 7.5 H Calcium 8.4 L Magnesium 1.9 Total Bilirubin 1.60 H AST 85 H ALT 44 Alkaline Phosphatase 98 Total Protein 6.7 Albumin 2.8 L Globulin 3.9 Albumin/Globulin Ratio 0.7 L POC Glucose 11/07/18 11/07/18 11/07/18 12:19 06:04 00:21 POC Glucose 129 H 135 H 121 H 11/06/18 17:44 POC Glucose 184 H Assessment/Plan This patient was seen in conjunction with Noel SCOTT. I have independently interviewed and examined the patient and reviewed pertinent history, examination findings, laboratory and plan of management. I have reviewed the note and agree with the documented findings with the few additional points. In brief, patient is a 58-year-old gentleman with history of alcohol cirrhosis decompensated with portal hypertension, hepatic encephalopathy, ascites and possible esophageal varices is admitted with acute anemia secondary to acute blood loss and alcohol withdrawal syndrome. Patient has tremors, shivering but is alert, awake and oriented x3. As per the patient, he had upper and lower endoscopy about 6 weeks ago primarily in [facility]. He had polypectomy but was not told about esophageal variceal bleeding. In the past, was told he had esophageal varices but denies any banding. Patient outside medical record from [facility] reviewed. CT abdomen showed changes of cirrhosis and portal hypertensive with trace ascites. Later on ultrasound was done and showed no evidence of ascites. Patient had EGD on 09/12/2018 and reported as esophagitis, portal hypertensive gastropathy. Multiple antral ulcers less than 3 cm with severe gastritis. Patient had colonoscopy showed diverticulosis of right colon, proximal descending colon small polyp status post snare polypectomy. He also has significant cardiac, pulmonary comorbidities including nonischemic cardiomyopathy with EF 10% status post AICD Dr. Shirley on 10/21/2018. His last echo on 06/21/2018 reported as EF about 20%, with -10% global longitudinal strain, evidence of diastolic dysfunction with severely dilated LV. Left and right atrium mildly enlarged. Mild to moderate eccentric MR. Trivial TR. Patient had 1 unit of PRBC and iron sucrose IV today. Hemoglobin is stable around 8. No antiplatelet or anticoagulant agents. Patient had colonoscopy today here and reported no active bleeding from internal and external hemorrhoids. Patient also has diverticulosis. I have discussed my assessment with Noel SCOTT and orders have been reviewed. Code Visit Inpatient E&M: 57807 Subs Hosp L3
[2018-11-07 14:01] LABS: Bedside Glucose 129 mg/dL (70-110)
[2018-11-07] MEDS: Ondansetron ODT 4 MG Tablet PO (14:04)
[2018-11-07] MEDS: hydrOXYzine PAM 25 MG Capsule 50 MG PO (14:04)
--- NOTE | 2018-11-07 14:04 | CASEMGMT ---
NANY BATES assessment: Face to Face with patient for initial transition planning/care coordination assessment. NANY BATES introduced self and role at [facility], pt voices understanding and consents to assessment at this time. Pt is sitting up in bed in no distress at this time. Pt is A/Ox4 at this time and answers all questions appropriately at this time. Care providers, pharmacy, and demographics verified/updated at this time. PCP: Amelia Specialists: Fern, cardio; [employer] in [place] Preferred Pharmacy: [facility] Insurance: [facility] A/B, [facility] Prescription Benefit: REILLY Living Will/HPOA: Pt states does not have LW/HPOA but states has the paperwork at home and 'I just need to look through it.' LNOK: Marisol Kennedy, ; Rachell Layton, mother Living Arrangements: Pt states lives with in 1 story home and states no concerns at home at this time. Pt states is independent with ADL's. Transportation: Pt states drives self and states no transportation concerns at this time. DME/HHC: Pt states has no current DME or need for any at this time. Pt states no hx of HHC or SNF in the past. Pt states no concerns with going home at time of discharge. Pt states is disabled. Pt states does not smoke but has been drinking beer occasionally. Pt states no further concerns/needs at this time. CM to follow for any further discharge planning/needs. Advised pt to ask for CM if any further questions/concerns/needs arise, voices understanding. Pt Goal: Home Plan: [place] NANY B[place]
[2018-11-07] MEDS: Glucerna Shake 120 ML LIQUID PO (16:07)
[2018-11-07] MEDS: Insulin Lispro 100 UNIT/ML INSULN.PEN SQ (16:16)
[2018-11-07 16:35] LABS: Bedside Glucose 223 mg/dL (70-110)
[2018-11-07] MEDS: Tamsulosin HCl 0.4 MG Capsule PO (18:23)
[2018-11-07 20:55] LABS: Hematocrit 27.3 % (40-54); Hemoglobin 8.2 g/dl (13.0-16.5)
[2018-11-07] MEDS: traZODone 50 MG Tablet PO (22:12)
[2018-11-07] MEDS: Atorvastatin Calcium 40 MG Tablet PO (22:13)
[2018-11-07] MEDS: 0.9% NaCl Peripheral Flush Adult/Peds IV ×2 (22:18→23:09)
[2018-11-07] MEDS: Zolpidem Tartrate 5 MG Tablet PO (23:35)
[2018-11-07 23:40] LABS: Bedside Glucose 115 mg/dL (70-110)
[2018-11-08] VITALS (9 sets, daily range): BP systolic 117–139; BP diastolic 52–90; PULSE 76–96; RESP 18–24; TEMP 36.6–36.9; O2SAT 93–98
[2018-11-08] MEDS: Methocarbamol 750 MG Tablet PO ×3 (04:13→19:52)
--- NOTE | 2018-11-08 04:20 | EKG12_ITS ---
Test Reason : CHEST DISCOMFORT Blood Pressure : / mmHG Vent. Rate : 077 BPM Atrial Rate : 077 BPM P-R Int : 134 ms QRS Dur : 096 ms QT Int : 442 ms P-R-T Axes : 036 031 015 degrees QTc Int : 500 ms Normal sinus rhythm Low voltage QRS Prolonged QT Abnormal ECG When compared with ECG of 07-NOV-2018 05:45, No significant change was found Confirmed by JESSE CHRISTIANSEN, ALIA ([id number]), physician representative AFRICA VALENTIN ([id number]) on 11/11/2018 1:54:52 PM Referred By: Robert Adorno Confirmed By:ALIA MOLINA MD
[2018-11-08] MEDS: LORazepam 1 MG Tablet PO ×3 (04:26→19:52)
[2018-11-08 05:33] LABS: Absolute Lymphocyte Count 0.73 X10^3/ul (0.83-4.51); Absolute Neutrophil Count 3.1 X10^3/uL (2.0-7.7); Basophil# 0.04 X10^3/uL; Basophil% 0.8 % (0-1); Eosinophil# 0.22 X10^3/uL; Eosinophils% 4.6 % (0-5); Hematocrit 27.2 % (40-54); Hemoglobin 8.2 g/dl (13.0-16.5); Lymphocyte # 0.73 X10^3/ul (4.0); Lymphocyte % 15.2 % (19-41); Mean Corp Hgb Conc 30.1 g/gl (32-36); Mean Corpuscular Hgb 22.6 pg (27.0-32.0); Mean Corpuscular Volume 74.9 fL (80-94); Monocyte# 0.68 X10^3/uL; Monocyte% 14.2 % (0-10); Neutrophil % 64.6 % (47-70); Platelet Count 75 K/mm3 (150-450); RBC Distribution Width CV 25.2 % (11.6-14.6); RBC Distribution Width SD 67.7 fl (35.1-43.9); Red Blood Count 3.63 M/mm3 (4.6-6.2); White Blood Count 4.8 K/mm3 (4.4-11.0)
[2018-11-08 05:34] LABS: Differential Indicated SCAN CRITERIA MET; POSITIVE COUNT NO; POSITIVE DIFFERENTIAL NO; POSITIVE MORPHOLOGY YES
[2018-11-08 06:04] LABS: Differential Comment SCAN; Platelet Estimate MOD DEC (ADEQ)
[2018-11-08 06:05] LABS: Anisocytosis 1+; Hypochromasia 1+; Microcytosis 1+; Platelet Morphology LARGE; Polychromasia 1+
[2018-11-08] MEDS: Baclofen 10 MG Tablet 5 MG PO ×3 (06:58→21:49)
[2018-11-08 07:06] LABS: Bedside Glucose 222 mg/dL (70-110)
[2018-11-08] MEDS: Budesonide Respules 0.5 MG/2 ML AMPUL.NEB. INHALATION ×2 (07:24→21:38)
[2018-11-08] MEDS: hydrOXYzine PAM 25 MG Capsule 50 MG PO ×3 (08:38→23:54)
[2018-11-08] MEDS: Dicyclomine 10 MG Capsule 20 MG PO (08:38)
[2018-11-08] MEDS: Glucerna Shake 120 ML LIQUID PO ×3 (08:38→17:00)
[2018-11-08] MEDS: Insulin Lispro 100 UNIT/ML INSULN.PEN SQ ×4 (08:39→21:50)
[2018-11-08] MEDS: Multivitamins,Ther W-Minerals Tablet 1 TABLET PO (08:40)
[2018-11-08] MEDS: Ferrous Sulfate 325 MG Tablet 650 MG PO (08:40)
[2018-11-08] MEDS: Thiamine Hydrochloride 100 MG Tablet PO (08:41)
[2018-11-08] MEDS: Folic Acid 1 MG Tablet PO (08:41)
[2018-11-08] MEDS: Lactulose 20 GM/30 ML UDC PO (08:42)
[2018-11-08] MEDS: rifAXIMin 550 MG Tablet PO ×2 (08:42→21:49)
[2018-11-08 11:36] LABS: Bedside Glucose 234 mg/dL (70-110)
[2018-11-08] MEDS: LORazepam 1 MG Tablet 2 MG PO (13:13)
--- NOTE | 2018-11-08 13:49 | PN_ITS ---
<Noel Madison - Last Filed: 11/08/18 13:45> Patient Problems: Active and Suspected Problems (Last Reviewed 11/06/18 @ 07:05 by Robert Adorno MD) Acute blood loss anemia (Acute) Subjective: 3 loose BM yesterday, no blood. 1 loose BM this AM. Some abdominal bloating. No n/v. Eating without issue. Very tremulous and somewhat anxious. Pt wants to stay to complete the ativan taper to go home and not drink, however he does not want any counseling or therapy for alcohol cessation at [place]. - Physical Exam General: Alert, Oriented x3, Cooperative HEENT: Atraumatic, PERRLA, EOMI, Normocephalic Neck: Supple, No JVD, Negative Carotid Bruits Lungs: Clear to auscultation, Normal air movement Cardiovascular: Regular rate, No murmurs Abdomen: Bowel Sounds Present, Soft, Non Tender Extremities: No edema, Capillary Refill Less than 3 Seconds Skin: No rashes, No breakdown Musculoskeletal: No Tenderness to Palpation of Joints or Extremities Neurological: Cranial nerves II-XII grossly intact, - - upper ext tremor. Psych/Mental Status: Normal Affect, Appropriate, Alert and oriented to time, place, person, mood and affect Vital Signs Temp Pulse Resp BP Pulse Ox 98.0 F 79 18 139/78 H 97 11/08/18 13:21 11/08/18 13:21 11/08/18 13:21 11/08/18 13:21 11/08/18 13:21 Oxygen Delivery Method Room Air Weight: 227 lb 15.327 oz Body Mass Index (BMI) 31.8 Intake and Output for Last 24 Hours 11/06/18 11/07/18 11/08/18 23:59 23:59 23:59 Intake Total 4674 / 4674 4251 / 4251 610 / 610 Output Total 100 / 100 Balance 4574 / 4574 4251 / 4251 610 / 610 Microbiology Past 72 Hours 11/06/18 02:43 Stool Occult Blood (PARMINDER) - Final Stool Occult Blood Positive Laboratory Tests Past 24 Hrs 11/07/18 11/08/18 20:35 04:42 WBC 4.8 RBC 3.63 L Hgb 8.2 L 8.2 L Hct 27.3 L 27.2 L MCV 74.9 L MCH 22.6 L MCHC 30.1 L RDW 25.2 H RDW Differential 67.7 H Plt Count 75 L Immature Gran % (Auto) 0.600 Neut % (Auto) 64.6 Lymph % (Auto) 15.2 L [place] % (Auto) 14.2 H Eos % (Auto) 4.6 Baso % (Auto) 0.8 Absolute Neuts (auto) 3.1 Absolute Lymphs (auto) 0.73 L Total Counted Not Reportable Differential Comment SCAN Platelet Estimate MOD DEC Plt Morphology Comment LARGE Polychromasia 1+ Hypochromasia 1+ Anisocytosis 1+ Microcytosis 1+ POC Glucose 11/08/18 11/08/18 11/07/18 11:31 06:48 22:11 POC Glucose 234 H 222 H 115 H 11/07/18 11/07/18 16:15 12:19 POC Glucose 223 H 129 H Medical Necessity - Tobacco Use Smoking Status: Current every day smoker Tobacco Use: Cigarettes Assessment/Plan All Active Problems (Last Reviewed 11/06/18 @ 07:05 by Robert Adorno MD) Acute blood loss anemia (Acute) Nonrheumatic mitral (valve) insufficiency (Acute) Hepatic encephalopathy (Acute) CHF (congestive heart failure) (Acute) Wide-complex tachycardia (Resolved) Chest pain (Acute) Elevated troponin (Acute) Pancreatitis (Resolved) 1. Acute blood loss anemia-underwent colonoscopy yesterday and was found to have no active bleeding, there are internal and external hemorrhoids, diverticulosis. Is possibly account for the bleeding which seems to have stopped at this point. Small drop in hemoglobin to 7.9. Stable now. Protonix BID. 2. Alcohol withdrawal syndrome-continue CIWA protocol and Ativan taper, folate, thiamine. 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 Declined information on outpatient services. 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 Continue xifaximin and lactulose. had 3 loose BM yesterday (at goal). Hx esophageal varices. 4. Nicotine abuse-cessation counseled 5. Chest pain-spasm. Troponins negative. 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 He follows with Dr. Shirley. 6. History of COPD-no acute exacerbation. Continue as needed aerosols. DVT prophylaxis-contraindicated due to bleeding. SCDs. Discharge planning- complete ativan taper, then dc likely tomorrow. This patient was seen by Noel Madison PA-C under the supervision of Doctor Ken. <Carlo Rogers - Last Filed: 11/08/18 14:29> Subjective: Patient had 3 bowel movements yesterday and 1 of them was slightly reddish as per the patient. No nausea or vomiting. Patient is still confused and disoriented and has visual hallucinations. Shaking. Patient wants scheduled dose of Ativan but was consulted for tapering dose as per [facility] protocol. Discussed with the [facility] dependency case manager Tiffany. - Physical Exam General: Alert, Oriented x3, Cooperative, Confused, Lethargic HEENT: Atraumatic, PERRLA, EOMI, Normocephalic Neck: Supple, No JVD, Negative Carotid Bruits Lungs: No rhonchi, No wheeze, No rales, Diminished - Air entry is diminished bilaterally., Chronic in nature Cardiovascular: Regular rate, Regular Rhythm, Normal S1, Normal S2, No murmurs Abdomen: Bowel Sounds Present, Soft, Non Tender, Non-Distended Extremities: No edema, Capillary Refill Less than 3 Seconds Skin: No rashes, No breakdown Musculoskeletal: No Tenderness to Palpation of Joints or Extremities, Arthritic Changes, Muscle Wasting Neurological: Cranial nerves II-XII grossly intact, Deep Tendon Reflexes 2+/4 and Symmetrical, Neuro grossly intact, - Psych/Mental Status: Normal Affect, Appropriate, Hallucinations Vital Signs Temp Pulse Resp BP Pulse Ox 98.0 F 79 18 139/78 H 97 11/08/18 13:21 11/08/18 13:21 11/08/18 13:21 11/08/18 13:21 11/08/18 13:21 Oxygen Delivery Method Room Air Weight: 227 lb 15.327 oz Body Mass Index (BMI) 31.8 Intake and Output for Last 24 Hours 11/06/18 11/07/18 11/08/18 23:59 23:59 23:59 Intake Total 4674 / 4674 4251 / 4251 610 / 610 Output Total 100 / 100 Balance 4574 / 4574 4251 / 4251 610 / 610 Microbiology Past 72 Hours 11/06/18 02:43 Stool Occult Blood (PARMINDER) - Final Stool Occult Blood Positive Laboratory Tests Past 24 Hrs 11/07/18 11/08/18 20:35 04:42 WBC 4.8 RBC 3.63 L Hgb 8.2 L 8.2 L Hct 27.3 L 27.2 L MCV 74.9 L MCH 22.6 L MCHC 30.1 L RDW 25.2 H RDW Differential 67.7 H Plt Count 75 L Immature Gran % (Auto) 0.600 Neut % (Auto) 64.6 Lymph % (Auto) 15.2 L [place] % (Auto) 14.2 H Eos % (Auto) 4.6 Baso % (Auto) 0.8 Absolute Neuts (auto) 3.1 Absolute Lymphs (auto) 0.73 L Total Counted Not Reportable Differential Comment SCAN Platelet Estimate MOD DEC Plt Morphology Comment LARGE Polychromasia 1+ Hypochromasia 1+ Anisocytosis 1+ Microcytosis 1+ POC Glucose 11/08/18 11/08/18 11/07/18 11:31 06:48 22:11 POC Glucose 234 H 222 H 115 H 11/07/18 16:15 POC Glucose 223 H Assessment/Plan This patient was seen in conjunction with Noel SCOTT. I have independently interviewed and examined the patient and reviewed pertinent history, examination findings, laboratory and plan of management. I have reviewed the note and agree with the documented findings with the few additional points. In brief, patient is a 58-year-old gentleman with history of alcohol cirrhosis decompensated with portal hypertension, hepatic encephalopathy, ascites and possible esophageal varices is admitted with acute anemia secondary to acute blood loss and alcohol withdrawal syndrome. Patient has tremors, shivering but is alert, awake and oriented x3. As per the patient, he had upper and lower endoscopy about 6 weeks ago primarily in [facility]. He had polypectomy but was not told about esophageal variceal bleeding. In the past, was told he had esophageal varices but denies any banding. Patient outside medical record from [facility] reviewed. CT abdomen showed changes of cirrhosis and portal hypertensive with trace ascites. Later on ultrasound was done and showed no evidence of ascites. Patient had EGD on 09/12/2018 and reported as esophagitis, portal hypertensive gastropathy. Multiple antral ulcers less than 3 cm with severe gastritis. Patient had colonoscopy showed diverticulosis of right colon, proximal descending colon small polyp status post snare polypectomy. He also has significant cardiac, pulmonary comorbidities including nonischemic cardiomyopathy with EF 10% status post AICD Dr. Shirley on 10/21/2018. His last echo on 06/21/2018 reported as EF about 20%, with -10% global longitudinal strain, evidence of diastolic dysfunction with severely dilated LV. Left and right atrium mildly enlarged. Mild to moderate eccentric MR. Trivial TR. Patient had 1 unit of PRBC and iron sucrose IV. Hemoglobin is stable around 8. Repeat H&H is stable. No antiplatelet or anticoagulant agents. Patient had colonoscopy today here and reported no active bleeding from internal and external hemorrhoids. Patient also has diverticulosis. Patient is undergoing active alcohol withdrawal having disorientation, tremors a nd hallucinations. On Ativan protocol as per [facility]. Code Visit Inpatient E&M: [id number] [facility] Hosp L3
[2018-11-08] MEDS: Tamsulosin HCl 0.4 MG Capsule PO (17:00)
[2018-11-08 17:01] LABS: Bedside Glucose 175 mg/dL (70-110)
--- NOTE | 2018-11-08 21:41 | CPS ---
pt is painful RN aware
[2018-11-08] MEDS: Zolpidem Tartrate 5 MG Tablet PO (21:49)
[2018-11-08] MEDS: traZODone 50 MG Tablet PO (21:49)
[2018-11-08] MEDS: Atorvastatin Calcium 40 MG Tablet PO (21:49)
[2018-11-08] MEDS: Pantoprazole Sodium 40 MG Tablet PO (21:49)
[2018-11-08 22:16] LABS: Bedside Glucose 220 mg/dL (70-110)
[2018-11-09 01:45] VITALS: BP 132/56; PULSE 87; RESP 20; TEMP 36.9; O2SAT 96
[2018-11-09 02:00] VITALS: RESP 20
[2018-11-09 05:11] VITALS: BP 133/86; PULSE 73; RESP 18; TEMP 36.8
[2018-11-09] MEDS: Baclofen 10 MG Tablet 5 MG PO ×2 (05:13→13:38)
[2018-11-09] MEDS: LORazepam 1 MG Tablet PO (05:13)
[2018-11-09 05:32] LABS: Absolute Lymphocyte Count 0.82 X10^3/ul (0.83-4.51); Absolute Neutrophil Count 3.9 X10^3/uL (2.0-7.7); Basophil# 0.07 X10^3/uL; Basophil% 1.2 % (0-1); Eosinophil# 0.21 X10^3/uL; Eosinophils% 3.7 % (0-5); Hematocrit 27.9 % (40-54); Hemoglobin 8.3 g/dl (13.0-16.5); Lymphocyte # 0.82 X10^3/ul (4.0); Lymphocyte % 14.5 % (19-41); Mean Corp Hgb Conc 29.7 g/gl (32-36); Mean Corpuscular Hgb 22.6 pg (27.0-32.0); Monocyte# 0.65 X10^3/uL; Monocyte% 11.5 % (0-10); Neutrophil % 68.7 % (47-70); POSITIVE COUNT NO; POSITIVE DIFFERENTIAL NO; POSITIVE MORPHOLOGY YES; Platelet Count 76 K/mm3 (150-450); RBC Distribution Width CV 25.4 % (11.6-14.6); Red Blood Count 3.67 M/mm3 (4.6-6.2); White Blood Count 5.7 K/mm3 (4.4-11.0)
[2018-11-09 05:34] LABS: Differential Indicated SCAN CRITERIA MET; NRBC Flagged by Analyzer 2.5 % (0-5)
[2018-11-09 05:35] LABS: Absolute Nucleated RBC Count 0.14 10^3/uL (0-5)
[2018-11-09 06:13] LABS: Differential Comment SCAN
[2018-11-09 06:14] LABS: Anisocytosis 1+; Hypochromasia 1+; Microcytosis 1+; Platelet Estimate MOD DEC (ADEQ); Platelet Morphology LARGE; Polychromasia 1+; Target Cells RARE
[2018-11-09] MEDS: Insulin Lispro 100 UNIT/ML INSULN.PEN SQ ×2 (06:46→13:23)
[2018-11-09 06:55] LABS: Bedside Glucose 155 mg/dL (70-110)
[2018-11-09 09:00] VITALS: BP 127/81; PULSE 72; RESP 14; TEMP 36.8; O2SAT 94
[2018-11-09] MEDS: rifAXIMin 550 MG Tablet PO (09:22)
[2018-11-09] MEDS: Pantoprazole Sodium 40 MG Tablet PO (09:22)
[2018-11-09] MEDS: Multivitamins,Ther W-Minerals Tablet 1 TABLET PO (09:23)
[2018-11-09] MEDS: Thiamine Hydrochloride 100 MG Tablet PO (09:23)
[2018-11-09] MEDS: Ferrous Sulfate 325 MG Tablet 650 MG PO (09:23)
[2018-11-09] MEDS: Folic Acid 1 MG Tablet PO (09:23)
[2018-11-09] MEDS: hydrOXYzine PAM 25 MG Capsule 50 MG PO ×2 (09:24→15:46)
[2018-11-09] MEDS: Methocarbamol 750 MG Tablet PO ×2 (09:24→15:32)
[2018-11-09] MEDS: Glucerna Shake 120 ML LIQUID PO ×2 (09:28→13:19)
[2018-11-09 09:31] VITALS: BP 127/81; PULSE 72; RESP 14; TEMP 36.8
--- NOTE | 2018-11-09 09:52 | NURSING ---
PT DECLINED LACTULOSE AGAIN, REMINDED HIM THIS WILL MAKE THE 3RD DOSE HE HAS MISSED. I WILL TAKE IT WHEN I GET HOME, I JUST DONT WANT TO FEEL LIKE CRAP ALL DAY. PT WOULD ALSO LIKE TO TAKE HIS LANTUS WHEN HE GOES HOME.
[2018-11-09 12:00] LABS: Bedside Glucose 238 mg/dL (70-110)
[2018-11-09 12:11] LABS: Hematocrit 30.3 % (40-54); Hemoglobin 8.9 g/dl (13.0-16.5)
[2018-11-09 12:56] LABS: International Normalized Ratio 1.5; Prothrombin Time (Protime)PT. 17.7 SECONDS (11.7-14.9)
[2018-11-09] MEDS: Dicyclomine 10 MG Capsule 20 MG PO (13:13)
[2018-11-09] MEDS: 0.9% NaCl Peripheral Flush Adult/Peds IV (13:39)
[2018-11-09] MEDS: LORazepam 2 MG/ML Syringe 1 MG IV (13:40)
[2018-11-09 14:00] VITALS: BP 134/87; PULSE 67; RESP 18; TEMP 36.7
[2018-11-09 14:35] LABS: Pathologist Review Reviewed
[2018-11-09 14:36] LABS: ALB/GLOB Ratio 0.7 RATIO (0.9-2.4); AST(SGOT) 73 U/L (15-37); Alanine Aminotransfer ALT/SGPT 42 U/L (16-61); Albumin, Serum 2.7 g/dL (3.2-5.0); Alkaline Phosphatase 94 U/L (45-117); Anion Gap 6 (5-15); BUN 5 mg/dL (7-18); BUN/Creat Ratio 5.8 RATIO (10-20); Calcium,Total 8.1 mg/dL (8.5-10.1); Chloride 107 mmol/L (98-107); Creatinine, Serum 0.86 mg/dL (0.70-1.30); EST Glomerular Filtration Rate 97 mL/min (>60); Est Glom Filt Rate - Afr Amer 117 mL/min (>60); Estimated Creatinine Clearance 99.72 ml/min; Globulin 3.8 g/dL (2.2-4.2); Glucose 222 mg/dL (74-106); Potassium 4.3 mmol/L (3.5-5.1); Protein, Total 6.5 g/dL (6.4-8.2); Sodium Level 139 mmol/L (136-145)
--- NOTE | 2018-11-09 15:21 | DS.PCM_ITS ---
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 Alcohol withdrawal syndrome - Secondary Discharge Diagnosis Chronic Problems (Last Reviewed 11/06/18 @ 07:05 by Robert Adorno MD) Implantable cardioverter-defibrillator (ICD) in situ (Chronic) Nonischemic cardiomyopathy (Chronic) Pulmonary hypertension (Chronic) Alcohol abuse (Chronic) Type 2 diabetes mellitus (Chronic) COPD (chronic obstructive pulmonary disease) (Chronic) Tobacco abuse (Chronic) BPH (benign prostatic hyperplasia) (Chronic) Hyperbilirubinemia (Chronic) Hospital Course and Treatment Operations: None Summary of Care Provided: The patient is a 58-year-old gentleman with history of alcohol cirrhosis decompensated with portal hypertension, hepatic encephalopathy, ascites and esophageal varices was admitted with acute anemia secondary to acute blood loss and alcohol withdrawal syndrome. Patient has tremors, shivering but is alert, awake and oriented x3. Patient rectal blood was dark red. As per the patient, he had upper and lower endoscopy about 6 weeks ago primarily in [facility]. He had polypectomy but was not told about esophageal variceal bleeding. In the past, was told he had esophageal varices but denies any banding. Patient outside medical record from [facility] reviewed. CT abdomen 09/12/2018 showed changes of cirrhosis and portal hypertensive with trace ascites. Later on ultrasound was done and showed no evidence of ascites. Patient had EGD on 09/12/2018 and reported as esophagitis, portal hypertensive gastropathy. Multiple antral ulcers less than 3 cm with severe gastritis. patient had CT abdomen and CTA chest in the ED as mentioned below. Shows tingling and filling defect in superior mesenteric vein probably a small amount of nonocclusive thrombus. General surgeon Dr. Lomax was consulted. Patient had colonoscopy on 11/07/2018 showed diverticulosis of right colon, proximal descending colon small polyp status post snare polypectomy and internal and external hemorrhoids which was not bleeding at the time of colonoscopy. Patient bleeding seemed to stop on 11/07 and 11/08 and H&H was stable but he started again in the morning about 2 times bright red rectal bleed most probably hemorrhoidal bleed. H&H was repeated and is stable 8.2/27.2 and 8.9/30.3. Chronic thrombocytopenia stable about 75,000. INR slightly elevated 1.5. Dr. Lomax was informed and he agreed for transfer to tertiary care center. [facility] was called and discussed with Dr. Iqbal, hospitalist who accepted the patient. Patient needs further filter tip catcher expertise and possible hemorrhoidal intervention. Anusol rectal hemorrhoidal suppository is ordered. Patient had 1 unit of PRBC and iron sucrose IV. No antiplatelet or anticoagulant agents. He also has significant cardiac, pulmonary comorbidities including nonischemic cardiomyopathy with EF 10% status post AICD Dr. Shirley on 10/21/2018. His last echo on 06/21/2018 reported as EF about 20%, with -10% global longitudinal strain, evidence of diastolic dysfunction with severely dilated LV. Left and right atrium mildly enlarged. Mild to moderate eccentric MR. Trivial TR. Patient had colonoscopy today here and reported no active bleeding from internal and external hemorrhoids. Patient also has diverticulosis. Patient had alcohol withdrawal having disorientation, tremors and hallucinations. Alcohol withdrawal syndrome has improved and is stable. On Ativan protocol as per [facility] being transferred to [facility]. Laboratory Results 11/09/18 04:55: WBC 5.7, RBC 3.67 L, Hgb 8.3 L, Hct 27.9 L, MCV 76.0 L, MCH 22.6 L, MCHC 29.7 L, RDW 25.4 H, RDW Differential 69.0 H, Plt Count 76 L, Immature Gran % (Auto) 0.400, Neut % (Auto) 68.7, Lymph % (Auto) 14.5 L, [place] % (Auto) 11.5 H, Eos % (Auto) 3.7, Baso % (Auto) 1.2 H, Absolute Neuts (auto) 3.9, Absolute Lymphs (auto) 0.82 L, Total Counted Not Reportable, Nucleated RBC % 2.5, Differential Comment SCAN, Diff Path Review Reviewed, Platelet Estimate MOD DEC, Plt Morphology Comment LARGE, Polychromasia 1+, Hypochromasia 1+, Anisocytosis 1+, Microcytosis 1+, Target Cells RARE, Absolute Retic 0.14 11/09/18 06:43: POC Glucose 155 H 11/09/18 11:54: POC Glucose 238 H 11/09/18 11:55: Hgb 8.9 L, Hct 30.3 L 11/09/18 12:00: PT 17.7 H, INR 1.5 11/09/18 12:00: Sodium 139, Potassium 4.3, Chloride 107, Carbon Dioxide 26.0, Anion Gap 6, BUN 5 L, Creatinine 0.86, Estim Creat Clear Calc 99.72, Est GFR (MDRD) Af Amer 117, Est GFR (MDRD) Non-Af 97, BUN/Creatinine Ratio 5.8 L, Glucose 222 H, Calcium 8.1 L, Total Bilirubin 1.10 H, AST 73 H, ALT 42, Alkaline Phosphatase 94, Total Protein 6.5, Albumin 2.7 L, Globulin 3.8, Albumin/Globulin Ratio 0.7 L Clinical Impression(s) from Imaging Studies Chest X-Ray 11/05/18 22:47 IMPRESSION: No acute findings. Cardiomegaly and implanted cardiac device unchanged. Chest CTA 11/05/18 23:45 IMPRESSION: No pulmonary embolus. No acute findings in the chest. Paraesophageal varicosities. Cirrhosis with stigmata of portal hypertension, please see CT abdomen report. Individualized dose optimization techniques were used for this CT. Abdomen CT 11/05/18 23:46 IMPRESSION: Thin linear filling defect in the superior mesenteric vein probably a small amount of nonocclusive thrombus. The previous study was performed without contrast therefore I cannot determine if it is new compared to then. Otherwise similar to prior with cirrhosis, ascites, mild splenomegaly, upper abdominal adenopathy, and prominent varicosities particularly paraesophageal. Individualized dose optimization techniques were used for this CT. Patient Problems: Active and Suspected Problems (Last Reviewed 11/06/18 @ 07:05 by Robert Adorno MD) Acute blood loss anemia (Acute) Subjective: Patient had 2 times bright red rectal bleed in the toilet. Patient also had bloody stain in the room and bedsheet. Hemodynamically stable. No tachycardia/hypotension. Octreotide drip was started. Surgery informed. - Physical Exam General: Alert, Oriented x3, Cooperative HEENT: Atraumatic, PERRLA, EOMI, Normocephalic Neck: Supple, No JVD, Negative Carotid Bruits Lungs: Diminished Cardiovascular: Regular rate, Regular Rhythm, Normal S1, Normal S2, No murmurs, - - AICD Abdomen: Bowel Sounds Present, Soft, Non Tender, Non-Distended Extremities: No edema, Capillary Refill Less than 3 Seconds Skin: No rashes, No breakdown Musculoskeletal: No Tenderness to Palpation of Joints or Extremities, Arthritic Changes Neurological: Cranial nerves II-XII grossly intact, Deep Tendon Reflexes 2+/4 and Symmetrical, Neuro grossly intact Psych/Mental Status: Normal Affect, Appropriate Vital Signs Temp Pulse Resp BP Pulse Ox 98.1 F 67 18 134/87 H 94 11/09/18 14:00 11/09/18 14:00 11/09/18 14:00 11/09/18 14:00 11/09/18 09:00 Oxygen Delivery Method Room Air Weight: 227 lb 15.327 oz Body Mass Index (BMI) 31.8 Intake and Output for Last 24 Hours 11/07/18 11/08/18 11/09/18 23:59 23:59 23:59 Intake Total 4251 / 4251 610 / 610 1000 / 1000 Balance 4251 / 4251 610 / 610 1000 / 1000 Laboratory Tests Past 24 Hrs 11/09/18 11/09/18 11/09/18 04:55 11:55 12:00 WBC 5.7 RBC 3.67 L Hgb 8.3 L 8.9 L Hct 27.9 L 30.3 L MCV 76.0 L MCH 22.6 L MCHC 29.7 L RDW 25.4 H RDW Differential 69.0 H Plt Count 76 L Immature Gran % (Auto) 0.400 Neut % (Auto) 68.7 Lymph % (Auto) 14.5 L [place] % (Auto) 11.5 H Eos % (Auto) 3.7 Baso % (Auto) 1.2 H Absolute Neuts (auto) 3.9 Absolute Lymphs (auto) 0.82 L Total Counted Not Reportable Nucleated RBC % 2.5 Differential Comment SCAN Diff Path Review Reviewed Platelet Estimate MOD DEC Plt Morphology Comment LARGE Polychromasia 1+ Hypochromasia 1+ Anisocytosis 1+ Microcytosis 1+ Target Cells RARE Absolute Retic 0.14 PT 17.7 H INR 1.5 Sodium Potassium Chloride Carbon Dioxide Anion Gap BUN Creatinine Estim Creat Clear Calc Est GFR (MDRD) Af Amer Est GFR (MDRD) Non-Af BUN/Creatinine Ratio Glucose Calcium Total Bilirubin AST ALT Alkaline Phosphatase Total Protein Albumin Globulin Albumin/Globulin Ratio 11/09/18 12:00 WBC RBC Hgb Hct MCV MCH MCHC RDW RDW Differential Plt Count Immature Gran % (Auto) Neut % (Auto) Lymph % (Auto) [place] % (Auto) Eos % (Auto) Baso % (Auto) Absolute Neuts (auto) Absolute Lymphs (auto) Total Counted Nucleated RBC % Differential Comment Diff Path Review Platelet Estimate Plt Morphology Comment Polychromasia Hypochromasia Anisocytosis Microcytosis Target Cells Absolute Retic PT INR Sodium 139 Potassium 4.3 Chloride 107 Carbon Dioxide 26.0 Anion Gap 6 BUN 5 L Creatinine 0.86 Estim Creat Clear Calc 99.72 Est GFR (MDRD) Af Amer 117 Est GFR (MDRD) Non-Af 97 BUN/Creatinine Ratio 5.8 L Glucose 222 H Calcium 8.1 L Total Bilirubin 1.10 H AST 73 H ALT 42 Alkaline Phosphatase 94 Total Protein 6.5 Albumin 2.7 L Globulin 3.8 Albumin/Globulin Ratio 0.7 L POC Glucose 11/09/18 11/09/18 11/08/18 11:54 06:43 21:45 POC Glucose 238 H 155 H 220 H 11/08/18 16:57 POC Glucose 175 H Home Medications: Medications to take at Discharge Zolpidem Tartrate [Ambien] 10 mg PO QHS PRN PRN 05/03/18 albuterol sulfate HFA 90 mcg/actuation aerosol inhaler 2 puff INHALATION Q6H PRN 09/15/18 fluticasone furoate 100 mcg/actuation blister powder for inhalation 1 inh INHALATION DAILY 09/15/18 ferrous sulfate 134 mg (27 mg iron) tablet 134 mg PO DAILY tab 10/13/18 Aspirin E.C. [Ecotrin] 81 mg PO DAILY@0800 tablet 10/21/18 Atorvastatin Calcium [Lipitor] 40 mg PO QHS tablet 10/21/18 Carvedilol [Coreg (Beta Anum)] 3.125 mg PO BID tablet 10/21/18 Folic Acid 1 mg PO DAILY@0800 tablet 10/21/18 Furosemide [Lasix] 40 mg PO DAILY tablet 10/21/18 Multivitamins,Ther W-Minerals [Multivitamin With Minerals] 1 tablet PO DAILY@0800 tablet 10/21/18 Pantoprazole Sodium [Protonix] 40 mg PO DAILY tablet 10/21/18 Tamsulosin HCl [Flomax] 0.4 mg PO DAILY@1730 capsule 10/21/18 Thiamine Hydrochloride [Vitamin B1] 100 mg PO DAILY@0800 tablet 10/21/18 Zinc Sulfate (50mg elemental) [Zinc Sulfate] 220 mg PO DAILY capsule 10/21/18 lisinopril 2.5 mg tablet 2.5 mg PO DAILY 11/01/18 Metformin HCl [Glucophage] 500 mg PO BIDCM 11/06/18 Primary Care Physician: Adi Cisneros MD [Primary Care Provider] - Medical Necessity - Tobacco Use Smoking Status: Current every day smoker Tobacco Use: Cigarettes Meaningful Use Info Meaningful Use Diagnoses (Choose all that apply): None applicable Code Visit Inpatient E&M: 11441 Disch Hosp
== END 2018-11-09 16:40 | disposition short-term general hospital (02) | DRG 812 ==
LOC: ED 22:54 → PCU 11-06 04:05 → MS2 11-08 12:43
PROVIDERS: Anesthesiology; Surgery; Admitting Provider Hospitalist; Emergency Provider Emergency Medicine; Family Provider Family Medicine; PCP Family Medicine; Referring Provider Hospitalist; Visit Provider Internal Medicine
PROC: 0DJD8ZZ Inspection of Lower Intestinal Tract, Via Natural or Artificial Opening Endoscopic (ICD-10-PCS; CPT 45378; principal; 2018-11-07 10:55)
DX: D62 Acute posthemorrhagic anemia (principal); F10.239 Alcohol dependence with withdrawal, unspecified; K76.6 Portal hypertension; I85.10 Secondary esophageal varices without bleeding; I42.9 Cardiomyopathy, unspecified; I50.40 Unspecified combined systolic (congestive) and diastolic (congestive) heart failure; K64.8 Other hemorrhoids; F17.210 Nicotine dependence, cigarettes, uncomplicated; J44.9 Chronic obstructive pulmonary disease, unspecified; K70.31 Alcoholic cirrhosis of liver with ascites; N40.0 Benign prostatic hyperplasia without lower urinary tract symptoms; K64.4 Residual hemorrhoidal skin tags; Z95.810 Presence of automatic (implantable) cardiac defibrillator; E11.9 Type 2 diabetes mellitus without complications; D69.59 Other secondary thrombocytopenia; K57.30 Diverticulosis of large intestine without perforation or abscess without bleeding; Z79.84 Long term (current) use of oral hypoglycemic drugs; Z86.010 Personal history of colon polyps
CPT/HCPCS: 36415; 71045; 71275; 74160; 80053; 82274; 82962; 83036; 83605; 83690; 83735; 84100; 84484; 85014; 85018; 85025; 85379; 85610; 85730; 86850; 86900; 86920; 86922; 93005; 94640; 97162; 97166; 97530; 97802; 99285; 99406; J1756; J7030; J7040; P9016; Q9967; A4216; J2405

== ENCOUNTER 2019-01-10 12:33 | Outpatient (RCR) | payer MEDICARE, MEDICAID, SELFPAY ==
[2018-05-06 09:05] VITALS: BMI 33.0
[2018-11-07 10:23] VITALS: BMI 31.8
[2019-01-10 13:03] LABS: Absolute Lymphocyte Count 0.66 X10^3/ul (0.83-4.51); Absolute Neutrophil Count 4.9 X10^3/uL (2.0-7.7); Basophil# 0.03 X10^3/uL; Basophil% 0.5 % (0-1); Eosinophil# 0.12 X10^3/uL; Eosinophils% 1.8 % (0-5); Hematocrit 32.4 % (40-54); Hemoglobin 10.4 g/dl (13.0-16.5); Lymphocyte # 0.66 X10^3/ul (4.0); Lymphocyte % 10.1 % (19-41); Mean Corp Hgb Conc 32.1 g/gl (32-36); Mean Corpuscular Hgb 25.9 pg (27.0-32.0); Mean Corpuscular Volume 80.8 fL (80-94); Monocyte# 0.83 X10^3/uL; Monocyte% 12.7 % (0-10); Neutrophil # 4.91 X10^3/uL (2.7-7.7); Neutrophil % 74.7 % (47-70); Platelet Count 57 K/mm3 (150-450); RBC Distribution Width CV 22.6 % (11.6-14.6); RBC Distribution Width SD 66.9 fl (35.1-43.9); Red Blood Count 4.01 M/mm3 (4.6-6.2); White Blood Count 6.6 K/mm3 (4.4-11.0)
[2019-01-10 13:05] LABS: Differential Indicated SCAN CRITERIA MET; POSITIVE COUNT YES; POSITIVE DIFFERENTIAL NO; POSITIVE MORPHOLOGY YES
[2019-01-10 13:13] LABS: AST(SGOT) 131 U/L (15-37); Alanine Aminotransfer ALT/SGPT 70 U/L (16-61); Albumin, Serum 2.3 g/dL (3.2-5.0); Alkaline Phosphatase 126 U/L (45-117); Bilirubin, Direct 0.61 mg/dL (0.00-0.30); EST Glomerular Filtration Rate 81 mL/min (>60); Est Glom Filt Rate - Afr Amer 99 mL/min (>60); Globulin 4.3 g/dL (2.2-4.2); Protein, Total 6.6 g/dL (6.4-8.2)
== END 2019-01-13 23:59 ==
LOC: HHLAB 12:33
PROVIDERS: Family Provider Family Medicine; PCP Family Medicine; Referring Provider Internal Medicine Infectious Disease; Visit Provider Internal Medicine Infectious Disease
DX: A40.8 Other streptococcal sepsis (principal); K65.2 Spontaneous bacterial peritonitis
CPT/HCPCS: 80076; 82565; 85025

== ENCOUNTER 2019-01-16 16:21 | Outpatient (RCR) | payer MEDICARE, MEDICAID, SELFPAY ==
[2018-05-06 09:05] VITALS: BMI 33.0
[2018-11-07 10:23] VITALS: BMI 31.8
[2019-01-16 17:03] LABS: AST(SGOT) 119 U/L (15-37); Alanine Aminotransfer ALT/SGPT 68 U/L (16-61); Albumin, Serum 2.8 g/dL (3.2-5.0); Alkaline Phosphatase 129 U/L (45-117); Bilirubin, Direct 0.71 mg/dL (0.00-0.30); Creatinine, Serum 1.16 mg/dL (0.70-1.30); EST Glomerular Filtration Rate 69 mL/min (>60); Est Glom Filt Rate - Afr Amer 83 mL/min (>60); Globulin 4.9 g/dL (2.2-4.2); Protein, Total 7.7 g/dL (6.4-8.2)
[2019-01-17 11:11] LABS: Absolute Lymphocyte Count 0.78 X10^3/ul (0.83-4.51); Absolute Neutrophil Count 3.8 X10^3/uL (2.0-7.7); Basophil# 0.09 X10^3/uL; Basophil% 1.5 % (0-1); Hematocrit 37.1 % (40-54); Hemoglobin 11.9 g/dl (13.0-16.5); Lymphocyte # 0.78 X10^3/ul (4.0); Lymphocyte % 13.1 % (19-41); Mean Corp Hgb Conc 32.1 g/gl (32-36); Mean Corpuscular Hgb 26.2 pg (27.0-32.0); Mean Corpuscular Volume 81.7 fL (80-94); Monocyte# 0.94 X10^3/uL; Monocyte% 15.8 % (0-10); Neutrophil # 3.83 X10^3/uL (2.7-7.7); Neutrophil % 64.4 % (47-70); RBC Distribution Width CV 21.1 % (11.6-14.6); RBC Distribution Width SD 63.4 fl (35.1-43.9); Red Blood Count 4.54 M/mm3 (4.6-6.2)
[2019-01-17 11:21] LABS: POSITIVE COUNT NO; POSITIVE DIFFERENTIAL NO; POSITIVE MORPHOLOGY YES; Platelet Count 81 K/mm3 (150-450)
[2019-01-17 11:22] LABS: Differential Comment SCANNED; Differential Indicated SCAN CRITERIA MET
== END 2019-02-12 23:59 ==
LOC: HHLAB 16:21
PROVIDERS: Family Provider Family Medicine; PCP Family Medicine; Referring Provider Internal Medicine Infectious Disease; Visit Provider Internal Medicine Infectious Disease
DX: A40.8 Other streptococcal sepsis (principal); K65.2 Spontaneous bacterial peritonitis; M00.871 Arthritis due to other bacteria, right ankle and foot; K25.9 Gastric ulcer, unspecified as acute or chronic, without hemorrhage or perforation; K31.89 Other diseases of stomach and duodenum; E11.9 Type 2 diabetes mellitus without complications; K70.30 Alcoholic cirrhosis of liver without ascites; K57.90 Diverticulosis of intestine, part unspecified, without perforation or abscess without bleeding; I11.0 Hypertensive heart disease with heart failure; I50.20 Unspecified systolic (congestive) heart failure
CPT/HCPCS: 80076; 82565; 85025

== ENCOUNTER 2019-01-30 15:16 | Outpatient (RCR) | payer MEDICARE, MEDICAID, SELFPAY ==
[2018-05-06 09:05] VITALS: BMI 33.0
[2018-11-07 10:23] VITALS: BMI 31.8
[2019-01-23 14:14] LABS: AST(SGOT) 120 U/L (15-37); Alanine Aminotransfer ALT/SGPT 67 U/L (16-61); Alkaline Phosphatase 145 U/L (45-117); Bilirubin, Direct 0.58 mg/dL (0.00-0.30); EST Glomerular Filtration Rate 73 mL/min (>60); Est Glom Filt Rate - Afr Amer 88 mL/min (>60); Globulin 5.4 g/dL (2.2-4.2); Protein, Total 8.4 g/dL (6.4-8.2)
[2019-01-23 14:15] LABS: Absolute Lymphocyte Count 1.06 X10^3/ul (0.83-4.51); Absolute Neutrophil Count 4.3 X10^3/uL (2.0-7.7); Basophil# 0.06 X10^3/uL; Differential Indicated SCAN CRITERIA MET; Eosinophil# 0.32 X10^3/uL; Eosinophils% 5.1 % (0-5); Hematocrit 37.8 % (40-54); Hemoglobin 12.6 g/dl (13.0-16.5); Lymphocyte # 1.06 X10^3/ul (4.0); Lymphocyte % 16.8 % (19-41); Mean Corp Hgb Conc 33.3 g/gl (32-36); Mean Corpuscular Hgb 26.9 pg (27.0-32.0); Mean Corpuscular Volume 80.6 fL (80-94); Monocyte# 0.58 X10^3/uL; Monocyte% 9.2 % (0-10); Neutrophil # 4.26 X10^3/uL (2.7-7.7); Neutrophil % 67.6 % (47-70); POSITIVE COUNT NO; POSITIVE DIFFERENTIAL NO; POSITIVE MORPHOLOGY YES; Platelet Count 66 K/mm3 (150-450); RBC Distribution Width CV 20.7 % (11.6-14.6); Red Blood Count 4.69 M/mm3 (4.6-6.2); White Blood Count 6.3 K/mm3 (4.4-11.0)
[2019-01-30 16:09] LABS: AST(SGOT) 101 U/L (15-37); Alanine Aminotransfer ALT/SGPT 63 U/L (16-61); Albumin, Serum 3.3 g/dL (3.2-5.0); Alkaline Phosphatase 150 U/L (45-117); Bilirubin, Direct 0.59 mg/dL (0.00-0.30); Creatinine, Serum 1.32 mg/dL (0.70-1.30); EST Glomerular Filtration Rate 59 mL/min (>60); Est Glom Filt Rate - Afr Amer 72 mL/min (>60); Globulin 5.5 g/dL (2.2-4.2); Protein, Total 8.8 g/dL (6.4-8.2)
[2019-01-30 16:22] LABS: Absolute Lymphocyte Count 0.77 X10^3/ul (0.83-4.51); Absolute Neutrophil Count 5.6 X10^3/uL (2.0-7.7); Basophil# 0.06 X10^3/uL; Basophil% 0.8 % (0-1); Differential Indicated SCAN CRITERIA MET; Eosinophil# 0.13 X10^3/uL; Eosinophils% 1.7 % (0-5); Hematocrit 40.4 % (40-54); Hemoglobin 13.4 g/dl (13.0-16.5); Lymphocyte # 0.77 X10^3/ul (4.0); Lymphocyte % 10.4 % (19-41); Mean Corp Hgb Conc 33.2 g/gl (32-36); Mean Corpuscular Hgb 26.6 pg (27.0-32.0); Mean Corpuscular Volume 80.2 fL (80-94); Monocyte# 0.85 X10^3/uL; Monocyte% 11.4 % (0-10); Neutrophil # 5.61 X10^3/uL (2.7-7.7); Neutrophil % 75.6 % (47-70); POSITIVE COUNT NO; POSITIVE DIFFERENTIAL NO; POSITIVE MORPHOLOGY YES; Platelet Count 67 K/mm3 (150-450); RBC Distribution Width CV 20.1 % (11.6-14.6); RBC Distribution Width SD 59.2 fl (35.1-43.9); Red Blood Count 5.04 M/mm3 (4.6-6.2); White Blood Count 7.4 K/mm3 (4.4-11.0)
[2019-01-30 16:23] LABS: Anisocytosis 1+; Microcytosis RARE; Platelet Estimate MOD DEC (ADEQ)
== END 2019-02-12 23:59 ==
LOC: HHLAB 15:16
PROVIDERS: PCP Family Medicine; Visit Provider Family Medicine
DX: A40.8 Other streptococcal sepsis (principal); K65.2 Spontaneous bacterial peritonitis; M00.871 Arthritis due to other bacteria, right ankle and foot
CPT/HCPCS: 80076; 82565; 85025

== ENCOUNTER → 2019-10-03 13:52 | Outpatient (CLI) | payer MEDICARE, MEDICAID, SELFPAY ==
[2018-05-06 09:05] VITALS: BMI 33.0
[2019-05-15 10:16] VITALS: BMI 28.7
--- NOTE | 2019-10-03 13:56 | ECHOD_ITS ---
Reason For Study: NON ISCHEMIC CMP, LOW EF, PRE OP EXAM Procedure This was a 2D Doppler, Color Flow transthoracic echocardiogram. The exam was of adequate technical quality. Exam performed in department. Left Ventricle Severely dilated left ventricle. Severe global left ventricular systolic dysfunction. The estimated ejection fraction is 20 %. The global longitudinal strain = -8% (abnormal). Diastolic function is indeterminate. Right Ventricle Normal RV size. ICD or pacer leads identified within the right ventricle. Normal systolic function. Atria The left atrium is mildly enlarged. The right atrium is mildly enlarged. ICD or pacer leads identified within the right atrium. No doppler evidence for ASD. Mitral Valve There is no mitral annular calcification. Mild diffuse mitral valve thickening. Mild (1+) mitral valve insufficiency. Tricuspid Valve Normal tricuspid valve. Trivial tricuspid valve insufficiency. Right ventricular systolic pressure estimated to be 27 mmHg. Aortic Valve Trisinus/trileaflet aortic valve. Mild diffuse aortic valve thickening. Mild focal aortic valve calcification. Pulmonic Valve The pulmonic valve is not well visualized. Trivial pulmonic valve insufficiency. Great Vessels Normal sized aortic root. Pericardium/Pleural No pericardial effusion. MMode/2D Measurements & Calculations LVIDd: 6.7 cm IVSd: 1.1 cm Ao root diam: 3.4 cm LVIDs: 6.0 cm LVPWd: 1.1 cm RVDd: 3.9 cm FS: 10.4 % LAV(MOD-bp): 60.9 ml EDV(MOD-sp4): 237.2 ml EDV(MOD-sp2): 215.6 ml LAV(MOD-bp) Indexed: 27.5 ml/m2 ESV(MOD-sp4): 168.6 ml EF(MOD-sp2): 23.6 % LAV(MOD-sp2): 53.9 ml EF(MOD-sp4): 28.9 % LAV(MOD-sp4): 61.6 ml SV(MOD-sp4): 68.6 ml SV(MOD-sp2): 51.0 ml LA A4 area: 20.4 cm2 LA dimension(2D): 4.4 cm RA A4 area: 17.7 cm2 Doppler Measurements & Calculations MV E max bhargav: 61.9 cm/sec Lat Peak E' Bhargav: 5.5 cm/sec Med Peak E' Bhargav: 4.2 cm/sec MV A max bhargav: 78.3 cm/sec E/E' lat: 11.3 E/E' med: 14.8 MV E/A: 0.79 Ao V2 max: 142.5 cm/sec LV V1 max: 95.8 cm/sec PA V2 max: 108.2 cm/sec Ao max P.1 mmHg LV V1 max P.7 mmHg TR max bhargav: 244.9 cm/sec TR max P.0 mmHg Interpretation Summary Severely dilated left ventricle. Severe global left ventricular systolic dysfunction. The estimated ejection fraction is 20 %. The global longitudinal strain = -8% (abnormal). The left atrium is mildly enlarged. The right atrium is mildly enlarged. Mild diffuse mitral valve thickening. Mild (1+) mitral valve insufficiency. Trivial tricuspid valve insufficiency. Mild diffuse aortic valve thickening. Mild focal aortic valve calcification. Trivial pulmonic valve insufficiency. Right ventricular systolic pressure estimated to be 27 mmHg. Diastolic function is indeterminate. ICD or pacer leads identified within the right atrium ICD or pacer leads identified within the right ventricle. Ordering Physician: Fern^Pablo^^^ Referring Physician: Adi Cisneros Performed By: Lashon Remy, RDCS, RVT
== END ==
PROVIDERS: PCP Family Medicine; Referring Provider Internal Medicine Cardiovascular Disease; Visit Provider Internal Medicine Cardiovascular Disease
DX: I42.8 Other cardiomyopathies (principal); I34.0 Nonrheumatic mitral (valve) insufficiency; I27.20 Pulmonary hypertension, unspecified; I50.9 Heart failure, unspecified; I47.2 Ventricular tachycardia; F10.10 Alcohol abuse, uncomplicated; Z95.810 Presence of automatic (implantable) cardiac defibrillator
CPT/HCPCS: 93306

== ENCOUNTER 2020-01-20 21:57 | Emergency (ER) | payer MEDICARE, MEDICAID, SELFPAY ==
[2018-05-06 09:05] VITALS: BMI 33.0
[2019-12-25 08:34] VITALS: BMI 32.4
[2020-01-20 21:58] VITALS: BP 85/41; PULSE 66; RESP 14; TEMP 35.9; O2SAT 100; BMI 35.4
--- NOTE | 2020-01-20 22:33 | CT_ITS ---
STUDY: CT ABDOMEN AND PELVIS WITH CONTRAST REASON FOR EXAM: Male, 59 years old. DIFFUSE ABD PAIN, PROSTATECTOMY 10 DAYS AGO WITH PENILE PUMP, HX COPD, CHF, LIVER CIRRHOSIS, DIAB RADIATION DOSAGE (If Supplied By Facility): CTDIvol = ( 17.66 ) mGy, DLP = ( 2630.57 ) mGycm TECHNIQUE: Transaxial images were obtained from the dome of the diaphragm to the symphysis pubis without oral contrast. IV 100mL [id number]-[id number] was administered. Sagittal and coronal images were reconstructed. Individualized dose optimization techniques were used for this CT. COMPARISON: Prior study of 11/06/2018 FINDINGS: The visualized lung bases are unremarkable. And intracardiac wires noted. The heart size is within normal limits. There is no pericardial effusion. The liver contour is nodular consistent with cirrhosis. There is a subcentimeter caudate lobe cyst. Is a small amount of ascites in the abdomen and pelvis.. There is diffuse gallbladder wall thickening. Normal spleen. Normal pancreas. Normal bilateral adrenal glands. Normal right kidney. There is a 1.6 cm left renal cyst. Normal visualized stomach. Normal small intestine. Normal colon. The appendix is visualized and appears normal. Extensive varices are seen in the abdomen. There is diffuse mesenteric fatty stranding. There are calcified plaques of the abdominal aorta. Normal inferior vena cava. There are diffuse scattered shotty retroperitoneal nodes. There is a minimally filled urinary bladder. There is a fluid collection containing tiny air density anterior to the bladder measuring 10.6 x 4.4 x 5.0 cm there are changes consistent with status post prostatectomy. Penile implants are seen. Implant reservoir is seen in the left pelvis. There is a fat-containing umbilical hernia. There is a small fluid containing left inguinal hernia. There is subcutaneous fatty stranding of the right abdominal and pelvic soft tissues. There is edema of the right flank musculature. There are degenerative changes of the lumbar spine at the L4-[address]/Abdomen/Pelvis W IV Cont ONLY IMPRESSION: 1. Hepatic findings consistent with cirrhosis. 2. There is a small amount of ascites in the abdomen and pelvis. 3. There is a fluid collection anterior to the bladder containing a tiny air density measuring 10.6 x 4.4 x 5.0 cm. This may represent postoperative seroma, loculated ascites, or less likely abscess. 4. Extensive varices are seen in the abdomen. There is diffuse mesenteric fatty stranding. These appear similar to the previous study. 5. There are diffuse scattered shotty retroperitoneal nodes, also similar to the previous study. 6. Changes consistent with status post prostatectomy. 7. Perihilar implants are noted. Implant reservoir is seen in the left pelvis. 8. Subcutaneous fatty stranding in the right abdominal and pelvic soft tissues. There is edema of the right flank musculature. Electronically Signed: Anoop Araujo MD at 23:54 EDT , Service support ,
--- NOTE | 2020-01-20 22:33 | EKG12_ITS ---
Test Reason : DYSRHYTHMIA Blood Pressure : / mmHG Vent. Rate : 062 BPM Atrial Rate : 062 BPM P-R Int : 152 ms QRS Dur : 124 ms QT Int : 498 ms P-R-T Axes : 049 037 016 degrees QTc Int : 505 ms Normal sinus rhythm with sinus arrhythmia Inferior infarct , age undetermined Abnormal ECG Confirmed by JESSE CHRISTIANSEN, ALIA ([id number]), market editor AFRICA VALENTIN ([id number]) on 01/22/2020 1:22:38 PM Referred By: BB Confirmed By:ALIA MOLINA MD
--- NOTE | 2020-01-20 22:35 | ED.VIS.GI ---
History of Present Illness Chief Complaint: Abd Pain Informant: Patient, Significant Other - Abdominal Pain/Flank Pain Onset: Days - 10, since prostate surgery; worse x 2-3 days Context: Gradual Onset Timing: Continuous Quality: Aching Location: Diffuse Current Severity: Severe Maximum Severity: Severe Worsened by: - - touching abd Relieved by: Nothing - Nausea/Vomiting/Emesis GI Symptom: Nausea, Vomiting - only once Onset: Yesterday Quality: Nonbilious. Negative for: Blood streaks, Coffee ground, Hematemesis - Diarrhea/Melena/Hematochezia GI Symptom: - - states he is having BMs. Negative for: Diarrhea, Melena, Hematochezia Associated Symptoms: Negative for: Dysuria, Frequency, Hematuria, Urgency Narrative: Patient states he has hepatic cirrhosis and was recently diagnosed with prostate cancer, had a prostatectomy 10 days ago, it was through the abdomen. He has been having lots of pain, drainage from incision sites in his right abdomen, redness around that area more recently, but the pain has been since his surgery, gradually worsening. He has seen his surgeon who is a urologist at [facility], they said that everything looked pretty standard for whichever surgery he had. He denies any fevers. He feels very malaise, no syncope. States he had a Landry catheter postoperative until around 5-6 days ago, it was removed in the office. - Past Medical History (1) Alcoholic cirrhosis of liver Status: Chronic (2) COPD (chronic obstructive pulmonary disease) Status: Chronic (3) Chronic systolic (congestive) heart failure Status: Chronic (4) Hyperbilirubinemia Status: Chronic (5) Implantable cardioverter-defibrillator (ICD) in situ Status: Chronic (6) Nonischemic cardiomyopathy Status: Chronic (7) Nonrheumatic mitral (valve) insufficiency Status: Chronic (8) Pulmonary hypertension Status: Chronic (9) Type 2 diabetes mellitus Status: Chronic Past Medical History - Allergies and Home Meds Allergies/Adverse Reactions: Allergies morphine Allergy (Severe, Verified 01/20/20 21:58) Hives Primary Care Physician: Adi Cisneros MD [Primary Care Provider] - Surgical History: - - prostate Lives: Spouse/ Significant Other Smoking Status: Former smoker - Family History Maternal Family History: Family History (Last Reviewed 12/25/19 @ 08:39 by Joie Su) Father Pericarditis Mother Hypertension Grandmother Diabetes Brother Heart disease Sister Diabetes Family History: Reports: Diabetes, Hypertension Paternal Family History: Family History (Last Reviewed 12/25/19 @ 08:39 by Joie Su) Father Pericarditis Mother Hypertension Grandmother Diabetes Brother Heart disease Sister Diabetes Family History: Reports: - Review of Systems General: Reports: Malaise. Denies: Chills, Fever, Sweats Eyes: Denies: Visual changes - bilaterally, Diplopia ENT: Denies: Rhinorrhea, Sore throat Cardiovascular: Denies: Chest pain, Palpitations Respiratory: Denies: Dyspnea, Cough, Dyspnea on exertion Gastrointestinal: Reports: Abdominal pain, Nausea, Vomiting. Denies: Diarrhea, Melena, Hematochezia Genitourinary: Denies: Dysuria, Hematuria, Frequency Musculoskeletal: Denies: Neck pain, Back pain, Swelling, Extremity Pain Skin: Reports: Rash. Denies: Wounds Neurological: Denies: Headache, Weakness, Numbness Physical Exam Vital Signs/Narrative: Vital Signs Temp Pulse Resp BP Pulse Ox 01/20/20 21:58 96.7 F L 66 14 85/41 L 100 Inital Vital Signs reviewed: Yes General: Well nourished, Well developed, Acute Distress - mild, painful Head: Normocephalic, Atraumatic Eyes: Perrl, EOMI ENT: Moist mucous membranes, No rhinorrhea Neck: Supple, Nontender Cardiovascular: Regular rate, Regular rhythm, No murmurs Respiratory: No distress, CTA bilaterally, Chest nontender Abdomen: Soft, Tender - diffusely, severely, Guarding, Rebound tenderness, Hypoactive bowel sounds, - - distended diffusely. Mild blanching erythema without induration surrounding the right mid abdominal surgical wounds, very large area of erythema, approximately 20 cm in diameter. Difficult to evaluate for tenderness since his abdomen is so tender generally anyhow. : - - Penile shaft edema. Surgical incision suprapubic look benign. Back: Nontender, Normal Inspection Extremities: Nontender, No edema Skin: Normal color, No Trauma, Rash - See abdominal exam. No other rashes. Neurological: Alert, Oriented x3, Cranial nerves II-XII grossly intact, Normal Strength, Normal Sensation Psychological: Normal affect, Normal Mood Diagnostic/Tx/Re-eval Impressions Abdomen/Pelvis CT 01/20/20 22:33 IMPRESSION: 1. Hepatic findings consistent with cirrhosis. 2. There is a small amount of ascites in the abdomen and pelvis. 3. There is a fluid collection anterior to the bladder containing a tiny air density measuring 10.6 x 4.4 x 5.0 cm. This may represent postoperative seroma, loculated ascites, or less likely abscess. 4. Extensive varices are seen in the abdomen. There is diffuse mesenteric fatty stranding. These appear similar to the previous study. 5. There are diffuse scattered shotty retroperitoneal nodes, also similar to the previous study. 6. Changes consistent with status post prostatectomy. 7. Perihilar implants are noted. Implant reservoir is seen in the left pelvis. 8. Subcutaneous fatty stranding in the right abdominal and pelvic soft tissues. There is edema of the right flank musculature. Electronically Signed: Anoop Araujo MD at 23:54 EDT , Service support , 01/20/20 22:33 Abdomen/Pelvis W IV Cont ONLY [CT] Stat Laboratory Results 01/20/20 01/20/20 01/20/20 22:20 22:20 22:20 WBC 11.9 H RBC 3.12 L Hgb 10.0 L Hct 29.2 L MCV 93.6 MCH 32.1 H MCHC 34.2 RDW Std Deviation 49.6 H RDW Coeff of David 14.5 Plt Count 164 MPV 12.9 H Immature Gran % (Auto) 0.800 Neut % (Auto) 74.7 H Lymph % (Auto) 6.1 L [place] % (Auto) 12.7 H Eos % (Auto) 5.2 H Baso % (Auto) 0.5 Absolute Neuts (auto) 8.9 H Absolute Lymphs (auto) 0.72 L Nucleated RBC % 0 Differential Comment SCANNED Diff Path Review May foll PT 16.6 H INR 1.4 APTT 35.4 Sodium 129 L Potassium 4.6 Chloride 95 L Carbon Dioxide 24.0 Anion Gap 10 BUN 91 H Creatinine 6.57 H Estim Creat Clear Calc 12.50 Est GFR (MDRD) Af Amer 11 L Est GFR (MDRD) Non-Af 9 L BUN/Creatinine Ratio 13.9 Glucose 95 Lactic Acid Calcium 8.0 L Total Bilirubin 1.00 AST 57 H ALT 37 Alkaline Phosphatase 139 H Total Protein 6.1 L Albumin 2.3 L Globulin 3.8 Albumin/Globulin Ratio 0.6 L Lipase 245 01/20/20 22:20 WBC RBC Hgb Hct MCV MCH MCHC RDW Std Deviation RDW Coeff of David Plt Count MPV Immature Gran % (Auto) Neut % (Auto) Lymph % (Auto) [place] % (Auto) Eos % (Auto) Baso % (Auto) Absolute Neuts (auto) Absolute Lymphs (auto) Nucleated RBC % Differential Comment Diff Path Review PT INR APTT Sodium Potassium Chloride Carbon Dioxide Anion Gap BUN Creatinine Estim Creat Clear Calc Est GFR (MDRD) Af Amer Est GFR (MDRD) Non-Af BUN/Creatinine Ratio Glucose Lactic Acid 1.4 Calcium Total Bilirubin AST ALT Alkaline Phosphatase Total Protein Albumin Globulin Albumin/Globulin Ratio Lipase - Medical Decision Making Patient is still hypotensive after liter of fluid, so another 500 cc is hung. He is in the 80s. He is tolerating fentanyl without further decreases in his pressure. Empiric Zosyn was provided after sending blood cultures. I am concerned about the redness in his abdominal wall, the drainage from the wound in his abdomen, and his abdominal exam in general. His CT as above shows multiple findings, there is a pelvic fluid collection that did not appear to be likely an abscess. This is a complicated abdomen, especially in context of alcoholic cirrhosis and recent prostatectomy. I think he needs to be transferred to [facility] [place] which is where he had the surgery. The patient and family are in agreement. At this time patient is still hypotensive in the 80s. He is satting well and not dyspneic while lying down so another liter will be bolused, in addition to vancomycin requested by the convenience recycle center tech at [facility] [place], where he is excepted. He had a negative COVID test 10 days ago, they are requesting another but we will not delay his transfer and waiting for the results, they will be sent directly to [facility] when resulted. Patient is feeling better after fentanyl and is conversive. Critical care time (excluding procedures): 30-74 minutes - 35 minutes, including time spent discussing with patient and family, consultants, arranging transfer, performing direct patient care to bedside managing vital signs ED Disposition - Plan for ED Patient: Disposition: [facility] Diagnosis: Pelvic fluid collection, Acute renal failure, Hypotension, Cellulitis of abdominal wall, Postoperative generalized abdominal pain, Alcoholic cirrhosis of liver Referrals: Adi Cisneros MD [Primary Care Provider] -
[2020-01-20 22:48] LABS: Absolute Lymphocyte Count 0.72 X10^3/uL (0.83-4.51); Absolute Neutrophil Count 8.9 X10^3/uL (2.0-7.7); Basophil# 0.06 X10^3/uL; Basophil% 0.5 % (0-1); Eosinophil# 0.62 X10^3/uL; Eosinophils% 5.2 % (0-5); Hematocrit 29.2 % (40-54); Lymphocyte # 0.72 X10^3/ul (4.0); Lymphocyte % 6.1 % (19-41); Mean Corp Hgb Conc 34.2 g/dL (32-36); Mean Corpuscular Hgb 32.1 pg (27.0-32.0); Mean Corpuscular Volume 93.6 fL (80-94); Mean Platelet Vol. 12.9 fl (6.2-12.0); Monocyte# 1.51 X10^3/uL; Monocyte% 12.7 % (0-10); NRBC Flagged by Analyzer 0 % (0-5); Neutrophil # 8.88 X10^3/uL (2.7-7.7); Neutrophil % 74.7 % (47-70); POSITIVE DIFFERENTIAL YES; Platelet Count 164 K/mm3 (150-450); RBC Distribution Width CV 14.5 % (11.6-14.6); RBC Distribution Width SD 49.6 fl (35.1-43.9); Red Blood Count 3.12 M/mm3 (4.6-6.2); White Blood Count 11.9 K/mm3 (4.4-11.0)
[2020-01-20] MEDS: 0.9% Normal Saline 1,000 ML 1000 ML IV (22:49)
[2020-01-20 22:50] LABS: Differential Indicated SCAN CRITERIA MET
[2020-01-20] MEDS: fentaNYL 100 MCG/2 ML Ampul 50 MCG IV (22:50)
[2020-01-20] MEDS: Ondansetron 4 MG/2 ML Vial IV (22:50)
[2020-01-20 22:53] LABS: International Normalized Ratio 1.4; Prothrombin Time (Protime)PT. 16.6 SECONDS (11.7-14.9)
[2020-01-20 22:54] LABS: Partial Thromboplast Time 35.4 Seconds (24.1-36.2)
[2020-01-20 22:59] LABS: ALB/GLOB Ratio 0.6 RATIO (0.9-2.4); AST(SGOT) 57 U/L (15-37); Alanine Aminotransfer ALT/SGPT 37 U/L (16-61); Albumin, Serum 2.3 g/dL (3.2-5.0); Alkaline Phosphatase 139 U/L (45-117); Anion Gap 10 (5-15); BUN 91 mg/dL (7-18); BUN/Creat Ratio 13.9 RATIO (10-20); Chloride 95 mmol/L (98-107); Creatinine, Serum 6.57 mg/dL (0.70-1.30); EST Glomerular Filtration Rate 9 mL/min (>60); Est Glom Filt Rate - Afr Amer 11 mL/min (>60); Globulin 3.8 g/dL (2.2-4.2); Glucose 95 mg/dL (74-106); Lactic Acid 1.4 mmol/L (0.4-1.9); Lipase 245 U/L (73-393); Potassium 4.6 mmol/L (3.5-5.1); Protein, Total 6.1 g/dL (6.4-8.2); Sodium Level 129 mmol/L (136-145)
[2020-01-20 23:04] VITALS: BP 77/43; PULSE 61; RESP 10; TEMP 36.6; O2SAT 95
[2020-01-20 23:20] LABS: Differential Comment SCANNED
[2020-01-21 00:01] VITALS: BP 83/43; PULSE 63; RESP 10; TEMP 36.4; O2SAT 97
[2020-01-21] MEDS: fentaNYL 100 MCG/2 ML Ampul 50 MCG IV ×2 (00:08→03:45)
[2020-01-21 01:00] VITALS: BP 80/37; PULSE 64; RESP 10; TEMP 35.9; O2SAT 96
--- NOTE | 2020-01-21 01:54 | ED.RN ---
UPDATE CALLED TO JESSICA.
[2020-01-21 02:00] VITALS: BP 84/49; PULSE 58; RESP 25; TEMP 36.1; O2SAT 98
[2020-01-21] MEDS: 0.9% Normal Saline 1,000 ML 999 ML IV (02:12)
[2020-01-21 03:00] VITALS: BP 89/46; PULSE 64; RESP 11; TEMP 36.1; O2SAT 97
[2020-01-21] MEDS: 0.9% Normal Saline 1,000 ML 200 ML IV (03:45)
[2020-01-21 04:57] LABS: Probe Check PASS; Specimen Processing Control PASS
[2020-01-22 12:24] LABS: Pathologist Review Reviewed
== END 2020-01-21 04:10 | disposition short-term general hospital (02) ==
PROVIDERS: Emergency Provider Emergency Medicine; PCP Family Medicine
DX: L03.311 Cellulitis of abdominal wall (principal); N17.9 Acute kidney failure, unspecified; I95.9 Hypotension, unspecified; R10.84 Generalized abdominal pain; Z90.79 Acquired absence of other genital organ(s); K70.31 Alcoholic cirrhosis of liver with ascites; J44.9 Chronic obstructive pulmonary disease, unspecified; E11.9 Type 2 diabetes mellitus without complications; I27.20 Pulmonary hypertension, unspecified; I34.0 Nonrheumatic mitral (valve) insufficiency; I50.22 Chronic systolic (congestive) heart failure; I42.8 Other cardiomyopathies; Z85.46 Personal history of malignant neoplasm of prostate; Z95.810 Presence of automatic (implantable) cardiac defibrillator; Z79.4 Long term (current) use of insulin; Z79.899 Other long term (current) drug therapy; Z87.891 Personal history of nicotine dependence
CPT/HCPCS: 74177; 80053; 83605; 83690; 85025; 85610; 85730; 87040; 87635; 93005; 96361; 96365; 96366; 96367; 96375; 96376; 99285; G2023; J7030; J7040; Q9967; A4216; J2405; U0003

== ENCOUNTER 2020-09-03 13:54 | Emergency (ER) | payer MEDICARE, SELFPAY ==
[2018-05-06 09:05] VITALS: BMI 33.0
[2020-09-03] VITALS (13 sets, daily range): BP systolic 43–130; BP diastolic 32–117; PULSE 72–93; RESP 17–26; TEMP 35.7–36.6; O2SAT 98–100; BMI 29.2
--- NOTE | 2020-09-03 | FLU_PTH ---
PATIENT: MEKA RENEE LOC: ED U#:[id number] AGE/SX: 60/M ROOM: RE09/03/[address]: Dr. Papa Thomas DO : 1960 BED: DIS: 09/03/2020 SPEC #: [id number] RECD: 09/03/20 15:42 STATUS: MYNOR REGiuseppe #: [id number] STEFANIA: 09/03/20 00:[address]: Papa Thomas DEPT: CYTOLOGY RECD BY: Vani Brown ENTERED: 09/04/20 09:37 SP TYPE: Fluid OTHR DR: Dr. Meka Cisneros MD Tissues: PARACENTESIS FLUID Procedures: Special Stain Group II Surgery Specimen Level IV Cytospin Fluid HEADER OPERATION: Paracentesis PRE-OP DIAGNOSIS: Ascites TISSUE SUBMITTED: Paracentesis fluid for cytology DIAGNOSIS CYTOLOGY Paracentesis fluid for cytology (cytospin): Negative for malignant cells. See comment. CHUYITA:allison 09/05/2020 COMMENT Clinical correlation and appropriate follow up are necessary. CYTOLOGY STUDY Slides are reviewed. CYTOLOGY GROSS Received is 100 ml of dark red, cloudy fluid labeled with the patient's name and and designated per the requisition as paracentesis. Submitted for cytology preparation including cell block. / allison 09/04/2020 TC:5 CPT: 96838, 51885
--- NOTE | 2020-09-03 14:08 | EKG12_ITS ---
Test Reason : Blood Pressure : / mmHG Vent. Rate : 090 BPM Atrial Rate : 090 BPM P-R Int : 132 ms QRS Dur : 102 ms QT Int : 414 ms P-R-T Axes : 016 -04 073 degrees QTc Int : 506 ms Sinus rhythm with occasional Premature ventricular complexes Possible Inferior infarct (cited on or before 20-JAN-2020) Cannot rule out Anterior infarct , age undetermined Prolonged QT Abnormal ECG Confirmed by JESSE CHRISTIANSEN, ALIA ([id number]), editorial clerk FLORIDALMA SCHWARZ ([id number]) on 09/09/2020 12:46:52 PM Referred By: ARMIDA Confirmed By:ALIA MOLINA MD
--- NOTE | 2020-09-03 14:10 | CT_ITS ---
STUDY: CT BRAIN WITHOUT CONTRAST REASON FOR EXAM: Male, 60 years old. SUDDEN ONSET ALTERED LOC, JAUNDICE., DB, CIRRHOSIS, PROSTATE CA, CHF, PACEMAKER, COPD, N/V, HYPOTENSIVE, HAS PENILE PUMP RADIATION DOSAGE (If Supplied By Facility): CTDIvol = ( 60.81 ) mGy, DLP = ( 2316.6 ) mGycm TECHNIQUE: Transaxial CT imaging of the brain was performed without administration of intravenous contrast material. Individualized dose optimization techniques were used for this CT. COMPARISON: No relevant priors. FINDINGS: Normal soft tissue structures. Normal calvarium. There is mild cerebral atrophy with widening of the extra-axial spaces and ventricular dilatation. Normal white matter tracts of the cerebral hemispheres. There is a 3.8 cm x 1.9 cm fluid collection in the anterior aspect of the left temporal fossa suggestive of an arachnoid cyst. Normal basal ganglia and thalami. Normal brainstem. Normal cerebellum. Prominence of the CSF spaces surrounding the cerebellum. There is no intracranial hemorrhage. There are no findings of an acute ischemic infarction. Normal visualized paranasal sinuses. CT/Brain/Head without Contrast IMPRESSION: Chronic involutional changes of the brain. Prominent CSF spaces in the posterior fossa. Findings suggestive of an arachnoid cyst in the anterior aspect of the left temporal fossa. Electronically Signed: Jerman Mcfadden MD at 15:19 EST , Service support ,
--- NOTE | 2020-09-03 14:11 | ED.DCSUM_ITS ---
- ER Visit Summary Date of Service: 09/03/20 Chief Complaint: [Confusion] History of Present Illness: The patient is a 60 M [presents to the emergency department via EMS with increased confusion over the last several hours per what the brother told EMS. Initially apparently blood sugar was in the 40s but then when EMS checked that it was over 300. Patient somewhat of a poor historian but states that he has been jaundiced for several weeks. Patient has history of alcoholic cirrhosis. He continues to smoke and drink. Patient has history of CHF as well as COPD and diabetes. He denies recent illness. He denies headache currently. He denies chest pain currently but had some chest discomfort prior to EMS arrival.] Physical Examination: [HEENT-PERRLA, EOMI. Cranial nerves II through XII grossly intact. TMs clear. Mucous membranes moist. No adenopathy. Patient does have scleral icterus. Cardiovascular-regular rate and rhythm without murmur or ectopy Lungs-clear to auscultation, chest wall stable without crepitus or subcu emphysema Abdomen-normoactive bowel sounds. Patient has a distended abdomen. Patient has some mild diffuse tenderness. There is no rebound, rigidity, or cranial signs. She does have a fluid wave. Extremities-intact ?4, normal range of motion, normal pulses, atraumatic. Patient does have diffuse jaundice involving the entire body.] Test Results: [EKG obtained on arrival shows sinus rhythm with a ventricular rat e of 90 bpm with some nonspecific ST changes and occasional PVCs noted. CBC with differential showed a white count of 7.0, hemoglobin 10.8, hematocrit 30, placed 53. Chemistries unremarkable. BUN was 13 and creatinine 1.6. Total bili was 7.3, alk phos 164, ALT 95, AST 266, INR was 1.9. Troponin was 0.069. Ammonia was 22. Lactate was 5.7. CT scan of the brain showed chronic involutional changes. CT scan of the abdomen pelvis initially was read as a distended gallbladder and ascites.] Emergency Department Course and Treatment: [The line established on arrival. Patient was given 2 L normal saline fluid bolus initially and his blood pressure responded with systolic going up into the 110 range.] Patient had blood on paracentesis and there was concern for intra-abdominal hemorrhaging. Patient was given 2 units of trauma blood. Case was discussed with [facility] ICU physician Dr. Montague who accepted transfer of patient. Patient will be sent via helicopter given that there is no close critical care ambulance and given patient's equal condition. Treatment Plan: [Transfer to [facility]] Disposition: [Transfer] Impression: Hemorrhagic shock Intra-abdominal hemorrhaging Hypotension [] This note was generated with [employer] dictation software. It may contain incorrect words, spelling, and punctuation that were not noted in review of the chart prior to signing ED Disposition - Plan for ED Patient: Instructions: Paracentesis Referrals: Adi Cisneros MD [Primary Care Provider] -
--- NOTE | 2020-09-03 14:18 | CT_ITS ---
STUDY: CT ABDOMEN AND PELVIS WITHOUT CONTRAST REASON FOR EXAM: Male, 60 years old. SUDDEN ONSET ALTERED LOC, JAUNDICE., DB, CIRRHOSIS, PROSTATE CA, CHF, PACEMAKER, COPD, N/V, HYPOTENSIVE, HAS PENILE PUMP RADIATION DOSAGE (If Supplied By Facility): CTDIvol = ( 14.80 ) mGy, DLP = ( 777.85 ) mGycm TECHNIQUE: Transaxial images were obtained from the dome of the diaphragm to the symphysis pubis without oral contrast, and without intravenous contrast. Sagittal and coronal images were reconstructed. Individualized dose optimization techniques were used for this CT. COMPARISON: Comparison is made with prior study dated 01/20/2020. FINDINGS: The visualized lung bases are unremarkable. Cardiomegaly. Dual chamber pacemaker is seen. Hepatomegaly. Heterogeneous appearance of the liver. Hepatomegaly. There is evidence of perihepatic and perisplenic fluid. The gallbladder is distended. Sludge is seen within the gallbladder lumen. Normal spleen. Normal pancreas. Normal bilateral adrenal glands. Normal right kidney. Normal left kidney. Normal visualized stomach. Normal small intestine. Normal colon. The appendix is visualized and appears normal. There is diffuse atherosclerotic calcification of the abdominal aorta, without a demonstrated aneurysm. Normal inferior vena cava. Normal retroperitoneum. Normal urinary bladder. Ascites. A penile pump is seen within the pelvis. There is a small umbilical hernia containing fat. There are degenerative changes of the visualized lumbar spine. CT/Abdomen/Pelvis without Cont IMPRESSION: Ascites. Heterogeneous appearance of the liver. The gallbladder is distended. Hepatomegaly. Electronically Signed: Jerman Mcfadden MD at 15:20 EST , Service support ,
[2020-09-03 14:26] LABS: Bedside Glucose 211 mg/dL (70-110)
[2020-09-03 14:44] LABS: International Normalized Ratio 1.9
[2020-09-03] MEDS: 0.9% Normal Saline 1,000 ML 999 ML IV (14:45)
[2020-09-03 14:52] LABS: Lactic Acid 5.7 mmol/L (0.4-1.9)
[2020-09-03 15:05] LABS: BUN 13 mg/dL (7-18); Creatinine, Serum 1.63 mg/dL (0.70-1.30); Glucose 212 mg/dL (74-106)
[2020-09-03 15:06] LABS: Absolute Lymphocyte Count 0.63 X10^3/uL (0.83-4.51); Absolute Neutrophil Count 4.8 X10^3/uL (2.0-7.7); Basophil# 0.07 X10^3/uL; Eosinophil# 0.06 X10^3/uL; Eosinophils% 0.9 % (0-5); Hematocrit 29.9 % (40-54); Hemoglobin 10.8 g/dL (13.0-16.5); Lymphocyte # 0.63 X10^3/ul (4.0); Mean Corp Hgb Conc 36.1 g/dL (32-36); Mean Corpuscular Hgb 33.4 pg (27.0-32.0); Mean Corpuscular Volume 92.6 fL (80-94); Mean Platelet Vol. 14.7 fl (6.2-12.0); Monocyte# 1.38 X10^3/uL; Monocyte% 19.7 % (0-10); NRBC Flagged by Analyzer 0 % (0-5); Neutrophil # 4.84 X10^3/uL (2.7-7.7); Neutrophil % 68.8 % (47-70); POSITIVE COUNT YES; Platelet Count 53 K/mm3 (150-450); RBC Distribution Width CV 17.2 % (11.6-14.6); RBC Distribution Width SD 58.8 fl (35.1-43.9); Red Blood Count 3.23 M/mm3 (4.6-6.2)
[2020-09-03 15:06] LABS: ALB/GLOB Ratio 0.5 RATIO (0.9-2.4); AST(SGOT) 266 U/L (15-37); Alanine Aminotransfer ALT/SGPT 95 U/L (16-61); Albumin, Serum 1.8 g/dL (3.2-5.0); Alkaline Phosphatase 164 U/L (45-117); Anion Gap 7 (5-15); Calcium,Total 7.4 mg/dL (8.5-10.1); Chloride 96 mmol/L (98-107); EST Glomerular Filtration Rate 46 mL/min (>60); Est Glom Filt Rate - Afr Amer 56 mL/min (>60); Globulin 3.6 g/dL (2.2-4.2); Lipase 216 U/L (73-393); Potassium 3.6 mmol/L (3.5-5.1); Protein, Total 5.4 g/dL (6.4-8.2); Sodium Level 131 mmol/L (136-145)
[2020-09-03 15:08] LABS: Differential Indicated SCAN CRITERIA MET
--- NOTE | 2020-09-03 15:08 | US_ITS ---
PROCEDURE: Ultrasound guided paracentesis. DATE OF EXAMINATION: 09/03/2020. INDICATION: Male, 60 years old. Ascites. PHYSICIAN: Jerman Mcfadden M.D. TECHNIQUE: The risks, benefits, and alternatives to the procedure were explained to the patient. The specific risks of bleeding, infection, and damage to bowel were detailed and accepted. Witnessed informed consent was obtained. The abdomen was ultrasonographically surveyed. An appropriate pocket of fluid was identified at the left lower quadrant. The skin were cleaned and prepped in the usual sterile fashion. Using ultrasound guidance, the peritoneal cavity was accessed with a 5-Azerbaijani paracentesis needle/catheter system. The trocar was removed. A total of 100 ml of bloody fluid were removed from the peritoneal cavity. The catheter was removed and a sterile dressing was applied. The procedure was well tolerated. US/Paracentesis with US IMPRESSION: Ultrasound guided paracentesis. Electronically Signed: Jerman Mcfadden MD at 15:56 EST , Service support ,
[2020-09-03] MEDS: 0.9% Normal Saline 1,000 ML 150 ML IV (15:11)
[2020-09-03 16:24] LABS: Body Fluid Mononuclear WBC # 0.522 10^3/uL; Body Fluid Mononuclear WBC % 24.3 %; Body Fluid Polynuclear WBC # 1.633 10^3/uL; Body Fluid Polynuclear WBC % 75.7 %; Body Fluid Total Cells Counted 2.181 10^3/ul; White Blood Count/Body Fluid 2.155 10^3/uL
[2020-09-03 16:26] LABS: Appearance/Body Fluid TURBID; Auto B Fluid Analyzer BKGD Ct COUNTS W/IN LIMITS (W/IN LIMITS); Color/Body Fluid RED; Source- Body Fluid PLEURAL FLUID
[2020-09-03 17:13] LABS: Body Fluid QC Type(s) BF1Q
[2020-09-03 17:18] LABS: Lymphocytes 7 %; Monocytes 6 %; Neutrophil (Segs) 87 %
[2020-09-03 17:20] LABS: LDH,Body Fluid 156 Units/l (Not Establ.); Protein, Body Fluid 2.3 g/dL (Not Establ.)
[2020-09-03 18:15] LABS: Reflex Lactate? Y
[2020-09-04 14:41] LABS: Pathologist Comment/Body Fluid Reviewed
[2020-09-10 16:36] LABS: Glucose, Body Fluid 186 mg/dL (40-70)
== END 2020-09-03 17:06 | disposition short-term general hospital (02) ==
PROVIDERS: Emergency Provider Emergency Medicine; PCP Family Medicine
DX: R57.8 Other shock (principal); R58 Hemorrhage, not elsewhere classified; I95.9 Hypotension, unspecified; I49.3 Ventricular premature depolarization; K70.31 Alcoholic cirrhosis of liver with ascites; K82.8 Other specified diseases of gallbladder; I50.9 Heart failure, unspecified; E11.9 Type 2 diabetes mellitus without complications; J44.9 Chronic obstructive pulmonary disease, unspecified; R07.89 Other chest pain; N40.0 Benign prostatic hyperplasia without lower urinary tract symptoms; Z72.0 Tobacco use; Z95.0 Presence of cardiac pacemaker; Z79.4 Long term (current) use of insulin
CPT/HCPCS: 49083; 70450; 74176; 80053; 82140; 82945; 82962; 83605; 83615; 83690; 84157; 84484; 85025; 85610; 85730; 86850; 86900; 86901; 86920; 87040; 87426; 88108; 88305; 88313; 89050; 93005; 96360; 96361; 99285; J7030; J7040; P9016; A4216

== ENCOUNTER → 2020-09-03 | Outpatient (CLI) | payer MEDICARE, MEDICAID, SELFPAY ==
[2018-05-06 09:05] VITALS: BMI 33.0
[2020-09-03 13:55] VITALS: BMI 29.2
== END | disposition home or self-care (01) ==
LOC: LABSPEC 15:48
PROVIDERS: PCP Family Medicine; Visit Provider Radiology Diagnostic Radiology
DX: R18.8 Other ascites (principal)